=== PATIENT | male | born 1945 | race Caucasian/White ===

== ENCOUNTER 2022-10-26 18:36 | Inpatient (IN) | payer OTHER, MEDICARE ==
--- OUTSIDE RECORDS SUMMARY | 2022-10-26 18:39 | XMS REPORT | Clinical Summary ---
:1945 Author Organization [facility] MD [facility] Address [address] [place] [address] Care Team Providers Name Role Phone Jade Arias MD Unavailable [phone] Brianne Suarez MD Unavailable Melo Salguero MD Unavailable Gurpreet Aguilar MD Primary Care Provider Sameer Cardoso MD Unavailable Nasim Lubin MD Unavailable Mike Avitia MD Unavailable Migue Saavedra DDS Unavailable Allergies No known active allergies Medications Medication Sig Dispensed Refills Start Date End Date Status amLODIPine (NORVASC) Take 10 mg by 0 08/19/2015 Active 10 mg tablet mouth daily. baclofen (LIORESAL) 20 Take 1 tablet by 0 08/30/2015 Active mg tablet mouth twice daily. clopidogrel (PLAVIX) Take 1 tablet by 0 08/19/2015 Active 75 mg tablet mouth daily. carvedilol (COREG) Take 1 tablet by 0 08/20/2015 Active 6.25 mg tablet mouth twice daily. lisinopril-hydrochloro Take 1 tablet by 0 08/19/2015 Active thiazide mouth twice daily. (PRINZIDE,ZESTORETIC) 20-12.5 mg per tablet simvastatin (ZOCOR) 10 Take 1 tablet by 0 08/19/2015 Active mg tablet mouth at bedtime. citalopram (CeleXA) 10 Take 1 tablet by 0 05/31/2015 Active mg tablet mouth at bedtime. doxazosin (CARDURA) 4 Take 1 tablet by 0 08/19/2015 Active mg tablet mouth twice daily. magnesium 250 mg tab Take 1 tablet by 0 Active mouth daily. aspirin 81 mg EC Take 81 mg by 0 Active tablet mouth daily. docusate sodium Take 100 mg by 0 Active (COLACE) 100 mg mouth twice daily. capsule garlic 1,000 mg cap Take 1 tablet by 0 Active mouth daily. cholecalciferol, Take 5,000 mg by 0 Active vitamin D3, (VITAMIN mouth daily. D3) 5,000 units tab tablet cranberry 500 mg cap Take 2 tablets by 0 Active mouth daily. torsemide (DEMADEX) 20 Take 20 mg by 0 Active mg tablet mouth daily. potassium chloride Take 20 mEq by 0 Active (KLOR-CON) 20 mEq mouth every other packet day. Mix contents of 1 packet in 4 ounces (120 mL) of water or juice. Stir well and drink promptly. fish,bora,flax Take by mouth 0 A ctive oils-om3,6,9no1 (OMEGA daily. 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 Surgical History Surgery Date Site/Laterality Comments COLONOSCOPY 05/03/2004 - 05/02/2005 BRONCHOSCOPY 05/03/2005 - to insert Trach due to 05/02/2006 the stroke HIP SURGERY 05/03/2008 - Right pin placed 05/02/2009 APPENDECTOMY 05/03/1965 - 05/02/1966 GASTROSTOMY TUBE PLACEMENT 05/03/2005 - 05/02/2006 TRACHEOSTOMY TUBE 05/03/2005 - PLACEMENT 05/02/2006 AR EXC PRTD SHELBY/PRTD GLND 11/01/2015 Neck/Right Proced ure: COMPLETE TOT DSJ&PRSRV FACIAL NR EXCISION OF PAROTID GLAND WITH DISSECTION AND PRESERVATION OF FACIAL NERVE; Surgeon: Gurpreet Aguilar MD; Locatio n: MAIN OR; Service: [facility] - HEAD & NECK SURGERY AR CONSTJ INTERMARGIN 11/01/2015 Eyelid/Right Procedure: TARSORRHAPHY ADHES/TARSORRH/CANTHORRHAP TO EY E OF SURGICAL SIDE; Y Surgeon: Gurpreet Aguilar MD; Location: MAIN O R; Service: [facility] - HE AD & NECK SURGERY Medical History Medical History Date Comments Hyperlipidemia 2006 Controlled with medi cation Allergic rhinitis 2016 seasonal allergies. Flonase relieves it Swallowing problem 2006 due to stroke/ resol kanwal/ drink sparkling water but has resolved Pneumonia hospitalized in 2015 Urinary tract infection 9967-2078 wears external c ondoms at bedtime Osteoporosis 2015 Fracture 2009 fell and fx rt hip/ pin hip Jun. 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 pt has been on same BP meds since [facility] except for Coreg whi ch was added 3 yrs ago. pt's BP in AM and BP and have been 118/60s. s kylie dx, over the past 2 wks, his BP has tessa 140-150s/70-80s. Other specified cardiac dysrhythmias 2012? pts states no arythmias (has had Holter in the [facility]) have been dx'd but that she fe els his pulse feels slow. Bronchitis usually in the winte rs History of cerebrovascular accident 2006 pt r eportedly had headache followed by facial weakness a nd left side weakness and then wa s"locked in". pt sp stent in basilar artery (left) 2005 and had some re covery. pt has some residual weakne ss of the left side. Personal history of stroke 2006 post and has recovered well. Left side weakness Irregular heart beat 2016 controlled with med ication Unspecified lump in unspecified breast 2019 R ight side/thought it was due to URI/Pneumoni/Bronchi tis Inf Dependence on continuous positive 2000 airway pressure ventilation Polyp of colon 2004 History of recurrent urinary tract 2018 infection Family History Patient is adopted Medical History Relation Name Comments -Genitourinary (Bladder, Kidney, Brother Mohinder Fuentes Prostate/ we are adoted??? Prostate, Testicle) Hypertension Brother Mohinder Fuentes Controlled Relation Name Status Comments Brothalysa Fuentes Social History Tobacco Use Types Packs/Day Years Used Date Smoking Tobacco: Former Cigarettes 0.5 20 05/1965 - 05/03/1993 Smokeless Tobacco: Never Comments: have not smoked in since 1993 Alcohol Use Standard Drinks/Week Comments No 0 (1 standard drink = 0.6 oz pure alcoho l) Sex Assigned at Date Recorded Male 02/13/2019 12:48 PM CDT Obstetrics History Last Filed Vital Signs Not on file Plan of Treatment Health Maintenance Due Date Last Done Comments COVID-19 Vaccination (#1) 1945 Results Not on fileafter 10/26/2021 Insurance Payer Benefit Plan Subscriber ID Effective Phone Address Typ e / Group Dates MEDICARE MEDICARE PART [id number] 2009-Pres [phone] [place] Medicare A AND B ent [id number] [address] [facility] [place] [address] [place] [employer]-SE[employer] [id number] 2013-Pres [address] [employer] ONLY ent [id number] [place] [address] Advance Directives Code Status Date Activated Date Inactivated Comments Full Code 11/01/2015 2:15 PM 11/07/2015 1:39 PM Care Teams Firer Boiler Relationship Specialty Start Date End Date Hugo PCP - External Primary Internal Medicine 09/23/14 MD Jade Care Provider [address] [place] [address] [id number] Brianne Suarez PCP - External Otolaryngology 09/23/14 MD Dora Referring [address] [place] [address] Melo Salguero PCP - External Follow 09/23/14 MD Clyde Up A [address] [place] [address] Gurpreet Aguilar MD PCP - General Head and Neck Surgery 09/30/[address] [place] [id number] Sameer Cardoso PCP - External Follow Physical Medicine and [facility] [address] [facility] [address] [place] [address] Nasim Lubin MD Consulting Physician Head and Neck Medical 10/31/[address] [place] [address] [place] [address] Mike Avitia Consulting Physician Radiation Oncology 10/31/15 MD Jaycee [address] [place] [id number] Migue Saavedra DDS Consulting Physician Dental Oncology 10/04/[address] [place] [id number]
--- OUTSIDE RECORDS SUMMARY | 2022-10-26 19:02 | XMS REPORT | Continuity of Care Document ---
:1945 Author Organization [facility] t Address [address] [facility] [address] [place] [address] Care Team Providers Name Role Phone Hugo GUY, Nba Primary Care Physician [phone] Lavell Decker Attending Clinician RADIOLOGY Attending Clinician Unavailable Radiology Attending Clinician Unavailable Doctor Unassigned, [place] Attending Clinician Unavailable Margie Al NP Attending Clinician 2, [facility] Attending Clinician Unavailable Cait Bhat MD Attending Clinician [phone] MARGIE AL Attending Clinician Unavailable CAIT BHAT Attending Clinician Unavailable Nick Zepeda MD Attending Clinician NICK ZEPEDA Attending Clinician Unavailable Michael Valdez Attending Clinician Unavailable Sera Andrade Attending Clinician Jayy Santos MD Attending Clinician ANNETTE MELO PA Attending Clinician Unavailable Hugo GUY, Felipa Attending Clinician [phone] Pob, [facility] Main Attending Clinician Unavailable Natalia Farfan MD Attending Clinician Kandice White Attending Clinician [phone] Ashok Rincon Attending Clinician Alber Attending Clinician Unavailable Dolores Rolon Attending Clinician Jayy Calle Attending Clinician Physician, Non Associated Attending Clinician Unavailable FELIPA HANSEN Admitting Clinician Unavailable Felipa Hansen Admitting Clinician Unavailable Kandice White Admitting Clinician Ashok Rincon Admitting Clinician Alber Admitting Clinician Unavailable Dolores Rolon Admitting Clinician Jayy Calle Admitting Clinician Payers Payer Name Policy Type Policy Number Effective Date Expiration Date S ource MEDICARE PART A \\T\\ [id number] 2009 B 00:00:00 [facility] [id number] 2013 MEDICARE SUPPLEMENT 00:00:00 [place]ICARE [place]: [id number] 2009 [employer] 00:00:00 [facility] [id number] 2013 OPTION - PLAN F 00:00:00 (MEDICARE SUPPLEMENT) Problems Condition Condition Condition Status Onset Resolution Last Treating Co mments Source Name Details Category Date Date Treatment Clinician Date F/U LAST F/U LAST Diagnosis Active 2022-10-23 Memoria SEEN 2019 SEEN 08-13 13:45:00 l Active 00:00: Joe 08/13/2022 00 MH [facility] DELIVERY/F DELIVERY/ Diagnosis Active 2019-052020-03-18 Memoria ITTING FITTING 05-07 13:47:00 l Active 00:00: Joe 03/07/2020 00 [facility] EVAL EVAL Diagnosis Active 2020-01-12 Mem oria CLINIC CLINIC 12-12 12:35:00 l WITH MINDY WITH MINDY 00:00: Lissa guerra Active 00 12/13/2019 [facility] DISCHARGE Diagnosis Active 2020-01-16 Memoria FOLLOW UP DISCHARGE 06-05 10:18:00 l FOLLOW UP 00:00: Joe Active 00 06/05/2019 [facility] LLE LLE Diagnosis Active 2018-052019-04-20 Mem oria FRACTURE/L FRACTURE/L 05-21 22:10:00 l EFT EFT 00:00: Joe HEMIPARESI HEMIPARESI 00 S S Active 03/21/2019 [facility] FIB FX FIB FX Diagnosis Active 2018-052019-03-30 Me moria Active 05-21 21:40:00 l 03/21/2019 00:00: Jamar lousi [address] LEFT LEFT Diagnosis Active 2018-052019-03-22 Mem oria TIB/FIB FX TIB/FIB FX 05-21 01:03:00 l Active 00:00: Joe 03/21/2019 00 [facility] POLYTRAUMA POLYTRAUM Diagnosis Active 2018-052019-03-22 Memoria , A, 05-21 15:27:00 l DECREASED DECREASED 00:00: Lissa guerra FUNCTIONAL FUNCTIONAL 00 MOBILIT MOBILIT Active 03/21/2019 [facility] Mass of Mass of Disease Active Univers right right 7-31 ity of [place] 00 MD [facility] Elevated Elevated Disease Active Unive rs troponin troponin 7-04 ity of 00:00: [place] [address] Medical Branch Elevated Elevated Disease Active Unive rs troponin troponin 7-04 ity of 00:00: [place] [address] [facility] Branch Acute Acute Disease Active Univers cystitis cystitis 7-03 ity of 00:00: [place] [address] Medical Branch 6 WEEK F/U 6 WEEK Diagnosis Active 2017-02-03 Memoria F/U Active 11-27 14:17:00 l 11/27/2016 00:00: Jamar louis [facility] 00 F/U F/U Diagnosis Active 2016-10-07 Mem oria Active 09-18 14:26:00 l 09/18/2016 00:00: Jamar louis [facility] 00 DC F/U DC F/U Diagnosis Active 2015-052016-07-23 M emoria Active 14:31:00 l 02/26/2016 00:00: Jamar louis [facility] 00 CVA CVA Diagnosis Active 2015-12-06 Mem oria Active 10-31 23:29:00 l 11/01/2015 00:00: Jamar louis [facility] 00 BI BI Active Diagnosis Active 2015-11-06 Memoria 11/01/201510-31 15:51:00 l [facility] 00:00: Joe 00 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 00:00: [place] 00 MD [facility] 200 UNITS 200 UNITS Diagnosis Active 2014-052015-05-25 Memoria Active 05-18 16:30:00 l 03/18/2015 00:00: Jamar louis [facility] 00 Weakness Weakness Disease Active Unive rs generalize generalize 30 it y of d d 00:00: [place] 00 [facility] Branch EVAL EVAL Diagnosis Active 2014-08-02 Mem oria Active 07-06 14:07:00 l 07/06/2014 00:00: Jamar louis [facility] 00 POWER POWER Diagnosis Active 2014-08-15 Mem oria WHEELCHAIR WHEELCHAIR 05-03 12:47:00 l EVAL EVAL 00:00: Joe Active 05/03/2000 [facility] WHEELCHAIR WHEELCHAI Diagnosis Active 2014-09-21 Memoria FINAL R FINAL 05-03 12:42:00 l FITTING FITTING 00:00: [place] Active 00 05/03/2000 [facility] Unspecifie Unspecifi Problem 2019-04-15 Memoria d fracture ed 22:45:50 l of left fracture Joe lower leg, of left initial lower leg, encounter initial for closed encounter fracture for closed fracture 04/15/2019 [facility] Final: Final: Problem 2015-02-18 Roe ana Other Other 00:46:21 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, [facility], [place] Fracture Fracture Problem Resolve 2021-07-06 Memoria of of d 02:09:13 l proximal proximal Jamar n end of end of femur femur (disorder) (disorder) Resolved Problem 07/06/[address] [facility] Hypokalemi Hypokalem Problem Resolve 2021-07-06 Memoria a ia d 02:09:13 l (disorder) (disorder) He rmann Resolved Problem 07/06/[address] [facility], [facility], [place] Pneumonia Pneumonia Problem Resolve 2021-07-06 Memoria (disorder) (disorder) d 02:09:13 l Resolved Jeo Problem 07/06/[address] [facility], [facility], [place] Urinary Urinary Problem Resolve 2021-07-06 M emoria tract tract d 02:09:13 l infectious infectious He rmann disease disease (disorder) (disorder) Resolved Problem 07/06/[address] [facility], [facility], BLANCA [place] Altered Altered Problem Active 2022-10-05 Me moria mental mental 00:51:09 l status status [place] (finding) (finding) Active Problem 10/05/[address] 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, [facility], [facility] Dysphagia Dysphagia Problem Active 2022-10-05 Memoria (disorder) (disorder) 00:51:09 l Active Joe Problem 10/05/[address] [facility], [facility], [facility] Hemiparesi Hemipares Problem Active 2022-10-05 Memoria s is 00:51:09 l (disorder) (disorder) He rmann Active Problem 10/05/[address] [facility], [facility], [facility] Hyperchole Hyperchol Problem Active 2022-10-05 Memoria sterolemia esterolemi 00:51:09 l well a well [place] controlled controlled (finding) (finding) Active Problem 10/05/[address] [facility], [facility], [facility] Hypertensi Hypertens Problem Active 2022-10-05 Memoria ve george 00:51:09 l disorder, disorder, Herm mari systemic systemic arterial arterial (disorder) (disorder) Active Problem 10/05/[address] [facility], [facility] Obesity Obesity Problem Active 2022-10-05 M emoria (disorder) (disorder) 00:51:09 l Active Joe Problem 10/05/[address] [facility], [facility], [facility] Osteoporos Problem Active 2022-10-05 M emoria is Osteoporos 00:51:09 l (disorder) is Jamar n (disorder) Active Problem 10/05/[address] 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, [facility], [facility] PARAPLEGIA PARAPLEGI Diagnosis Active 2020-03-18 Memoria , A, 13:47:00 l UNSPECIFIE UNSPECIFIE He rmann D D Active [facility] INTCRAN INTCRAN [facility]J W/O INJ W/O 10:18:00 l LOSS OF LOSS OF Joe CONSCIOUSN CONSCIOUSN ESS, I ESS, I Active [facility] UNSP UNSP Diagnosis Active 2019-04-20 Mem oria FRACTURE FRACTURE 22:10:00 l OF LEFT OF LEFT Joe LOWER LEG, LOWER LEG, INIT FO INIT FO Active [facility] UNSP UNSP Diagnosis Active 2019-03-30 Mem oria FRACTURE FRACTURE 21:40:00 l OF SHAFT OF SHAFT Jamar n OF UNSP OF UNSP FIBULA, I FIBULA, I Active [facility] FOLLOW-UP FOLLOW-UP Diagnosis Active 2014-09-21 [facility] EXAM NOS EXAM NOS 12:42:00 l Active Jamar n [facility] SPASM OF SPASM OF Diagnosis Active 2014-12-27 [facility] MUSCLE MUSCLE 17:08:00 l Active Jamar n [facility] OTHER OTHER Diagnosis Active 2015-12-06 Mem oria 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 Active [facility] CYANOSIS CYANOSIS Diagnosis Active 2015-01-31 Memoria Active 13:04:00 l [facility] Joe ENCNTR FOR ENCNTR Diagnosis Active 2015-03-18 [facility] F/U EXAM FOR F/U 10:07:00 l AFT TRTMT EXAM AFT Magdalena nn FOR COND O TRTMT FOR COND O Active MH [facility] ANOXIC ANOXIC Diagnosis Active 2015-03-18 M emoria BRAIN BRAIN 10:07:00 l DAMAGE, DAMAGE, Joe NOT NOT ELSEWHERE ELSEWHERE CLASS CLASS Active MH [facility] OTHER OTHER Diagnosis Active 2022-10-23 Mem oria MUSCLE MUSCLE 13:45:00 l SPASM SPASM [place] Active MH [facility] No known No known Disease Metho di active active st problems problems Hospit a l Closed Closed Problem Active [facility] displaced displaced Phys ici fracture fracture ans of medial of medial malleolus malleolus with with malunion malunion Closed Closed Problem Active [facility] bicondylar bicondylar Ph ysici fracture fracture ans of left of left femur, femur, initial initial encounter encounter Closed Closed Problem Active [facility] displaced displaced Phys ici fracture fracture ans of medial of medial condyle of condyle of left femur left femur Closed Closed Problem Active [facility] displaced displaced Phys ici fracture fracture ans of medial of medial malleolus malleolus of left of left tibia with tibia with malunion, malunion, subsequent subsequent encounter encounter Allergies, Adverse Reactions, Alerts Allergy Allergy Status Severity Reaction(s) Onset Inactive Treating Comm ents Source Name Type Date Date Clinician No Known DA Active [facility] [place] [facility] No Known DA Active U 0 [facility]ie [facility]04 [place] [facility] 00:[facility]: d [facility] No Known No Known Active Memori a Medicati Medicati l on on [place] Allergie Allergie s s NO KNOWN Drug Active Univers ALLERGIE Class ity of S [facility] [place] [facility] Family History Family Member Diagnosis Comments Start Date Stop Date Source Natural brother -Genitourinary Unive rsity of (Bladder, Kidney, [facility] Prostate, Testicle) [facility] Hypertension [facility] MD [facility] Social History Social Habit Start Date Stop Date Quantity Comments Source Gender identity [facility] Sexual orientation [facility] History SDOH [facility] al History SDOH [facility] Exposure to 2022-04-05 2022-04-15 Not sure University [facility]-CoV-2 (event) 00:00:00 13:08:00 [facility] [place] [facility] Social History 2019-03-22 2019-03-22 Iliana brand 08:33:33 08:33:33 Alcohol intake 2019-02-16 2019-02-16 Current University of 00:00:00 00:00:00 non-drinker of [facility] (finding) History of Social 2018-12-18 2018-12-[address] function 00:00:00 00:00:00 Hospital History SDOH 2018-10-13 2018-10-13 1 [facility] Frequency 00:00:00 00:00:00 Hospita l Tobacco Comment 2015-10-03 2015-10-03 have not smoked Univ ersity of 00:00:00 00:00:00 in since 1993 [facility] Cigarettes smoked 2015-10-03 2015-10-03 Univers ity of current (pack per 00:00:00 00:00:00 [facility] ) - Reported Cancer Ce nter Cigarette 2015-10-03 2015-10-03 University of pack-years 00:00:00 00:00:00 Teresa [facility]cfadden [facility] Tobacco use and 2015-01-26 2015-01-26 Former smokeless Uni versity of exposure 00:00:00 00:00:00 tobacco user [facility] Branch History of tobacco 1965-05-03 1993-05-03 Cigarette Smoker University of use 00:00:00 00:00:00 Teresa mcfadden [facility] Sex Ass[birth year] [facility] 00:[facility] Smoking Status Start Date Stop Date Source Tobacco smoking status 2022-08-21 19:36:49 2022-08-21 19:36:49 M sukhdeep Diaz Never smoked tobacco [facility] Medications Ordered Filled Start Stop Current Ordering Indication Dosage Frequency Signature Comments Components Source Medication Medication Date Date Medication? Clinician (SIG) Name Name baclofen Yes = 1 tab, Me moria mg oral 4-04 PO, BID, # l tablet 17:32: 180 tab, 1 Magdalena nn 00 Refill(s), Pharmacy: [facility] #[id number] baclofen Yes = 1 tab, Me moria mg oral 4-04 PO, BID, # l tablet 17:32: 180 tab, 1 Magdalena nn 00 Refill(s), Pharmacy: [facility] #[id number] baclofen 20 2022-0 Yes = 1 tab, Me moria mg oral 4-04 PO, BID, # l tablet 17:32: 180 tab, 1 Magdalena nn 00 Refill(s), Pharmacy: [facility] #[id number] TAKE ONE 2021-0 No (1) 9-30 TABLET(S) 00:00: BY MOUTH 00 TWICE A DAY. TAKE ONE 2021-0 No 20 (1) 8-25 TABLET(S) 00:00: BY MOUTH 00 TWICE A DAY. TAKE 1 2021-0 No 10 TABLET BY 7-28 MOUTH EVERY 00:00: NIGHT 00 Dose 2021-0 No Unknown 11-27 00:00: 00 nystatin 2021-0 No 1unit/g 100,000 7- josi unit/gram 00:00: topical 00 powder carvedilol 2021-0 No 1mg 3.125 mg 7-13 tablet 00:00: 00 &lt 2021-0 No 70 7- 00:00: 00 Dose 2-0 No Unknown 7 00:00: 00 Dose 2021-0 No 10 Unknown 711 00:00: 00 TAKE 1 2021-0 No 20 TABLET BY 7-11 MOUTH EVERY 00:00: DAY 00 NEEDED Dose 2021-0 No Unknown 7 00:00: 00 TAKE 1 2021-0 No 10 TABLET BY 7-05 MOUTH EVERY 00:00: NIGHT 00 TAKE 1 2021-0 No 10 TABLET BY 7-05 MOUTH ONCE 00:00: DAILY 00 Dose 2-0 No Unknown 7-05 00:00: 00 TAKE 1 2021-0 No 10 TABLET BY 7-05 MOUTH EVERY 00:00: NIGHT 00 TAKE 1 2021-0 No 10 TABLET BY 7-05 MOUTH ONCE 00:00: DAILY 00 Dose 2-0 No Unknown 7-05 00:00: 00 &lt 2022-0 No 6-30 00:00: 00 &lt 2022-0 No 6-30 00:00: 00 TAKE 1 2-0 No TABLET BY 6-30 MOUTH EVERY 00:00: DAY 00 NEEDED TAKE 1 2-0 No TABLET BY 6-30 MOUTH ONCE 00:00: DAILY 00 TAKE 1 2-0 No TABLET BY 6-30 MOUTH EVERY 00:00: DAY AT 00 BEDTIME &lt 2022-0 No 6-30 00:00: 00 Dose 2022-0 No Unknown 6-30 00:00: 00 &lt 2022-0 No 6-30 00:00: 00 carvedilol 2022-0 No 1mg 3.125 mg 6-30 tablet 00:00: 00 torsemide 2022-0 No 1mg 20 mg 6-30 tablet 00:00: 00 potassium 2022-0 No 1mEq chloride ER 6-30 20 mEq 00:00: tablet,exte 00 nded release(par t/cryst) &lt 2022-0 No 6-30 00:00: 00 &lt 2022-0 No 6-30 00:00: 00 &lt 2022-0 No 6-30 00:00: 00 &lt 2022-0 No 6-30 00:00: 00 TAKE 1 2-0 No TABLET BY 6-30 MOUTH EVERY 00:00: DAY 00 NEEDED TAKE 1 2-0 No TABLET BY 6-30 MOUTH ONCE 00:00: DAILY 00 TAKE 1 2-0 No TABLET BY 6-30 MOUTH EVERY 00:00: DAY AT 00 BEDTIME &lt 2022-0 No 6-30 00:00: 00 Dose 2022-0 No Unknown 630 00:00: 00 &lt 2022-0 No 6-30 00:00: 00 carvedilol 2022-0 No 1mg 3.125 mg 6-30 tablet 00:00: 00 torsemide 2022-0 No 1mg 20 mg 6-30 tablet 00:00: 00 potassium 2-0 No 1mEq chloride ER 6-30 20 mEq 00:00: tablet,exte 00 nded release(par t/cryst) &lt 2-0 No 6-30 00:00: 00 &lt 2022-0 No 6-30 00:00: 00 baclofen 20 2-0 No 1mg mg tablet 624 00:00: 00 TAKE ONE 2-0 No (1) 6-24 TABLET(S) 00:00: BY MOUTH 00 TWICE A DAY. TAKE ONE 2-0 No (1) 6-24 TABLET(S) 00:00: BY MOUTH 00 TWICE A DAY. TAKE 1 2-0 No TABLET BY 6-24 MOUTH EVERY 00:00: NIGHT 00 TAKE 1 2-0 No TABLET BY 6-24 MOUTH EVERY 00:00: NIGHT 00 baclofen 20 2-0 No 1mg mg tablet 10-24 00:00: 00 TAKE ONE 2-0 No (1) 6-24 TABLET(S) 00:00: BY MOUTH 00 TWICE A DAY. TAKE ONE 2-0 No (1) 6-24 TABLET(S) 00:00: BY MOUTH 00 TWICE A DAY. TAKE 1 2-0 No TABLET BY 6-24 MOUTH EVERY 00:00: NIGHT 00 TAKE 1 2-0 No TABLET BY 6-24 MOUTH EVERY 00:00: NIGHT 00 citalopram 2022-0 No 1mg 10 mg 5-25 tablet 00:00: 00 citalopram 2022-0 No 1mg 10 mg 5-25 tablet 00:00: 00 Bactrim DS 2022-0 No 1mg 800 mg-160 4-21 mg tablet 00:00: 00 Bactrim DS 2022-0 No 1mg 800 mg-160 4-21 mg tablet 00:00: 00 ciprofloxac 2022-0 No 1mg in 500 mg 4-01 tablet 00:00: 00 ciprofloxac 2022-0 No 1mg in 500 mg 4-01 tablet 00:00: 00 ciprofloxac 2022-0 No 1mg in 500 mg 4-01 tablet 00:00: 00 ciprofloxac 2022-0 No 1mg in 500 mg 4-01 tablet 00:00: 00 Dose 2022-0 No Unknown 3-31 00:00: 00 Dose 2022-0 No Unknown 3-31 00:00: 00 Dose 2022-0 No Unknown 3-31 00:00: 00 Dose 2022-0 No Unknown 3-31 00:00: 00 Dose 2022-0 No Unknown 3-31 00:00: 00 Dose 2022-0 No Unknown 3-31 00:00: 00 carvedilol 2022-0 No 1mg 6.25 mg 3-30 tablet 00:00: 00 Dose 2022-0 No Unknown 3-30 00:00: 00 Macrobid 2022-0 No 1mg 100 mg 3-30 capsule 00:00: 00 carvedilol 2022-0 No 1mg 6.25 mg 3-30 tablet 00:00: 00 Cardura 4 2-0 No 1mg mg tablet 3-30 00:00: 00 Macrobid 2022-0 No 1mg 100 mg 3-30 capsule 00:00: 00 simvastatin 2022-0 No 1mg 10 mg 3-29 tablet 00:00: 00 Plavix 75 2-0 No 1mg mg tablet 3-29 00:00: 00 lisinopril 2022-0 No 1mg 20 3-29 mg-hydrochl 00:00: orothiazide 00 12.5 mg tablet Dose 2-0 No Unknown 3-29 00:00: 00 citalopram 2022-0 No 1mg 10 mg 3-29 tablet 00:00: 00 nitrofurant 2-0 No 1mg oin 3-29 macrocrysta 00:00: l 100 mg 00 capsule Dose 2-0 No Unknown 3-29 00:00: 00 simvastatin 2022-0 No 1mg 10 mg 3-29 tablet 00:00: 00 Plavix 75 2-0 No 1mg mg tablet 3-29 00:00: 00 lisinopril 2022-0 No 1mg 20 3-29 mg-hydrochl 00:00: orothiazide 00 12.5 mg tablet Dose 2-0 No Unknown 3-29 00:00: 00 citalopram 2022-0 No 1mg 10 mg 3-29 tablet 00:00: 00 nitrofurant 2-0 No 1mg oin 3-29 macrocrysta 00:00: l 100 mg 00 capsule Dose 2-0 No Unknown 3-29 00:00: 00 Dose 2022-0 No Unknown 3-15 00:00: 00 Dose 2022-0 No Unknown 3-15 00:00: 00 Dose 2022-0 No Unknown 3-15 00:00: 00 Dose 2022-0 No Unknown 3-15 00:00: 00 baclofen 20 2021-0 Yes 20 mg = 1 M emoria mg oral 3-08 tab, PO, l tablet 22:47: BID, # 180 Magdalena nn 00 tab, 2 Refill(s), Pharmacy: [facility], 182.88, cm, 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, 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, 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, kg, 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, 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 baclofen 20 2021-0 Yes 20 mg = 1 M emoria mg oral 3-08 tab, PO, l tablet 22:47: BID, # 180 Magdalena nn 00 tab, 2 Refill(s), Pharmacy: [facility] [place], 182.88, cm, 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, 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, 127.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, kg, 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, 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 baclofen 20 2021-0 Yes 20 mg = 1 M emoria mg oral 3-08 tab, PO, l tablet 22:47: BID, # 180 Magdalena nn 00 tab, 2 Refill(s), Pharmacy: [facility] [place], 182.88, cm, 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, 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, 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.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, kg, 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, 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 baclofen 20 2021-0 Yes 20 mg = 1 M emoria mg oral 3-03 tab, PO, l tablet 19:48: BID, # 180 Magdalena nn 00 tab, 2 Refill(s), Pharmacy: [facility][id number], 182.88, cm, 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, 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, 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.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, kg, 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, 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 baclofen 20 2021-0 Yes 20 mg = 1 M emoria mg oral 3-03 tab, PO, l tablet 19:48: BID, # 180 Magdalena nn 00 tab, 2 Refill(s), [id number], 182.88, cm, 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 [address] clopidogrel Yes 75mg Take 75 mg Univers (PLAVIX) 75 2-07 by mouth ity of mg tablet 11:57: daily. [address] baclofen Yes 20mg Take 20 mg Uni vers (LIORESAL) 2-07 by mouth 2 ity of 20 mg 11:57: (two) [place] tablet 11 times Medical daily. Branch simvastatin Yes 10mg Take 10 mg Univers (ZOCOR) 10 2-07 by mouth ity o f mg tablet 11:57: at [place] [address] bedtime. Medical Branch citalopram Yes 10mg Take 10 mg U nivers (CELEXA) 10 2-07 by mouth ity of mg tablet 11:57: at [place] [address] bedtime. Medical Branch aspirin 81 Yes 81mg Take 81 mg U nivers mg chewable 2-07 by mouth ity of tablet 11:57: daily. [address] Cranberry Yes 2{capsu Take 2 Uni vers 500 mg Cap 2-07 le} capsules ity o f 11:57: by mouth. [address] doxazosin 4 Yes doxazosin U nivers mg tablet 2-07 4 mg ity of 11:57: tablet [address] torsemide Yes 20mg Take 20 mg Un beto 20 mg 2-07 by mouth. ity of tablet 11:57: [address] lisinopriL- Yes lisinopril Univers hydrochloro 2-07 20 ity of thiazide 11:57: mg-hydroch [place] as 20-12.5 mg 11 lorothiazi Med ical per tablet de 12.5 mg Bra nch tablet Magnesium Yes 1{tbl} Take 1 Univ ers 250 mg Tab 2-07 tablet by ity of 11:57: mouth. [address] potassium Yes 20meq Take 20 Univ ers chloride 20 2-07 mEq by ity of mEq packet 11:57: mouth. [place] [address] Medical Branch Cholecalcif Yes 1{each} Take 1 U nivers jono, 2-07 Each by ity of Vitamin D3, 11:57: mouth [place] (VITAMIN 11 daily. Medical D3) 125 mcg Branch (5,000 unit) tablet baclofen 20 Yes baclofen Un beto mg tablet 2-07 20 mg ity of 11:57: tablet [place] [address] Medical Branch docusate Yes 250mg Take 250 Univ ers sodium 2-07 mg by ity of (STOOL 11:57: mouth [place] SOFTENER) 11 daily. Medical 250 mg Branch capsule cran[facility] fruit [facility]-07 mouth. ity of extract 11:57: [place] (CRANBERRY Medical CONCENTRATE Branch ORAL) fish,bora,f Yes Take by Uni vers lax 2-07 mouth. ity of oils-om3,6, 11:57: [place] 9no1 (OMEGA 11 Medical 3-6-9) Branch 1,200 mg Cap Zinc 50 mg Yes Take by Univ ers Tab 2-07 mouth. ity of 11:57: [place] [address] Medical Branch vitamin C Yes 100mg Take 100 Uni vers (VITAMIN C) 2-07 mg by ity of 100 mg 11:57: mouth [place] tablet 11 daily. Medical Branch amLODIPine Yes 10mg Take 10 mg U nivers (NORVASC) 2-07 by mouth ity of 10 mg 11:57: daily. [place] [address] Medical Branch clopidogrel Yes 75mg Take 75 mg Univers (PLAVIX) 75 2-07 by mouth ity of mg tablet 11:57: daily. [place] [address] Medical Branch baclofen Yes 20mg Take 20 mg Uni vers (LIORESAL) 2-07 by mouth 2 ity of 20 mg 11:57: (two) [place] tablet 11 times Medical daily. Branch simvastatin Yes 10mg Take 10 mg Univers (ZOCOR) 10 2-07 by mouth ity o f mg tablet 11:57: at [place] [address] bedtime. Medical Branch citalopram Yes 10mg Take 10 mg U nivers (CELEXA) 10 2-07 by mouth ity of mg tablet 11:57: at [place] [address] bedtime. Medical Branch aspirin 81 Yes 81mg Take 81 mg U nivers mg chewable 2-07 by mouth ity of tablet 11:57: daily. [address] Cranberry Yes 2{capsu Take 2 Uni vers 500 mg Cap 2-07 le} capsules ity o f 11:57: by mouth. [address] doxazosin 4 Yes doxazosin U nivers mg tablet 2-07 4 mg ity of 11:57: tablet [address] torsemide Yes 20mg Take 20 mg Un beto 20 mg 2-07 by mouth. ity of tablet 11:57: [address] lisinopriL- Yes lisinopril Univers hydrochloro 2-07 20 ity of thiazide 11:57: mg-hydroch Wade as 20-12.5 mg 11 lorothiazi Med ical per tablet de 12.5 mg Bra nch tablet Magnesium Yes 1{tbl} Take 1 Univ ers 250 mg Tab 2-07 tablet by ity of 11:57: mouth. [address] potassium Yes 20meq Take 20 Univ ers chloride 20 2-07 mEq by ity of mEq packet 11:57: mouth. [address] Cholecalcif Yes 1{each} Take 1 U nivers jono, 2-07 Each by ity of Vitamin D3, 11:57: mouth [place] (VITAMIN 11 daily. Medical D3) 125 mcg Branch (5,000 unit) tablet baclofen 20 Yes baclofen Un beto mg tablet 2-07 20 mg ity of 11:57: tablet [address] docusate Yes 250mg Take 250 Univ ers sodium 2-07 mg by ity of (STOOL 11:57: mouth [place] SOFTENER) 11 daily. Medical 250 mg Branch capsule cranberry Yes Take by Unive rs fruit 2-07 mouth. ity of extract 11:57: [place] (CRANBERRY Medical CONCENTRATE Branch ORAL) fish,bora,f Yes Take by Uni vers lax 2-07 mouth. ity of oils-om3,6, 11:57: [place] 9no1 (OMEGA 11 Medical 3-6-9) Branch 1,200 mg Cap Zinc 50 mg Yes Take by Univ ers Tab 2-07 mouth. ity of 11:57: [address] vitamin C Yes 100mg Take 100 Uni vers (VITAMIN C) 2-07 mg by ity of 100 mg 11:57: mouth [place] tablet 11 daily. Medical Branch amLODIPine Yes 10mg Take 10 mg U nivers (NORVASC) 2-07 by mouth ity of 10 mg 11:57: daily. [place] [address] Medical Branch clopidogrel Yes 75mg Take 75 mg Univers (PLAVIX) 75 2-07 by mouth ity of mg tablet 11:57: daily. [address] baclofen Yes 20mg Take 20 mg Uni vers (LIORESAL) 2-07 by mouth 2 ity of 20 mg 11:57: (two) [place] tablet 11 times Medical daily. Branch simvastatin Yes 10mg Take 10 mg Univers (ZOCOR) 10 2-07 by mouth ity o f mg tablet 11:57: at [place] [address] bedtime. Medical Branch citalopram Yes 10mg Take 10 mg U nivers (CELEXA) 10 2-07 by mouth ity of mg tablet 11:57: at [place] [address] bedtime. Medical Branch aspirin 81 Yes 81mg Take 81 mg U nivers mg chewable 2-07 by mouth ity of tablet 11:57: daily. [address] Cranberry Yes 2{capsu Take 2 Uni vers 500 mg Cap 2-07 le} capsules ity o f 11:57: by mouth. [address] doxazosin 4 Yes doxazosin U nivers mg tablet 2-07 4 mg ity of 11:57: tablet [address] torsemide Yes 20mg Take 20 mg Un beto 20 mg 2-07 by mouth. ity of tablet 11:57: [address] lisinopriL- Yes lisinopril Univers hydrochloro 2-07 20 ity of thiazide 11:57: mg-hydroch [place] as 20-12.5 mg 11 lorothiazi Med ical per tablet de 12.5 mg Bra nch tablet Magnesium Yes 1{tbl} Take 1 Univ ers 250 mg Tab 2-07 tablet by ity of 11:57: mouth. [place] [address] Medical Branch potassium Yes 20meq Take 20 Univ ers chloride 20 2-07 mEq by ity of mEq packet 11:57: mouth. [place] [address] Medical Branch Cholecalcif Yes 1{each} Take 1 U nivers jono, 2-07 Each by ity of Vitamin D3, 11:57: mouth [place] (VITAMIN 11 daily. Medical D3) 125 mcg Branch (5,000 unit) tablet baclofen 20 Yes baclofen Un beto mg tablet 2-07 20 mg ity of 11:57: tablet [place] [address] Medical Branch docusate Yes 250mg Take 250 Univ ers sodium 2-07 mg by ity of (STOOL 11:57: mouth [place] SOFTENER) 11 daily. Medical 250 mg Branch capsule cranberry Yes Take by [facility] rs fruit 2-07 mouth. ity of extract 11:57: [place] (CRANBERRY Medical CONCENTRATE Branch ORAL) fish,bora,f Yes Take by Uni vers lax 2-07 mouth. ity of oils-om3,6, 11:57: [place] 9no1 (OMEGA 11 Medical 3-6-9) Branch 1,200 mg Cap Zinc 50 mg Yes Take by [facility] ers Tab 2-07 mouth. ity of 11:57: [address] Branch vitamin C Yes 100mg Take 100 Uni vers (VITAMIN C) 2-07 mg by ity of 100 mg 11:57: mouth [place] tablet 11 daily. Medical Branch amLODIPine Yes 10mg Take 10 mg U nivers (NORVASC) 2-07 by mouth ity of 10 mg 11:57: daily. [place] [address] Medical Branch clopidogrel Yes 75mg Take 75 mg Univers (PLAVIX) 75 2-07 by mouth ity of mg tablet 11:57: daily. [place] [address] Medical Branch baclofen Yes 20mg Take 20 mg Uni vers (LIORESAL) 2-07 by mouth 2 ity of 20 mg 11:57: (two) [place] tablet 11 times Medical daily. Branch simvastatin Yes 10mg Take 10 mg Univers (ZOCOR) 10 2-07 by mouth ity o f mg tablet 11:57: at [place] 11 bedtime. [facility] Branch citalopram Yes 10mg Take 10 mg U nivers (CELEXA) 10 2-07 by mouth ity of mg tablet 11:57: at [place] [address] bedtime. [facility] Branch aspirin 81 Yes 81mg Take 81 mg U nivers mg chewable 2-07 by mouth ity of tablet 11:57: daily. [address] Cranberry Yes 2{capsu Take 2 Uni vers 500 mg Cap 2-07 le} capsules ity o f 11:57: by mouth. [address] doxazosin 4 Yes doxazosin U nivers mg tablet 2-07 4 mg ity of 11:57: tablet [address] torsemide Yes 20mg Take 20 mg Un beto 20 mg 2-07 by mouth. ity of tablet 11:57: [address] lisinopriL- Yes lisinopril Univers hydrochloro 2-07 20 ity of thiazide 11:57: mg-hydroch [place] as 20-12.5 mg 11 lorothiazi Med ical per tablet de 12.5 mg Bra nch tablet Magnesium Yes 1{tbl} Take 1 Univ ers 250 mg Tab 2-07 tablet by ity of 11:57: mouth. [address] potassium Yes 20meq Take 20 Univ ers chloride 20 2-07 mEq by ity of mEq packet 11:57: mouth. [address] Cholecalcif Yes 1{each} Take 1 U nivers jono, 2-07 Each by ity of Vitamin D3, 11:57: mouth [place] (VITAMIN 11 daily. Medical D3) 125 mcg Branch (5,000 unit) tablet baclofen 20 Yes baclofen Un beto mg tablet 2-07 20 mg ity of 11:57: tablet [address] docusate Yes 250mg Take 250 Univ ers sodium 2-07 mg by ity of (STOOL 11:57: mouth [place] SOFTENER) 11 daily. Medical 250 mg Branch capsule cranberry Yes Take by Unive rs fruit 2-07 mouth. ity of extract 11:57: [place] (CRAN[place] [address] [place] [address] CONCENTRATE Branch ORAL) fish,bora,f Yes Take by Uni vers lax 2-07 mouth. ity of oils-om3,6, 11:57: [place] 9no1 (OMEGA 11 Medical 3-6-9) Branch 1,200 mg Cap Zinc 50 mg Yes Take by Univ ers Tab 2-07 mouth. ity of 11:57: [address] Branch vitamin C Yes 100mg Take 100 Uni vers (VITAMIN C) 2-07 mg by ity of 100 mg 11:57: mouth [place] tablet 11 daily. Medical Branch amLODIPine Yes 10mg Take 10 mg U nivers (NORVASC) 2-07 by mouth ity of 10 mg 11:57: daily. [place] [address] Medical Branch clopidogrel Yes 75mg Take 75 mg Univers (PLAVIX) 75 2-07 by mouth ity of mg tablet 11:57: daily. [address] Branch baclofen Yes 20mg Take 20 mg Uni vers (LIORESAL) 2-07 by mouth 2 ity of 20 mg 11:57: (two) [place] tablet 11 times Medical daily. Branch simvastatin Yes 10mg Take 10 mg Univers (ZOCOR) 10 2-07 by mouth ity o f mg tablet 11:57: at [place] [address] bedtime. Medical Branch citalopram Yes 10mg Take 10 mg U nivers (CELEXA) 10 2-07 by mouth ity of mg tablet 11:57: at [place] [address] bedtime. Medical Branch aspirin 81 Yes 81mg Take 81 mg U nivers mg chewable 2-07 by mouth ity of tablet 11:57: daily. [address] Branch Cranberry Yes 2{capsu Take 2 Uni vers 500 mg Cap 2-07 le} capsules ity o f 11:57: by mouth. [address] Branch doxazosin 4 Yes doxazosin U nivers mg tablet 2-07 4 mg ity of 11:57: tablet [address] torsemide Yes 20mg Take 20 mg Un beto 20 mg 2-07 by mouth. ity of tablet 11:57: [address] lisinopriL- Yes lisinopril Univers hydrochloro 2-07 20 ity of thiazide 11:57: mg-hydroch [place] as 20-12.5 mg 11 lorothiazi Med ical per tablet de 12.5 mg Bra nch tablet Magnesium Yes 1{tbl} Take 1 Univ ers 250 mg Tab 2-07 tablet by ity of 11:57: mouth. [place] [address] Medical Branch potassium Yes 20meq Take 20 Univ ers chloride 20 2-07 mEq by ity of mEq packet 11:57: mouth. [place] [address] Medical Branch Cholecalcif Yes 1{each} Take 1 U nivers jono, 2-07 Each by ity of Vitamin D3, 11:57: mouth [place] (VITAMIN 11 daily. Medical D3) 125 mcg Branch (5,000 unit) tablet baclofen 20 Yes baclofen Un beto mg tablet 2-07 20 mg ity of 11:57: tablet [place] [address] Medical Branch docusate Yes 250mg Take 250 Univ ers sodium 2-07 mg by ity of (STOOL 11:57: mouth [place] SOFTENER) 11 daily. Medical 250 mg Branch capsule cranberry Yes Take by Unive rs fruit 2-07 mouth. ity of extract 11:57: [place] (CRANBERRY Medical CONCENTRATE Branch ORAL) fish,bora,f Yes Take by Uni vers lax 2-07 mouth. ity of oils-om3,6, 11:57: [place] 9no1 (OMEGA 11 Medical 3-6-9) Branch 1,200 mg Cap Zinc 50 mg Yes Take by Univ ers Tab 2-07 mouth. ity of 11:57: [address] Branch vitamin C Yes 100mg Take 100 Uni vers (VITAMIN C) 2-07 mg by ity of 100 mg 11:57: mouth [place] tablet 11 daily. Medical Branch Diflucan 2021-0 No 1mg 150 mg 2-01 tablet 00:00: 00 Diflucan 2021-0 No 1mg 150 mg 2-01 tablet 00:00: 00 nystatin 2021-0 No 1unit/g 100,000 1-26 josi unit/gram 00:00: topical 00 powder nystatin 2021-0 No 1unit/g 100,000 1-26 josi unit/gram 00:00: topical 00 powder Diflucan 2021-0 No 1mg 150 mg 1-25 tablet 00:00: 00 Diflucan 2021-0 No 1mg 150 mg 1-25 tablet 00:00: 00 Dose 2021-0 No Unknown 1-20 00:00: 00 Dose 2021-0 No Unknown 1-20 00:00: 00 baclofen 20 2020-1 No 1mg mg tablet 2-30 00:00: 00 baclofen 20 1 No 1mg mg tablet 2-30 00:00: 00 carvediloL 2020-05 Yes 6.25mg Take 6.25 Univers 6.25 mg 1-28 mg by ity of tablet 00:00: mouth 2 [place] (two) Medical times Branch daily. carvediloL 2020-05 Yes 6.25mg Take 6.25 Univers 6.25 mg 1-28 mg by ity of tablet 00:00: mouth 2 [place] (two) Medical times Branch daily. carvediloL 2020-05 Yes 6.25mg Take 6.25 Univers 6.25 mg 1-28 mg by ity of tablet 00:00: mouth 2 [place] (two) Medical times Branch daily. carvediloL 2020-05 Yes 6.25mg Take 6.25 Univers 6.25 mg 1-28 mg by ity of tablet 00:00: mouth 2 [place] (two) Medical times Branch daily. carvediloL 2020-05 Yes 6.25mg Take 6.25 Univers 6.25 mg 1-28 mg by ity of tablet 00:00: mouth 2 [place] (two) Medical times Branch daily. Dose 2020-05 No Unknown 0-27 00:00: 00 Dose 2020-1 No Unknown 0-27 00:00: 00 baclofen 20 2020-1 No 1mg mg tablet 0-11 00:00: 00 baclofen 20 2020-1 No 1mg mg tablet 0-11 00:00: 00 Dose 2020-0 No Unknown 9- 00:00: 00 citalopram 2020-0 No 1mg 10 mg 9-27 tablet 00:00: 00 Dose 2020-0 No Unknown 9 00:00: 00 citalopram 2020-0 No 1mg 10 mg 9-27 tablet 00:00: 00 Dose 2020-0 No Unknown 01-23 00:00: 00 Dose 2021-0 No Unknown 9- 00:00: 00 amoxicillin 2021-0 No 1mg 500 mg 9-13 capsule 00:00: 00 amoxicillin 2021-0 No 1mg 500 mg 9-13 capsule 00:00: 00 amoxicillin 2021-0 No 1mg 500 mg 9-06 capsule 00:00: 00 amoxicillin 2021-0 No 1mg 500 mg 9-06 capsule 00:00: 00 amoxicillin 2021-0 No 1mg 500 mg 9-06 capsule 00:00: 00 amoxicillin 2021-0 No 1mg 500 mg 9-06 capsule 00:00: 00 alendronate 2021-0 No 1mg 70 mg 8-09 tablet 00:00: 00 alendronate 2021-0 No 1mg 70 mg 8-09 tablet 00:00: 00 alendronate 2021-0 No 1mg 70 mg 8-06 tablet 00:00: 00 alendronate 2021-0 No 1mg 70 mg 8-06 tablet 00:00: 00 Cardura 4 1-0 No 1mg mg tablet 7 00:00: 00 Cardura 4 1-0 No 1mg mg tablet 11-22 00:00: 00 Dose 2021-0 No Unknown 7 00:00: 00 Dose 2021-0 No Unknown 7 00:00: 00 Dose 2021-0 No Unknown 6 00:00: 00 Dose 2021-0 No Unknown 6 00:00: 00 simvastatin 2021-0 No 1mg 10 mg 6-22 tablet 00:00: 00 Plavix 75 1-0 No 1mg mg tablet 10-22 00:00: 00 amlodipine 1-0 No 1mg 5 mg tablet 10-22 00:00: 00 Norvasc 5 1-0 No 1mg mg tablet 10-22 00:00: 00 carvedilol 2021-0 No 1mg 6.25 mg 6-22 tablet 00:00: 00 baclofen 20 1-0 No 1mg mg tablet 10-22 00:00: 00 Dose 2021-0 No Unknown 6 00:00: 00 Cardura 4 1-0 No 1mg mg tablet 10-22 00:00: 00 alendronate 2021-0 No 1mg 70 mg 6-22 tablet 00:00: 00 citalopram 2021-0 No 1mg 10 mg 6-22 tablet 00:00: 00 torsemide 1-0 No 1mg 20 mg 6-22 tablet 00:00: 00 simvastatin 2021-0 No 1mg 10 mg 6-22 tablet 00:00: 00 Plavix 75 1-0 No 1mg mg tablet 10-22 00:00: 00 amlodipine 1-0 No 1mg 5 mg tablet 10-22 00:00: 00 Norvasc 5 2020-0 No 1mg mg tablet 10-22 00:00: 00 carvedilol 1-0 No 1mg 6.25 mg 6-22 tablet 00:00: 00 baclofen 20 1-0 No 1mg mg tablet 10-22 00:00: 00 Dose 1-0 No Unknown 10-22 00:00: 00 Cardura 4 2020-0 No 1mg mg tablet 10-22 00:00: 00 alendronate 1-0 No 1mg 70 mg 6-22 tablet 00:00: 00 citalopram 2021-0 No 1mg 10 mg 6-22 tablet 00:00: 00 torsemide 1-0 No 1mg 20 mg 6-22 tablet 00:00: 00 alendronate 2021-0 No 1mg 70 mg 6-02 tablet 00:00: 00 alendronate 2021-0 No 1mg 70 mg 6-02 tablet 00:00: 00 citalopram 2021-0 No 1mg 10 mg 4-12 tablet 00:00: 00 citalopram 2021-0 No 1mg 10 mg 4-12 tablet 00:00: 00 hydrALAZINE 1-0 Yes 50mg Take 50 mg Univers 50 mg 2-10 by mouth 3 ity of tablet 00:00: (three) [place] 00 times Medical daily. Branch hydrALAZINE 2020-0 Yes 50mg Take 50 mg Univers 50 mg 2-10 by mouth 3 ity of tablet 00:00: (three) [place] 00 times Medical daily. Branch hydrALAZINE 1-0 Yes 50mg Take 50 mg Univers 50 mg 2-10 by mouth 3 ity of tablet 00:00: (three) [place] 00 times Medical daily. Branch hydrALAZINE 1-0 Yes 50mg Take 50 mg Univers 50 mg 2-10 by mouth 3 ity of tablet 00:00: (three) [place] 00 times Medical daily. Branch hydrALAZINE 2020-0 Yes 50mg Take 50 mg Univers 50 mg 2-10 by mouth 3 ity of tablet 00:00: (three) [address] Medical daily. Branch Alendronic 2020-0 Yes 70 mg = 1 Me moria acid 70 MG 1-28 tab, PO, l Oral Tablet 21:45: Q7D, # 12 H ermann 00 tab, 0 Refill(s) alendronate 2020-0 Yes 70 mg = 1 M emoria 70 mg oral 1-28 tab, PO, l tablet 21:45: Q7D, # 12 Jamar n 00 tab, 0 Refill(s) Alendronic 2020-0 Yes 70 mg = 1 Me moria acid 70 MG 1-28 tab, PO, l Oral Tablet 21:45: Q7D, # 12 H ermann 00 tab, 0 Refill(s) alendronate 2020-0 Yes 70 mg = 1 M emoria 70 mg oral 1-28 tab, PO, l tablet 21:45: Q7D, # 12 Jamar n 00 tab, 0 Refill(s) Alendronic 2020-0 Yes 70 mg = 1 Me moria acid 70 MG 1-28 tab, PO, l Oral Tablet 21:45: Q7D, # 12 H ermann 00 tab, 0 Refill(s) alendronate 2020-0 Yes 70 mg = 1 M emoria 70 mg oral 1-28 tab, PO, l tablet 21:45: Q7D, # 12 Jamar n 00 tab, 0 Refill(s) alendronate 2020-0 No 1mg 70 mg 1-15 tablet 00:00: 00 alendronate 2021-0 No 1mg 70 mg 1-15 tablet 00:00: 00 alendronate 1-0 Yes 70mg Take 70 mg Univers 70 mg 1-15 by mouth ity of tablet 00:00: weekly. [address] alendronate 1-0 Yes 70mg Take 70 mg Univers 70 mg 1-15 by mouth ity of tablet 00:00: weekly. [address] alendronate 1-0 Yes 70mg Take 70 mg Univers 70 mg 1-15 by mouth ity of tablet 00:00: weekly. [address] alendronate 1-0 Yes 70mg Take 70 mg Univers 70 mg 1-15 by mouth ity of tablet 00:00: weekly. [address] alendronate 2020-0 Yes 70mg Take 70 mg Univers 70 mg 1-15 by mouth ity of tablet 00:00: weekly. [address] baclofen 20 2019-05 Yes 20 mg = 1 M emoria mg oral 2-22 tab, PO, l tablet 18:26: BID, # 180 [place] nn 00 tab, 2 Refill(s), Pharmacy: [facility], 182.88, cm, 01/16/20 15:59:00 CDT, Height, 131.818, kg, 01/16/20 15:59:00 CDT, Weight baclofen 2019-05 Yes 20 mg = 1 M emoria mg oral 2-22 tab, PO, l tablet 18:26: BID, # 180 [place] nn 00 tab, 2 Refill(s), [facility]: [facility], 182.88, cm, 01/16/20 15:59:00 CDT, Height, 131.818, kg, 01/16/20 15:59:00 CDT, Weight baclofen 2019-05 Yes 20 mg = 1 M emoria mg oral 2-22 tab, PO, l tablet 18:26: BID, # 180 [place] nn 00 tab, 2 Refill(s), [facility], 182.88, cm, 01/16/20 15:59:00 CDT, Height, 131.818, kg, 01/16/20 15:59:00 CDT, Weight amlodipine 2019-0 No 1mg 5 mg tablet 01-28 00:00: 00 amlodipine 2020-0 No 1mg 5 mg tablet 01-28 00:00: 00 citalopram 2020-0 No 1mg 10 mg 9- tablet 00:00: 00 citalopram 2020-0 No 1mg 10 mg - tablet 00:00: 00 Baclofen 2020-0 Yes 20 mg, PO, Mem oria 8-05 BID, 0 l 19:42: Refill(s) [place] Baclofen 2020-0 Yes 20 mg, PO, Mem oria 8-05 BID, 0 l 19:42: Refill(s) Baclofen 2020-0 Yes 20 mg, PO, Mem oria 8-05 BID, 0 l 19:42: Refill(s) Amlodipine 2020-0 Yes 10 mg = 1 Me moria 10 MG Oral 8-05 tab, PO, l Tablet 18:43: Daily, # [place] [Norvasc] 00 90 tab, 1 Refill(s) Hydrochloro 2020-0 Yes 1 tab, PO, Memoria thiazide 8-05 BID, # 90 l 12.5 MG / 18:43: tab, 0 Jamar louis Lisinopril 00 Refill(s) 20 MG Oral Tablet carvedilol 2020-0 Yes 6.125 mg, Me moria 8-05 PO, BID, 0 l 18:43: Refill(s) Aspirin 2020-0 Yes 81 mg, PO, Roe ana 8-05 Daily, 0 l 18:43: Refill(s) Norvasc 10 2020-0 Yes 10 mg = 1 Me moria mg oral 8-05 tab, PO, l tablet 18:43: Daily, # Joe 00 90 tab, 1 Refill(s) Amlodipine 2020-0 Yes 10 mg = 1 Me moria 10 MG Oral 8-05 tab, PO, l Tablet 18:43: Daily, # [place] [Rosvasc] 00 90 tab, 1 Refill(s) Hydrochloro 2020-0 Yes 1 tab, PO, Memoria thiazide 8-05 BID, # 90 l 12.5 MG / 18:43: tab, 0 Jamar [place] Lisinopril 00 Refill(s) 20 MG Oral Tablet carvedilol 2020-0 Yes 6.125 mg, Me moria 8-05 PO, BID, 0 l 18:43: Refill(s) Aspirin 2020-0 Yes 81 mg, PO, Roe ana 8-05 Daily, 0 l 18:43: Refill(s) hydrochloro 2020-0 Yes 1 tab, PO, Memoria thiazide-li 8-05 BID, # 90 l sinopril 18:43: tab, 0 Joe 12.5 mg-20 00 Refill(s) mg oral tablet Norvasc 10 2020-0 Yes 10 mg = 1 Me moria mg oral 8-05 tab, PO, l tablet 18:43: Daily, # [place] 00 90 tab, 1 Refill(s) hydrochloro 2020-0 Yes 1 tab, PO, Memoria thiazide-li 8-05 BID, # 90 l sinopril 18:43: tab, 0 [place] 12.5 mg-20 00 Refill(s) mg oral tablet carvedilol 2020-0 Yes 6.125 mg, Me moria 8-05 PO, BID, 0 l 18:43: Refill(s) [place] 00 aspirin 2020-0 Yes 81 mg, PO, Roe ana 8-05 Daily, 0 l 18:43: Refill(s) [place] 00 torsemide 2020-0 Yes 20 mg = 1 Mem oria 20 mg oral 8-05 tab, PO, l tablet 18:43: Daily, # [place] 00 30 tab, 1 Refill(s) [place] 2020-0 Yes [place], Daily, Memori a Glycerin 8-05 0 l Suppositori 18:43: Refill(s) H ermann es Adult 00 magnesium 2020-0 Yes 250 mg = 1 Me moria oxide 250 8-05 tab, PO, l mg oral 18:43: BID, # 28 Magdalena nn tablet 00 tab, 0 Refill(s) [place]-3 2020-0 Yes 1,200 mg Memori a oral 8-05 =, PO, l capsule 18:43: Daily, 0 Jamar n 00 Refill(s) Vitamin D3 2020-0 Yes 5,000 Memori a 5000 intl 8-05 IntlUnit = l units oral 18:43: 1 cap, PO, H ermann capsule 00 Daily, # 30 cap, 1 Refill(s) carvedilol 2020-0 Yes 6.125 mg, Me moria 8-05 PO, BID, 0 l 18:43: Refill(s) [place] 00 aspirin 2020-0 Yes 81 mg, PO, Roe ana 8-05 Daily, 0 l 18:43: Refill(s) [place] 00 torsemide 2020-0 Yes 20 mg = 1 Mem oria 20 mg oral 8-05 tab, PO, l tablet 18:43: Daily, # [place] 00 30 tab, 1 Refill(s) [place] 2020-0 Yes [place], Daily, Memori a Glycerin 8-05 0 l Suppositori 18:43: Refill(s) H ermann es Adult 00 magnesium 2020-0 Yes 250 mg = 1 Me moria oxide 250 8-05 tab, PO, l mg oral 18:43: BID, # 28 Magdalena nn tablet 00 tab, 0 Refill(s) [place]-3 2020-0 Yes 1,200 mg Memori a oral 8-05 =, PO, l capsule 18:43: Daily, 0 Jamar n 00 Refill(s) Vitamin D3 2020-0 Yes 5,000 Memori a 5000 intl 8-05 IntlUnit = l units oral 18:43: 1 cap, PO, H ermann capsule 00 Daily, # 30 cap, 1 Refill(s) Amlodipine 2020-0 Yes 10 mg = 1 Me moria 10 MG Oral 8-05 tab, PO, l Tablet 18:43: Daily, # [place] [Norvasc] 00 90 tab, 1 Refill(s) Hydrochloro 2020-0 Yes 1 tab, PO, Memoria thiazide 8-05 BID, # 90 l 12.5 MG / 18:43: tab, 0 Jamar n Lisinopril 00 Refill(s) 20 MG Oral Tablet carvedilol 2020-0 Yes 6.125 mg, Me moria 8-05 PO, BID, 0 l 18:43: Refill(s) [place] 00 Aspirin 2020-0 Yes 81 mg, PO, Roe ana 8-05 Daily, 0 l 18:43: Refill(s) [place] 00 Norvasc 10 2020-0 Yes 10 mg = 1 Me moria mg oral 8-05 tab, PO, l tablet 18:43: Daily, # [place] 00 90 tab, 1 Refill(s) hydrochloro 2020-0 Yes 1 tab, PO, Memoria thiazide-li 8-05 BID, # 90 l sinopril 18:43: tab, 0 Joe 12.5 mg-20 00 Refill(s) mg oral tablet carvedilol 2020-0 Yes 6.125 mg, Me moria 8-05 PO, BID, 0 l 18:43: Refill(s) [place] 00 aspirin 2020-0 Yes 81 mg, PO, Roe ana 8-05 Daily, 0 l 18:43: Refill(s) [place] 00 torsemide 2020-0 Yes 20 mg = 1 Mem oria 20 mg oral 8-05 tab, PO, l tablet 18:43: Daily, # [place] 00 30 tab, 1 Refill(s) [place] 2020-0 Yes [place], Daily, Memori a Glycerin 8-05 0 l Suppositori 18:43: Refill(s) H ermann es Adult 00 magnesium 2020-0 Yes 250 mg = 1 Me moria oxide 250 8-05 tab, PO, l mg oral 18:43: BID, # 28 Magdalena nn tablet 00 tab, 0 Refill(s) [place]-3 2020-0 Yes 1,200 mg Memori a oral 8-05 =, PO, l capsule 18:43: Daily, 0 Jamar n 00 Refill(s) Vitamin D3 2020-0 Yes 5,000 Memori a 5000 intl 8-05 IntlUnit = l units oral 18:43: 1 cap, PO, H ermann capsule 00 Daily, # 30 cap, 1 Refill(s) carvedilol 2020-0 No 1mg 6.25 mg 6-29 tablet 00:00: 00 Norvasc 5 2020-0 No 1mg mg tablet 10-29 00:00: 00 alendronate 2020-0 No 1mg 70 mg 6-29 tablet 00:00: 00 carvedilol 2020-0 No 1mg 6.25 mg 6-29 tablet 00:00: 00 Norvasc 5 2020-0 No 1mg mg tablet 10-29 00:00: 00 alendronate 2020-0 No 1mg 70 mg 6-29 tablet 00:00: 00 amlodipine 2020-0 No 1mg 5 mg tablet 10-26 00:00: 00 amlodipine 2020-0 No 1mg 5 mg tablet 10-26 00:00: 00 Cardura 4 2020-0 No 1mg mg tablet 10-02 00:00: 00 Fosamax 70 2020-0 No 1mg mg tablet 10-02 00:00: 00 citalopram 2020-0 No 1mg 10 mg - tablet 00:00: 00 Cardura 4 2020-0 No 1mg mg tablet 10-02 00:00: 00 Fosamax 70 2020-0 No 1mg mg tablet 10-02 00:00: 00 citalopram 2020-0 No 1mg 10 mg - tablet 00:00: 00 Fosamax 70 2020-0 No 1mg mg tablet 10-01 00:00: 00 Fosamax 70 2020-0 No 1mg mg tablet 6 00:00: 00 Fosamax 70 2020-0 No 1mg mg tablet 3- 00:00: 00 Flomax 0.4 2020-0 No 1mg mg capsule 3- 00:00: 00 Fosamax 70 2020-0 No 1mg mg tablet 3- 00:00: 00 Flomax 0.4 2020-0 No 1mg mg capsule 3 00:00: 00 baclofen 10 2020-0 Yes 10 mg = 1 M emoria mg oral 3-11 tab, PO, l tablet 21:22: BID, # 180 Mag[place] nn 00 tab, 2 Refill(s), Pharmacy: [facility] baclofen 10 2020-0 Yes 10 mg = 1 M emoria mg oral 3-11 tab, PO, l tablet 21:22: BID, # 180 [place] nn 00 tab, 2 Refill(s), Pharmacy: [facility] baclofen 10 2020-0 Yes 10 mg = 1 M emoria mg oral 3-11 tab, PO, l tablet 21:22: BID, # 180 Magdalena nn 00 tab, 2 Refill(s), Pharmacy: [facility] simvastatin 2020-0 No 1mg 10 mg 1-29 tablet 00:00: 00 Plavix 75 2020-0 No 1mg mg tablet 05-31 00:00: 00 citalopram 2020-0 No 1mg 10 mg 1-29 tablet 00:00: 00 citalopram 2020-0 No 1mg 10 mg 1-29 tablet 00:00: 00 citalopram 2020-0 No 1mg 10 mg 1-29 tablet 00:00: 00 lisinopril 2020-0 No 1mg 20 1-29 mg-hydrochl 00:00: orothiazide 00 12.5 mg tablet Cardura 4 2020-0 No 1mg mg tablet 05-31 00:00: 00 carvedilol 2020-0 No 1mg 3.125 mg 1-29 tablet 00:00: 00 simvastatin 2020-0 No 1mg 10 mg 1-29 tablet 00:00: 00 Plavix 75 2020-0 No 1mg mg tablet 29 00:00: 00 citalopram 2020-0 No 1mg 10 mg 1-29 tablet 00:00: 00 citalopram 2020-0 No 1mg 10 mg 1-29 tablet 00:00: 00 citalopram 2020-0 No 1mg 10 mg -29 tablet 00:00: 00 lisinopril 2020-0 No 1mg 20 1-29 mg-hydrochl 00:00: orothiazide 00 12.5 mg tablet amlodipine 2020-0 No 1mg 5 mg tablet 05-31 00:00: 00 Cardura 4 2020-0 No 1mg mg tablet 05-31 00:00: 00 carvedilol 2020-0 No 1mg 3.125 mg 1-29 tablet 00:00: 00 amlodipine 2020-0 No 1mg 5 mg tablet 05-31 00:00: 00 baclofen 20 2020-0 No 1mg mg tablet 05-31 00:00: 00 baclofen 20 2020-0 No 1mg mg tablet 05-31 00:00: 00 torsemide 2020-0 No 1mg 20 mg -29 tablet 00:00: 00 baclofen 20 2020-0 No 1mg mg tablet 05-31 00:00: 00 baclofen 20 2020-0 No 1mg mg tablet 05-31 00:00: 00 torsemide 2020-0 No 1mg 20 mg -29 tablet 00:00: 00 lisinopril 2020-0 No 1mg 20 1-15 mg-hydrochl 00:00: orothiazide 00 12.5 mg tablet baclofen 20 2020-0 No 1mg mg tablet 05-17 00:00: 00 torsemide 2020-0 No 1mg 20 mg 1-15 tablet 00:00: 00 potassium 2020-0 No 1mEq chloride ER 1-15 20 mEq 00:00: tablet,exte 00 nded release(par t/cryst) citalopram 2020-0 No 1mg 10 mg 1-15 tablet 00:00: 00 Plavix 75 2020-0 No 1mg mg tablet 15 00:00: 00 simvastatin 2020-0 No 1mg 10 mg 1-15 tablet 00:00: 00 amlodipine 2020-0 No 1mg 5 mg tablet 15 00:00: 00 Cardura 4 2020-0 No 1mg mg tablet 15 00:00: 00 carvedilol 2020-0 No 1mg 3.125 mg 1-15 tablet 00:00: 00 lisinopril 2020-0 No 1mg 20 1-15 mg-hydrochl 00:00: orothiazide 00 12.5 mg tablet lisinopril 2020-0 No 1mg 20 1-15 mg-hydrochl 00:00: orothiazide 00 12.5 mg tablet baclofen 20 2020-0 No 1mg mg tablet 1-15 00:00: 00 torsemide 2020-0 No 1mg 20 mg 1-15 tablet 00:00: 00 potassium 2020-0 No 1mEq chloride ER 1-15 20 mEq 00:00: tablet,exte 00 nded release(par t/cryst) citalopram 2020-0 No 1mg 10 mg 1-15 tablet 00:00: 00 Plavix 75 2019-0 No 1mg mg tablet 15 00:00: 00 simvastatin 2020-0 No 1mg 10 mg 1-15 tablet 00:00: 00 amlodipine 2019-0 No 1mg 5 mg tablet 15 00:00: 00 Cardura 4 2019-0 No 1mg mg tablet 15 00:00: 00 carvedilol 2020-0 No 1mg 3.125 mg 1-15 tablet 00:00: 00 lisinopril 2020-0 No 1mg 20 1-15 mg-hydrochl 00:00: orothiazide 00 12.5 mg tablet Docusate 2018-05 Yes IN, Memoria Sodium 56.6 2-12 Bedtime, l MG/ML Enema 17:30: PRN Jamar louis [Enemeez] 00 Constipati on, 0 Refill(s) Docusate 2018-05 Yes IN, Memoria Sodium 56.6 2-12 Bedtime, l MG/ML Enema 17:30: PRN Jamar louis [Enemeez] 00 Constipati on, 0 Refill(s) Docusate 2018-05 Yes IN, Memoria Sodium 56.6 2-12 Bedtime, l MG/ML Enema 17:30: PRN Jamar louis [Enemeez] 00 Constipati on, 0 Refill(s) citalopram 2018-05 Yes 10 mg = 1 Me moria 10 mg oral 2-11 tab, PO, l tablet 17:50: Daily, # [place] 00 90 tab, 0 Refill(s) citalopram 2018-05 Yes 10 mg = 1 Me moria 10 mg oral 2-11 tab, PO, l tablet 17:50: Daily, # [place] 00 90 tab, 0 Refill(s) citalopram 2018-05 Yes 10 mg = 1 Me moria 10 mg oral 2-11 tab, PO, l tablet 17:50: Daily, # [place] 00 90 tab, 0 Refill(s) Aspirin 81 2018-05 Yes 81 mg = 1 Me moria MG Enteric 2-11 tab, PO, l Coated 17:40: Daily, # Joe Tablet 00 30 tab, 0 Refill(s) baclofen 10 2018-05 Yes 10 mg = 1 M emoria mg oral 2-11 tab, PO, l tablet 17:40: Daily, # [place] 00 90 tab, 0 Refill(s) baclofen 20 2018-05 Yes 20 mg = 1 M emoria mg oral 2-11 tab, PO, l tablet 17:40: Bedtime, # [place]dal[place] nn 00 90 tab, 0 Refill(s) carvedilol 2018-05 Yes 3.125 mg = M emoria 3.125 mg 2-11 1 tab, PO, l oral tablet 17:40: BID, # 180 [place] 00 tab, 0 Refill(s) citalopram 2018-05 No 10 mg = Roe ana 20 mg oral 2-11 0.5 tab, l tablet 17:40: PO, Joe 00 Bedtime, # 90 tab, 0 Refill(s) Docusate 2018-05 Yes 100 mg = 1 Mem oria Sodium 100 2-11 cap, PO, l MG Oral 17:40: BID, # 180 Herm mari Capsule 00 cap, 0 [Colace] Refill(s) lisinopril 2018-05 Yes 20 mg = 1 Me moria 20 mg oral 2-11 tab, PO, l tablet 17:40: BID, # 180 [place] nn 00 tab, 0 Refill(s) NIFEdipine 2018-05 Yes 60 mg = 1 Me moria 60 mg oral 2-11 tab, PO, l tablet, 17:40: BID, # 180 Herm mari extended 00 tab, 0 release Refill(s) torsemide 2018-05 Yes 20 mg = 1 Mem oria 20 mg oral 2-11 tab, PO, l tablet 17:40: Q48H, # 45 [place] nn 00 tab, 0 Refill(s) Cholecalcif 2018-05 Yes 2,000 Memor ia jono 2000 06-13 IntlUnit = l UNT Oral 17:40: 1 tab, PO, Her wiggins Tablet 00 Daily, # 90 tab, 0 Refill(s) Hydralazine 2018-05 Yes 50 mg = 1 M emoria Hydrochlori 2-11 tab, PO, l de 50 MG 17:40: TID, # 270 Her wiggins Oral Tablet 00 tab, 0 Refill(s) Hydrochloro 2018-05 Yes 25 mg = 1 M emoria thiazide 25 2-11 tab, PO, l MG Oral 17:40: Daily, # Jamar n Tablet 00 90 tab, 0 Refill(s) clopidogrel 2018-05 Yes 75 mg = 1 M emoria 75 mg oral 2-11 tab, PO, l tablet 17:40: Daily, # Joe 00 90 tab, 0 Refill(s) Colace 100 2018-05 Yes 100 mg = 1 M emoria mg oral 2-11 cap, PO, l capsule 17:40: BID, # 180 Herm mari 00 cap, 0 Refill(s) simvastatin 2018-05 Yes 10 mg = 1 M emoria 10 mg oral 2-11 tab, PO, l tablet 17:40: Bedtime, # [place] nn 00 90 tab, 0 Refill(s) cranberry 2018-05 Yes See Memoria oral 2-11 Instructio l capsule 17:40: ns, PO [place] 00 Daily, # 1 box, 0 Refill(s) potassium 2018-05 Yes 20 mEq = 1 Me moria chloride 20 2-11 tab, PO, l mEq oral 17:40: Daily, # [place] nn tablet, 00 90 tab, 0 extended Refill(s) release (KCL) doxazosin 4 2018-05 Yes 4 mg = 1 Me moria mg oral 2-11 tab, PO, l tablet 17:40: BID, # 180 [place] nn 00 tab, 0 Refill(s) Aspirin 81 2018-05 Yes 81 mg = 1 Me moria MG Enteric 2-11 tab, PO, l Coated 17:40: Daily, # [place] Tablet 00 30 tab, 0 Refill(s) baclofen 10 2018-05 Yes 10 mg = 1 M emoria mg oral 2-11 tab, PO, l tablet 17:40: Daily, # [place] 00 90 tab, 0 Refill(s) baclofen 20 2018-05 Yes 20 mg = 1 M emoria mg oral 2-11 tab, PO, l tablet 17:40: Bedtime, # [place] nn 00 90 tab, 0 Refill(s) carvedilol 2018-05 Yes 3.125 mg = M emoria 3.125 mg 2-11 1 tab, PO, l oral tablet 17:40: BID, # 180 [place] 00 tab, 0 Refill(s) citalopram 2018-05 No 10 mg = Roe ana 20 mg oral 2-11 0.5 tab, l tablet 17:40: PO, Joe 00 Bedtime, # 90 tab, 0 Refill(s) Docusate 2018-05 Yes 100 mg = 1 Mem oria Sodium 100 2-11 cap, PO, l MG Oral 17:40: BID, # 180 Herm mari Capsule 00 cap, 0 [Colace] Refill(s) lisinopril 2018-05 Yes 20 mg = 1 Me moria 20 mg oral 2-11 tab, PO, l tablet 17:40: BID, # 180 [place] nn 00 tab, 0 Refill(s) NIFEdipine 2018-05 Yes 60 mg = 1 Me moria 60 mg oral 2-11 tab, PO, l tablet, 17:40: BID, # 180 Herm mari extended 00 tab, 0 release Refill(s) torsemide 2018-05 Yes 20 mg = 1 Mem oria 20 mg oral 2-11 tab, PO, l tablet 17:40: Q48H, # 45 [place] nn 00 tab, 0 Refill(s) Cholecalcif 2018-05 Yes 2,000 Memor ia jono 2000 11 IntlUnit = l UNT Oral 17:40: 1 tab, PO, Her wiggins Tablet 00 Daily, # 90 tab, 0 Refill(s) Hydralazine 2018-05 Yes 50 mg = 1 M emoria Hydrochlori 2-11 tab, PO, l de 50 MG 17:40: TID, # 270 Her wiggins Oral Tablet 00 tab, 0 Refill(s) Hydrochloro 2018-05 Yes 25 mg = 1 M emoria thiazide 25 2-11 tab, PO, l MG Oral 17:40: Daily, # Jamar n Tablet 00 90 tab, 0 Refill(s) clopidogrel 2018-05 Yes 75 mg = 1 M emoria 75 mg oral 2-11 tab, PO, l tablet 17:40: Daily, # [place] 00 90 tab, 0 Refill(s) Colace 100 2018-05 Yes 100 mg = 1 M emoria mg oral 2-11 cap, PO, l capsule 17:40: BID, # 180 Herm mari 00 cap, 0 Refill(s) simvastatin 2018-05 Yes 10 mg = 1 M emoria 10 mg oral 2-11 tab, PO, l tablet 17:40: Bedtime, # [place] nn 00 90 tab, 0 Refill(s) cranberry 2018-05 Yes See Memoria oral 2-11 Instructio l capsule 17:40: ns, PO [place] 00 Daily, # 1 box, 0 Refill(s) potassium 2018-05 Yes 20 mEq = 1 Me moria chloride 20 2-11 tab, PO, l mEq oral 17:40: Daily, # [place] nn tablet, 00 90 tab, 0 extended Refill(s) release (KCL) doxazosin 4 2018-05 Yes 4 mg = 1 Me moria mg oral 2-11 tab, PO, l tablet 17:40: BID, # 180 [place] nn 00 tab, 0 Refill(s) Aspirin 81 2018-05 Yes 81 mg = 1 Me moria MG Enteric 2-11 tab, PO, l Coated 17:40: Daily, # [place] Tablet 00 30 tab, 0 Refill(s) baclofen 10 2018-05 Yes 10 mg = 1 M emoria mg oral 2-11 tab, PO, l tablet 17:40: Daily, # [place] 00 90 tab, 0 Refill(s) baclofen 20 2018-05 Yes 20 mg = 1 M emoria mg oral 2-11 tab, PO, l tablet 17:40: Bedtime, # [place] nn 00 90 tab, 0 Refill(s) carvedilol 2018-05 Yes 3.125 mg = M emoria 3.125 mg 2-11 1 tab, PO, l oral tablet 17:40: BID, # 180 [place] 00 tab, 0 Refill(s) citalopram 2018-05 No 10 mg = Roe ana 20 mg oral 2-11 0.5 tab, l tablet 17:40: PO, Joe 00 Bedtime, # 90 tab, 0 Refill(s) Docusate 2018-05 Yes 100 mg = 1 Mem oria Sodium 100 2-11 cap, PO, l MG Oral 17:40: BID, # 180 Herm mari Capsule 00 cap, 0 [Colace] Refill(s) lisinopril 2018-05 Yes 20 mg = 1 Me moria 20 mg oral 2-11 tab, PO, l tablet 17:40: BID, # 180 [place] nn 00 tab, 0 Refill(s) NIFEdipine 2018-05 Yes 60 mg = 1 Me moria 60 mg oral 2-11 tab, PO, l tablet, 17:40: BID, # 180 Herm mari extended 00 tab, 0 release Refill(s) torsemide 2018-05 Yes 20 mg = 1 Mem oria 20 mg oral 2-11 tab, PO, l tablet 17:40: Q48H, # 45 [place] nn 00 tab, 0 Refill(s) Cholecalcif 2018-05 Yes 2,000 Memor ia jono 2000 2-11 IntlUnit = l UNT Oral 17:40: 1 tab, PO, Her wiggins Tablet 00 Daily, # 90 tab, 0 Refill(s) Hydralazine 2018-05 Yes 50 mg = 1 M emoria Hydrochlori 2-11 tab, PO, l de 50 MG 17:40: TID, # 270 Her wiggins Oral Tablet 00 tab, 0 Refill(s) Hydrochloro 2018-05 Yes 25 mg = 1 M emoria thiazide 25 2-11 tab, PO, l MG Oral 17:40: Daily, # Jamar n Tablet 00 90 tab, 0 Refill(s) clopidogrel 2018-05 Yes 75 mg = 1 M emoria 75 mg oral 2-11 tab, PO, l tablet 17:40: Daily, # Joe 00 90 tab, 0 Refill(s) Colace 100 2018-05 Yes 100 mg = 1 M emoria mg oral 2-11 cap, PO, l capsule 17:40: BID, # 180 Herm mari 00 cap, 0 Refill(s) simvastatin 2018-05 Yes 10 mg = 1 M emoria 10 mg oral 2-11 tab, PO, l tablet 17:40: Bedtime, # [place] nn 00 90 tab, 0 Refill(s) cranberry 2018-05 Yes See [facility]oria oral 2-11 Instructio l capsule 17:40: ns, PO Joe 00 Daily, # 1 box, 0 Refill(s) potassium 2018-05 Yes 20 mEq = 1 Me moria chloride 20 2-11 tab, PO, l mEq oral 17:40: Daily, # [place] nn tablet, 00 90 tab, 0 extended Refill(s) release (KCL) doxazosin 4 2018-05 Yes 4 mg = 1 Me moria mg oral 2-11 tab, PO, l tablet 17:40: BID, # 180 [place] nn 00 tab, 0 Refill(s) potassium 2018-05 No Notes: Memori a chloride 20 2-11 (Same as: l mEq oral 14:30: K-Dur 20) Herm mari tablet, 00 "Do Not extended Crush" release Give with (KCL) food and full glass of water For patients unable to swallow tablet, dissolve in one half glass of water. Allow about 2 minutes for the tablets to disintegra te. Stir before giving to prepare slurry and administer . Please exclude Patient s with feeding tube less than 14 [place] (Dobhoff, J-tube etc) and pediatric and patients. potassium 2018-05 No Notes: Memori a chloride 20 2-11 (Same as: l mEq oral 14:30: K-Dur 20) Herm mari tablet, 00 "Do Not extended Crush" release Give with (KCL) food and full glass of water For patients unable to swallow tablet, dissolve in one half glass of water. Allow about 2 minutes for the tablets to disintegra te. Stir before giving to prepare slurry and administer . Please exclude Patient s with feeding tube less than 14 [place] (Dobhoff, J-tube etc) and pediatric and patients. potassium 2018-05 No Notes: Memori a chloride 20 2-11 (Same as: l mEq oral 14:30: K-Dur 20) Herm mari tablet, 00 "Do Not extended Crush" release Give with (KCL) food and full glass of water For patients unable to swallow tablet, dissolve in one half glass of water. Allow about 2 minutes for the tablets to disintegra te. Stir before giving to prepare slurry and administer . Please exclude Patient s with feeding tube less than 14 [place] (Dobhoff, J-tube etc) and pediatric and patients. Hydralazine 2018-05 No Notes: Roe ana 2-08 (Same as: l 14:30: Apresoline Joe 00 ) May interfere w/enteral feedings Take With Food. Hydralazine 2018-05 No Notes: Roe ana 2-08 (Same as: l 14:30: Apresoline [place] 00 ) May interfere w/enteral feedings Take With Food. Hydralazine 2018-05 No Notes: Roe ana 2-08 (Same as: l 14:30: Apresoline [place] 00 ) May interfere w/enteral feedings Take With Food. Hydralazine 2018-05 No Notes: Roe ana 2-06 (Same as: l 22:00: Apresoline [place] 00 ) May interfere w/enteral feedings Take With Food. Hydralazine 2018-05 No Notes: Roe ana 2-06 (Same as: l 22:00: Apresoline [place] 00 ) May interfere w/enteral feedings Take With Food. Hydralazine 2018-05 No Notes: Roe ana 2-06 (Same as: l 22:00: Apresoline [place] 00 ) May interfere w/enteral feedings Take With Food. potassium 2018-05 No Notes: Memori a chloride 20 2-06 (Same as: l mEq oral 14:00: K-Dur 20) Herm mari tablet, 00 "Do Not extended Crush" release Give with (KCL) food and full glass of water For patients unable to swallow tablet, dissolve in one half glass of water. Allow about 2 minutes for the tablets to disintegra te. Stir before giving to prepare slurry and administer . Please exclude Patient s with feeding tube less than 14 [place] (Dobhoff, J-tube etc) and pediatric and patients. potassium 2018-05 No Notes: Memori a chloride 20 2-06 (Same as: l mEq oral 14:00: K-Dur 20) Herm mari tablet, 00 "Do Not extended Crush" release Give with (KCL) food and full glass of water For patients unable to swallow tablet, dissolve in one half glass of water. Allow about 2 minutes for the tablets to disintegra te. Stir before giving to prepare slurry and administer . Please exclude Patient s with feeding tube less than 14 [place] (Dobhoff, J-tube etc) and pediatric and patients. potassium 2018-05 No Notes: Memori a chloride 20 2-06 (Same as: l mEq oral 14:00: K-Dur 20) Herm mair tablet, 00 "Do Not extended Crush" release Give with (KCL) food and full glass of water For patients unable to swallow tablet, dissolve in one half glass of water. Allow about 2 minutes for the tablets to disintegra te. Stir before giving to prepare slurry and administer . Please exclude Patient s with feeding tube less than 14 [place] (Dobhoff, J-tube etc) and pediatric and patients. hydrochloro 2018-05 No Notes: Roe ana thiazide 25 2-04 (Same as: l mg oral 14:30: Hydrodiuri Herm mari tablet 00 l) With food. hydrochloro 2018-05 No Notes: Roe ana thiazide 25 2-04 (Same as: l mg oral 14:30: Hydrodiuri Herm mari tablet 00 l) With food. hydrochloro 2018-05 No Notes: Roe ana thiazide 25 2-04 (Same as: l mg oral 14:30: Hydrodiuri Herm mari tablet 00 l) With food. Potassium 2018-05 No Notes: Memori a Chloride 2-03 (Same as: l 03:00: K-Dur 20) [place] 00 "Do Not Crush" Give with food and full glass of water For patients unable to swallow tablet, dissolve in one half glass of water. Allow about 2 minutes for the tablets to disintegra te. Stir before giving to prepare slurry and administer . Please exclude Patient s with feeding tube less than 14 [place] (Dobhoff, J-tube etc) and pediatric and patients. Potassium 2018-05 No Notes: Memori a Chloride 2-03 (Same as: l 03:00: K-Dur 20) [place] 00 "Do Not Crush" Give with food and full glass of water For patients unable to swallow tablet, dissolve in one half glass of water. Allow about 2 minutes for the tablets to disintegra te. Stir before giving to prepare slurry and administer . Please exclude Patient s with feeding tube less than 14 [place] (Dobhoff, J-tube etc) and pediatric and patients. Potassium 2018-05 No Notes: Memori a Chloride 2-03 (Same as: l 03:00: K-Dur 20) Joe 00 "Do Not Crush" Give with food and full glass of water For patients unable to swallow tablet, dissolve in one half glass of water. Allow about 2 minutes for the tablets to disintegra te. Stir before giving to prepare slurry and administer . Please exclude Patient s with feeding tube less than 14 [place] (Dobhoff, J-tube etc) and pediatric and patients. Baclofen 2018-05 No Notes: Memoria - (Same As: l 14:30: Lioresal) Baclofen 2018-05 No Notes: Memoria 05-31 (Same As: l 14:30: Lioresal) Baclofen 2018-05 No Notes: Memoria 05-31 (Same As: l 14:30: Lioresal) NIFEdipine 2018-05 No Notes: Memor ia 60 mg oral 05-31 (Same as: l tablet, 03:00: Adalat CC, Herm mari extended 00 Procardia release XL) Give on empty stomach. Take 1 hour before or 2 hours after meal; "Avoid grapefruit and grapefruit juice". Do not crush Baclofen 2018-05 No Notes: Memoria 05-31 (Same As: l 03:00: Lioresal) NIFEdipine 2018-05 No Notes: Memor ia 60 mg oral 05-31 (Same as: l tablet, 03:00: Adalat CC, Herm mari extended 00 Procardia release XL) Give on empty stomach. Take 1 hour before or 2 hours after meal; "Avoid grapefruit and grapefruit juice". Do not crush Baclofen 2018-05 No Notes: Memoria 05-31 (Same As: l 03:00: Lioresal) NIFEdipine 2018-05 No Notes: Memor ia 60 mg oral 05-31 (Same as: l tablet, 03:00: Adalat CC, Herm mari extended 00 Procardia release XL) Give on empty stomach. Take 1 hour before or 2 hours after meal; "Avoid grapefruit and grapefruit juice". Do not crush Baclofen 2018-05 No Notes: Memoria - (Same As: l 03:00: Lioresal) Baclofen 2018-05 No Notes: Memoria - (Same As: l 14:30: Lioresal) Baclofen 2018-05 No Notes: Memoria 1- (Same As: l 14:30: Lioresal) Baclofen 2018-05 No Notes: Memoria 1- (Same As: l 14:30: Lioresal) Cholecalcif 2018-05 No Notes: Roe ana jono 1- Same as : l 14:30: Vitamin D3 Joe 00 Cholecalcif 2018-05 No Notes: Roe ana jono 05-29 Same as : l 14:30: Vitamin D3 [place] 00 Cholecalcif 2018-05 No Notes: Roe ana jono 05-29 Same as : l 14:30: Vitamin D3 Potassium 2018-05 No Notes: Memori a Chloride 1- (Same as: l 03:00: K-Dur 20) Joe 00 "Do Not Crush" Give with food and full glass of water For patients unable to swallow tablet, dissolve in one half glass of water. Allow about 2 minutes for the tablets to disintegra te. Stir before giving to prepare slurry and administer . Please exclude Patient s with feeding tube less than 14 [place] (Dobhoff, J-tube etc) and pediatric and patients. Potassium 2018-05 No Notes: Memori a Chloride - (Same as: l 03:00: K-Dur 20) Joe "Do Not Crush" Give with food and full glass of water For patients unable to swallow tablet, dissolve in one half glass of water. Allow about 2 minutes for the tablets to disintegra te. Stir before giving to prepare slurry and administer . Please exclude Patient s with feeding tube less than 14 [place] (Dobhoff, J-tube etc) and pediatric and patients. Potassium 2018-05 No Notes: Memori a Chloride - (Same as: l 03:00: K-Dur 20) [place] 00 "Do Not Crush" Give with food and full glass of water For patients unable to swallow tablet, dissolve in one half glass of water. Allow about 2 minutes for the tablets to disintegra te. Stir before giving to prepare slurry and administer . Please exclude Patient s with feeding tube less than 14 [place] (Dobhoff, J-tube etc) and pediatric and patients. sennosides, 2018-05 No Notes: Roe ana ALF 1-26 (Same as: l 19:07: Senokot) Joe 00 sennosides, 2018-05 No Notes: Roe ana ALF 1-26 (Same as: l 19:07: Senokot) [place] 00 sennosides, 2018-05 No Notes: Roe ana ALF 1-26 (Same as: l 19:07: Senokot) [place] 00 potassium 2018-05 No Notes: Memori a chloride 20 1-25 (Same as: l mEq oral 19:32: K-Dur 20) Herm mari tablet, 00 "Do Not extended Crush" release Give with (KCL) food and full glass of water For patients unable to swallow tablet, dissolve in one half glass of water. Allow about 2 minutes for the tablets to disintegra te. Stir before giving to prepare slurry and administer . Please exclude Patient s with feeding tube less than 14 [place] (Dobhoff, J-tube etc) and pediatric and patients. potassium 2018-05 No Notes: Memori a chloride 20 1-25 (Same as: l mEq oral 19:32: K-Dur 20) Herm mari tablet, 00 "Do Not extended Crush" release Give with (KCL) food and full glass of water For patients unable to swallow tablet, dissolve in one half glass of water. Allow about 2 minutes for the tablets to disintegra te. Stir before giving to prepare slurry and administer . Please exclude Patient s with feeding tube less than 14 [place] (Dobhoff, J-tube etc) and pediatric and patients. potassium 2018-05 No Notes: Memori a chloride 20 1-25 (Same as: l mEq oral 19:32: K-Dur 20) Herm mari tablet, 00 "Do Not extended Crush" release Give with (KCL) food and full glass of water For patients unable to swallow tablet, dissolve in one half glass of water. Allow about 2 minutes for the tablets to disintegra te. Stir before giving to prepare slurry and administer . Please exclude Patient s with feeding tube less than 14 [place] (Dobhoff, J-tube etc) and pediatric and patients. NIFEdipine 2018-05 No Notes: Memor ia 30 mg oral 1-24 (Same as: l tablet, 03:00: Adalat CC, Herm mari extended 00 Procardia release XL) Give on empty stomach. Take 1 hour before or 2 hours after meal; "Avoid grapefruit and grapefruit juice". Do not crush NIFEdipine 2018-05 No Notes: Memor ia 30 mg oral 1-24 (Same as: l tablet, 03:00: Adalat CC, Herm mari extended 00 Procardia release XL) Give on empty stomach. Take 1 hour before or 2 hours after meal; "Avoid grapefruit and grapefruit juice". Do not crush NIFEdipine 2018-05 No Notes: Memor ia 30 mg oral -24 (Same as: l tablet, 03:00: Adalat CC, Herm mari extended Procardia release XL) Give on empty stomach. Take 1 hour before or 2 hours after meal; "Avoid grapefruit and grapefruit juice". Do not crush Cranberry 2018-05 No Notes: Non Me moria 23 Formulary l 16:31: Joe Cranberry 2018-05 No Notes: Non Me moria 23 Formulary l 16:31: [place] Cranberry 2018-05 No Notes: Non Me moria 23 Formulary l 16:31: [place] 00 Docusate 2018-05 No Notes: Memoria Sodium 56.6 1-23 Same as l MG/ML Enema 03:56: Enemeez Her wiggins [Enemeez] 00 Docusate 2018-05 No Notes: Memoria Sodium 56.6 1-23 Same as l MG/ML Enema 03:56: Enemeez Her wiggins [Enemeez] 00 Docusate 2018-05 No Notes: Memoria Sodium 56.6 1-23 Same as l MG/ML Enema 03:56: Enemeez Her wiggins [Enemeez] 00 Tylenol 2018-05 No Notes: Do Memor ia -23 not exceed l 00:23: 4 gm/day. (Same as: Tylenol) Tylenol 2018-05 No Notes: Do Memor ia -23 not exceed l 00:23: 4 gm/day. (Same as: Tylenol) Tylenol 2018-05 No Notes: Do Memor ia -23 not exceed l 00:23: 4 gm/day. (Same as: Tylenol) Enemeez 2018-05 No Notes: Memoria Plus 1-22 Same as: l 22:20: (Enemeez [place] 00 Plus) benzocaine -docusate 20 mg-283 mg tube Non Formulary Enemeez 2018-05 No Notes: Memoria Plus 1-22 Same as: l 22:20: (Enemeez Joe 00 Plus) benzocaine -docusate 20 mg-283 mg tube Non Formulary Enemeez 2018-05 No Notes: Memoria Plus 1-22 Same as: l 22:20: (Enemeez Joe 00 Plus) benzocaine -docusate 20 mg-283 mg tube Non Formulary Lovenox 2018-05 No Notes: Memoria 1-22 (Same as: l 21:00: Lovenox) Joe 00 Lovenox 2018-05 No Notes: Memoria -22 (Same as: l 21:00: Lovenox) [place] 00 Lovenox 2018-05 No Notes: Memoria 1-22 (Same as: l 21:00: Lovenox) [place] 00 Vitamin D3 2018-05 No Notes: Memor ia 5000 intl 05-24 Same as: l units oral 14:30: Vitamin D3 H ermann capsule 00 Vitamin D3 2018-05 No Notes: Memor ia 5000 intl 05-24 Same as: l units oral 14:30: Vitamin D3 H ermann capsule 00 Vitamin D3 2018-05 No Notes: Memor ia 5000 intl 05-24 Same as: l units oral 14:30: Vitamin D3 H ermann capsule 00 Baclofen 2018-05 No Notes: Memoria 1-22 (Same As: l 03:00: Lioresal) Baclofen 2018-05 No Notes: Memoria - (Same As: l 03:00: Lioresal) Baclofen 2018-05 No Notes: Memoria - (Same As: l 03:00: Lioresal) sennosides, 2018-05 No Notes: Roe ana ALF 1-21 (Same as: l 18:00: Senokot) sennosides, 2018-05 No Notes: Roe ana ALF 1-21 (Same as: l 18:00: Senokot) sennosides, 2018-05 No Notes: Roe ana ALF 1-21 (Same as: l 18:00: Senokot) Amlodipine 2018-05 No Notes: Memor ia -21 (Same as: l 14:30: Norvasc) Aspirin 81 2018-05 No Notes: Do Me moria MG Enteric 05-23 not crush l Coated 14:30: or chew. [place] Tablet (Same As: Ecotrin) Celexa 2018-05 No 10 mg, Memoria 05-23 Route: PO, l 14:30: Drug form: Joe 00 TAB, Daily, Dosing Weight 125.909, kg, Start date: 03/23/19 8:30:00 [employer] RESEARCHER, Duration: 30 day, Stop date: 04/21/19 8:30:00 [employer] RESEARCHER Plavix 2018-05 No Notes: Memoria 1-21 (Same As: l 14:30: Plavix) [place] 00 Lisinopril 2018-05 No Notes: Memor ia -21 (Same as: l 14:30: Prinivil, [place] 00 Zestril) Aspirin 81 2018-05 No 81 mg, Memor ia MG Chewable 05-23 Route: PO, l Tablet 14:30: Drug form: Magdalena nn 00 CHEWTAB, Daily, Dosing Weight 122.5, kg, Start date: 03/23/19 8:30:00 [employer] PH[employer]ICS RESEARCHER, Duration: 30 day, Stop date: 04/21/19 8:30:00 MEDICAL PHYSICS RESEARCHER Citalopram 2018-05 No Notes: Memor ia - (Same As: l 14:30: CeleXA) Joe Amlodipine 2018-05 No Notes: Memor ia - (Same as: l 14:30: Norvasc) [place] Aspirin 81 2018-05 No Notes: Do Me moria MG Enteric 05-23 not crush l Coated 14:30: or chew. 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 PHYSICS RESEARCHER, Duration: 30 day, Stop date: 04/21/19 8:30:00 MEDICAL PHYSICS RESEARCHER Plavix 2018-05 No Notes: Memoria 1-21 (Same As: l 14:30: Plavix) Joe 00 Lisinopril 2018-05 No Notes: Memor ia 1-21 (Same as: l 14:30: Prinivil, Joe 00 Zestril) Aspirin 81 2018-05 No 81 mg, Memor ia MG Chewable 05-23 Route: PO, l Tablet 14:30: Drug form: Magdalena nn 00 CHEWTAB, Daily, Dosing Weight 122.5, kg, Start date: 03/23/19 8:30:00 MEDICAL PHYSICS RESEARCHER, Duration: 30 day, Stop date: 04/21/19 8:30:00 MEDICAL PHYSICS RESEARCHER Citalopram 2018-05 No Notes: Memor ia 1-21 (Same As: l 14:30: CeleXA) Amlodipine 2018-05 No Notes: Memor ia 1-21 (Same as: l 14:30: Norvasc) Aspirin 81 2018-05 No Notes: Do Me moria MG Enteric 05-23 not crush l Coated 14:30: or chew. [place] Tablet 00 (Same As: Ecotrin) Celexa 2018-05 No 10 mg, Memoria 05-23 Route: PO, l 14:30: Drug form: [place] 00 TAB, Daily, Dosing Weight 125.909, kg, Start date: 03/23/19 8:30:00 MEDICAL PHYSICS RESEARCHER, Duration: 30 day, Stop date: 04/21/19 8:30:00 MEDICAL PHYSICS RESEARCHER Plavix 2018-05 No Notes: Memoria 1-21 (Same As: l 14:30: Plavix) Lisinopril 2018-05 No Notes: Memor ia -21 (Same as: l 14:30: Prinivil, Zestril) Aspirin 81 2018-05 No 81 mg, Memor ia MG Chewable 05-23 Route: PO, l Tablet 14:30: Drug form: Magdalena nn 00 CHE[place]AB, Daily, Dosing Weight 122.5, kg, Start date: 03/23/19 8:30:00 MEDICAL PHYSICS RESEARCHER, Duration: 30 day, Stop date: 04/21/19 8:30:00 MEDICAL PHYSICS RESEARCHER Citalopram 2018-05 No Notes: Memor ia 1-21 (Same As: l 14:30: CeleXA) influenza 2018-05 No Notes: Memori a virus 1-21 (Same as: l vaccine, 08:07: Fluzone Jamar n inactivated 30 High-Dose) high-dose For 65 preservativ years of e-free age of intramuscul older (0.5 ar ml IM) suspension Shake well before use influenza 2018-05 No Notes: Memori a virus 1-21 (Same as: l vaccine, 08:07: Fluzone Jamar n inactivated 30 High-Dose) high-dose For 65 preservativ years of e-free age of intramuscul older (0.5 ar ml IM) suspension Shake well before use influenza 2018-05 No Notes: Memori a virus -21 (Same as: l vaccine, 08:07: Fluzone Jamar n inactivated 30 High-Dose) high-dose For 65 preservativ years of e-free age of intramuscul older (0.5 ar ml IM) suspension Shake well before use Tylenol 2018-05 No Notes: Do Memor ia 1-21 not exceed l 06:00: 4 gm/day. (Same as: Tylenol) Tylenol 2018-05 No Notes: Do Memor ia 1-21 not exceed l 06:00: 4 gm/day. (Same as: Tylenol) Tylenol 2018-05 No Notes: Do Memor ia 1-21 not exceed l 06:00: 4 gm/day. (Same as: Tylenol) Enoxaparin 2018-05 No Notes: Memor ia 1-21 (Same as: l 04:00: Lovenox) Enoxaparin 2018-05 No Notes: Memor ia 1-21 (Same as: l 04:00: Lovenox) Enoxaparin 2018-05 No Notes: Memor ia 1-21 (Same as: l 04:00: Lovenox) lisinopril 2018-05 No Notes: Memor ia 1-21 (Same as: l 03:30: Prinivil, [place] 00 Zestril) lisinopril 2018-05 No Notes: Memor ia 1-21 (Same as: l 03:30: Prinivil, Joe 00 Zestril) lisinopril 2018-05 No Notes: Memor ia 1-21 (Same as: l 03:30: Prinivil, Joe 00 Zestril) Baclofen 2018-05 No Notes: Memoria 1-21 (Same As: l 03:00: Lioresal) Coreg 2018-05 No Notes: Memoria 1-21 Give with l 03:00: food. (Same As: Coreg) Docusate 2018-05 No Notes: Memoria Sodium 100 -21 (Same as: l MG Oral 03:00: Colace) [place] Capsule 00 (Do Not [Colace] Crush) Simvastatin 2018-05 No Notes: Roe ana 1-21 (Same as: l 03:00: Zocor) Joe Amlodipine 2018-05 No Notes: Memor ia -21 (Same as: l 03:00: Norvasc) [place] Doxazosin 2018-05 No Notes: Memori a 1-21 (Same as: l 03:00: Cardura) Joe Hydrochloro 2018-05 No 1 tab, Roe ana thiazide -21 Route: PO, l 12.5 MG / 03:00: Drug Form: Eric grubbs Lisinopril 00 TAB, 20 MG Oral Dosing Tablet Weight 122.5, kg, BID, Start date: 03/22/19 21:00:00 MEDICAL PHYSICS RESEARCHER, Duration: 30 day, Stop date: 04/21/19 8:30:00 MEDICAL PHYSICS RESEARCHER torsemide 2018-05 No Notes: Memori a -21 (Same As: l 03:00: Demadex) Joe Potassium 2018-05 No Notes: Memori a Chloride -21 (Same as: l 03:00: K-Dur 20) [place] "Do Not Crush" Give with food and full glass of water For patients unable to swallow tablet, dissolve in one half glass of water. Allow about 2 minutes for the tablets to disintegra te. Stir before giving to prepare slurry and administer . Please exclude Patient s with feeding tube less than 14 [place] (Dobhoff, J-tube etc) and pediatric and patients. hydrochloro 2018-05 No Notes: Roe ana thiazide 25 1-21 (Same as: l mg oral 03:00: Hydrodiuri Herm mari tablet 00 l) With food. Baclofen 2018-05 No Notes: Memoria 1-21 (Same As: l 03:00: Lioresal) [place] 00 Coreg 2018-05 No Notes: Memoria 1-21 Give with l 03:00: food. [place] 00 (Same As: Coreg) Docusate 2018-05 No Notes: Memoria Sodium 100 1-21 (Same as: l MG Oral 03:00: Colace) Joe Capsule 00 (Do Not [Colace] Crush) Simvastatin 2018-05 No Notes: Roe ana 1-21 (Same as: l 03:00: Zocor) [place] Amlodipine 2018-05 No Notes: Memor ia 1-21 (Same as: l 03:00: Norvasc) [place] 00 Doxazosin 2018-05 No Notes: Memori a 1-21 (Same as: l 03:00: Cardura) Joe 00 Hydrochloro 2018-05 No 1 tab, Roe ana thiazide 1-21 Route: PO, l 12.5 MG / 03:00: Drug Form: Eric grubbs Lisinopril 00 TAB, 20 MG Oral Dosing Tablet Weight 122.5, kg, BID, Start date: 03/22/19 21:00:00 MEDICAL PHYSICS RESEARCHER, Duration: 30 day, Stop date: 04/21/19 8:30:00 MEDICAL PHYSICS RESEARCHER torsemide 2018-05 No Notes: Memori a 1-21 (Same As: l 03:00: Demadex) [place] Potassium 2018-05 No Notes: Memori a Chloride 1-21 (Same as: l 03:00: K-Dur 20) [place] "Do Not Crush" Give with food and full glass of water For patients unable to swallow tablet, dissolve in one half glass of water. Allow about 2 minutes for the tablets to disintegra te. Stir before giving to prepare slurry and administer . Please exclude Patient s with feeding tube less than 14 [place] (Dobhoff, J-tube etc) and pediatric and patients. hydrochloro 2018-05 No Notes: Roe ana thiazide 25 1-21 (Same as: l mg oral 03:00: Hydrodiuri Herm mari tablet 00 l) With food. Baclofen 2018-05 No Notes: Memoria 1-21 (Same As: l 03:00: Lioresal) [place] Coreg 2018-05 No Notes: Memoria 1-21 Give with l 03:00: food. [place] 00 (Same As: Coreg) Docusate 2018-05 No Notes: Memoria Sodium 100 1-21 (Same as: l MG Oral 03:00: Colace) Joe Capsule 00 (Do Not [Colace] Crush) Simvastatin 2018-05 No Notes: Roe ana 1-21 (Same as: l 03:00: Zocor) [place] 00 Amlodipine 2018-05 No Notes: Memor ia 1-21 (Same as: l 03:00: Norvasc) Doxazosin 2018-05 No Notes: Memori a 1-21 (Same as: l 03:00: Cardura) Hydrochloro 2018-05 No 1 tab, Roe ana thiazide 1-21 Route: PO, l 12.5 MG / 03:00: Drug Form: Eric grubbs Lisinopril 00 TAB, 20 MG Oral Dosing Tablet Weight 122.5, kg, BID, Start date: 03/22/19 21:00:00 MEDICAL PHYSICS RESEARCHER, Duration: 30 day, Stop date: 04/21/19 8:30:00 MEDICAL PHYSICS RESEARCHER torsemide 2018-05 No Notes: Memori a 1-21 (Same As: l 03:00: Demadex) Potassium 2018-05 No Notes: Memori a Chloride 1-21 (Same as: l 03:00: K-Dur 20) "Do Not Crush" Give with food and full glass of water For patients unable to swallow tablet, dissolve in one half glass of water. Allow about 2 minutes for the tablets to disintegra te. Stir before giving to prepare slurry and administer . Please exclude Patient s with feeding tube less than 14 [place] (Dobhoff, J-tube etc) and pediatric and patients. hydrochloro 2018-05 No Notes: Roe ana thiazide 25 1-21 (Same as: l mg oral 03:00: Hydrodiuri Herm mari tablet 00 l) With food. Fleet 2018-05 No 1 supp, Memoria Glycerin 1-21 Route: IN, l Suppositori 02:58: Drug Form: Joe es Adult 00 SUPP, Dosing Weight 122.5, kg, Daily, PRN as needed for constipati on, Start date: 03/22/19 20:58:00 MEDICAL PHYSICS RESEARCHER, Duration: 38 day, Stop date: 05/21/19 8:39:00 MEDICAL PHYSICS RESEARCHER, 0 Fleet 2018-05 No 1 supp, Memoria Glycerin 1-21 Route: IN, l Suppositori 02:58: Drug Form: Joe es Adult 00 SUPP, Dosing Weight 122.5, kg, Daily, PRN as needed for constipati on, Start date: 03/22/19 20:58:00 MEDICAL PHYSICS RESEARCHER, Duration: 38 day, Stop date: 05/21/19 8:39:00 MEDICAL PHYSICS RESEARCHER, 0 Fleet 2019-1 No 1 supp, Memoria Glycerin 05-23 Route: IN, l Suppositori 02:58: Drug Form: [place] es Adult 00 SUPP, Dosing Weight 122.5, kg, Daily, PRN as needed for constipati on, Start date: 03/22/19 20:58:00 MEDICAL PHYSICS RESEARCHER, Duration: 38 day, Stop date: 05/21/19 8:39:00 MEDICAL PHYSICS RESEARCHER, 0 Enoxaparin 2018-05 No Notes: Memor ia - (Same as: l 01:14: Lovenox) [place] 00 Enoxaparin 2018-05 No Notes: Memor ia - (Same as: l 01:14: Lovenox) Joe 00 Enoxaparin 2018-05 No Notes: Memor ia 05-23 (Same as: l 01:14: Lovenox) Joe 00 Bisacodyl 2018-05 No Notes: Memori a 05-23 (Same As: l 01:12: Dulcolax, [place] 00 Bisco-Lax) Saline 2018-05 No Notes: Memoria Flush 0.9% - (Same as: l 01:12: BD Joe 00 Posiflush) Midazolam 2018-05 No Notes: Memori a - (Same l 01:12: as:Versed) Joe 00 Levetiracet 2018-05 No Notes: Roe ana am 05-23 Same as l 01:12: Keppra Mix [place] 00 with 100 mL NS, LR or D5W MEDICATION WASTE Product Size: 500 mg Product Wasted: ___ mg Bisacodyl 2018-05 No Notes: Memori a - (Same As: l 01:12: Dulcolax, [place] 00 Bisco-Lax) Saline 2018-05 No Notes: Memoria Flush 0.9% -21 (Same as: l 01:12: BD Joe 00 Posiflush) Midazolam 2018-05 No Notes: Memori a - (Same l 01:12: as:Versed) Joe Levetiracet 2018-05 No Notes: Roe ana am 05-23 Same as l 01:12: Keppra Mix Joe with 100 mL NS, LR or D5W MEDICATION WASTE Product Size: 500 mg Product Wasted: ___ mg Bisacodyl 2018-05 No Notes: Memori a 05-23 (Same As: l 01:12: Dulcolax, Bisco-Lax) Saline 2018-05 No Notes: Memoria Flush 0.9% 05-23 (Same as: l 01:12: BD Posiflush) Midazolam 2018-05 No Notes: Memori a 05-23 (Same l 01:12: as:Versed) Levetiracet 2018-05 No Notes: Roe ana am 05-23 Same as l 01:12: Keppra Mix with 100 mL NS, LR or D5W MEDICATION WASTE Product Size: 500 mg Product Wasted: ___ mg Enoxaparin 2018-05 Yes 30 mg = Roe ana 1-20 0.3 mL, l 21:35: SUB-Q, [place] 00 [id number], 0 Refill(s) tramadol 2018-05 Yes 50 mg = 1 Roe ana hydrochlori 1-20 tab, PO, l de 50 MG 21:35: Q6H, PRN Magdalena nn Oral Tablet 00 Pain Score 7-10, 0 Refill(s) Enoxaparin 2018-05 Yes 30 mg = Roe ana 1-20 0.3 mL, l 21:35: SUB-Q, [place] 00 [id number], 0 Refill(s) tramadol 2018-05 Yes 50 mg = 1 Roe ana hydrochlori 1-20 tab, PO, l de 50 MG 21:35: Q6H, PRN Magdalena nn Oral Tablet 00 Pain Score 7-10, 0 Refill(s) Enoxaparin 2018-05 Yes 30 mg = Roe ana 1-20 0.3 mL, l 21:35: SUB-Q, [place] 00 [id number], 0 Refill(s) tramadol 2018-05 Yes 50 mg = 1 Roe ana hydrochlori 1-20 tab, PO, l de 50 MG 21:35: Q6H, PRN Magdalena nn Oral Tablet 00 Pain Score 7-10, 0 Refill(s) Amlodipine 2018-05 No Notes: Memor ia 20 (Same as: l 15:00: Norvasc) Aspirin 81 2018-05 No Notes: Do Me moria MG Enteric 1-20 not crush l Coated 15:00: or chew. Joe Tablet 00 (Same As: Ecotrin) Baclofen 2018-05 No Notes: Memoria 1-20 (Same As: l 15:00: Lioresal) [place] 00 carvedilol 2018-05 No Notes: Memor ia 1-20 Give with l 15:00: food. Joe (Same As: Coreg) Celexa 2018-05 No 10 mg, 1 Memoria 1-20 tab, l 15:00: Route: PO, Joe 00 Drug form: TAB, Daily, Dosing Weight 125.909, kg, Start date: 03/22/19 9:00:00 MEDICAL PHYSICS RESEARCHER, Duration: 30 day, Stop date: 04/20/19 9:00:00 MEDICAL PHYSICS RESEARCHER, 0 clopidogrel 2018-05 No Notes: Roe ana 1-20 (Same As: l 15:00: Plavix) [place] 00 Docusate 2018-05 No Notes: Memoria Sodium 100 1-20 (Same as: l MG Oral 15:00: Colace) [place] Capsule (Do Not [Colace] Crush) Lisinopril 2018-05 No Notes: Memor ia 1-20 (Same as: l 15:00: Prinivil, [place] Zestril) torsemide 2018-05 No Route: PO, Me moria 1-20 Every l 15:00: Other Day, Dosing Weight 125.909, kg, Start date: 03/22/19 9:00:00 MEDICAL PHYSICS RESEARCHER, Duration: 30 day, Stop date: 04/19/19 9:00:00 MEDICAL PHYSICS RESEARCHER potassium 2018-05 No Notes: Memori a chloride 20 1-20 (Same as: l mEq oral 15:00: K-Dur 20) Herm mari tablet, 00 "Do Not extended Crush" release Give with (KCL) food and full glass of water For patients unable to swallow tablet, dissolve in one half glass of water. Allow about 2 minutes for the tablets to disintegra te. Stir before giving to prepare slurry and administer . Please exclude Patient s with feeding tube less than 14 [place] (Dobhoff, J-tube etc) and pediatric and patients. Amlodipine 2018-05 No Notes: Memor ia 1-20 (Same as: l 15:00: Norvasc) Joe 00 Aspirin 81 2018-05 No Notes: Do Me moria MG Enteric 1-20 not crush l Coated 15:00: or chew. [place] Tablet 00 (Same As: Ecotrin) Baclofen 2018-05 No Notes: Memoria 1-20 (Same As: l 15:00: Lioresal) [place] 00 carvedilol 2018-05 No Notes: Memor ia 1-20 Give with l 15:00: food. [place] (Same As: Coreg) Celexa 2018-05 No 10 mg, 1 Memoria 1-20 tab, l 15:00: Route: PO, Drug form: TAB, Daily, Dosing Weight 125.909, kg, Start date: 03/22/19 9:00:00 MEDICAL PHYSICS RESEARCHER, Duration: 30 day, Stop date: 04/20/19 9:00:00 MEDICAL PHYSICS RESEARCHER, 0 clopidogrel 2018-05 No Notes: Roe ana 1-20 (Same As: l 15:00: Plavix) Docusate 2018-05 No Notes: Memoria Sodium 100 1-20 (Same as: l MG Oral 15:00: Colace) [place] Capsule (Do Not [Colace] Crush) Lisinopril 2018-05 No Notes: Memor ia 1-20 (Same as: l 15:00: Prinivil, [place] 00 Zestril) torsemide 2018-05 No Route: PO, Me moria 1-20 Every l 15:00: Other Day, Dosing Weight 125.909, kg, Start date: 03/22/19 9:00:00 MEDICAL PHYSICS RESEARCHER, Duration: 30 day, Stop date: 04/19/19 9:00:00 MEDICAL PHYSICS RESEARCHER potassium 2018-05 No Notes: Memori a chloride 20 1-20 (Same as: l mEq oral 15:00: K-Dur 20) Herm mari tablet, 00 "Do Not extended Crush" release Give with (KCL) food and full glass of water For patients unable to swallow tablet, dissolve in one half glass of water. Allow about 2 minutes for the tablets to disintegra te. Stir before giving to prepare slurry and administer . Please exclude Patient s with feeding tube less than 14 [place] (Dobhoff, J-tube etc) and pediatric and patients. Amlodipine 2018-05 No Notes: Memor ia 1-20 (Same as: l 15:00: Norvasc) Joe 00 Aspirin 81 2018-05 No Notes: Do Me moria MG Enteric 1-20 not crush l Coated 15:00: or chew. Joe Tablet 00 (Same As: Ecotrin) Baclofen 2018-05 No Notes: Memoria 1-20 (Same As: l 15:00: Lioresal) [place] 00 carvedilol 2018-05 No Notes: Memor ia 1-20 Give with l 15:00: food. [place] 00 (Same As: Coreg) Celexa 2018-05 No 10 mg, 1 Memoria 1-20 tab, l 15:00: Route: PO, Joe Drug form: TAB, Daily, Dosing Weight 125.909, kg, Start date: 03/22/19 9:00:00 MEDICAL PHYSICS RESEARCHER, Duration: 30 day, Stop date: 04/20/19 9:00:00 MEDICAL PHYSICS RESEARCHER, 0 clopidogrel 2018-05 No Notes: Roe ana 1-20 (Same As: l 15:00: Plavix) [place] 00 Docusate 2018-05 No Notes: Memoria Sodium 100 1-20 (Same as: l MG Oral 15:00: Colace) [place] Capsule (Do Not [Colace] Crush) Lisinopril 2018-05 No Notes: Memor ia 1-20 (Same as: l 15:00: Prinivil, Joe Zestril) torsemide 2018-05 No Route: PO, Me moria 1-20 Every l 15:00: Other Day, Dosing Weight 125.909, kg, Start date: 03/22/19 9:00:00 MEDICAL PHYSICS RESEARCHER, Duration: 30 day, Stop date: 04/19/19 9:00:00 MEDICAL PHYSICS RESEARCHER potassium 2018-05 No Notes: Memori a chloride 20 1-20 (Same as: l mEq oral 15:00: K-Dur 20) Herm mari tablet, 00 "Do Not extended Crush" release Give with (KCL) food and full glass of water For patients unable to swallow tablet, dissolve in one half glass of water. Allow about 2 minutes for the tablets to disintegra te. Stir before giving to prepare slurry and administer . Please exclude Patient s with feeding tube less than 14 [place] (Dobhoff, J-tube etc) and pediatric and patients. carvedilol 2018-05 Yes 3.125 mg = M emoria 3.13 MG 1-20 1 tab, PO, l Oral Tablet 14:46: BID, 0 Herm mari [Coreg] 00 Refill(s) carvedilol 2018-05 Yes 3.125 mg = M emoria 3.13 MG 1-20 1 tab, PO, l Oral Tablet 14:46: BID, 0 Herm mari [Coreg] 00 Refill(s) carvedilol 2018-05 Yes 3.125 mg = M emoria 3.13 MG 1-20 1 tab, PO, l Oral Tablet 14:46: BID, 0 Herm mari [Coreg] 00 Refill(s) doxazosin 4 2018-05 Yes 4 mg = 1 Me moria mg oral 1-20 tab, PO, l tablet 14:27: BID, 0 [place] 00 Refill(s) doxazosin 4 2018-05 Yes 4 mg = 1 Me moria mg oral 1-20 tab, PO, l tablet 14:27: BID, 0 [place] 00 Refill(s) doxazosin 4 2018-05 Yes 4 mg = 1 Me moria mg oral 1-20 tab, PO, l tablet 14:27: BID, 0 Joe 00 Refill(s) Hydrochloro 2018-05 Yes 1 tab, PO, Memoria thiazide 1-20 BID, 0 l 12.5 MG / 14:16: Refill(s) Her wiggins Lisinopril 00 20 MG Oral Tablet simvastatin 2018-05 Yes 10 mg = 1 M emoria 10 mg oral 1-20 tab, PO, l tablet 14:16: Bedtime, 0 Magdalena nn 00 Refill(s) clopidogrel 2018-05 Yes 75 mg = 1 M emoria 75 MG Oral 1-20 tab, PO, l Tablet 14:16: Daily, 0 Joe [Plavix] 00 Refill(s) Citalopram 2018-05 No 10 mg = 1 Me moria 10 MG Oral 1-20 tab, PO, l Tablet 14:16: Daily, 0 [place] [Celexa] 00 Refill(s) amLODIPine 2018-05 Yes 7.5 mg = Mem oria 5 mg oral 1-20 1.5 tab, l tablet 14:16: PO, Daily, Magdalena nn 00 # 30 tab, 0 Refill(s) Hydrochloro 2018-05 Yes 1 tab, PO, Memoria thiazide 1-20 BID, 0 l 12.5 MG / 14:16: Refill(s) Her feliciano Lisinopril 00 20 MG Oral Tablet simvastatin 2018-05 Yes 10 mg = 1 M emoria 10 mg oral 1-20 tab, PO, l tablet 14:16: Bedtime, 0 Magdalena nn 00 Refill(s) clopidogrel 2018-05 Yes 75 mg = 1 M emoria 75 MG Oral 1-20 tab, PO, l Tablet 14:16: Daily, 0 Joe [Plavix] 00 Refill(s) Citalopram 2018-05 No 10 mg = 1 Me moria 10 MG Oral 1-20 tab, PO, l Tablet 14:16: Daily, 0 Joe [Celexa] 00 Refill(s) amLODIPine 2018-05 Yes 7.5 mg = Mem oria 5 mg oral 1-20 1.5 tab, l tablet 14:16: PO, Daily, Magdalena nn 00 # 30 tab, 0 Refill(s) Hydrochloro 2018-05 Yes 1 tab, PO, Memoria thiazide 1-20 BID, 0 l 12.5 MG / 14:16: Refill(s) Her feliciano Lisinopril 00 20 MG Oral Tablet simvastatin 2018-05 Yes 10 mg = 1 M emoria 10 mg oral 1-20 tab, PO, l tablet 14:16: Bedtime, 0 Magdalena nn 00 Refill(s) clopidogrel 2018-05 Yes 75 mg = 1 M emoria 75 MG Oral 1-20 tab, PO, l Tablet 14:16: Daily, 0 [place] [Plavix] 00 Refill(s) Citalopram 2018-05 No 10 mg = 1 Me moria 10 MG Oral 1-20 tab, PO, l Tablet 14:16: Daily, 0 Joe [Celexa] 00 Refill(s) amLODIPine 2018-05 Yes 7.5 mg = Mem oria 5 mg oral 1-20 1.5 tab, l tablet 14:16: PO, Daily, Magdalena nn 00 # 30 tab, 0 Refill(s) potassium 2018-05 No Notes: Memori a chloride 20 1-20 (Same as: l mEq oral 12:56: K-Dur 20) Herm mari tablet, 00 "Do Not extended Crush" release Give with (KCL) food and full glass of water For patients unable to swallow tablet, dissolve in one half glass of water. Allow about 2 minutes for the tablets to disintegra te. Stir before giving to prepare slurry and administer . Please exclude Patient s with feeding tube less than 14 [place] (Dobhoff, J-tube etc) and pediatric and patients. potassium 2018-05 No Notes: Memori a chloride 20 1-20 (Same as: l mEq oral 12:56: K-Dur 20) Herm mari tablet, 00 "Do Not extended Crush" release Give with (KCL) food and full glass of water For patients unable to swallow tablet, dissolve in one half glass of water. Allow about 2 minutes for the tablets to disintegra te. Stir before giving to prepare slurry and administer . Please exclude Patient s with feeding tube less than 14 [place] (Dobhoff, J-tube etc) and pediatric and patients. potassium 2018-05 No Notes: Memori a chloride 20 1-20 (Same as: l mEq oral 12:56: K-Dur 20) Herm mari tablet, 00 "Do Not extended Crush" release Give with (KCL) food and full glass of water For patients unable to swallow tablet, dissolve in one half glass of water. Allow about 2 minutes for the tablets to disintegra te. Stir before giving to prepare slurry and administer . Please exclude Patient s with feeding tube less than 14 [place] (Dobhoff, J-tube etc) and pediatric and patients. Acetaminoph 2018-05 No Notes: Max Memoria en 1-20 acetaminop l 10:00: hen 4000 [place] 00 mg/day (4 gm/day). (Same as: Tylenol Extra Strength) celecoxib 2018-05 No Notes: Memori a 1-20 NSAID. l 10:00: Please Joe 00 check indication . Not for seizure. (Same As: CeleBREX) Acetaminoph 2018-05 No Notes: Max Memoria en 1-20 acetaminop l 10:00: hen 4000 Joe 00 mg/day (4 gm/day). (Same as: Tylenol Extra Strength) celecoxib 2018-05 No Notes: Memori a 1-20 NSAID. l 10:00: Please Joe 00 check indication . Not for seizure. (Same As: CeleBREX) Acetaminoph 2018-05 No Notes: Max Memoria en 1-20 acetaminop l 10:00: hen 4000 Joe 00 mg/day (4 gm/day). (Same as: Tylenol Extra Strength) celecoxib 2018-05 No Notes: Memori a 1-20 NSAID. l 10:00: Please [place] 00 check indication . Not for seizure. (Same As: CeleBREX) Enoxaparin 2018-05 No Notes: Memor ia 1-20 (Same as: l 08:00: Lovenox) Enoxaparin 2018-05 No Notes: Memor ia 1-20 (Same as: l 08:00: Lovenox) Enoxaparin 2018-05 No Notes: Memor ia 1-20 (Same as: l 08:00: Lovenox) [place] 00 Dextrose 2018-05 No 12.5 gm, Memor ia 50% Syringe 1-20 25 mL, l (D50W) 07:29: Route: [place] 00 IVP, Drug Form: INJ, Dosing Weight 125.909, kg, PRN, PRN Blood Glucose Results, Start date: 03/22/19 1:29:00 MEDICAL PHYSICS RESEARCHER, Duration: 30 day, Stop date: 04/21/19 1:28:00 MEDICAL PHYSICS RESEARCHER, 0 Glucagon 2018-05 No 1 mg, Memoria -20 Route: IM, l 07:29: Drug form: Joe 00 PDR/INJ, PRN, Dosing Weight 125.909, kg, PRN Blood Glucose Results, Start date: 03/22/19 1:29:00 MEDICAL PHYSICS RESEARCHER, Duration: 30 day, Stop date: 04/21/19 1:28:00 MEDICAL PHYSICS RESEARCHER, 0 Dextrose 2018-05 No 12.5 gm, Memor ia 50% Syringe 1-20 25 mL, l (D50W) 07:29: Route: [place] 00 IVP, Drug Form: INJ, Dosing Weight 125.909, kg, PRN, PRN Blood Glucose Results, Start date: 03/22/19 1:29:00 MEDICAL PHYSICS RESEARCHER, Duration: 30 day, Stop date: 04/21/19 1:28:00 MEDICAL PHYSICS RESEARCHER, 0 Glucagon 2018-05 No 1 mg, Memoria 1-20 Route: IM, l 07:29: Drug form: [place] 00 PDR/INJ, PRN, Dosing Weight 125.909, kg, PRN Blood Glucose Results, Start date: 03/22/19 1:29:00 MEDICAL PHYSICS RESEARCHER, Duration: 30 day, Stop date: 04/21/19 1:28:00 MEDICAL PHYSICS RESEARCHER, 0 Dextrose 2018-05 No 12.5 gm, Memor ia 50% Syringe 1-20 25 mL, l (D50W) 07:29: Route: Joe 00 IVP, Drug Form: INJ, Dosing Weight 125.909, kg, PRN, PRN Blood Glucose Results, Start date: 03/22/19 1:29:00 MEDICAL PHYSICS RESEARCHER, Duration: 30 day, Stop date: 04/21/19 1:28:00 MEDICAL PHYSICS RESEARCHER, 0 Glucagon 2018-05 No 1 mg, Memoria 1-20 Route: IM, l 07:29: Drug form: Joe 00 PDR/INJ, PRN, Dosing Weight 125.909, kg, PRN Blood Glucose Results, Start date: 03/22/19 1:29:00 MEDICAL PHYSICS RESEARCHER, Duration: 30 day, Stop date: 04/21/19 1:28:00 MEDICAL PHYSICS RESEARCHER, 0 Saline 2018-05 No Notes: Memoria Flush 0.9% 1-20 Same as: l 01:06: BD Posiflush Sterile Saline 2018-05 No Notes: Memoria Flush 0.9% 1-20 Same as: l 01:06: BD Posiflush Sterile Saline 2018-05 No Notes: Memoria Flush 0.9% 1-20 Same as: l 01:06: BD Posiflush Sterile fish,bora,f 2018-05 Yes Take by Uni vers lax 0-17 mouth ity of oils-om3,6, 12:53: daily. Nafisa bello 9no1 (OMEGA 39 3-6-9) Anderso 1,200 mg n [facility] magnesium 2018-05 Yes 1{tbl} Take 1 Univ ers 250 mg tab 0-17 tablet by ity of 12:53: mouth Teresa 39 daily. MD Isaiah louis [facility] aspirin 81 2018-05 Yes 81mg Take 81 mg U nivers mg EC 0-17 by mouth ity of tablet 12:53: daily. Teresa 39 MD Isaiah louis [facility] docusate 2018-05 Yes 100mg Take 100 Univ ers sodium 0-17 mg by ity of (COLACE) 12:53: mouth [place] 100 mg 39 twice MD capsule [facility]. [facility] garlic 2018-05 Yes 1{tbl} Take 1 [facility] 1,000 mg 0-17 tablet by ity of cap 12:53: mouth [place] 39 daily. MD Isaiah louis [facility] cholecalcif 2018-05 Yes 5000mg Take 5,000 Univers jono, 0-17 mg by ity of vitamin D3, 12:53: mouth [place] (VITAMIN 39 daily. D3) 5,000 Anderso units tab n tablet [facility] [place] cranberry 2018-05 Yes 2{tbl} Take 2 Univ ers 500 mg cap 0-17 tablets by ity of 12:53: mouth [place] 39 daily. MD Isaiah louis [facility] torsemide 2018-05 Yes 20mg Take 20 mg Un beto (DEMADEX) 0-17 by mouth ity of 20 mg 12:53: daily. [place] tablet 39 MD Isaiah louis [facility] potassium 2018-05 Yes 20meq Take 20 Univ ers chloride 0-17 mEq by ity of (KLOR-CON) 12:53: mouth [place] 20 mEq 39 every MD packet other day. Isaiah Antunez n contents [facility] packet in 4 ounces (120 mL) of water or juice. Stir well and drink promptly. fish,bora,f 2018-05 Yes Take by Uni vers lax 0-17 mouth ity of oils-om3,6, 12:53[place] 9[place]1 (OME[place] 39 3-6-9) Anderso 1,200 mg n cap [facility] magnesium 2018-05 Yes 1{tbl} Take 1 Univ ers 250 mg tab 0-17 tablet by ity of 12:53: mouth [place] 39 daily. MD Isaiah louis [facility] aspirin 81 2018-05 Yes 81mg Take 81 mg U nivers mg EC 0-17 by mouth ity of tablet 12:53: daily. [place] 39 MD Isaiah louis [facility] docusate 2018-05 Yes 100mg Take 100 Univ ers sodium 0-17 mg by ity of (COLACE) 12:53: mouth [place] 100 mg 39 twice MD capsule daily. Isaiah louis [facility] garlic 2018-05 Yes 1{tbl} Take 1 Univers 1,000 mg 0-17 tablet by ity of cap 12:53: mouth [place] 39 daily. MD Isaiah louis [facility] cholecalcif 2018-05 Yes 5000mg Take 5,000 Univers jono, 0-17 mg by ity of vitamin D3, 12:53: mouth [place] (VITAMIN 39 daily. D3) 5,000 Anderso units tab n tablet [facility] [place] cranberry 2018-05 Yes 2{tbl} Take 2 Univ ers 500 mg cap 0-17 tablets by ity of 12:53: mouth [place] 39 daily. MD Isaiah louis [facility] torsemide 2018-05 Yes 20mg Take 20 mg Un beto (DEMADEX) 0-17 by mouth ity of 20 mg 12:53: daily. [place] tablet 39 MD Isaiah louis [facility] potassium 2018-05 Yes 20meq Take 20 Univ ers chloride 0-17 mEq by ity of (KLOR-CON) 12:53: mouth [place] 20 mEq 39 every MD packet other day. Andevelina Mix n contents [facility] of 1 [place] packet in 4 ounces (120 mL) of water or juice. Stir well and drink promptly. fish,bora,f 2018-05 Yes Take by Uni vers lax 0-17 mouth ity of oils-om3,6, 12:53: [place] 9[place]1 (OMEGA 39 3-6-9) Anderso 1,200 mg n [facility] magnesium 2018-05 Yes 1{tbl} Take 1 Univ ers 250 mg tab 0-17 tablet by ity of 12:53: mouth [place] 39 daily. MD Isaiah louis [facility] aspirin 81 2018-05 Yes 81mg Take 81 mg U nivers mg EC 0-17 by mouth ity of tablet 12:53: daily. [place] 39 MD Isaiah louis [facility] docusate 2018-05 Yes 100mg Take 100 Univ ers sodium 0-17 mg by ity of (COLACE) 12:53: mouth [place] 100 mg 39 twice MD capsule daily. Gui heriberto [facility] garlic 2018-05 Yes 1{tbl} Take 1 Univers 1,000 mg 0-17 tablet by ity of cap 12:53: mouth [place] 39 daily. MD Isaiah louis [facility] cholecalcif 2018-05 Yes 5000mg Take 5,000 Univers jono, 0-17 mg by ity of vitamin D3, 12:53: mouth [place] (VITAMIN 39 daily. D3) 5,000 Anderso units tab n tablet [facility] [place] cranberry 2018-05 Yes 2{tbl} Take 2 Univ ers 500 mg cap 0-17 tablets by ity of 12:53: mouth [place] 39 daily. MD Isaiah louis [facility] torsemide 2018-05 Yes 20mg Take 20 mg Un beto (DEMADEX) 0-17 by mouth ity of 20 mg 12:53: daily. [place] tablet 39 MD Isaiah louis [facility] potassium 2018-05 Yes 20meq Take 20 Univ ers chloride 0-17 mEq by ity of (KLOR-CON) 12:53: mouth [place] 20 mEq 39 every MD packet other day. Anderso Mix n contents [facility] of 1 [place] packet in 4 ounces (120 mL) of water or juice. Stir well and drink promptly. fish,bora,f 2018-05 Yes Take by Uni vers lax 0-17 mouth ity of oils-om3,6, 12:53: [place]. [place] 9[place]1 (OMEGA 39 3-6-9) Anderso 1,200 mg n cap [facility] magnesium 2018-05 Yes 1{tbl} Take 1 Univ ers 250 mg tab 0-17 tablet by ity of 12:53: mouth [place] 39 daily. MD Isaiah louis [facility] aspirin 81 2018-05 Yes 81mg Take 81 mg U nivers mg EC 0-17 by mouth ity of tablet 12:53: daily. [place] 39 MD Isaiah louis [facility] docusate 2018-05 Yes 100mg Take 100 Univ ers sodium 0-17 mg by ity of (COLACE) 12:53: mouth [place] 100 mg 39 twice MD capsule daily. Isaiah louis [facility] garlic 2018-05 Yes 1{tbl} Take 1 Univers 1,000 mg 0-17 tablet by ity of cap 12:53: mouth [place] 39 daily. MD Isaiah louis [facility] cholecalcif 2018-05 Yes 5000mg Take 5,000 Univers jono, 0-17 mg by ity of vitamin D3, 12:53: mouth [place] (VITAMIN 39 daily. D3) 5,000 Anderso units tab n tablet [facility] [place] cranberry 2018-05 Yes 2{tbl} Take 2 Univ ers 500 mg cap 0-17 tablets by ity of 12:53: mouth [place] 39 daily. MD Isaiah louis [facility] torsemide 2018-05 Yes 20mg Take 20 mg Un beto (DEMADEX) 0-17 by mouth ity of 20 mg 12:53: daily. [place] tablet 39 MD Isaiah louis [facility] potassium 2018-05 Yes 20meq Take 20 Univ ers chloride 0-17 mEq by ity of (KLOR-CON) 12:53: mouth [place] 20 mEq 39 every MD packet other day. Anderso Mix n contents [facility] packet in 4 ounces (120 mL) of water or juice. Stir well and drink promptly. fish,bora,f 2018-05 Yes Take by Uni vers lax 0-17 mouth ity of oils-om3,6, 12:53: [place]. [place] 9[place]1 (OMEGA 39 3-6-9) Anderso 1,200 mg n cap [facility] magnesium 2018-05 Yes 1{tbl} Take 1 Univ ers 250 mg tab 0-17 tablet by ity of 12:53: mouth [place] 39 daily. MD Isaiah louis [facility] aspirin 81 2018-05 Yes 81mg Take 81 mg U nivers mg EC 0-17 by mouth ity of tablet 12:53: daily. [place] 39 MD Isaiah louis [facility] docusate 2018-05 Yes 100mg Take 100 Univ ers sodium 0-17 mg by ity of (COLACE) 12:53: mouth [place] 100 mg 39 twice MD capsule daily. Gui heriberto [facility] garlic 2018-05 Yes 1{tbl} Take 1 Univers 1,000 mg 0-17 tablet by ity of cap 12:53: mouth [place] 39 daily. MD Isaiah louis [facility] cholecalcif 2018-05 Yes 5000mg Take 5,000 Univers jono, 0-17 mg by ity of vitamin D3, 12:53: mouth [place] (VITAMIN 39 daily. D3) 5,000 Anderso units tab n tablet [facility] cranberry 2018-05 Yes 2{tbl} Take 2 Univ ers 500 mg cap 0-17 tablets by ity of 12:53: mouth [place] 39 daily. MD Isaiah louis [facility] torsemide 2018-05 Yes 20mg Take 20 mg Un beto (DEMADEX) 0-17 by mouth ity of 20 mg 12:53: daily. [place] tablet 39 MD Isaiah louis [facility] potassium 2018-05 Yes 20meq Take 20 Univ ers chloride 0-17 mEq by ity of (KLOR-CON) 12:53: mouth [place] 20 mEq 39 every MD packet other day. Isaiah Mix n contents [facility] packet in 4 ounces (120 mL) of water or juice. Stir well and drink promptly. fish,bora,f 2018-05 Yes Take by Uni vers lax 0-17 mouth ity of oils-om3,6, 12:53: [place]. [place] 9[place]1 (OMEGA 39 3-6-9) Anderso 1,200 mg n cap [facility] magnesium 2018-05 Yes 1{tbl} Take 1 Univ ers 250 mg tab 0-17 tablet by ity of 12:53: mouth [place] 39 daily. MD Isaiah louis [facility] aspirin 81 2018-05 Yes 81mg Take 81 mg U nivers mg EC 0-17 by mouth ity of tablet 12:53: daily. [place] 39 MD Isaiah louis [facility] docusate 2018-05 Yes 100mg Take 100 Univ ers sodium 0-17 mg by ity of (COLACE) 12:53: mouth [place] 100 mg 39 twice MD capsule daily. Gui heriberto [facility] garlic 2018-05 Yes 1{tbl} Take 1 Univers 1,000 mg 0-17 tablet by ity of cap 12:53: mouth [place] 39 daily. MD Isaiah louis [facility] cholecalcif 2018-05 Yes 5000mg Take 5,000 Univers jono, 0-17 mg by ity of vitamin D3, 12:53: mouth [place] (VITAMIN 39 daily. D3) 5,000 Anderso units tab n tablet [facility] cranberry 2018-05 Yes 2{tbl} Take 2 Univ ers 500 mg cap 0-17 tablets by ity of 12:53: mouth [place] 39 daily. MD Isaiah louis [facility] torsemide 2018-05 Yes 20mg Take 20 mg Un beto (DEMADEX) 0-17 by mouth ity of 20 mg 12:53: daily. [place] tablet 39 MD Isaiah louis [facility] potassium 2018-05 Yes 20meq Take 20 Univ ers chloride 0-17 mEq by ity of (KLOR-CON) 12:53: mouth [place] 20 mEq 39 every MD packet other day. Isaiah louis contents [facility] packet in 4 ounces (120 mL) of water or juice. Stir well and drink promptly. marcus aguirre,darby 2018-05 Yes Take by Uni vers lax 0-17 mouth ity of oils-om3,6, 12:53: daily. [place] 9no1 (OMEGA 39 3-6-9) Anderso 1,200 mg n cap [facility] [place] magnesium 2018-05 Yes 1{tbl} Take 1 Univ ers 250 mg tab 0-17 tablet by ity of 12:53: mouth [place] 39 daily. MD Isaiah louis [facility] aspirin 81 2018-05 Yes 81mg Take 81 mg U nivers mg EC 0-17 by mouth ity of tablet 12:53: daily. [place] 39 MD Isaiah louis [facility] docusate 2018-05 Yes 100mg Take 100 Univ ers sodium 0-17 mg by ity of (COLACE) 12:53: mouth [place] 100 mg 39 twice MD capsule daily. Isaiah louis [facility] garlic 2018-05 Yes 1{tbl} Take 1 Univers 1,000 mg 0-17 tablet by ity of cap 12:53: mouth [place] 39 daily. MD Isaiah louis [facility] cholecalcif 2018-05 Yes 5000mg Take 5,000 Univers jono, 0-17 mg by ity of vitamin D3, 12:53: mouth [place] (VITAMIN 39 daily. D3) 5,000 Anderso units tab n tablet [facility] [place] cranberry 2018-05 Yes 2{tbl} Take 2 Univ ers 500 mg cap 0-17 tablets by ity of 12:53: mouth [place] 39 daily. MD Isaiah louis [facility] torsemide 2018-05 Yes 20mg Take 20 mg Un beto (DEMADEX) 0-17 by mouth ity of 20 mg 12:53: daily. [place] tablet [facility] 2018-05 Yes 20meq Take 20 Univ ers chloride 0-17 mEq by ity of (KLOR-CON) 12:53: mouth [place] 20 mEq 39 every MD packet other day. Isaiah louis contents [facility] packet in 4 ounces (120 mL) of water or juice. Stir well and drink promptly. marcus aguirre,darby 2018-05 Yes Take by Uni vers lax 0-17 mouth ity of oils-om3,6, 12:53: daily. [place] 9no1 (OMEGA 39 3-6-9) Anderso 1,200 mg n cap [facility] magnesium 2018-05 Yes 1{tbl} Take 1 Univ ers 250 mg tab 0-17 tablet by ity of 12:53: mouth [place] 39 daily. MD Isaiah louis [facility] aspirin 81 2018-05 Yes 81mg Take 81 mg U nivers mg EC 0-17 by mouth ity of tablet 12:53: daily. [place] 39 MD Isaiah louis [facility] docusate 2018-05 Yes 100mg Take 100 Univ ers sodium 0-17 mg by ity of (COLACE) 12:53: mouth [place] 100 mg 39 twice MD capsule daily. [facility] garlic 2018-05 Yes 1{tbl} Take 1 Univers 1,000 mg 0-17 tablet by ity of cap 12:53: mouth [place] 39 daily. MD Isaiah louis [facility] cholecalcif 2018-05 Yes 5000mg Take 5,000 Univers jono, 0-17 mg by ity of vitamin D3, 12:53: mouth [place] (VITAMIN 39 daily. D3) 5,000 Anderso units tab n tablet [facility] cranberry 2018-05 Yes 2{tbl} Take 2 Univ ers 500 mg cap 0-17 tablets by ity of 12:53: mouth [place] 39 daily. MD Isaiah oluis [facility] magnesium 2018-05 Yes 1{tbl} Take 1 Univ ers 250 mg tab 0-17 tablet by ity of 12:53: mouth [place] 39 daily. MD Isaiah louis [facility] aspirin 81 2018-05 Yes 81mg Take 81 mg U nivers mg EC 0-17 by mouth ity of tablet 12:53: daily. [place] 39 MD Isaiah louis [facility] docusate 2018-05 Yes 100mg Take 100 Univ ers sodium 0-17 mg by ity of (COLACE) 12:53: mouth [place] 100 mg 39 twice MD capsule daily. [facility] garlic 2018-05 Yes 1{tbl} Take 1 Univers 1,000 mg 0-17 tablet by ity of cap 12:53: mouth [place] 39 daily. MD Isaiah louis [facility] cholecalcif 2018-05 Yes 5000mg Take 5,000 Univers jono, 0-17 mg by ity of vitamin D3, 12:53: mouth [place] (VITAMIN 39 daily. D3) 5,000 Anderso units tab n tablet [facility] cran[facility] 2018-05 Yes 2{tbl} Take 2 Univ ers 500 mg cap 0-17 tablets by ity of 12:53: mouth [place] 39 daily. MD Isaiah louis [facility] torsemide 2018-05 Yes 20mg Take 20 mg Un beto (DEMADEX) 0-17 by mouth ity of 20 mg 12:53: daily. [place] tablet 39 MD Isaiah louis [facility] potassium 2018-05 Yes 20meq Take 20 Univ ers chloride 0-17 mEq by ity of (KLOR-CON) 12:53: mouth [place] 20 mEq 39 every MD packet other day. Anderso Mix n contents [facility] packet in 4 ounces (120 mL) of water or juice. Stir well and drink promptly. marcus aguirre,f 2018-05 Yes Take by Uni vers lax 0-17 mouth ity of oils-om3,6, 12:53: daily. [place] 9no1 (OMEGA 39 3-6-9) Anderso 1,200 mg n cap [facility] [place] torsemide 2018-05 Yes 20mg Take 20 mg Un beto (DEMADEX) 0-17 by mouth ity of 20 mg 12:53: daily. [place] tablet 39 MD Isaiah louis [facility] potassium 2018-05 Yes 20meq Take 20 Univ ers chloride 0-17 mEq by ity of (KLOR-CON) 12:53: mouth [place] 20 mEq 39 every MD packet other day. Anderso Mix n contents [facility] packet in 4 ounces (120 mL) of water or juice. Stir well and drink promptly. potassium Yes See Memoria chloride 20 9-05 Instructio l mEq oral 21:16: ns, 1 tab Herm mari tablet, 00 PO QOD, 0 extended Refill(s) release potassium Yes See Memoria chloride 20 9-05 Instructio l mEq oral 21:16: ns, 1 tab Herm mari tablet, 00 PO QOD, 0 extended Refill(s) release potassium Yes See Memoria chloride 20 9-05 Instructio l mEq oral 21:16: ns, 1 tab Herm mari tablet, 00 PO QOD, 0 extended Refill(s) release No known No No known Metho di medications 6-[address] 15:39: [facility] baclofen 20 Yes 20 mg = 1 M emoria mg oral 6-06 tab, PO, l tablet 21:15: TID, # 270 [place] nn 08 tab, 3 Refill(s), Pharmacy: [facility] baclofen Yes 20 mg = 1 M emoria mg oral 6-06 tab, PO, l tablet 21:15: TID, # 270 [place] nn 08 tab, 3 Refill(s), Pharmacy: [facility] baclofen Yes 20 mg = 1 M emoria mg oral 6-06 tab, PO, l tablet 21:15: TID, # 270 [place] nn 08 tab, 3 Refill(s), Pharmacy: [facility] baclofen 2016-05 Yes 20 mg = 1 M emoria mg oral 0-04 tab, PO, l tablet 19:38: BID, PRN [place] 00 Spasms, # 60 tab, 0 Refill(s) baclofen 2016-05 Yes 20 mg = 1 M emoria mg oral 0-04 tab, PO, l tablet 19:38: BID, PRN [place] 00 Spasms, # 60 tab, 0 Refill(s) baclofen 2016-05 Yes 20 mg = 1 M emoria mg oral 0-04 tab, PO, l tablet 19:38: BID, PRN [place] 00 Spasms, # 60 tab, 0 Refill(s) baclofen Yes 20 mg = 1 M emoria mg oral 6-07 tab, PO, l tablet 20:00: TID, # 270 [place] nn 00 tab, 1 Refill(s) baclofen Yes 20 mg = 1 M emoria mg oral 6-07 tab, PO, l tablet 20:00: TID, # 270 [place] nn 00 tab, 1 Refill(s) baclofen Yes 20 mg = 1 M emoria mg oral 6-07 tab, PO, l tablet 20:00: TID, # 270 [place] nn 00 tab, 1 Refill(s) Citalopram 2015-05 Yes 10 mg = 1 Me moria 10 MG Oral 1-09 tab, PO, l Tablet 19:22: Daily, Joe [Celexa] 00 every other night, # 30 tab, 0 Refill(s) Vitamin D3 2015-05 Yes 50,000 Memor ia 50,000 intl 05-11 IntlUnit = l units oral 19:22: 1 cap, PO, H ermann capsule 00 qWeek, # 12 cap, 0 Refill(s) Citalopram 2015-05 Yes 10 mg = 1 Me moria 10 MG Oral 05-11 tab, PO, l Tablet 19:22: Daily, Joe [Celexa] 00 every other night, # 30 tab, 0 Refill(s) Vitamin D3 2015-05 Yes 50,000 Memor ia 50,000 intl 05-11 IntlUnit = l units oral 19:22: 1 cap, PO, H ermann capsule 00 qWeek, # 12 cap, 0 Refill(s) Citalopram 2015-05 Yes 10 mg = 1 Me moria 10 MG Oral 05-11 tab, PO, l Tablet 19:22: Daily, [place] [Celexa] 00 every other night, # 30 tab, 0 Refill(s) Vitamin D3 2015-05 Yes 50,000 Memor ia 50,000 intl 05-11 IntlUnit = l units oral 19:22: 1 cap, PO, H ermann capsule 00 qWeek, # 12 cap, 0 Refill(s) amoxicillin Yes 500 mg = 1 Memoria 500 mg oral 7-26 cap, PO, l capsule 18:19: TID, X 6 Jamar n 00 day, # 18 cap, 0 Refill(s), Pharmacy: [facility] Ciprofloxac Yes 500 mg = 1 Memoria in 500 MG 7-26 tab, PO, l Oral Tablet 18:19: Q12H, X 6 H ermann [Cipro] 00 day, # 12 tab, 0 Refill(s), Pharmacy: [facility] amoxicillin Yes 500 mg = 1 Memoria 500 mg oral 7-26 cap, PO, l capsule 18:19: TID, X 6 Jamar n 00 day, # 18 cap, 0 Refill(s), Pharmacy: [facility] Ciprofloxac Yes 500 mg = 1 Memoria in 500 MG 7-26 tab, PO, l Oral Tablet 18:19: Q12H, X 6 H ermann [Cipro] 00 day, # 12 tab, 0 Refill(s), Pharmacy: [facility] amoxicillin Yes 500 mg = 1 Memoria 500 mg oral 7-26 cap, PO, l capsule 18:19: TID, X 6 Jamar n 00 day, # 18 cap, 0 Refill(s), Pharmacy: [facility] Ciprofloxac Yes 500 mg = 1 Memoria in 500 MG 7-26 tab, PO, l Oral Tablet 18:19: Q12H, X 6 H ermann [Cipro] 00 day, # 12 tab, 0 Refill(s), Pharmacy: [facility] amLODIPine Yes 10 mg = 1 Me moria 10 mg oral 7-26 tab, PO, l tablet 15:48: Daily, 0 [place] 00 Refill(s) simvastatin Yes 10 mg = 1 M emoria 10 mg oral 7-26 tab, PO, l tablet 15:48: Bedtime, 0 [place] nn 00 Refill(s) lisinopril Yes 20 mg = 1 Me moria 20 mg oral 7-26 tab, PO, l tablet 15:48: BID, 0 [place] 00 Refill(s) doxazosin 2 Yes 4 mg = 2 Me moria mg oral 7-26 tab, PO, l tablet 15:48: BID, 0 [place] 00 Refill(s) Hydrochloro Yes 12.5 mg = M emoria thiazide 25 7-26 0.5 tab, l MG Oral 15:48: PO, BID, 0 Herm mari Tablet 00 Refill(s) Docusate Yes 100 mg = 1 Mem oria Sodium 100 7-26 cap, PO, l MG Oral 15:48: BID, 0 [place] Capsule 00 Refill(s) [Colace] carvedilol Yes 6.25 mg = Me moria 6.25 mg 7-26 1 tab, PO, l oral tablet 15:48: Bedtime, 0 [place] 00 Refill(s) Calcium Yes 1 tab, PO, Roe ana Carbonate 7-26 BID, 0 l 1500 MG / 15:48: Refill(s) [facility] Cholecalcif 00 jono 400 UNT Oral Tablet baclofen 20 Yes 20 mg = 1 M emoria mg oral 7-26 tab, PO, l tablet 15:48: BID, 0 [place] 00 Refill(s) Aspirin 81 Yes 81 mg = 1 Me moria MG Enteric 7-26 tab, PO, l Coated 15:48: Daily, 0 [place] Tablet 00 Refill(s) ciprofloxac No 500 mg = 1 Memoria in 500 mg 7-26 tab, PO, l oral tablet 15:48: [id number], X [place] 00 2 day, # 4 tab, 0 Refill(s), Pharmacy: [facility] amoxicillin No 500 mg = 1 Memoria 500 mg oral 7-26 cap, PO, l capsule 15:48: Q8H, X 2 Jamar n 00 day, # 6 cap, 0 Refill(s), Pharmacy: [facility] amLODIPine Yes 10 mg = 1 Me moria 10 mg oral 7-26 tab, PO, l tablet 15:48: Daily, 0 [place] 00 Refill(s) simvastatin Yes 10 mg = 1 M emoria 10 mg oral 7-26 tab, PO, l tablet 15:48: Bedtime, 0 [place] nn 00 Refill(s) lisinopril Yes 20 mg = 1 Me moria 20 mg oral 7-26 tab, PO, l tablet 15:48: BID, 0 [place] 00 Refill(s) doxazosin 2 Yes 4 mg = 2 Me moria mg oral 7-26 tab, PO, l tablet 15:48: BID, 0 [place] 00 Refill(s) Hydrochloro Yes 12.5 mg = M emoria thiazide 25 7-26 0.5 tab, l MG Oral 15:48: PO, BID, 0 Herm mari Tablet 00 Refill(s) Docusate Yes 100 mg = 1 Mem oria Sodium 100 7-26 cap, PO, l MG Oral 15:48: BID, 0 [place] Capsule 00 Refill(s) [Colace] carvedilol Yes 6.25 mg = Me moria 6.25 mg 7-26 1 tab, PO, l oral tablet 15:48: Bedtime, 0 [place] 00 Refill(s) Calcium Yes 1 tab, PO, Roe ana Carbonate 7-26 BID, 0 l 1500 MG / 15:48: Refill(s) [facility] Cholecalcif 00 jono 400 UNT Oral Tablet baclofen 20 Yes 20 mg = 1 M emoria mg oral 7-26 tab, PO, l tablet 15:48: BID, 0 [place] 00 Refill(s) Aspirin 81 Yes 81 mg = 1 Me moria MG Enteric 7-26 tab, PO, l Coated 15:48: Daily, 0 [place] Tablet 00 Refill(s) ciprofloxac No 500 mg = 1 Memoria in 500 mg 7-26 tab, PO, l oral tablet 15:48: [id number], X [place] 00 2 day, # 4 tab, 0 Refill(s), Pharmacy: [facility] amoxicillin No 500 mg = 1 Memoria 500 mg oral 7-26 cap, PO, l capsule 15:48: Q8H, X 2 Jamar n 00 day, # 6 cap, 0 Refill(s), Pharmacy: [facility] amLODIPine Yes 10 mg = 1 Me moria 10 mg oral 7-26 tab, PO, l tablet 15:48: Daily, 0 [place] 00 Refill(s) simvastatin Yes 10 mg = 1 M emoria 10 mg oral 7-26 tab, PO, l tablet 15:48: Bedtime, 0 [place] nn 00 Refill(s) lisinopril Yes 20 mg = 1 Me moria 20 mg oral 7-26 tab, PO, l tablet 15:48: BID, 0 [place] 00 Refill(s) doxazosin 2 Yes 4 mg = 2 Me moria mg oral 7-26 tab, PO, l tablet 15:48: BID, 0 [place] 00 Refill(s) Hydrochloro Yes 12.5 mg = M emoria thiazide 25 7-26 0.5 tab, l MG Oral 15:48: PO, BID, 0 Herm mari Tablet 00 Refill(s) Docusate Yes 100 mg = 1 Mem oria Sodium 100 7-26 cap, PO, l MG Oral 15:48: BID, 0 [place] Capsule 00 Refill(s) [Colace] carvedilol Yes 6.25 mg = Me moria 6.25 mg 7-26 1 tab, PO, l oral tablet 15:48: Bedtime, 0 Joe 00 Refill(s) Calcium Yes 1 tab, PO, Roe ana Carbonate 7-26 BID, 0 l 1500 MG / 15:48: Refill(s) Her wiggins Cholecalcif 00 jono 400 UNT Oral Tablet baclofen 20 Yes 20 mg = 1 M emoria mg oral 7-26 tab, PO, l tablet 15:48: BID, 0 [place] 00 Refill(s) Aspirin 81 Yes 81 mg = 1 Me moria MG Enteric 7-26 tab, PO, l Coated 15:48: Daily, 0 [place] Tablet 00 Refill(s) ciprofloxac No 500 mg = 1 Memoria in 500 mg 7-26 tab, PO, l oral tablet 15:48: [id number], X [place] 00 2 day, # 4 tab, 0 Refill(s), Pharmacy: [facility] amoxicillin No 500 mg = 1 Memoria 500 mg oral 7-26 cap, PO, l capsule 15:48: Q8H, X 2 Jamar n 00 day, # 6 cap, 0 Refill(s), Pharmacy: [facility] Lasix No Notes: Memoria 7-26 (Same as: l 13:30: Lasix) August cause GI upset. Give with food or milk. Lasix No Notes: Memoria 7-26 (Same as: l 13:30: Lasix) August cause GI upset. Give with food or milk. Lasix No Notes: Memoria 7-26 (Same as: l 13:30: Lasix) Augustann cause GI upset. Give with food or milk. Amoxicillin No Notes: Roe ana 7-25 (Same as: l 19:00: Amoxil) Joe Amoxicillin No Notes: Roe ana 7-25 (Same as: l 19:00: Amoxil) [place] Amoxicillin No Notes: Roe ana 7-25 (Same as: l 19:00: Amoxil) Joe 00 Lasix No Notes: Memoria 7-25 (Same as: l 15:15: Lasix) May [place] 00 cause GI upset. Give with food or milk. Lasix No Notes: Memoria 7-25 (Same as: l 15:15: Lasix) May [place] 00 cause GI upset. Give with food or milk. Lasix No Notes: Memoria 7-25 (Same as: l 15:15: Lasix) May [place] 00 cause GI upset. Give with food or milk. potassium No Notes: Memori a chloride 7-25 (Same as: l 02:00: K-Dur 20) [place] 00 "Do Not Crush" With food and full glass of water potassium No Notes: Memori a chloride 7-25 (Same as: l 02:00: K-Dur 20) [place] 00 "Do Not Crush" With food and full glass of water potassium No Notes: Memori a chloride 7-25 (Same as: l 02:00: K-Dur 20) Joe 00 "Do Not Crush" With food and full glass of water Lasix No Notes: Memoria 7-24 (Same as: l 17:57: Lasix) May Joe cause GI upset. Give with food or milk. Lasix No Notes: Memoria 7-24 (Same as: l 17:57: Lasix) May [place] 00 cause GI upset. Give with food or milk. Lasix No Notes: Memoria 7-24 (Same as: l 17:57: Lasix) May [place] 00 cause GI upset. Give with food or milk. potassium No Notes: Memori a chloride 7-24 (Same as: l 02:00: K-Dur 20) [place] 00 "Do Not Crush" With food and full glass of water potassium 0 No Notes: Memori a chloride 7-24 (Same as: l 02:00: K-Dur 20) [place] 00 "Do Not Crush" With food and full glass of water potassium 0 No Notes: Memori a chloride 7-24 (Same as: l 02:00: K-Dur 20) [place] 00 "Do Not Crush" With food and full glass of water Lasix No Notes: Memoria 7-23 (Same as: l 17:58: Lasix) May [place] cause GI upset. Give with food or milk. Lasix No Notes: Memoria 7-23 (Same as: l 17:58: Lasix) May [place] cause GI upset. Give with food or milk. Lasix No Notes: Memoria 7-23 (Same as: l 17:58: Lasix) May [place] cause GI upset. Give with food or milk. Amoxicillin No Notes: Roe ana 875 MG / 7-23 With food. l Clavulanate 02:00: (Same as: H ermann 125 MG Oral 00 Augmentin Tablet 875) [Augmentin 875-mg] Amoxicillin No Notes: Roe ana 875 MG / 7-23 With food. l Clavulanate 02:00: (Same as: H ermann 125 MG Oral 00 Augmentin Tablet 875) [Augmentin 875-mg] Amoxicillin No Notes: Roe ana 875 MG / 7-23 With food. l Clavulanate 02:00: (Same as: H ermann 125 MG Oral 00 Augmentin Tablet 875) [Augmentin 875-mg] Amoxicillin No Notes: Roe ana 7-22 (Same as: l 21:00: Amoxil) Amoxicillin No Notes: Roe ana 7-22 (Same as: l 21:00: Amoxil) Joe Amoxicillin No Notes: Roe ana 7-22 (Same as: l 21:00: Amoxil) [place] Cipro No Notes: May Memori a 7-22 interfere l 15:00: w/enteral [place] 00 feedings - Take 1 hr before or 2 hrs after antacids, dairy pdt & minerals. On empty stomach. Cipro No Notes: May Memori a 7-22 interfere l 15:00: w/enteral [place] 00 feedings - Take 1 hr before or 2 hrs after antacids, dairy pdt & minerals. On empty stomach. Cipro No Notes: May Memori a 7-22 interfere l 15:00: w/enteral [place] 00 feedings - Take 1 hr before or 2 hrs after antacids, dairy pdt & minerals. On empty stomach. Potassium 0 No Notes: Memori a Chloride 20 7-20 (Same as: l MEQ 13:30: K-Dur 20) [place] Extended 00 "Do Not Release Crush" Tablet With food and full glass of water Potassium No Notes: Memori a Chloride 20 7-20 (Same as: l MEQ 13:30: K-Dur 20) [place] Extended 00 "Do Not Release Crush" Tablet With food and full glass of water Potassium No Notes: Memori a Chloride 20 7-20 (Same as: l MEQ 13:30: K-Dur 20) [place] Extended 00 "Do Not Release Crush" Tablet With food and full glass of water Vancomycin No 2000 mg: Me moria 7-20 infuse l 02:00: over 2.5 Joe 00 hours MEDICATION WASTE Product Size: 1000 mg Product Wasted: ___ mg Zosyn No Notes: Memoria 7-20 (Same as: l 02:00: Zosyn) [place] 00 Dosing based on Piperacill in component MEDICATION WASTE Product Size: 3375 mg Product Wasted: ___ mg Vancomycin 2015- No 2001 mg: Me moria 7-20 infuse l 02:00: over 2.5 Joe 00 hours MEDICATION WASTE Product Size: 1000 mg Product Wasted: ___ mg Zosyn 2015- No Notes: Memoria 7-20 (Same as: l 02:00: Zosyn) [place] 00 Dosing based on Piperacill in component MEDICATION WASTE Product Size: 3375 mg Product Wasted: ___ mg Vancomycin 2015-0 No 2001 mg: Me moria 7-20 infuse l 02:00: over 2.5 Joe 00 hours MEDICATION WASTE Product Size: 1000 mg Product Wasted: ___ mg Zosyn 2015-0 No Notes: Memoria 7-20 (Same as: l 02:00: Zosyn) [place] 00 Dosing based on Piperacill in component MEDICATION WASTE Product Size: 3375 mg Product Wasted: ___ mg Tylenol No Notes: Do Memor ia 7-19 not exceed l 23:05: 4 gm/day. [place] 00 (Same as: Tylenol) Tylenol No Notes: Do Memor ia 7-19 not exceed l 23:05: 4 gm/day. [place] 00 (Same as: Tylenol) Tylenol 0 No Notes: Do Memor ia 7-19 not exceed l 23:05: 4 gm/day. [place] 00 (Same as: Tylenol) Ceftriaxone No Notes: Roe ana 7-19 (Same As: l 21:00: Rocephin). [place] 00 Use with 100 mL NS and infuse over 30 min MEDICATION WASTE Product Size: 1000 mg Product Wasted: ___ mg Ceftriaxone No Notes: Roe ana 7-19 (Same As: l 21:00: Rocephin). Use with 100 mL NS and infuse over 30 min MEDICATION WASTE Product Size: 1000 mg Product Wasted: ___ mg Ceftriaxone No Notes: Roe ana 7-19 (Same As: l 21:00: Rocephin). Use with 100 mL NS and infuse over 30 min MEDICATION WASTE Product Size: 1000 mg Product Wasted: ___ mg Ceftriaxone 2015-0 No 1 gm, Memor ia 7-19 Route: l 19:00: IVPB, Drug form: PDR/INJ, [id number], Dosing Weight 125.625, kg, Start date: 11/19/15 14:00:00 CDT, Stop date: 12/03/15 14:00:00 CDT Ceftriaxone 2015-0 No 1 gm, Memor ia 7-19 Route: l 19:00: IVPB, Drug form: PDR/INJ, [id number], Dosing Weight 125.625, kg, Start date: 11/19/15 14:00:00 CDT, Stop date: 12/03/15 14:00:00 CDT Ceftriaxone 2016-0 No 1 gm, Memor ia 7-19 Route: l 19:00: IVPB, Drug form: PDR/INJ, [id number], Dosing Weight 125.625, kg, Start date: 11/19/15 14:00:00 CDT, Stop date: 12/03/15 14:00:00 CDT potassium No Notes: Memori a chloride 7-18 (Same as: l 19:06: K-Dur 20) [place] 00 "Do Not Crush" With food and full glass of water potassium No Notes: Memori a chloride 7-18 (Same as: l 19:06: K-Dur 20) [place] 00 "Do Not Crush" With food and full glass of water potassium No Notes: Memori a chloride 7-18 (Same as: l 19:06: K-Dur 20) [place] 00 "Do Not Crush" With food and full glass of water Coreg No Notes: Memoria 7-12 Give with l 13:30: food. [place] 00 (Same As: Coreg) Coreg No Notes: Memoria 7-12 Give with l 13:30: food. [place] (Same As: Coreg) Coreg No Notes: Memoria 7-12 Give with l 13:30: food. [place] (Same As: Coreg) Coreg No Notes: Memoria 7-12 Give with l 02:00: food. [place] (Same As: Coreg) Coreg No Notes: Memoria 7-12 Give with l 02:00: food. [place] (Same As: Coreg) Coreg No Notes: Memoria 7-12 Give with l 02:00: food. [place] (Same As: Coreg) Lovenox No Notes: Memoria 7-09 (Same as: l 13:00: Lovenox) [place] Lovenox No Notes: Memoria 7-09 (Same as: l 13:00: Lovenox) [place] Lovenox No Notes: Memoria 7-09 (Same as: l 13:00: Lovenox) [place] Lovenox No Notes: Memoria 7-08 (Same as: l 17:20: Lovenox) [place] Lovenox No Notes: Memoria 7-08 (Same as: l 17:20: Lovenox) [place] 00 Lovenox No Notes: Memoria 7-08 (Same as: l 17:20: Lovenox) [place] No Route: PO, Me moria preparation 11-07 Drug Form: l 13:30: CAP, [place] 00 Dosing Weight 125.625, kg, Daily, Start date: 11/08/15 8:30:00 CDT, Duration: 30 day, Stop date: 12/07/15 8:30:00 CDT [place] No Route: PO, Me moria preparation 11-07 Drug Form: l 13:30: CAP, [place] 00 Dosing Weight 125.625, kg, Daily, Start date: 11/08/15 8:30:00 CDT, Duration: 30 day, Stop date: 12/07/15 8:30:00 CDT [place] No Route: PO, Me moria preparation 11-07 Drug Form: l 13:30: CAP, Joe 00 Dosing Weight 125.625, kg, Daily, Start date: 11/08/15 8:30:00 CDT, Duration: 30 day, Stop date: 12/07/15 8:30:00 CDT Aspirin 81 No Notes: Do Me moria MG Enteric 7-08 not crush l Coated 13:00: or chew. [place] Tablet 00 (Same As: Ecotrin) Amlodipine No Notes: Memor ia 7-08 (Same as: l 13:00: Norvasc) [place] Plavix No Notes: Memoria 7-08 (Same As: l 13:00: Plavix) [place] Aspirin 81 No Notes: Do Me moria MG Enteric 7-08 not crush l Coated 13:00: or chew. [place] Tablet 00 (Same As: Ecotrin) Amlodipine No Notes: Memor ia 7-08 (Same as: l 13:00: Norvasc) [place] 00 Plavix No Notes: Memoria 7-08 (Same As: l 13:00: Plavix) [place] Aspirin 81 No Notes: Do Me moria MG Enteric 7-08 not crush l Coated 13:00: or chew. [place] Tablet 00 (Same As: Ecotrin) Amlodipine No Notes: Memor ia 7-08 (Same as: l 13:00: Norvasc) [place] Plavix No Notes: Memoria 7-08 (Same As: l 13:00: Plavix) [place] Baclofen No Notes: Memoria 7-08 (Same As: l 02:00: Lioresal) [place] 00 Prinivil No Notes: Memoria 7-08 (Same as: l 02:00: Prinivil, [place] 00 Zestril) hydrochloro No Notes: Roe ana thiazide 25 7-08 (Same as: l mg oral 02:00: Hydrodiuri Herm mari tablet 00 l) With food. Hydrochloro No 1 tab, Roe ana thiazide 7-08 Route: PO, l 12.5 MG / 02:00: Drug Form: He rmann Lisinopril 00 TAB, 20 MG Oral Dosing Tablet Weight [Zestoretic 125.625, 20/12.5] kg, BID, Start date: 11/07/15 21:00:00 CDT, Duration: 30 day, Stop date: 12/07/15 8:30:00 CDT Doxazosin No Notes: Memori a 7-08 (Same as: l 02:00: Cardura) [place] 00 Baclofen No Notes: Memoria 7-08 (Same As: l 02:00: Lioresal) [place] 00 Prinivil No Notes: Memoria 7-08 (Same as: l 02:00: Prinivil, [place] 00 Zestril) hydrochloro No Notes: Roe ana thiazide 25 7-08 (Same as: l mg oral 02:00: Hydrodiuri Herm mari tablet 00 l) With food. Hydrochloro No 1 tab, Roe ana thiazide 7-08 Route: PO, l 12.5 MG / 02:00: Drug Form: He rmann Lisinopril 00 TAB, 20 MG Oral Dosing Tablet Weight [Zestoretic 125.625, 20/12.5] kg, BID, Start date: 11/07/15 21:00:00 CDT, Duration: 30 day, Stop date: 12/07/15 8:30:00 CDT Doxazosin No Notes: Memori a 7-08 (Same as: l 02:00: Cardura) Baclofen No Notes: Memoria 7-08 (Same As: l 02:00: Lioresal) Prinivil No Notes: Memoria 7-08 (Same as: l 02:00: Prinivil, [place] 00 Zestril) hydrochloro No Notes: Roe ana thiazide 25 7-08 (Same as: l mg oral 02:00: Hydrodiuri Herm mari tablet 00 l) With food. Hydrochloro No 1 tab, Roe ana thiazide 11-07 Route: PO, l 12.5 MG / 02:00: Drug Form: Eric grubbs Lisinopril 00 TAB, 20 MG Oral Dosing Tablet Weight [Zestoretic 125.625, 20/12.5] kg, BID, Start date: 11/07/15 21:00:00 CDT, Duration: 30 day, Stop date: 12/07/15 8:30:00 CDT Doxazosin No Notes: Memori a 7-08 (Same as: l 02:00: Cardura) Coreg No Notes: Memoria 7-08 Give with l 01:00: food. [place] 00 (Same As: Coreg) Docusate No Notes: Memoria Sodium 100 -08 (Same as: l MG Oral 01:00: Colace) Capsule (Do Not [Colace] Crush) Simvastatin No Notes: Roe ana 7-08 (Same as: l 01:00: Zocor) Celexa No Notes: Memoria 7-08 (Same As: l 01:00: CeleXA) Calcium No Notes: Memoria Carbonate 7-08 (calcium l 1500 MG / 01:00: carbonate- Eric grubbs Cholecalcif 00 vit D jono 400 500mg-400u UNT Oral nit chew Tablet TAB) Same as: Oscal 500+D Coreg No Notes: Memoria 7-08 Give with l 01:00: food. [place] (Same As: Coreg) Docusate No Notes: Memoria Sodium 100 7-08 (Same as: l MG Oral 01:00: Colace) [place] Capsule 00 (Do Not [Colace] Crush) Simvastatin No Notes: Roe ana 7-08 (Same as: l 01:00: Zocor) [place] 00 Celexa No Notes: Memoria 7-08 (Same As: l 01:00: CeleXA) Calcium No Notes: Memoria Carbonate 7-08 (calcium l 1500 MG / 01:00: carbonate- He rmann Cholecalcif 00 vit D jono 400 500mg-400u UNT Oral nit chew Tablet TAB) Same as: Oscal 500+D Coreg No Notes: Memoria 7-08 Give with l 01:00: food. [place] (Same As: Coreg) Docusate No Notes: Memoria Sodium 100 7-08 (Same as: l MG Oral 01:00: Colace) [place] Capsule 00 (Do Not [Colace] Crush) Simvastatin No Notes: Roe ana 7-08 (Same as: l 01:00: Zocor) Celexa No Notes: Memoria 7-08 (Same As: l 01:00: CeleXA) Calcium No Notes: Memoria Carbonate 7-08 (calcium l 1500 MG / 01:00: carbonate- [place] Cholecalcif 00 vit D jono 400 500mg-400u UNT Oral nit chew Tablet TAB) Same as: Oscal 500+D Enoxaparin No Notes: Memor ia 7- (Same as: l 18:00: Lovenox) Enoxaparin No Notes: Memor ia 7-07 (Same as: l 18:00: Lovenox) Enoxaparin No Notes: Memor ia 7-07 (Same as: l 18:00: Lovenox) Levetiracet No Notes: Roe ana am 7- Same as l 17:57: Keppra Mix with 100 mL NS, LR or D5W MEDICATION WASTE Product Size: 500 mg Product Wasted: ___ mg Lorazepam No Notes: Memori a 7-07 (Same as: l 17:57: Ativan) [place] Saline No Notes: Memoria Flush 0.9% 11-06 (Same as: l 17:57: BD [place] Posiflush) Levetiracet No Notes: Roe ana am 11-06 Same as l 17:57: Keppra Mix with 100 mL NS, LR or D5W MEDICATION WASTE Product Size: 500 mg Product Wasted: ___ mg Lorazepam No Notes: Memori a 7- (Same as: l 17:57: Ativan) [place] Saline No Notes: Memoria Flush 0.9% 11-06 (Same as: l 17:57: BD [place] 00 Posiflush) Levetiracet No Notes: Roe ana am 11-06 Same as l 17:57: Keppra Mix with 100 mL NS, LR or D5W MEDICATION WASTE Product Size: 500 mg Product Wasted: ___ mg Lorazepam No Notes: Memori a - (Same as: l 17:57: Ativan) [place] Saline No Notes: Memoria Flush 0.9% 11-06 (Same as: l 17:57: BD [place] 00 Posiflush) Docusate No Notes: Memoria Sodium 56.6 7-07 Same as l MG/ML Enema 17:52: Enemeez Her wiggins [Enemeez] 00 Non formulary item Docusate No Notes: Memoria Sodium 56.6 7-07 Same as l MG/ML Enema 17:52: Enemeez Her wiggins [Enemeez] 00 Non formulary item Docusate No Notes: Memoria Sodium 56.6 7-07 Same as l MG/ML Enema 17:52: Enemeez Her wiggins [Enemeez] 00 Non formulary item Citalopram No 10 mg = 1 Me moria 10 MG Oral 11-05 tab, PO, l Tablet 21:09: Bedtime, 0 Magdalena nn [Celexa] 00 Refill(s) Amlodipine No 1 tab, PO, M emoria 10 MG / 11-05 Daily, 0 l atorvastati 21:09: Refill(s) H ermann n 10 MG 00 Oral Tablet Vitamin D3 No 5,000 Memori a 5000 intl 11-05 IntlUnit = l units oral 21:09: 1 tab, PO, H ermann tablet 00 Daily, 0 Refill(s) Docusate No 100 mg = 1 Mem oria Sodium 100 11-05 cap, PO, l MG Oral 21:09: BID, 0 [place] Capsule 00 Refill(s) [Colace] Hydrochloro No 1 tab, PO, Memoria thiazide 11-05 Daily, # l 12.5 MG / 21:09: 30 tab, 0 Her wiggins Lisinopril 00 Refill(s) 20 MG Oral Tablet [Zestoretic 20/12.5] [place] No 2 tablets, Me moria oral 11-05 PO, Daily, l capsule 21:09: 0 [place] 00 Refill(s) Calcium 600 No 1 tab, PO, Memoria +D oral 11-05 BID, 0 l tablet 21:09: Refill(s) Jamar n 00 clopidogrel No 75 mg = 1 M emoria 75 MG Oral 11-05 tab, PO, l Tablet 21:09: Daily, # [place] [Plavix] 00 30 tab, 0 Refill(s) Doxazosin 4 No 4 mg = 1 Me moria MG Oral 11-05 tab, PO, l Tablet 21:09: Daily, 0 [place] [Cardura] 00 Refill(s) baclofen 20 No 20 mg = 1 M emoria mg oral 11-05 tab, PO, l tablet 21:09: Daily, 0 [place] 00 Refill(s) garlic oral No 0 Memori a tablet 11-05 Refill(s) l 21:09: [place] 00 Aspirin 81 No 81 mg = 1 Me moria MG Enteric 11-05 tab, PO, l Coated 21:09: Daily, # [place] Tablet 00 90 tab, 3 Refill(s) Simvastatin No 10 mg = 1 M emoria 10 MG Oral 11-05 tab, PO, l Tablet 21:09: Bedtime, # Magdalena nn [Zocor] 00 30 tab, 0 Refill(s) Citalopram No 10 mg = 1 Me moria 10 MG Oral 11-05 tab, PO, l Tablet 21:09: Bedtime, 0 [place]dal[place] nn [Celexa] 00 Refill(s) Amlodipine No 1 tab, PO, M emoria 10 MG / 11-05 Daily, 0 l atorvastati 21:09: Refill(s) H ermann n 10 MG 00 Oral Tablet Vitamin D3 No 5,000 Memori a 5000 intl 11-05 IntlUnit = l units oral 21:09: 1 tab, PO, H ermann tablet 00 Daily, 0 Refill(s) Docusate No 100 mg = 1 Mem oria Sodium 100 11-05 cap, PO, l MG Oral 21:09: BID, 0 [place] Capsule 00 Refill(s) [Colace] Hydrochloro No 1 tab, PO, Memoria thiazide 11-05 Daily, # l 12.5 MG / 21:09: 30 tab, 0 Her wiggins Lisinopril 00 Refill(s) 20 MG Oral Tablet [Zestoretic 20/12.5] [place]berry No 2 tablets, Me moria oral 11-05 PO, Daily, l capsule 21:09: 0 [place] 00 Refill(s) Calcium 600 No 1 tab, PO, Memoria +D oral 11-05 BID, 0 l tablet 21:09: Refill(s) Jamar n 00 clopidogrel No 75 mg = 1 M emoria 75 MG Oral 11-05 tab, PO, l Tablet 21:09: Daily, # [place] [Plavix] 00 30 tab, 0 Refill(s) Doxazosin 4 No 4 mg = 1 Me moria MG Oral 11-05 tab, PO, l Tablet 21:09: Daily, 0 [place] [Cardura] 00 Refill(s) baclofen 20 No 20 mg = 1 M emoria mg oral 11-05 tab, PO, l tablet 21:09: Daily, 0 [place] 00 Refill(s) garlic oral No 0 Memori a tablet 11-05 Refill(s) l 21:09: [place] 00 Aspirin 81 No 81 mg = 1 Me moria MG Enteric 11-05 tab, PO, l Coated 21:09: Daily, # [place] Tablet 00 90 tab, 3 Refill(s) Simvastatin No 10 mg = 1 M emoria 10 MG Oral 11-05 tab, PO, l Tablet 21:09: Bedtime, # Magdalena nn [Zocor] 00 30 tab, 0 Refill(s) Citalopram No 10 mg = 1 Me moria 10 MG Oral 11-05 tab, PO, l Tablet 21:09: Bedtime, 0 [place]dal[place] nn [Celexa] 00 Refill(s) Amlodipine No 1 tab, PO, M emoria 10 MG / 11-05 Daily, 0 l atorvastati 21:09: Refill(s) H ermann n 10 MG 00 Oral Tablet Vitamin D3 No 5,000 Memori a 5000 intl 11-05 IntlUnit = l units oral 21:09: 1 tab, PO, H ermann tablet 00 Daily, 0 Refill(s) Docusate No 100 mg = 1 Mem oria Sodium 100 11-05 cap, PO, l MG Oral 21:09: BID, 0 [place] Capsule 00 Refill(s) [Colace] Hydrochloro No 1 tab, PO, Memoria thiazide 11-05 Daily, # l 12.5 MG / 21:09: 30 tab, 0 Her wiggins Lisinopril 00 Refill(s) 20 MG Oral Tablet [Zestoretic 20/12.5] [place] No 2 tablets, Me moria oral 11-05 PO, Daily, l capsule 21:09: 0 [place] 00 Refill(s) Calcium 600 No 1 tab, PO, Memoria +D oral 11-05 BID, 0 l tablet 21:09: Refill(s) Jamar n 00 clopidogrel No 75 mg = 1 M emoria 75 MG Oral 11-05 tab, PO, l Tablet 21:09: Daily, # [place] [Plavix] 00 30 tab, 0 Refill(s) Doxazosin 4 No 4 mg = 1 Me moria MG Oral 7-06 tab, PO, l Tablet 21:09: Daily, 0 [place] [Cardura] 00 Refill(s) baclofen 20 No 20 mg = 1 M emoria mg oral 7-06 tab, PO, l tablet 21:09: Daily, 0 [place] 00 Refill(s) garlic oral No 0 Memori a tablet 06 Refill(s) l 21:09: [place] 00 Aspirin 81 No 81 mg = 1 Me moria MG Enteric 7-06 tab, PO, l Coated 21:09: Daily, # [place] Tablet 00 90 tab, 3 Refill(s) Simvastatin No 10 mg = 1 M emoria 10 MG Oral 7-06 tab, PO, l Tablet 21:09: Bedtime, # Magdalena nn [Zocor] 00 30 tab, 0 Refill(s) baclofen Yes 1{tbl} Take 1 Unive rs (LIORESAL) 4-29 tablet by ity of 20 mg 00:00: mouth [place] tablet 00 twice MD daily. [facility] baclofen Yes 1{tbl} Take 1 Unive rs (LIORESAL) 4-29 tablet by ity of 20 mg 00:00: mouth [place] tablet 00 twice MD daily. [facility] baclofen Yes 1{tbl} Take 1 Unive rs (LIORESAL) 4-29 tablet by ity of 20 mg 00:00: mouth [place] tablet 00 twice MD daily. [facility] baclofen Yes 1{tbl} Take 1 Unive rs (LIORESAL) 4-29 tablet by ity of 20 mg 00:00: mouth [place] tablet 00 twice MD daily. [facility] baclofen Yes 1{tbl} Take 1 Unive rs (LIORESAL) 4-29 tablet by ity of 20 mg 00:00: mouth [place] tablet 00 twice MD daily. [facility] baclofen Yes 1{tbl} Take 1 Unive rs (LIORESAL) 4-29 tablet by ity of 20 mg 00:00: mouth [place] tablet 00 twice MD daily. [facility] baclofen Yes 1{tbl} Take 1 Unive rs (LIORESAL) 4-29 tablet by ity of 20 mg 00:00: mouth [place] tablet 00 twice MD daily. [facility] baclofen Yes 1{tbl} Take 1 Unive rs (LIORESAL) 4-29 tablet by ity of 20 mg 00:00: mouth [place] tablet 00 twice MD daily. [facility] baclofen Yes 1{tbl} Take 1 Unive rs (LIORESAL) 4-29 tablet by ity of 20 mg 00:00: mouth [place] tablet 00 twice MD daily. [facility] carvedilol Yes 1{tbl} Take 1 Uni vers (COREG) 4-19 tablet by ity of 6.25 mg 00:00: mouth [place] tablet 00 twice MD daily. [facility] carvedilol Yes 1{tbl} Take 1 Uni vers (COREG) 4-19 tablet by ity of 6.25 mg 00:00: mouth [place] tablet 00 twice MD daily. [facility] carvedilol Yes 1{tbl} Take 1 Uni vers (COREG) 4-19 tablet by ity of 6.25 mg 00:00: mouth [place] tablet 00 twice MD daily. [facility] carvedilol Yes 1{tbl} Take 1 Uni vers (COREG) 4-19 tablet by ity of 6.25 mg 00:00: mouth [place] tablet 00 twice MD daily. [facility] carvedilol Yes 1{tbl} Take 1 Uni vers (COREG) 4-19 tablet by ity of 6.25 mg 00:00: mouth [place] tablet 00 twice MD daily. [facility] carvedilol Yes 1{tbl} Take 1 Uni vers (COREG) 4-19 tablet by ity of 6.25 mg 00:00: mouth [place] tablet 00 twice MD daily. [facility] carvedilol Yes 1{tbl} Take 1 Uni vers (COREG) 4-19 tablet by ity of 6.25 mg 00:00: mouth [place] tablet 00 twice MD daily. [facility] carvedilol Yes 1{tbl} Take 1 Uni vers (COREG) 4-19 tablet by ity of 6.25 mg 00:00: mouth [place] tablet 00 twice MD daily. [facility] carvedilol Yes 1{tbl} Take 1 Uni vers (COREG) 4-19 tablet by ity of 6.25 mg 00:00: mouth [place] tablet 00 twice MD daily. [facility] amLODIPine Yes 10mg Take 10 mg U nivers (NORVASC) 4-18 by mouth ity of 10 mg 00:00: daily. [place] tablet 00 [facility] clopidogrel Yes 1{tbl} Take 1 Un beto (PLAVIX) 75 4-18 tablet by ity of mg tablet 00:00: mouth [place] 00 daily. [facility] lisinopril- Yes 1{tbl} Take 1 Un beto hydrochloro 4-18 tablet by ity of thiazide 00:00: mouth [place] (PRINZIDE,Z 00 twice MD ESTORETIC) daily. Anderso 20-12.5 mg n per tablet [facility] simvastatin Yes 1{tbl} Take 1 Un beto (ZOCOR) 10 4-18 tablet by [place] of mg tablet [place] bed[place] [facility] doxazosin Yes 1{tbl} Take 1 Univ ers (CARDURA) 4 4-18 tablet by ity of mg tablet 00:00: mouth [place] 00 twice MD daily. [facility] amLODIPine Yes 10mg Take 10 mg U nivers (NORVASC) 4-18 by mouth ity of 10 mg 00:00: daily. [place] tablet 00 [facility] clopidogrel Yes 1{tbl} Take 1 Un beto (PLAVIX) 75 4-18 tablet by ity of mg tablet 00:00: mouth [place] 00 daily. [facility] lisinopril- Yes 1{tbl} Take 1 Un beto hydrochloro 4-18 tablet by ity of thiazide 00:00: mouth [place] (PRINZIDE,Z 00 twice ESTORETIC) daily. Anderso 20-12.5 mg n per tablet [facility] [place] simvastatin Yes 1{tbl} Take 1 Un beto (ZOCOR) 10 4-18 tablet by [place]y of mg tablet 00:[place] [facility]{tbl} Take 1 Univ ers (CARDURA) 4 4-18 tablet by ity of mg tablet 00:00: mouth [place] 00 twice MD daily. [facility] amLODIPine Yes 10mg Take 10 mg U nivers (NORVASC) 4-18 by mouth ity of 10 mg 00:00: daily. [place] tablet 00 [facility] amLODIPine Yes 10mg Take 10 mg U nivers (NORVASC) 4-18 by mouth ity of 10 mg 00:00: daily. [place] tablet 00 [facility] clopidogrel Yes 1{tbl} Take 1 Un beto (PLAVIX) 75 4-18 tablet by ity of mg tablet 00:00: mouth [place] 00 daily. [facility] lisinopril- Yes 1{tbl} Take 1 Un beto hydrochloro 4-18 tablet by ity of thiazide 00:00: mouth [place] (PRINZIDE,Z 00 twice ESTABE) daily. Anderso 20-12.5 mg n per tablet [facility] [place] simvastatin Yes 1{tbl} Take 1 Un beto (ZOCOR) 10 4-18 tablet by ity of mg tablet 00:[place]: [place] [facility] dox[facility] Yes 1{tbl} Take 1 Univ ers (CARDURA) 4 4-18 tablet by ity of mg tablet 00:00: mouth [place] 00 twice MD daily. [facility] clopidogrel Yes 1{tbl} Take 1 Un beto (PLAVIX) 75 4-18 tablet by ity of mg tablet 00:00: mouth [place] 00 daily. [facility] lisinopril- Yes 1{tbl} Take 1 Un beto hydrochloro 4-18 tablet by ity of thiazide 00:00: mouth [place] (PRINZIDE,Z 00 twice MD WOOD) daily. Anderso 20-12.5 mg n per tablet [facility] simvastatin Yes 1{tbl} Take 1 Un beto (ZOCOR) 10 4-18 tablet by [place] of mg tablet 00:[place] bed[place]. MD Isaiah louis [facility] doxazosin Yes 1{tbl} Take 1 Univ ers (CARDURA) 4 4-18 tablet by ity of mg tablet 00:00: mouth [place] 00 twice daily. [facility] amLODIPine Yes 10mg Take 10 mg U nivers (NORVASC) 4-18 by mouth ity of 10 mg 00:00: daily. [place] tablet 00 MD Isaiah louis [facility] clopidogrel Yes 1{tbl} Take 1 Un beto (PLAVIX) 75 4-18 tablet by ity of mg tablet 00:00: mouth [place] 00 daily. MD Isaiah louis [facility] lisinopril- Yes 1{tbl} Take 1 Un beto hydrochloro 4-18 tablet by ity of thiazide 00:00: mouth [place] (PRINZIDE,Z 00 twice MD WOOD) daily. Anderso 20-12.5 mg n per tablet [facility] simvastatin Yes 1{tbl} Take 1 Un beto (ZOCOR) 10 4-18 tablet by [place]y of mg tablet 00:[place] bed[place]. MD Isaiah louis [facility] doxazosin Yes 1{tbl} Take 1 Univ ers (CARDURA) 4 4-18 tablet by ity of mg tablet 00:00: mouth [place] 00 [facility]. [facility] amLODIPine Yes 10mg Take 10 mg U nivers (NORVASC) 4-18 by mouth ity of 10 mg 00:00: daily. [place] tablet 00 MD Colon [facility] clopidogrel Yes 1{tbl} Take 1 Un beto (PLAVIX) 75 4-18 tablet by ity of mg tablet 00:00: mouth [place] 00 daily. MD Isaiah louis [facility] lisinopril- Yes 1{tbl} Take 1 Un beto hydrochloro 4-18 tablet by ity of thiazide 00:00: mouth [place] (PRINZIDE,Z 00 twice MD WOOD) daily. Anderso 20-12.5 mg n per tablet [facility] simvastatin Yes 1{tbl} Take 1 Un beto (ZOCOR) 10 4-18 tablet by ity of mg tablet 00:[place] bed[place]. MD Colon [facility] doxazosin Yes 1{tbl} Take 1 Univ ers (CARDURA) 4 4-18 tablet by ity of mg tablet 00:00: mouth [place] 00 twice daily. [facility] amLODIPine Yes 10mg Take 10 mg U nivers (NORVASC) 4-18 by mouth ity of 10 mg 00:00: daily. [place] tablet 00 [facility] clopidogrel Yes 1{tbl} Take 1 Un beto (PLAVIX) 75 4-18 tablet by ity of mg tablet 00:00: mouth [place] 00 daily. MD Colon [facility] lisinopril- Yes 1{tbl} Take 1 Un beto hydrochloro 4-18 tablet by ity of thiazide 00:00: mouth [place] (PRINZIDE,Z 00 twice MD WOOD) daily. Anderso 20-12.5 mg n per tablet [facility] simvastatin Yes 1{tbl} Take 1 Un beto (ZOCOR) 10 4-18 tablet by ity of mg tablet 00:[place]: [place] [facility]. [facility] dox[facility] Yes 1{tbl} Take 1 Univ ers (CARDURA) 4 4-18 tablet by ity of mg tablet 00:00: mouth [place] 00 twice daily. [facility] amLODIPine Yes 10mg Take 10 mg U nivers (NORVASC) 4-18 by mouth ity of 10 mg 00:00: daily. [place] tablet 00 [facility] clopidogrel Yes 1{tbl} Take 1 Un beto (PLAVIX) 75 4-18 tablet by ity of mg tablet 00:00: mouth [place] 00 daily. MD Isaiah louis [facility] lisinopril- Yes 1{tbl} Take 1 Un beto hydrochloro 4-18 tablet by ity of thiazide 00:00: mouth [place] (PRINZIDE,Z 00 twice MD WOOD) daily. Anders[facility] 20-12.5 mg n per [facility] simvastatin Yes 1{tbl} Take 1 Un beto (ZOCOR) 10 4-18 tablet by [place] [facility] [facility] doxazosin Yes 1{tbl} Take 1 Univ ers (CARDURA) 4 4-18 tablet by ity of mg tablet 00:00: mouth [place] 00 twice daily. [facility] amLODIPine Yes 10mg Take 10 mg U nivers (NORVASC) 4-18 by mouth ity of 10 mg 00:00: daily. [place] tablet 00 [facility] clopidogrel Yes 1{tbl} Take 1 Un beto (PLAVIX) 75 4-18 tablet by ity of mg tablet 00:00: mouth [place] 00 daily. MD Isaiah louis [facility] lisinopril- Yes 1{tbl} Take 1 Un beto hydrochloro 4-18 tablet by ity of thiazide 00:00: mouth [place] (PRINZIDE,Z 00 twice MD WOOD) daily. Anderso 20-12.5 mg n per tablet [facility] [place] simvastatin Yes 1{tbl} Take 1 Un beto (ZOCOR) 10 4-18 tablet [place] Isaiah louis [facility] doxazosin Yes 1{tbl} Take 1 Univ ers (CARDURA) 4 4-18 tablet by ity of mg tablet 00:00: mouth [place] 00 twice daily. [facility] citalopram Yes 1{tbl} Take 1 Uni vers (CeleXA) 10 1-29 tablet [place] bed[place]. MD [facility] citalopram Yes 1{tbl} Take 1 Uni vers (CeleXA) 10 1-29 tablet [place] mg [place] bed[place] MD Anderso n [facility] Yes 1{tbl} Take 1 Uni vers (CeleXA) 10 1-29 tablet [place] MD Isaiah louis [facility] Yes 1{tbl} Take 1 Uni vers (CeleXA) 10 1-29 tablet [place] bed[place] MD Isaiah louis [facility] Yes 1{tbl} Take 1 Uni vers (CeleXA) 10 1-29 tablet [place] MD Isaiah louis [facility] Yes 1{tbl} Take 1 Uni vers (CeleXA) 10 1-29 tablet [place] MD Isaiah louis [facility] Yes 1{tbl} Take 1 Uni vers (CeleXA) 10 1-29 tablet [place] MD Isaiah louis [facility] Yes 1{tbl} Take 1 Uni vers (CeleXA) 10 1-29 tablet [place] mg [place] MD Isaiah louis [facility] Yes 1{tbl} Take 1 Uni vers (CeleXA) 10 1-29 tablet [place] MD Isaiah louis [facility] carvedilol 2014-05 Yes 12.5 mg = Me moria 12.5 MG -16 1 tab, PO, l Oral Tablet 17:05: Daily, IN [place] [Coreg] 00 A.M, 0 Refill(s) baclofen 20 2014-05 Yes 20 mg = 1 M emoria mg oral -16 tab, PO, l tablet 17:05: BID, 0 Joe 00 Refill(s) carvedilol 2014-05 Yes 6.25 mg = Me moria 6.25 MG 1-16 1 tab, PO, l Oral Tablet 17:05: Daily, IN [place] [Coreg] 00 PM, 0 Refill(s) carvedilol 2014-05 Yes 12.5 mg = Me moria 12.5 MG 1-16 1 tab, PO, l Oral Tablet 17:05: Daily, IN [place] [Coreg] 00 A.M, 0 Refill(s) baclofen 20 2014-05 Yes 20 mg = 1 M emoria mg oral 1-16 tab, PO, l tablet 17:05: BID, 0 [place] 00 Refill(s) carvedilol 2014-05 Yes 6.25 mg = Me moria 6.25 MG 1-16 1 tab, PO, l Oral Tablet 17:05: Daily, IN H [place] [Coreg] 00 PM, 0 Refill(s) carvedilol 2014-05 Yes 12.5 mg = Me moria 12.5 MG 1-16 1 tab, PO, l Oral Tablet 17:05: Daily, IN [place] [Coreg] 00 A.M, 0 Refill(s) baclofen 20 2014-05 Yes 20 mg = 1 M emoria mg oral 1-16 tab, PO, l tablet 17:05: BID, 0 [place] 00 Refill(s) carvedilol 2014-05 Yes 6.25 mg = Me moria 6.25 MG 1-16 1 tab, PO, l Oral Tablet 17:05: Daily, IN H ermann [Coreg] 00 PM, 0 Refill(s) Calcium 2014-05 Yes 500 mg = 1 Roe ana Carbonate 0-15 tab, PO, l 1250 MG / 22:43: BID, # 60 Her wiggins Cholecalcif 00 tab, 1 jono 400 Refill(s) UNT Chewable Tablet Calcium 2014-05 Yes 500 mg = 1 Roe ana Carbonate 0-15 tab, PO, l 1250 MG / 22:43: BID, # 60 Her wiggins Cholecalcif 00 tab, 1 jono 400 Refill(s) UNT Chewable Tablet Calcium 2014-05 Yes 500 mg = 1 [place] ana Carbonate 0-15 tab, PO, l 1250 MG / 22:43: BID, # 60 Her wiggins Cholecalcif 00 tab, 1 jono 400 Refill(s) UNT Chewable Tablet simvastatin 2014-05 Yes 10 mg = 1 M emoria 10 mg oral 0-15 tab, PO, l tablet 22:37: Bedtime, # Magdalena nn 00 30 tab, 1 Refill(s) amLODIPine 2014-05 Yes 10 mg = 1 Me moria 10 mg oral 0-15 tab, PO, l tablet 22:37: QPM, # 30 Jamar n 00 tab, 1 Refill(s) clopidogrel 2014-05 Yes 75 mg = 1 M emoria 75 mg oral 0-15 tab, PO, l tablet 22:37: Daily, # Joe 00 30 tab, 1 Refill(s) citalopram 2014-05 Yes 10 mg = 1 Me moria 10 mg oral 0-15 tab, PO, l tablet 22:37: Bedtime, # [place]dal[place] nn 00 30 tab, 1 Refill(s) lisinopril 2014-05 Yes 20 mg = 1 Me moria 20 mg oral 0-15 tab, PO, l tablet 22:37: BID, # 60 Jamar n 00 tab, 1 Refill(s) Famotidine 2014-05 Yes 40 mg = 2 Me moria 20 MG Oral 0-15 tab, PO, l Tablet 22:37: Daily, # [place] 00 60 tab, 1 Refill(s) carvedilol 2014-05 Yes 6.25 mg = Me moria 6.25 mg 0-15 1 tab, PO, l oral tablet 22:37: Q12H, # 60 [place] 00 tab, 1 Refill(s) doxazosin 4 2014-05 Yes 4 mg = 1 Me moria mg oral 0-15 tab, PO, l tablet 22:37: BID, # 60 Jamar n 00 tab, 1 Refill(s) baclofen 20 2014-05 Yes 20 mg = 1 M emoria mg oral 0-15 tab, PO, l tablet 22:37: TID, # 90 Jamar n 00 tab, 1 Refill(s) Aspirin 81 2014-05 Yes 81 mg = 1 Me moria MG Enteric 0-15 tab, PO, l Coated 22:37: Daily, # [place] Tablet 00 30 tab, 1 Refill(s) Docusate 2014-05 Yes 283 mg = 1 Mem oria Sodium 56.6 0-15 ea, IN, l MG/ML Enema 22:37: Bedtime, He humera [Enemeez] 00 PRN Constipati on, # 14 unit, 1 Refill(s) Docusate 2014-05 Yes 100 mg = 1 Mem oria Sodium 100 0-15 cap, PO, l MG Oral 22:37: BID, # 60 Mag[place] nn Capsule 00 cap, 1 [Colace] Refill(s) Calcium 2014-05 No 500 mg = 1 Roe ana Carbonate 0-15 tab, PO, l 1250 MG / 22:37: BID, 0 Jamar n Cholecalcif 00 Refill(s) jono 400 UNT Chewable Tablet simvastatin 2014-05 Yes 10 mg = 1 M emoria 10 mg oral 0-15 tab, PO, l tablet 22:37: Bedtime, # [place]dal[place] nn 00 30 tab, 1 Refill(s) amLODIPine 2014-05 Yes 10 mg = 1 Me moria 10 mg oral 0-15 tab, PO, l tablet 22:37: QPM, # 30 Jamar n 00 tab, 1 Refill(s) clopidogrel 2014-05 Yes 75 mg = 1 M emoria 75 mg oral 0-15 tab, PO, l tablet 22:37: Daily, # Joe 00 30 tab, 1 Refill(s) citalopram 2014-05 Yes 10 mg = 1 Me moria 10 mg oral 0-15 tab, PO, l tablet 22:37: Bedtime, # [place]dal[place] nn 00 30 tab, 1 Refill(s) lisinopril 2014-05 Yes 20 mg = 1 Me moria 20 mg oral 0-15 tab, PO, l tablet 22:37: BID, # 60 Jamar n 00 tab, 1 Refill(s) Famotidine 2014-05 Yes 40 mg = 2 Me moria 20 MG Oral 0-15 tab, PO, l Tablet 22:37: Daily, # [place] 00 60 tab, 1 Refill(s) carvedilol 2014-05 Yes 6.25 mg = Me moria 6.25 mg 0-15 1 tab, PO, l oral tablet 22:37: Q12H, # 60 [place] 00 tab, 1 Refill(s) doxazosin 4 2014-05 Yes 4 mg = 1 Me moria mg oral 0-15 tab, PO, l tablet 22:37: BID, # 60 Jamar n 00 tab, 1 Refill(s) baclofen 20 2014-05 Yes 20 mg = 1 M emoria mg oral 0-15 tab, PO, l tablet 22:37: TID, # 90 Jamar n 00 tab, 1 Refill(s) Aspirin 81 2014-05 Yes 81 mg = 1 Me moria MG Enteric 0-15 tab, PO, l Coated 22:37: Daily, # [place] Tablet 00 30 tab, 1 Refill(s) Docusate 2014-05 Yes 283 mg = 1 Mem oria Sodium 56.6 0-15 ea, IN, l MG/ML Enema 22:37: Bedtime, He rmann [Enemeez] 00 PRN Constipati on, # 14 unit, 1 Refill(s) Docusate 2014-05 Yes 100 mg = 1 Mem oria Sodium 100 0-15 cap, PO, l MG Oral 22:37: BID, # 60 Magdalena nn Capsule 00 cap, 1 [Colace] Refill(s) Calcium 2014-05 No 500 mg = 1 Roe ana Carbonate 0-15 tab, PO, l 1250 MG / 22:37: BID, 0 Jamar n Cholecalcif 00 Refill(s) jono 400 UNT Chewable Tablet simvastatin 2014-05 Yes 10 mg = 1 M emoria 10 mg oral 0-15 tab, PO, l tablet 22:37: Bedtime, # [place]dal[place] nn 00 30 tab, 1 Refill(s) amLODIPine 2014-05 Yes 10 mg = 1 Me moria 10 mg oral 0-15 tab, PO, l tablet 22:37: QPM, # 30 Jmaar n 00 tab, 1 Refill(s) clopidogrel 2014-05 Yes 75 mg = 1 M emoria 75 mg oral 0-15 tab, PO, l tablet 22:37: Daily, # Joe 00 30 tab, 1 Refill(s) citalopram 2014-05 Yes 10 mg = 1 Me moria 10 mg oral 0-15 tab, PO, l tablet 22:37: Bedtime, # [place] nn 00 30 tab, 1 Refill(s) lisinopril 2014-05 Yes 20 mg = 1 Me moria 20 mg oral 0-15 tab, PO, l tablet 22:37: BID, # 60 Jamar n 00 tab, 1 Refill(s) Famotidine 2014-05 Yes 40 mg = 2 Me moria 20 MG Oral 0-15 tab, PO, l Tablet 22:37: Daily, # [place] 00 60 tab, 1 Refill(s) carvedilol 2014-05 Yes 6.25 mg = Me moria 6.25 mg 0-15 1 tab, PO, l oral tablet 22:37: Q12H, # 60 Joe 00 tab, 1 Refill(s) doxazosin 4 2014-05 Yes 4 mg = 1 Me moria mg oral 0-15 tab, PO, l tablet 22:37: BID, # 60 Jamar n 00 tab, 1 Refill(s) baclofen 20 2014-05 Yes 20 mg = 1 M emoria mg oral 0-15 tab, PO, l tablet 22:37: TID, # 90 Jamar n 00 tab, 1 Refill(s) Aspirin 81 2014-05 Yes 81 mg = 1 Me moria MG Enteric 0-15 tab, PO, l Coated 22:37: Daily, # Joe Tablet 00 30 tab, 1 Refill(s) Docusate 2014-05 Yes 283 mg = 1 Mem oria Sodium 56.6 0-15 ea, IN, l MG/ML Enema 22:37: Bedtime, He rmann [Enemeez] 00 PRN Constipati on, # 14 unit, 1 Refill(s) Docusate 2014-05 Yes 100 mg = 1 Mem oria Sodium 100 0-15 cap, PO, l MG Oral 22:37: BID, # 60 Magdalena nn Capsule 00 cap, 1 [Colace] Refill(s) Calcium 2014-05 No 500 mg = 1 Roe ana Carbonate 0-15 tab, PO, l 1250 MG / 22:37: BID, 0 Jamar n Cholecalcif 00 Refill(s) jono 400 UNT Chewable Tablet Docusate 2014-05 No Notes: Memoria Sodium 56.6 0-13 Same as l MG/ML Enema 17:13: Enemeez Her wiggins [Enemeez] 00 Non formulary item Docusate 2014-05 No Notes: Memoria Sodium 56.6 0-13 Same as l MG/ML Enema 17:13: Enemeez Her wiggins [Enemeez] 00 Non formulary item Docusate 2014-05 No Notes: Memoria Sodium 56.6 0-13 Same as l MG/ML Enema 17:13: Enemeez Her wiggins [Enemeez] 00 Non formulary item Cardura 2014-05 No Notes: Memoria 0-08 (Same as: l 02:00: Cardura) Joe Cardura 2014-05 No Notes: Memoria 0-08 (Same as: l 02:00: Cardura) [place] Cardura 2014-05 No Notes: Memoria 0-08 (Same as: l 02:00: Cardura) Joe 00 Chlorthalid 2014-05 No Notes: Roe ana one 25 MG 0-06 Non-Formul l Oral Tablet 21:00: ava Drug He r[place] 00 (Same As: [place]) Chlorthalid 2014-05 No Notes: Roe ana one 25 MG 0-06 Non-Formul l Oral Tablet 21:00: ava Drug [place] r[place] 00 (Same As: [place]) Chlorthalid 2014-05 No Notes: Roe ana one 25 MG 0-06 Non-Formul l Oral Tablet 21:00: ava Drug [place] r[place] 00 (Same As: [place]) Hydralazine 2014-05 No Notes: Roe ana 0-05 (Same as: l 20:58: Apresoline [place] 00 ) May interfere w/enteral feedings. Take With Food Hydralazine 2014-05 No Notes: Roe ana 0-05 (Same as: l 20:58: Apresoline [place] 00 ) May interfere w/enteral feedings. Take With Food Hydralazine 2014-05 No Notes: Roe ana 0-05 (Same as: l 20:58: Apresoline [place] 00 ) May interfere w/enteral feedings. Take With Food carvedilol 2014-05 No Notes: Memor ia 0-03 Give with l 02:00: food. Joe (Same As: Coreg) Celexa 2014-05 No Notes: Memoria 0-03 (Same As: l 02:00: CeleXA) Joe 00 carvedilol 2014-05 No Notes: Memor ia 0-03 Give with l 02:00: food. [place] 00 (Same As: Coreg) Celexa 2014-05 No Notes: Memoria 0-03 (Same As: l 02:00: CeleXA) carvedilol 2014-05 No Notes: Memor ia 0-03 Give with l 02:00: food. Joe 00 (Same As: Coreg) Celexa 2014-05 No Notes: Memoria 0-03 (Same As: l 02:00: CeleXA) [place] 00 Albuterol 2014-05 No Notes: Memori a 0.833 MG/ML 0-02 (Same as: l / 18:30: Duoneb) [place] Ipratropium 00 [place] 0.167 MG/ML Inhalant Solution Albuterol 2014-05 No Notes: Memori a 0.833 MG/ML 0-02 (Same as: l / 18:30: Duoneb) [place] Ipratropium 00 [place] 0.167 MG/ML Inhalant Solution Albuterol 2014-05 No Notes: Memori a 0.833 MG/ML 0-02 (Same as: l / 18:30: Duoneb) Joe Ipratropium 00 [place] 0.167 MG/ML Inhalant Solution Albuterol 2014-05 No Notes: Memori a 0.833 MG/ML 0-02 (Same as: l / 17:42: Duoneb) [place] Ipratropium 00 [place] 0.167 MG/ML Inhalant Solution Albuterol 2014-05 No Notes: Memori a 0.833 MG/ML 0-02 (Same as: l / 17:42: Duoneb) [place] Ipratropium 00 [place] 0.167 MG/ML Inhalant Solution Albuterol 2014-05 No Notes: Memori a 0.833 MG/ML 0-02 (Same as: l / 17:42: Duoneb) [place] Ipratropium 00 [place] 0.167 MG/ML Inhalant Solution Cardura 2014-05 No Notes: Memoria 0-02 (Same as: l 13:30: Cardura) Joe 00 Plavix 2014-05 No Notes: Memoria 0-02 (Same As: l 13:30: Plavix) [place] 00 Celexa 2014-05 No Notes: Memoria 0-02 (Same As: l 13:30: CeleXA) Joe 00 Aspirin 81 2014-05 No 81 mg, 1 Mem oria MG Chewable 0-02 tab, l Tablet 13:30: Route: PO, Magdalena nn Drug form: CHEWTAB, Daily, Dosing Weight 118.182, kg, Start date: 02/01/15 8:30:00, Duration: 30 day, Stop date: 03/02/15 8:30:00 Aspirin 81 2014-05 No Notes: Do Me moria MG Enteric 0-02 not crush l Coated 13:30: or chew. [place] Tablet 00 (Same As: Ecotrin) Norvasc 2014-05 No Notes: Memoria 0-02 (Same as: l 13:30: Norvasc) Levaquin 2014-05 No 500 mg, 1 Roe ana 0-02 tab, l 13:30: Route: PO, [place] 00 Drug form: TAB, Daily, Dosing Weight 118.182, kg, Start date: 02/01/15 8:30:00, Duration: 7 day, Stop date: 02/07/15 8:30:00 Magnesium 2014-05 No 250 mg, Memor ia Oxide 0-02 Route: PO, l 13:30: Drug form: Joe 00 TAB, Daily, Dosing Weight 118.182, kg, Start date: 02/01/15 8:30:00, Duration: 30 day, Stop date: 03/02/15 8:30:00 Famotidine 2014-05 No Notes: Memor ia 20 MG Oral 0-02 (Same as: l Tablet 13:30: Pepcid) Vitamin D2 2014-05 No 5,000 mg, Me moria 0-02 Route: PO, l 13:30: Daily, Dosing Weight 118.182, kg, Start date: 02/01/15 8:30:00, Duration: 30 day, Stop date: 03/02/15 8:30:00 Cardura 2014-05 No Notes: Memoria 0-02 (Same as: l 13:30: Cardura) Plavix 2014-05 No Notes: Memoria 0-02 (Same As: l 13:30: Plavix) Celexa 2014-05 No Notes: Memoria 0-02 (Same As: l 13:30: CeleXA) Aspirin 81 2014-05 No 81 mg, 1 Mem oria MG Chewable 0-02 tab, l Tablet 13:30: Route: PO, Magdalena nn Drug form: CHEWTAB, Daily, Dosing Weight 118.182, kg, Start date: 02/01/15 8:30:00, Duration: 30 day, Stop date: 03/02/15 8:30:00 Aspirin 81 2014-05 No Notes: Do Me moria MG Enteric 0-02 not crush l Coated 13:30: or chew. Joe Tablet 00 (Same As: Ecotrin) Norvasc 2014-05 No Notes: Memoria 0-02 (Same as: l 13:30: Norvasc) Levaquin 2014-05 No 500 mg, 1 Roe ana 0-02 tab, l 13:30: Route: PO, [place] 00 Drug form: TAB, Daily, Dosing Weight 118.182, kg, Start date: 02/01/15 8:30:00, Duration: 7 day, Stop date: 02/07/15 8:30:00 Magnesium 2014-05 No 250 mg, Memor ia Oxide 0-02 Route: PO, l 13:30: Drug form: Joe TAB, Daily, Dosing Weight 118.182, kg, Start date: 02/01/15 8:30:00, Duration: 30 day, Stop date: 03/02/15 8:30:00 Famotidine 2014-05 No Notes: Memor ia 20 MG Oral 0-02 (Same as: l Tablet 13:30: Pepcid) Vitamin D2 2014-05 No 5,000 mg, Me moria 0-02 Route: PO, l 13:30: Daily, Joe 00 Dosing Weight 118.182, kg, Start date: 02/01/15 8:30:00, Duration: 30 day, Stop date: 03/02/15 8:30:00 Cardura 2014-05 No Notes: Memoria 0-02 (Same as: l 13:30: Cardura) Plavix 2014-05 No Notes: Memoria 0-02 (Same As: l 13:30: Plavix) Celexa 2014-05 No Notes: Memoria 0-02 (Same As: l 13:30: CeleXA) Aspirin 81 2014-05 No 81 mg, 1 Mem oria MG Chewable 0-02 tab, l Tablet 13:30: Route: PO, Magdalena Drug form: CHEWTAB, Daily, Dosing Weight 118.182, kg, Start date: 02/01/15 8:30:00, Duration: 30 day, Stop date: 03/02/15 8:30:00 Aspirin 81 2014-05 No Notes: Do Me moria MG Enteric 0-02 not crush l Coated 13:30: or chew. Tablet 00 (Same As: Ecotrin) Norvasc 2014-05 No Notes: Memoria 0-02 (Same as: l 13:30: Norvasc) Levaquin 2014-05 No 500 mg, 1 Roe ana 0-02 tab, l 13:30: Route: PO, Drug form: TAB, Daily, Dosing Weight 118.182, kg, Start date: 02/01/15 8:30:00, Duration: 7 day, Stop date: 02/07/15 8:30:00 Magnesium 2014-05 No 250 mg, Memor ia Oxide 0-02 Route: PO, l 13:30: Drug form: TAB, Daily, Dosing Weight 118.182, kg, Start date: 02/01/15 8:30:00, Duration: 30 day, Stop date: 03/02/15 8:30:00 Famotidine 2014-05 No Notes: Memor ia 20 MG Oral 0-02 (Same as: l Tablet 13:30: Pepcid) Vitamin D2 2014-05 No 5,000 mg, Me moria 0-02 Route: PO, l 13:30: Daily, Dosing Weight 118.182, kg, Start date: 02/01/15 8:30:00, Duration: 30 day, Stop date: 03/02/15 8:30:00 Celexa 2014-05 No Notes: Memoria 0-02 (Same As: l 03:12: CeleXA) Celexa 2014-05 No Notes: Memoria 0-02 (Same As: l 03:12: CeleXA) Celexa 2014-05 No Notes: Memoria 0-02 (Same As: l 03:12: CeleXA) Zocor 2014-05 No Notes: Memoria 0-02 (Same as: l 02:00: Zocor) carvedilol 2014-05 No Notes: Memor ia 0-02 Give with l 02:00: food. Joe 00 (Same As: Coreg) Lisinopril 2014-05 No Notes: Memor ia 0-02 (Same as: l 02:00: Prinivil, Joe 00 Zestril) Famotidine 2014-05 No 20 mg, 1 Mem oria 20 MG Oral 0-02 tab, l Tablet 02:00: Route: PO, Magdalena nn [Pepcid] 00 Drug form: TAB, BID, Dosing Weight 118.182, kg, Start date: 01/31/15 21:00:00, Duration: 30 day, Stop date: 03/02/15 8:30:00 Baclofen 2014-05 No Notes: Memoria 0-02 (Same As: l 02:00: Lioresal) [place] Os-Familia 500 2014-05 No Notes: Memor ia + D 0-02 (calcium l 02:00: carbonate- [place] 00 vit D 500mg-400u nit chew TAB) Same as: Oscal 500+D Cardura 2014-05 No 4 mg, Memoria 0-02 Route: PO, l 02:00: Drug form: [place] 00 TAB, BID, Dosing Weight 118.182, kg, Start date: 01/31/15 21:00:00, Duration: 30 day, Stop date: 03/02/15 8:30:00 Albuterol 2014-05 No Notes: Memori a 0.833 MG/ML 0-02 (Same as: l / 02:00: Duoneb) Joe Ipratropium 00 [place] 0.167 MG/ML Inhalant Solution Hydrochloro 2014-05 No 1 tab, Roe ana thiazide 0-02 Route: PO, l 12.5 MG / 02:00: Drug Form: Erci almazanann Lisinopril 00 TAB, 20 MG Oral Dosing Tablet Weight 118.182, kg, BID, Start date: 01/31/15 21:00:00, Duration: 30 day, Stop date: 03/02/15 8:30:00 Docusate 2014-05 No Notes: Memoria Sodium 100 0-02 (Same as: l MG Oral 02:00: Colace) [place] Capsule 00 (Do Not [Colace] Crush) Zocor 2014-05 No Notes: Memoria 0-02 (Same as: l 02:00: Zocor) Joe 00 carvedilol 2014-05 No Notes: Memor ia 0-02 Give with l 02:00: food. [place] 00 (Same As: Coreg) Lisinopril 2014-05 No Notes: Memor ia 0-02 (Same as: l 02:00: Prinivil, [place] 00 Zestril) Famotidine 2014-05 No 20 mg, 1 Mem oria 20 MG Oral 0-02 tab, l Tablet 02:00: Route: PO, Magdalena nn [Pepcid] 00 Drug form: TAB, BID, Dosing Weight 118.182, kg, Start date: 01/31/15 21:00:00, Duration: 30 day, Stop date: 03/02/15 8:30:00 Baclofen 2014-05 No Notes: Memoria 0-02 (Same As: l 02:00: Lioresal) Joe 00 Os-Familia 500 2014-05 No Notes: Memor ia + D 0-02 (calcium l 02:00: carbonate- [place] 00 vit D 500mg-400u nit chew TAB) Same as: Oscal 500+D Cardura 2014-05 No 4 mg, Memoria 0-02 Route: PO, l 02:00: Drug form: Joe 00 TAB, BID, Dosing Weight 118.182, kg, Start date: 01/31/15 21:00:00, Duration: 30 day, Stop date: 03/02/15 8:30:00 Albuterol 2014-05 No Notes: Memori a 0.833 MG/ML 0-02 (Same as: l / 02:00: Duoneb) Joe Ipratropium 00 [place] 0.167 MG/ML Inhalant Solution Hydrochloro 2014-05 No 1 tab, Roe ana thiazide 0-02 Route: PO, l 12.5 MG / 02:00: Drug Form: Eric almazanann Lisinopril 00 TAB, 20 MG Oral Dosing Tablet Weight 118.182, kg, BID, Start date: 01/31/15 21:00:00, Duration: 30 day, Stop date: 03/02/15 8:30:00 Docusate 2014-05 No Notes: Memoria Sodium 100 0-02 (Same as: l MG Oral 02:00: Colace) [place] Capsule 00 (Do Not [Colace] Crush) Zocor 2014-05 No Notes: Memoria 0-02 (Same as: l 02:00: Zocor) Joe 00 carvedilol 2014-05 No Notes: Memor ia 0-02 Give with l 02:00: food. Joe 00 (Same As: Coreg) Lisinopril 2014-05 No Notes: Memor ia 0-02 (Same as: l 02:00: Prinivil, Joe 00 Zestril) Famotidine 2014-05 No 20 mg, 1 Mem oria 20 MG Oral 0-02 tab, l Tablet 02:00: Route: PO, Magdalena nn [Pepcid] 00 Drug form: TAB, BID, Dosing Weight 118.182, kg, Start date: 01/31/15 21:00:00, Duration: 30 day, Stop date: 03/02/15 8:30:00 Baclofen 2014-05 No Notes: Memoria 0-02 (Same As: l 02:00: Lioresal) Os-Familia 500 2014-05 No Notes: Memor ia + D 0-02 (calcium l 02:00: carbonate- Joe 00 vit D 500mg-400u nit chew TAB) Same as: Oscal 500+D Cardura 2014-05 No 4 mg, Memoria 0-02 Route: PO, l 02:00: Drug form: [place] 00 TAB, BID, Dosing Weight 118.182, kg, Start date: 01/31/15 21:00:00, Duration: 30 day, Stop date: 03/02/15 8:30:00 Albuterol 2014-05 No Notes: Memori a 0.833 MG/ML 0-02 (Same as: l / 02:00: Duoneb) [place] Ipratropium 00 [place] 0.167 MG/ML Inhalant Solution Hydrochloro 2014-05 No 1 tab, Roe ana thiazide 0-02 Route: PO, l 12.5 MG / 02:00: Drug Form: Eric almazanann Lisinopril 00 TAB, 20 MG Oral Dosing Tablet Weight 118.182, kg, BID, Start date: 01/31/15 21:00:00, Duration: 30 day, Stop date: 03/02/15 8:30:00 Docusate 2014-05 No Notes: Memoria Sodium 100 0-02 (Same as: l MG Oral 02:00: Colace) Joe Capsule 00 (Do Not [Colace] Crush) [place] Enema 2014-05 No 12 years, Memoria 0-02 Pediatric l 01:16: Dosing Joe 00 [place] Enema 2014-05 No 12 years, Memoria 0-02 Pediatric l 01:16: Dosing Joe 00 [place] Enema 2014-05 No 12 years, Memoria 0-02 Pediatric l 01:16: Dosing [place] 00 guaiFENesin 2014-05 No Notes: Roe ana 100 mg/5 mL 0-02 (Same as: l oral liquid 00:56: Robitussin [place] 00 ) guaiFENesin 2014-05 No Notes: Roe ana 100 mg/5 mL 0-02 (Same as: l oral liquid 00:56: Robitussin [place] 00 ) guaiFENesin 2014-05 No Notes: Roe ana 100 mg/5 mL 0-02 (Same as: l oral liquid 00:56: Robitussin Joe 00 ) Lovenox 2014-05 No 30 mg, Memoria 0-02 Route: l 00:00: SUB-Q, [place] 00 Drug form: INJ, [id number], Dosing Weight 118.182, kg, For CrCl <30mL/min, Start date: 01/31/15 19:00:00, Duration: 30 day, Stop date: 03/01/15 19:00:00 Lovenox 2014-05 No 30 mg, Memoria 0-02 Route: l 00:00: SUB-Q, Joe 00 Drug form: INJ, [id number], Dosing Weight 118.182, kg, For CrCl <30mL/min, Start date: 01/31/15 19:00:00, Duration: 30 day, Stop date: 03/01/15 19:00:00 Lovenox 2014-05 No 30 mg, Memoria 0-02 Route: l 00:00: SUB-Q, [place] 00 Drug form: INJ, [id number], Dosing Weight 118.182, kg, For CrCl <30mL/min, Start date: 01/31/15 19:00:00, Duration: 30 day, Stop date: 03/01/15 19:00:00 Phenobarbit 2014-05 No Notes: Roe ana al 0-01 (Same as: l 23:56: Barbita) Joe Lorazepam 2014-05 No Notes: Memori a 0-01 (Same as: l 23:56: Ativan) [place] Phenytoin 2014-05 No Notes: Memori a 0-01 (Same as: l 23:56: Dilantin) Joe 00 Concentrat ion = 50mg/ml Do NOT infuse faster than 50 mg/min MEDICATION WASTE Product Size: 250 mg Product Wasted: ___ mg Saline 2014-05 No Notes: Memoria Flush 0.9% 0-01 (Same as: l 23:56: BD [place] 00 Posiflush) Phenobarbit 2014-05 No Notes: Roe ana al 0-01 (Same as: l 23:56: Barbita) Joe Lorazepam 2014-05 No Notes: Memori a 0-01 (Same as: l 23:56: Ativan) Joe Phenytoin 2014-05 No Notes: Memori a 0-01 (Same as: l 23:56: Dilantin) Joe 00 Concentrat ion = 50mg/ml Do NOT infuse faster than 50 mg/min MEDICATION WASTE Product Size: 250 mg Product Wasted: ___ mg Saline 2014-05 No Notes: Memoria Flush 0.9% 0-01 (Same as: l 23:56: BD Joe 00 Posiflush) Phenobarbit 2014-05 No Notes: Roe ana al 0-01 (Same as: l 23:56: Barbita) Joe Lorazepam 2014-05 No Notes: Memori a 0-01 (Same as: l 23:56: Ativan) [place] 00 Phenytoin 2014-05 No Notes: Memori a 0-01 (Same as: l 23:56: Dilantin) [place] 00 Concentrat ion = 50mg/ml Do NOT infuse faster than 50 mg/min MEDICATION WASTE Product Size: 250 mg Product Wasted: ___ mg Saline 2014-05 No Notes: Memoria Flush 0.9% 0-01 (Same as: l 23:56: BD [place] 00 Posiflush) Docusate 2014-05 No Notes: Memoria Sodium 100 0-01 (Same as: l MG Oral 23:43: Colace) Joe Capsule 00 (Do Not [Colace] Crush) Docusate 2014-05 No Notes: Memoria Sodium 100 0-01 (Same as: l MG Oral 23:43: Colace) [place] Capsule 00 (Do Not [Colace] Crush) Docusate 2014-05 No Notes: Memoria Sodium 100 0-01 (Same as: l MG Oral 23:43: Colace) [place] Capsule 00 (Do Not [Colace] Crush) lisinopril No 20 mg = 1 Me moria 20 mg oral 01-29 tab, PO, l tablet 19:28: BID, # 90 Jamar n 00 tab, 0 Refill(s) Simvastatin No 10 mg = 1 M emoria 10 MG Oral 01-29 tab, PO, l Tablet 19:28: Bedtime, # Magdalena nn [Zocor] 00 90 tab, 1 Refill(s) Piperacilli No 3.375 gm, M emoria n 200 MG/ML 01-29 IV, Q6H, # l / 19:28: 40 doses Joe tazobactam 00 or times, 25 MG/ML 0 Injectable Refill(s) Solution [Zosyn 200/25] carvedilol No 6.25 mg = Me moria 6.25 MG 01-29 1 tab, PO, l Oral Tablet 19:28: Bedtime, # Joe [Coreg] 00 180 tab, 0 Refill(s) Aspirin 81 No 81 mg = 1 Me moria MG Chewable 01-29 tab, PO, l Tablet 19:28: Daily, [place] 00 tab, 0 Refill(s) Levofloxaci No 500 mg, Mem oria n 5 MG/ML 01-29 IV, Q24H, l Injectable 19:28: # 100 ml, He rmann Solution 00 0 [Levaquin] Refill(s) carvedilol No 12.5 mg = Me moria 12.5 MG 01-29 1 tab, PO, l Oral Tablet 19:28: Daily, # He rmann [Coreg] 00 180 tab, 0 Refill(s) Amlodipine No 10 mg = 1 Me moria 10 MG Oral 9-29 tab, PO, l Tablet 19:28: Daily, # Joe [Norvasc] 00 30 tab, 1 Refill(s) Famotidine No 20 mg = 1 Me moria 20 MG Oral 01-29 tab, PO, l Tablet 19:28: BID, # 60 Jamar n [Pepcid] 00 tab, 0 Refill(s) Furosemide No 20 mg, PO, M emoria 20 MG Oral 01-29 Daily, # l Tablet 19:28: 30 tab, 0 Jamar n [Lasix] 00 Refill(s) Doxazosin 4 No 4 mg = 1 Me moria MG Oral 01-29 tab, PO, l Tablet 19:28: Daily, Sonya Diaz [Cardura] 00 90 tab, 0 Refill(s) clopidogrel No 75 mg = 1 M emoria 75 MG Oral 01-29 tab, PO, l Tablet 19:28: Daily, Sonya Diaz [Plavix] 00 30 tab, 0 Refill(s) Albuterol No 3 ml, Memoria 0.833 MG/ML 01-29 INHALATION l / 19:28: , Q4H, Sonya Diaz Ipratropium 00 360 ea, 0 [place] Refill(s) 0.167 MG/ML Inhalant Solution Citalopram No 10 mg = 1 Me moria 10 MG Oral 01-29 tab, PO, l Tablet 19:28: Daily, Sonya Diaz [Celexa] 00 30 tab, 0 Refill(s) baclofen 20 No 20 mg = 1 M emoria mg oral 01-29 tab, PO, l tablet 19:28: TID, # 90 Jamar n 00 tab, 0 Refill(s) heparin No 5,000 unit Roe ana sodium, 01-29 can, l porcine 19:28: SUB-Q, Joe 2500 UNT/ML 00 Q12H, # 10 Injectable vial, 0 Solution Refill(s) lisinopril No 20 mg = 1 Me moria 20 mg oral 01-29 tab, PO, l tablet 19:28: BID, # 90 Jamar n 00 tab, 0 Refill(s) Simvastatin No 10 mg = 1 M emoria 10 MG Oral 01-29 tab, PO, l Tablet 19:28: Bedtime, # Magdalena nn [Zocor] 00 90 tab, 1 Refill(s) Piperacilli No 3.375 gm, M emoria n 200 MG/ML 01-29 IV, Q6H, # l / 19:28: 40 doses Joe tazobactam 00 or times, 25 MG/ML 0 Injectable Refill(s) Solution [Zosyn 200/25] carvedilol No 6.25 mg = Me moria 6.25 MG 01-29 1 tab, PO, l Oral Tablet 19:28: Bedtime, # Joe [Coreg] 00 180 tab, 0 Refill(s) Aspirin 81 No 81 mg = 1 Me moria MG Chewable 01-29 tab, PO, l Tablet 19:28: Daily, [place] 00 tab, 0 Refill(s) Levofloxaci No 500 mg, Mem oria n 5 MG/ML 01-29 IV, Q24H, l Injectable 19:28: # 100 ml, He rmann Solution 00 0 [Levaquin] Refill(s) carvedilol No 12.5 mg = Me moria 12.5 MG 01-29 1 tab, PO, l Oral Tablet 19:28: Daily, # He rmmari [Coreg] 00 180 tab, 0 Refill(s) Amlodipine No 10 mg = 1 Me moria 10 MG Oral 01-29 tab, PO, l Tablet 19:28: Daily, # Joe [Norvasc] 00 30 tab, 1 Refill(s) Famotidine No 20 mg = 1 Me moria 20 MG Oral 01-29 tab, PO, l Tablet 19:28: BID, # 60 Jamar n [Pepcid] 00 tab, 0 Refill(s) Furosemide No 20 mg, PO, M emoria 20 MG Oral 01-29 Daily, # l Tablet 19:28: 30 tab, 0 Jamar n [Lasix] 00 Refill(s) Doxazosin 4 No 4 mg = 1 Me moria MG Oral 01-29 tab, PO, l Tablet 19:28: Daily, # Joe [Cardura] 00 90 tab, 0 Refill(s) clopidogrel No 75 mg = 1 M emoria 75 MG Oral 01-29 tab, PO, l Tablet 19:28: Daily, Sonya Diaz [Plavix] 00 30 tab, 0 Refill(s) Albuterol No 3 ml, Memoria 0.833 MG/ML 01-29 INHALATION l / 19:28: , Q4H, Sonya Diaz Ipratropium 00 360 ea, 0 [place] Refill(s) 0.167 MG/ML Inhalant Solution Citalopram No 10 mg = 1 Me moria 10 MG Oral 01-29 tab, PO, l Tablet 19:28: Daily, # Joe [Celexa] 00 30 tab, 0 Refill(s) baclofen 20 No 20 mg = 1 M emoria mg oral 01-29 tab, PO, l tablet 19:28: TID, # 90 Jamar n 00 tab, 0 Refill(s) heparin No 5,000 unit Roe ana sodium, 01-29 can, l porcine 19:28: SUB-Q, Joe 2500 UNT/ML 00 Q12H, # 10 Injectable vial, 0 Solution Refill(s) lisinopril No 20 mg = 1 Me moria 20 mg oral 01-29 tab, PO, l tablet 19:28: BID, # 90 Jamar n 00 tab, 0 Refill(s) Simvastatin No 10 mg = 1 M emoria 10 MG Oral 01-29 tab, PO, l Tablet 19:28: Bedtime, Sonya Nichols nn [Zocor] 00 90 tab, 1 Refill(s) Piperacilli No 3.375 gm, M emoria n 200 MG/ML 01-29 IV, Q6H, # l / 19:28: 40 doses Joe tazobactam 00 or times, 25 MG/ML 0 Injectable Refill(s) Solution [Zosyn 200/25] carvedilol No 6.25 mg = Me moria 6.25 MG 01-29 1 tab, PO, l Oral Tablet 19:28: Bedtime, Sonya Diaz [Coreg] 00 180 tab, 0 Refill(s) Aspirin 81 No 81 mg = 1 Me moria MG Chewable 01-29 tab, PO, l Tablet 19:28: Daily, Joe 00 tab, 0 Refill(s) Levofloxaci No 500 mg, Mem oria n 5 MG/ML 01-29 IV, Q24H, l Injectable 19:28: # 100 ml, He rmmari Solution 00 0 [Levaquin] Refill(s) carvedilol No 12.5 mg = Me moria 12.5 MG 01-29 1 tab, PO, l Oral Tablet 19:28: Daily, # Eric grubbs [Coreg] 00 180 tab, 0 Refill(s) Amlodipine No 10 mg = 1 Me moria 10 MG Oral 01-29 tab, PO, l Tablet 19:28: Daily, # Joe [Norvasc] 00 30 tab, 1 Refill(s) Famotidine No 20 mg = 1 Me moria 20 MG Oral 01-29 tab, PO, l Tablet 19:28: BID, # 60 Jamar louis [Pepcid] 00 tab, 0 Refill(s) Furosemide No 20 mg, PO, M emoria 20 MG Oral 01-29 Daily, # l Tablet 19:28: 30 tab, 0 Jamar louis [Lasix] 00 Refill(s) Doxazosin 4 No 4 mg = 1 Me moria MG Oral 01-29 tab, PO, l Tablet 19:28: Daily, # Joe [Cardura] 00 90 tab, 0 Refill(s) clopidogrel No 75 mg = 1 M emoria 75 MG Oral 01-29 tab, PO, l Tablet 19:28: Daily, Sonya Diaz [Plavix] 00 30 tab, 0 Refill(s) Albuterol No 3 ml, Memoria 0.833 MG/ML 01-29 INHALATION l / 19:28: , Q4H, # Joe Ipratropium 00 360 ea, 0 [place] Refill(s) 0.167 MG/ML Inhalant Solution Citalopram No 10 mg = 1 Me moria 10 MG Oral 01-29 tab, PO, l Tablet 19:28: Daily, Sonya Diaz [Celexa] 00 30 tab, 0 Refill(s) baclofen 20 No 20 mg = 1 M emoria mg oral 01-29 tab, PO, l tablet 19:28: TID, # 90 Jamar n 00 tab, 0 Refill(s) heparin No 5,000 unit Roe ana sodium, 01-29 can, l porcine 19:28: SUB-Q, [place] 2500 UNT/ML 00 Q12H, # 10 Injectable vial, 0 Solution Refill(s) Docusate Yes 200 mg = 2 Mem oria Sodium 100 - cap, PO, l MG Oral 19:35: Bedtime, Jamar n Capsule 00 PRN [Colace] Constipati on, # 20 cap, 0 Refill(s) Aspirin 81 Yes 81 mg = 1 Me moria MG Enteric - tab, PO, l Coated 19:35: Daily, # 0 Magdalena nn Tablet 00 tab, 0 Refill(s) Hydrochloro Yes 1 tab, PO, Memoria thiazide 02 BID, # 30 l 12.5 MG / 19:35: tab, 0 Jamar n Lisinopril 00 Refill(s) 20 MG Oral Tablet citalopram Yes 10 mg = 1 Me moria 10 mg oral -02 tab, PO, l tablet 19:35: Daily, # Joe 00 30 tab, 0 Refill(s) simvastatin Yes 10 mg = 1 M emoria 10 mg oral -02 tab, PO, l tablet 19:35: Bedtime, # Magdalena nn 00 30 tab, 0 Refill(s) baclofen 20 Yes 20 mg = 1 M emoria mg oral -02 tab, PO, l tablet 19:35: BID, # 90 Jamar n 00 tab, 0 Refill(s) carvedilol Yes 12.5 mg = Me moria 12.5 mg -02 1 tab, PO, l oral tablet 19:35: Q12H, # 60 Joe 00 tab, 0 Refill(s) Fleet Yes 1 supp, Memoria Glycerin 02 IN, PRN, 0 l Suppositori 19:35: Refill(s) H ermann es Adult 00 Doxazosin 4 Yes 4 mg = 1 Me moria MG Oral 4-02 tab, PO, l Tablet 19:35: BID, # 30 Jamar n [Cardura] 00 tab, 0 Refill(s) Vitamin D Yes 5,000 mg, Mem oria 4-02 PO, Daily, l 19:35: 0 [place] 00 Refill(s) niacin 500 Yes 500 mg = 1 M emoria mg oral -02 cap, PO, l capsule 19:35: Daily, 0 Jamar n 00 Refill(s) clopidogrel Yes 75 mg = 1 M emoria 75 MG Oral 4-02 tab, PO, l Tablet 19:35: Daily, # Joe [Plavix] 00 30 tab, 0 Refill(s) Garlic oral Yes 1,000 mg Me moria capsule 02 =, PO, l 19:35: Daily, 0 Joe 00 Refill(s) Amlodipine Yes 10 mg = 1 Me moria 10 MG Oral -02 tab, PO, l Tablet 19:35: Daily, # Joe [Norvasc] 00 30 tab, 0 Refill(s) magnesium Yes 250 mg = 1 Me moria oxide 250 - tab, PO, l mg oral 19:35: Daily, # Jamar n tablet 00 20 tab, 0 Refill(s) Docusate Yes 200 mg = 2 Mem oria Sodium 100 - cap, PO, l MG Oral 19:35: Bedtime, Jamar n Capsule 00 PRN [Colace] Constipati on, # 20 cap, 0 Refill(s) Aspirin 81 Yes 81 mg = 1 Me moria MG Enteric -02 tab, PO, l Coated 19:35: Daily, # 0 Magdalena nn Tablet 00 tab, 0 Refill(s) Hydrochloro Yes 1 tab, PO, Memoria thiazide 08-02 BID, # 30 l 12.5 MG / 19:35: tab, 0 Jamar n Lisinopril 00 Refill(s) 20 MG Oral Tablet citalopram Yes 10 mg = 1 Me moria 10 mg oral 4-02 tab, PO, l tablet 19:35: Daily, # Joe 00 30 tab, 0 Refill(s) simvastatin Yes 10 mg = 1 M emoria 10 mg oral 4-02 tab, PO, l tablet 19:35: Bedtime, # Magdalena nn 00 30 tab, 0 Refill(s) baclofen 20 Yes 20 mg = 1 M emoria mg oral 4-02 tab, PO, l tablet 19:35: BID, # 90 Jamar n 00 tab, 0 Refill(s) carvedilol Yes 12.5 mg = Me moria 12.5 mg 08-02 1 tab, PO, l oral tablet 19:35: Q12H, # 60 [place] 00 tab, 0 Refill(s) Fleet Yes 1 supp, Memoria Glycerin 08-02 IN, PRN, 0 l Suppositori 19:35: Refill(s) H ermann es Adult 00 Doxazosin 4 Yes 4 mg = 1 Me moria MG Oral -02 tab, PO, l Tablet 19:35: BID, # 30 Jamar n [Cardura] 00 tab, 0 Refill(s) Vitamin D Yes 5,000 mg, Mem oria 08-02 PO, Daily, l 19:35: 0 Joe 00 Refill(s) niacin 500 Yes 500 mg = 1 M emoria mg oral 08-02 cap, PO, l capsule 19:35: Daily, 0 Jamar n 00 Refill(s) clopidogrel Yes 75 mg = 1 M emoria 75 MG Oral -02 tab, PO, l Tablet 19:35: Daily, # Joe [Plavix] 00 30 tab, 0 Refill(s) Garlic oral Yes 1,000 mg Me moria capsule 08-02 =, PO, l 19:35: Daily, 0 Joe 00 Refill(s) Amlodipine Yes 10 mg = 1 Me moria 10 MG Oral -02 tab, PO, l Tablet 19:35: Daily, # Joe [Norvasc] 00 30 tab, 0 Refill(s) magnesium Yes 250 mg = 1 Me moria oxide 250 -02 tab, PO, l mg oral 19:35: Daily, # Jamar n tablet 00 20 tab, 0 Refill(s) Docusate Yes 200 mg = 2 Mem oria Sodium 100 -02 cap, PO, l MG Oral 19:35: Bedtime, Jamar n Capsule 00 PRN [Colace] Constipati on, # 20 cap, 0 Refill(s) Aspirin 81 Yes 81 mg = 1 Me moria MG Enteric 4-02 tab, PO, l Coated 19:35: Daily, # 0 Magdalena nn Tablet 00 tab, 0 Refill(s) Hydrochloro Yes 1 tab, PO, Memoria thiazide 4-02 BID, # 30 l 12.5 MG / 19:35: tab, 0 Jamar n Lisinopril 00 Refill(s) 20 MG Oral Tablet citalopram Yes 10 mg = 1 Me moria 10 mg oral -02 tab, PO, l tablet 19:35: Daily, # Joe 00 30 tab, 0 Refill(s) simvastatin Yes 10 mg = 1 M emoria 10 mg oral 02 tab, PO, l tablet 19:35: Bedtime, # Magdalena nn 00 30 tab, 0 Refill(s) baclofen 20 Yes 20 mg = 1 M emoria mg oral 08-02 tab, PO, l tablet 19:35: BID, # 90 Jamar n 00 tab, 0 Refill(s) carvedilol Yes 12.5 mg = Me moria 12.5 mg 08-02 1 tab, PO, l oral tablet 19:35: Q12H, # 60 [place] 00 tab, 0 Refill(s) Fleet Yes 1 supp, Memoria Glycerin 08-02 IN, PRN, 0 l Suppositori 19:35: Refill(s) H ermann es Adult 00 Doxazosin 4 Yes 4 mg = 1 Me moria MG Oral 02 tab, PO, l Tablet 19:35: BID, # 30 Jamar n [Cardura] 00 tab, 0 Refill(s) Vitamin D Yes 5,000 mg, Mem oria 4-02 PO, Daily, l 19:35: 0 [place] 00 Refill(s) niacin 500 Yes 500 mg = 1 M emoria mg oral 08-02 cap, PO, l capsule 19:35: Daily, 0 Jamar n 00 Refill(s) clopidogrel Yes 75 mg = 1 M emoria 75 MG Oral 4-02 tab, PO, l Tablet 19:35: Daily, # Joe [Plavix] 00 30 tab, 0 Refill(s) Garlic oral 2014- Yes 1,000 mg Me moria capsule 4-02 =, PO, l 19:35: Daily, 0 Joe 00 Refill(s) Amlodipine Yes 10 mg = 1 Me moria 10 MG Oral 4-02 tab, PO, l Tablet 19:35: Daily, # Joe [Norvasc] 00 30 tab, 0 Refill(s) magnesium Yes 250 mg = 1 Me moria oxide 250 4-02 tab, PO, l mg oral 19:35: Daily, # Jamar n tablet 00 20 tab, 0 Refill(s) No known No Method[facility] medications [facility] Immunizations Ordered Filled Date Status Comments Source Immunization Name Immunization Name influenza, seasonal 2022-04-01 Completed vaccine, 00:00:00 quadrivalent, adjuvanted, .5mL dose, preservative-free Moderna COVID-19 2021-03-24 Completed Vaccine 00:00:00 Moderna COVID-19 2021-03-24 Completed Vaccine 00:00:00 SARS-COV-2 COVID-19 2021-03-23 Completed Unive rsity of MODERNA 12+ YRS 00:00:00 [facility] VACCINE Branch SARS-COV-2 COVID-19 2021-03-23 Completed Unive rsity of MODERNA 12+ YRS 00:00:00 [facility] VACCINE Branch SARS-COV-2 COVID-19 2021-03-23 Completed Unive rsity of MODERNA VACCINE 00:00:00 [facility] SARS-COV-2 COVID-19 2021-03-23 Completed Unive rsity of MODERNA VACCINE 00:00:00 [facility] SARS-COV-2 COVID-19 2021-03-23 Completed Unive rsity of MODERNA VACCINE 00:00:00 [facility] Moderna COVID-19 2020-06-29 Completed Vaccine 00:00:00 Moderna COVID-19 2020-06-29 Completed Vaccine 00:00:00 Moderna COVID-19 2020-06-01 Completed Vaccine 00:00:00 Moderna COVID-19 2020-06-01 Completed Vaccine 00:00:00 SARS-COV-2 COVID-19 2020-05-08 Completed Unive rsity of MODERNA 12+ YRS 00:00:00 [facility] ical VACCINE Branch SARS-COV-2 COVID-19 2020-05-08 Completed Unive rsity of MODERNA 12+ YRS 00:00:00 [facility] ical VACCINE Branch SARS-COV-2 COVID-19 2020-05-08 Completed Unive rsity of MODERNA VACCINE 00:00:00 [facility] ical Branch SARS-COV-2 COVID-19 2020-05-08 Completed Unive rsity of MODERNA VACCINE 00:00:00 [facility] ical Branch SARS-COV-2 COVID-19 2020-05-08 Completed Unive rsity of MODERNA VACCINE 00:00:00 [facility] ical Branch SARS-COV-2 COVID-19 2020-03-24 Completed Unive rsity of MODERNA 12+ YRS 00:00:00 [facility] ical VACCINE Branch SARS-COV-2 COVID-19 2020-03-24 Completed Unive rsity of MODERNA 12+ YRS 00:00:00 [facility] ical VACCINE Branch SARS-COV-2 COVID-19 2020-03-24 Completed Unive rsity of MODERNA VACCINE 00:00:00 [facility] ical Branch SARS-COV-2 COVID-19 2020-03-24 Completed Unive rsity of MODERNA VACCINE 00:00:00 [facility] ical Branch SARS-COV-2 COVID-19 2020-03-24 Completed Unive rsity of MODERNA VACCINE 00:00:00 [facility] Branch Pneumococcal Unknown Completed conjugate P Pneumococcal Unknown Completed conjugate P Tdap Unknown Completed Influenza, Unknown Completed seasonal, inj Pneumococcal Unknown Completed conjugate P Pneumococcal Unknown Completed conjugate P Tdap Unknown Completed Influenza, Unknown Completed seasonal, inj Vital Signs Vital Name Observation Time Observation Value Comments Source Systolic blood 2021-06-03 21:01:00 155 mm[Hg] Univer sity of pressure [facility] Diastolic blood 2021-06-03 21:01:00 64 mm[Hg] Unive rsity of pressure [facility] Heart rate 2021-06-03 21:01:00 53 /min [facility] of [facility] Respiratory rate 2021-06-03 21:01:00 18 /min [facility] Body height 2021-06-03 21:01:00 182.9 cm [facility] Body weight 2021-06-03 21:01:00 130.182 kg [facility] BMI 2021-06-03 21:01:00 38.92 kg/m2 [facility] Oxygen saturation in 2021-06-03 21:01:00 97 /min [facility] blood by [facility] Pulse oximetry Branch Systolic blood 2021-06-03 21:01:00 155 mm[Hg] Univer sity of pressure [facility] Diastolic blood 2021-06-03 21:01:00 64 mm[Hg] Unive rsity of pressure [facility] Branch Heart rate 2021-06-03 21:01:00 53 /min [facility] Respiratory rate 2021-06-03 21:01:00 18 /min [facility] Body height 2021-06-03 21:01:00 182.9 cm [facility] Body weight 2021-06-03 21:01:00 130.182 kg Universi ty [facility] BMI 2021-06-03 21:01:00 38.92 kg/m2 Universi ty [facility] Oxygen saturation in 2021-06-03 21:01:00 97 /min [facility] blood by [facility] Pulse oximetry Branch Systolic (mm Hg) 2022-08-21 19:36:00 Roe Diaz Diastolic (mm Hg) 2022-08-21 19:36:00 [facility] eric Diaz Heart Rate 2022-08-21 [facility]:36[facility] 2022-04-01 17:18:00 161 mm[Hg] BP Diastolic 2022-04-01 17:18:00 67 mm[Hg] Weight Measured 2022-04-01 17:18:00 Height Measured 2022-04-01 17:18:00 Body Temperature 2022-04-01 17:18:00 97.80 degrees Heart Rate 2022-04-01 17:18:00 56.00 /min Respiratory Rate 2022-04-01 17:18:00 Systolic (mm Hg) 2022-02-20 19:29:00 Roe rial Joe Diastolic (mm Hg) 2022-02-20 19:29:00 Mem orial Joe Heart Rate 2022-02-20 19:29:00 [facility] [place] BP Systolic 2021-10-30 13:10:00 126 mm[Hg] BP Diastolic 2021-10-30 13:10:00 65 mm[Hg] Weight Measured 2021-10-30 13:10:00 Height Measured 2021-10-30 13:10:00 Body Temperature 2021-10-30 13:10:00 Heart Rate 2021-10-30 13:10:00 58.00 /min Respiratory Rate 2021-10-30 13:10:00 BP Systolic 2021-07-28 17:12:00 151 mm[Hg] BP Diastolic 2021-07-28 17:12:00 70 mm[Hg] Weight Measured 2021-07-28 17:12:00 296.00 pounds Height Measured 2021-07-28 17:12:00 72.11 inches Body Temperature 2021-07-28 17:12:00 98.00 degrees Heart Rate 2021-07-28 17:12:00 60.00 /min Respiratory Rate 2021-07-28 17:12:00 Systolic (mm Hg) 2021-07-03 19:12:00 Roe rial [place] Diastolic (mm Hg) 2021-07-03 19:12:00 Mem orial [place] Heart Rate 2021-07-03 19:12:00 [facility] Respitory Rate 2021-07-03 19:12:00 Memori al Joe BP Systolic 2021-05-27 16:03:00 156 mm[Hg] BP Diastolic 2021-05-27 16:03:00 75 mm[Hg] Weight Measured 2021-05-27 16:03:00 Height Measured 2021-05-27 16:03:00 72.00 inches Body Temperature 2021-05-27 16:03:00 97.50 degrees Heart Rate 2021-05-27 16:03:00 65.00 /min Respiratory Rate 2021-05-27 16:03:00 BP Systolic 2021-04-01 17:32:00 160 mm[Hg] BP Diastolic 2021-04-01 17:32:00 65 mm[Hg] Weight Measured 2021-04-01 17:32:00 Height Measured 2021-04-01 17:32:00 Body Temperature 2021-04-01 17:32:00 Heart Rate 2021-04-01 17:32:00 68.00 /min Respiratory Rate 2021-04-01 17:32:00 BP Systolic 2021-01-27 12:27:00 141 mm[Hg] BP Diastolic 2021-01-27 12:27:00 67 mm[Hg] Weight Measured 2021-01-27 12:27:00 Height Measured 2021-01-27 12:27:00 Body Temperature 2021-01-27 12:27:00 Heart Rate 2021-01-27 12:27:00 61.00 /min Respiratory Rate 2021-01-27 12:27:00 BP Systolic 2020-10-21 17:13:00 144 mm[Hg] BP Diastolic 2020-10-21 17:13:00 62 mm[Hg] Weight Measured 2020-10-21 17:13:00 Height Measured 2020-10-21 17:13:00 72.00 inches Body Temperature 2020-10-21 17:13:00 98.10 degrees Heart Rate 2020-10-21 17:13:00 60.00 /min Respiratory Rate 2020-10-21 17:13:00 Systolic (mm Hg) 2020-05-30 21:29:00 Roe Alcarazann Diastolic (mm Hg) 2020-05-30 21:29:00 Osbaldo Diaz Heart Rate 2020-05-30 21:29:00 [facility] Respitory Rate 2020-05-30 21:29:00 Twan Vaughan Height 2020-05-30 21:29:00 182.88 cm [facility] Joe Weight 2020-05-30 21:29:00 [facility] Joe BMI Calculated 2020-05-30 21:29:00 Twan Vaughan BP Systolic 2020-01-22 16:07:00 150 mm[Hg] BP Diastolic 2020-01-22 16:07:00 67 mm[Hg] Weight Measured 2020-01-22 16:07:00 295.00 pounds Height Measured 2020-01-22 16:07:00 72.00 inches Body Temperature 2020-01-22 16:07:00 98.40 degrees Heart Rate 2020-01-22 16:07:00 Respiratory Rate 2020-01-22 16:07:00 54.00 /min Systolic (mm Hg) 2020-01-16 20:47:00 Roe rial [place] Diastolic (mm Hg) 2020-01-16 20:47:00 Mem orial [place] Heart Rate 2020-01-16 20:47:00 [facility] Respitory Rate 2020-01-16 20:47:00 Memori al Joe Temperature Oral (F) 2020-01-16 20:47:00 98.6 F [facility] Height 2020-01-16 20:47:00 182.88 cm [facility] [place] Weight 2020-01-16 20:47:00 [facility] BMI Calculated 2020-01-16 20:47:00 Memori al [place] Height 2020-01-12 18:05:00 182.88 cm [facility] Weight 2020-01-12 18:05:00 [facility] BMI Calculated 2020-01-12 18:05:00 Memori al Joe Systolic (mm Hg) 2019-12-06 18:41:00 Roe rial [place] Diastolic (mm Hg) 2019-12-06 18:41:00 Mem orial Joe Heart Rate 2019-12-06 18:41:00 [facility] [place] Respitory Rate 2019-12-06 18:41:00 Memori al [place] Height 2019-12-06 18:41:00 182.88 cm [facility] [place] BMI Calculated 2019-12-06 18:41:00 Memori al Joe Weight 2019-12-06 18:41:00 [facility] [place] BP Systolic 2019-10-30 15:37:00 130 mm[Hg] BP Diastolic 2019-10-30 15:37:00 66 mm[Hg] Weight Measured 2019-10-30 15:37:00 284.00 pounds Height Measured 2019-10-30 15:37:00 72.00 inches Body Temperature 2019-10-30 15:37:00 Heart Rate 2019-10-30 15:37:00 65.00 /min Respiratory Rate 2019-10-30 15:37:00 Systolic (mm Hg) 2019-07-12 21:01:00 Roe rial Joe Diastolic (mm Hg) 2019-07-12 21:01:00 Mem orial [place] Heart Rate 2019-07-12 21:01:00 [facility] [place] Respitory Rate 2019-07-12 21:01:00 Memori al Joe Height 2019-07-12 21:01:00 182.88 cm [facility] Weight 2019-07-12 21:01:00 [facility] [place] BMI Calculated 2019-07-12 21:01:00 Memori [facility] Joe BP Systolic 2019-05-17 17:49:00 164 mm[Hg] BP Diastolic 2019-05-17 17:49:00 80 mm[Hg] Weight Measured 2019-05-17 17:49:00 284.00 pounds Height Measured 2019-05-17 17:49:00 72.00 inches Body Temperature 2019-05-17 17:49:00 97.90 degrees Heart Rate 2019-05-17 17:49:00 58.00 /min Respiratory Rate 2019-05-17 17:49:00 Temperature Oral (F) 2019-04-13 19:06:00 97.9 F [facility] Heart Rate 2019-04-13 19:06:00 [facility] Respitory Rate 2019-04-13 19:06:00 [facility] [place] Systolic (mm Hg) 2019-04-13 19:06:00 Roe rial [place] Diastolic (mm Hg) 2019-04-13 19:06:00 Mem orial [place] Temperature Oral (F) 2019-04-13 13:30:00 98.1 F [facility] Heart Rate 2019-04-13 13:30:00 [facility] [place] Respitory Rate 2019-04-13 13:30:00 Memori al Joe Systolic (mm Hg) 2019-04-13 13:30:00 Roe rial Joe Diastolic (mm Hg) 2019-04-13 13:30:00 Mem orial Joe Systolic (mm Hg) 2019-04-13 04:30:00 Roe rial [place] Diastolic (mm Hg) 2019-04-13 04:30:00 Mem orial [place] Heart Rate 2019-04-13 04:30:00 [facility] Temperature Oral (F) 2019-04-13 01:30:00 97.5 F [facility] Respitory Rate 2019-04-13 01:30:00 Memori al Joe Height 2019-04-07 20:00:00 182.88 cm [facility] [place] Height 2019-03-31 15:28:00 182.88 cm [facility] [place] Height 2019-03-24 17:14:00 182.88 cm [facility] Weight 2019-03-23 01:07:00 [facility] BMI Calculated 2019-03-23 01:07:00 Memori al [place] Temperature Oral (F) 2019-03-22 21:40:00 97.9 F [facility] Heart Rate 2019-03-22 21:40:00 [facility] Respitory Rate 2019-03-22 21:40:00 Memori al [place] Systolic (mm Hg) 2019-03-22 21:40:00 Roe rial Joe Diastolic (mm Hg) 2019-03-22 21:40:00 Mem orial Joe Temperature Oral (F) 2019-03-22 17:30:00 97.3 F [facility] Heart Rate 2019-03-22 17:30:00 [facility] [place] Respitory Rate 2019-03-22 17:30:00 Memori al Joe Systolic (mm Hg) 2019-03-22 17:30:00 Roe rial Joe Diastolic (mm Hg) 2019-03-22 17:30:00 Mem orial Joe Temperature Oral (F) 2019-03-22 13:54:00 98.1 F [facility] [place] Heart Rate 2019-03-22 13:54:00 [facility] Respitory Rate 2019-03-22 13:54:00 Memori al [place] Systolic (mm Hg) 2019-03-22 13:54:00 Roe rial [place] Diastolic (mm Hg) 2019-03-22 13:54:00 Mem orial [place] Height 2019-03-22 08:17:00 182.88 cm [facility] [place] Weight 2019-03-22 08:17:00 [facility] BMI Calculated 2019-03-22 08:17:00 [facility] Height 2019-03-22 00:40:00 182.88 cm [facility] BMI Calculated 2019-03-22 00:40:00 [facility] Weight 2019-03-22 00:40:00 [facility] Systolic (mm Hg) 2019-03-14 17:29:00 [facility] Diastolic (mm Hg) 2019-03-14 17:29:00 [facility] Heart Rate 2019-03-14 17:29:00 [facility] Respitory Rate 2019-03-14 17:29:00 [facility] Height 2019-03-14 17:29:00 185.42 cm [facility] Weight 2019-03-14 17:29:00 [facility] BMI Calculated 2019-03-14 17:29:00 [facility] Systolic (mm Hg) 2019-01-05 21:07:00 [facility] [place] Diastolic (mm Hg) 2019-01-05 21:07:00 [facility] Heart Rate 2019-01-05 21:07:00 [facility] Respitory Rate 2019-01-05 21:07:00 [facility] Height 2019-01-05 21:07:00 182.88 cm [facility] Weight 2018-10-06 20:37:00 [facility] BMI Calculated 2018-10-06 20:37:00 [facility] Height 2018-10-06 20:37:00 182.88 cm [facility] Respitory Rate 2018-10-06 20:37:00 [facility] [place] Heart Rate 2018-10-06 20:37:00 [facility] Systolic (mm Hg) 2018-10-06 20:37:00 [facility] [place] Diastolic (mm Hg) 2018-10-06 20:37:00 [facility] Respitory Rate 2017-02-03 19:44:00 [facility] [place] Heart Rate 2017-02-03 19:44:00 [facility] Weight 2017-02-03 19:44:00 [facility] Systolic (mm Hg) 2017-02-03 19:44:00 [facility] [place] Diastolic (mm Hg) 2017-02-03 19:44:00 [facility] Respitory Rate 2016-10-07 19:45:00 [facility] Rate 2016-10-07 19:45:00 [facility] BMI Calculated 2016-10-07 19:45:00 [facility] Weight 2016-10-07 19:45:00 [facility] Height 2016-10-07 19:45:00 182.88 cm [facility] [place] Systolic (mm Hg) 2016-10-07 19:45:00 Roe rial [place] Diastolic (mm Hg) 2016-10-07 19:45:00 Mem [facility] [place] Systolic (mm Hg) 2016-03-11 19:27:00 Roe rial [place] Diastolic (mm Hg) 2016-03-11 19:27:00 Mem [facility] Weight 2016-03-11 19:27:00 [facility] [place] Height 2016-03-11 19:27:00 182.88 cm [facility] [place] BMI Calculated 2016-03-11 19:27:00 Mem[facility] Heart Rate 2016-03-11 19:27:00 [facility] [place] Respitory Rate 2016-03-11 19:27:00 Memori al [place] Diastolic (mm Hg) 2015-11-27 12:37:00 Mem orial [place] Systolic (mm Hg) 2015-11-27 12:37:00 Roe rial [place] Heart Rate 2015-11-27 12:37:00 [facility] [place] Respitory Rate 2015-11-27 12:37:00 Memori al [facility] Respitory Rate 2015-11-27 12:20:00 [facility] [place] Systolic (mm Hg) 2015-11-27 05:00:00 Roe rial [facility] Heart Rate 2015-11-27 05:00:00 [facility] Respitory Rate 2015-11-27 05:00:00 [facility] [place] Diastolic (mm Hg) 2015-11-27 05:00:00 Mem [facility] Heart Rate 2015-11-27 01:13:00 [facility] [place] Systolic (mm Hg) 2015-11-27 01:13:00 Roe rial [place] Diastolic (mm Hg) 2015-11-27 01:13:00 Mem [facility] [place] Temperature Oral (F) 2015-11-22 12:29:00 96.1 F [facility] [place] Temperature Oral (F) 2015-11-21 01:18:00 99.9 F [facility] [place] Weight 2015-11-07 17:21:00 [facility] [place] BMI Calculated 2015-11-07 17:21:00 [facility] [place] Height 2015-11-07 17:21:00 182.88 cm [facility] [place] Weight 2015-03-18 16:47:00 [facility] Height 2015-03-18 16:47:00 182.88 cm [facility] [place] BMI Calculated 2015-03-18 16:47:00 [facility] [place] Systolic (mm Hg) 2015-03-18 16:47:00 Roe rial [place] Diastolic (mm Hg) 2015-03-18 16:47:00 Mem [facility] [place] Heart Rate 2015-03-18 16:47:00 [facility] Respitory Rate 2015-03-18 16:47:00 Memori al [place] Systolic (mm Hg) 2015-02-15 14:51:00 Roe [facility] Diastolic (mm Hg) 2015-02-15 14:51:00 [facility] Heart Rate 2015-02-15 14:51:00 [facility] [place] Diastolic (mm Hg) 2015-02-15 13:00:00 Mem orial [place] Systolic (mm Hg) 2015-02-15 13:00:00 Roe rial [place] Heart Rate 2015-02-15 13:00:00 [facility] Respitory Rate 2015-02-15 13:00:00 Memori al [place] Diastolic (mm Hg) 2015-02-15 05:00:00 Mem [facility] [place] Systolic (mm Hg) 2015-02-15 05:00:00 Roe rial [place] Respitory Rate 2015-02-15 05:00:00 [facility] [place] Heart Rate 2015-02-15 05:00:00 [facility] Respitory Rate 2015-02-15 01:03:00 Memori al [place] Weight 2015-01-31 22:53:00 [facility] BMI Calculated 2015-01-31 22:53:00 Memori al [place] Height 2015-01-31 22:53:00 182.88 cm [facility] [place] Height 2014-11-27 16:19:00 182.88 cm [facility] [place] Weight 2014-11-27 16:19:00 [facility] BMI Calculated 2014-11-27 16:19:00 Memori al [place] Systolic (mm Hg) 2014-11-27 16:19:00 Roe rial [place] Diastolic (mm Hg) 2014-11-27 16:19:00 Mem orial [place] Respitory Rate 2014-11-27 16:19:00 Memori al [facility] Heart Rate 2014-11-27 16:19:00 [facility] [place] Height 2014-08-02 19:12:00 182.88 cm [facility] [place] BMI Calculated 2014-08-02 19:12:00 Memori al [place] Weight 2014-08-02 19:12:00 [facility] [place] Heart Rate 2014-08-02 19:12:00 [facility] [place] Systolic (mm Hg) 2014-08-02 19:12:00 Roe rial [place] Diastolic (mm Hg) 2014-08-02 19:12:00 Mem orial [place] Respitory Rate 2014-08-02 19:12:00 Memori al [place] Diastolic (mm Hg) 2012-07-04 15:58:00 Mem [facility] [place] Systolic (mm Hg) 2012-07-04 15:58:00 Roe rial [facility] Procedures Procedure Date / Time Performing Clinician Source Performed DEXA AXIAL (HIP AND 2022-04-17 22:26:32 Requisition, Paper [facility] SPINE) Medical Branch CONSENT/REFUSAL FOR 2022-04-17 21:34:01 Doctor Unassigned, [facility] DIAGNOSIS AND TREATMENT [place] [facility] OP CORRESPONDENCE 2021-09-04 05:01:00 Doctor Unassigned, [facility] [place] [facility] [U] XRAY KNEE 1 OR 2 [facility] 2019-07-05 00:00:00 [facility] LEFT [id number] [U] XRAY ANKLE MIN 3 [facility] 2019-07-05 00:00:00 [facility] [id number] [U] XRAY KNEE 1 OR 2 [facility] 2019-05-04 00:00:00 [facility] LEFT [id number] [U] XRAY ANKLE MIN 3 [facility] 2019-05-04 00:00:00 [facility] LEFT [id number] PEG - Endoscopic removal Paul Diaz of percutaneous gastrostomy Removal of tracheostomy [facility] [place] tube<sup>2</sup> [facility]sup[facility]sup[facility] [place] [facility] of [facility] Planned Activity Planned Date Details Comments Source Future Scheduled 2022-10-22 65+ [facility]OCOCCAL [facility] Test 04:29:18 VACCINE (1 - PCV) [code = 65+ PNEUMOCOCCAL VACCINE (1 - PCV)] Future Scheduled 2022-10-22 INFLUENZA VACCINE Method is Hospital Test 04:29:18 [code = INFLUENZA VACCINE] Future Scheduled 2022-10-22 COVID-19 VACCINE (#1) [facility] Test 04:29:18 [code = COVID-19 VACCINE (#1)] Future Scheduled 2022-10-22 [facility] 04:29:18 of 2) [code = SHINGLES VACCINES (1 of 2)] Future Scheduled 2022-10-22 65+ [facility] Test 04:29:18 VACCINE (1 - PCV) [code = 65+ PNEUMOCOCCAL VACCINE (1 - PCV)] Future Scheduled 2022-10-22 INFLUENZA VACCINE Method ist Hospital Test 04:29:18 [code = INFLUENZA VACCINE] Future Scheduled 2022-10-22 COVID-19 VACCINE (#1) [facility] Test 04:29:18 [code = COVID-19 VACCINE (#1)] Future Scheduled 2022-10-22 SHINGLES VACCINES ([facility] 04:29:18 of 2) [code = SHINGLES VACCINES (1 of 2)] Future Scheduled 2022-10-22 65+ PNEUMOCOCCAL [facility] Test 04:29:18 VACCINE (1 - PCV) [code = 65+ PNEUMOCOCCAL VACCINE (1 - PCV)] Future Scheduled 2022-10-22 INFLUENZA VACCINE Method ist Hospital Test 04:29:18 [code = INFLUENZA VACCINE] Future Scheduled 2022-10-22 COVID[facility]19 [facility] 04:29:18 [code = COVID-19 VACCINE (#1)] Future Scheduled 2022-10-22 SHINGLES VACCINES ([facility] 04:29:18 of 2) [code = SHINGLES VACCINES (1 of 2)] Future Scheduled 2022-08-06 COVID-19 VACCINE (#1) [facility] Test 08:10:20 [code = COVID-19 VACCINE (#1)] Future Scheduled 2022-08-06 SHINGLES VACCINES ([facility] 08:10:20 of 2) [code = SHINGLES VACCINES (1 of 2)] Future Scheduled 2022-08-06 65+ PNEUMOCOCCAL [facility] Test 08:10:20 VACCINE (1 - PCV) [code = 65+ PNEUMOCOCCAL VACCINE (1 - PCV)] Future Scheduled 2022-08-06 INFLUENZA VACCINE Method ist Hospital Test 08:10:20 [code = INFLUENZA VACCINE] Future Scheduled 2022-08-06 COVID-19 VACCINE (#1) [facility] Test 08:10:20 [code = COVID-19 VACCINE (#1)] Future Scheduled 2022-08-06 SHINGLES VACCINES (1 Met [facility] Test 08:10:20 of 2) [code = SHINGLES VACCINES (1 of 2)] Future Scheduled 2022-08-06 65+ PNEUMOCOCCAL [facility] Test 08:10:20 VACCINE (1 - PCV) [code = 65+ PNEUMOCOCCAL VACCINE (1 - PCV)] Future Scheduled 2022-08-06 INFLUENZA VACCINE Method ist Hospital Test 08:10:20 [code = INFLUENZA VACCINE] Future Scheduled 2022-08-06 COVID-19 VACCINE (#1) [facility] Test 08:10:20 [code = COVID-19 VACCINE (#1)] Future Scheduled 2022-08-06 SHINGLES VACCINES (1 [facility] Test 08:10:20 of 2) [code = SHINGLES VACCINES (1 of 2)] Future Scheduled 2022-08-06 65+ PNEUMOCOCCAL [facility] Test 08:10:20 VACCINE (1 - PCV) [code = 65+ PNEUMOCOCCAL VACCINE (1 - PCV)] Future Scheduled 2022-08-06 INFLUENZA VACCINE Method ist Hospital Test 08:10:20 [code = INFLUENZA VACCINE] Future Scheduled 2021-12-31 HEPATITIS B VACCINES Met [facility] Test 02:17:58 (1 of 3 - 3-dose series) [code = HEPATITIS B VACCINES (1 of 3 - 3-dose series)] Future Scheduled 2021-12-31 COVID-19 VACCINE (#1) [facility] Test 02:17:58 [code = COVID-19 VACCINE (#1)] Future Scheduled 2021-12-31 SHINGLES VACCINES (1 [facility] Test 02:17:58 of 2) [code = SHINGLES VACCINES (1 of 2)] Future Scheduled 2021-12-31 65+ PNEUMOCOCCAL [facility] Test 02:17:58 VACCINE (1 - PCV) [code = 65+ PNEUMOCOCCAL VACCINE (1 - PCV)] Future Scheduled 2021-12-31 INFLUENZA VACCINE Method ist Hospital Test 02:17:58 [code = INFLUENZA VACCINE] Future Scheduled 2021-11-05 COVID-19 Vaccination [facility] Test 04:31:40 (#1) [code = COVID-19 [facility] (#1)] Center Future Scheduled 2021-11-05 COVID-19 Vaccination [facility] [place] Test 04:31:40 (#1) [code = COVID-19 [facility] Vaccination (#1)] Center Future Scheduled 2021-11-05 COVID-19 Vaccination [facility] [place] Test 04:31:40 (#1) [code = COVID-19 [facility] Vaccination (#1)] Center Future Scheduled 2021-11-05 COVID-19 Vaccination [facility] [place] Test 04:31:40 (#1) [code = COVID-19 [facility] Vaccination (#1)] Center Future Scheduled 2021-11-05 COVID-19 Vaccination [facility] [place] Test 04:31:40 (#1) [code = COVID-19 [facility] Vaccination (#1)] Center Future Scheduled 2021-11-05 COVID-19 Vaccination [facility] [place] Test 04:31:40 (#1) [code = COVID-19 [facility] Vaccination (#1)] Center Future Scheduled 2021-11-05 COVID-19 Vaccination [facility] [place] Test 04:31:40 (#1) [code = COVID-19 [facility] Vaccination (#1)] Center Future Scheduled 2021-11-05 COVID-19 Vaccination [facility] [place] Test 04:31:40 (#1) [code = COVID-19 [facility] Vaccination (#1)] Center Future Scheduled 2021-11-05 COVID-19 Vaccination [facility] [place] Test 04:31:40 (#1) [code = COVID-19 [facility] Vaccination (#1)] Center Future Scheduled COVID-19 VACCINE (1) [facility] Test [code = COVID-19 VACCINE (1)] Future Scheduled Hepatitis C screening [facility] Test (procedure) [code = 662961545] Future Scheduled SHINGLES VACCINES [facility] Test (#1) [code = SHINGLES VACCINES (#1)] Future Scheduled 65+ [facility] VACCINE (1 of 1 - PPSV23) [code = 65+ PNEUMOCOCCAL VACCINE (1 of 1 - PPSV23)] Future Scheduled INFLUENZA VACCINE Method [facility] Hospital Test [code = INFLUENZA VACCINE] Goal Plan of Care Note [code = 83664-1] Goal Plan of Care Note [code = 40177-9] Goal Plan of Care Note [code = 82213-9] Goal Plan of Care Note [code = 33833-6] Goal Plan of Care Note [code = 15831-2] Goal Plan of Care Note [code = 17617-6] Goal Plan of Care Note [code = 27459-3] Goal Plan of Care Note [code = 54243-8] Goal Plan of Care Note [code = 49873-8] Goal Plan of Care Note [code = 88958-2] Goal Plan of Care Note [code = 76984-3] Goal Plan of Care Note [code = 36757-3] Goal Plan of Care Note [code = 87730-2] Goal Plan of Care Note [code = 28325-3] Goal Plan of Care Note [code = 88994-8] Goal Plan of Care Note [code = 36904-3] Goal Plan of Care Note [code = 56526-6] Goal Plan of Care Note [code = 93783-4] Goal Plan of Care Note [code = 26842-8] Goal Plan of Care Note [code = 83560-5] Goal Plan of Care Note [code = 98880-2] Goal Plan of Care Note [code = 58546-9] Goal Plan of Care Note [code = 31814-9] Goal Plan of Care Note [code = 93342-3] Goal Plan of Care Note [code = 75676-2] Goal Plan of Care Note [code = 62198-8] Goal Plan of Care Note [code = 26611-8] Goal Plan of Care Note [code = 84947-5] Goal Plan of Care Note [code = 57017-4] Goal Plan of Care Note [code = 33702-6] Goal Plan of Care Note [code = 19793-5] Goal Plan of Care Note [code = 73387-7] Goal Plan of Care Note [code = 05640-0] Goal Plan of Care Note [code = 90101-4] Goal Plan of Care Note [code = 23269-1] Goal Plan of Care Note [code = 33444-4] Goal Plan of Care Note [code = 34885-5] Goal Plan of Care Note [code = 36865-6] Encounters Start End Encounter Admission Attending Care Care Encounter Source Date/Time Date/Time Type Type Clinicians Facility Department ID 2022-10-26 2022-10-26 Outpatient SHORTY ORO [id number] Gurpreet 16:55:07 16:55:07 0626 F Lance 2022-10-02 2022-10-02 Ambulatory MHIE MNA [id number] Memoria 19:00:00 19:00:00 Pre-Reg Neurology 21 l Brandee Diaz 2022-10-02 2022-10-02 Ambulatory MHIE MNA [id number] Memoria 19:00:00 19:00:00 Pre-Reg Neurology 21 l Brandee Alcarazann 2022-10-02 2022-10-02 Outpatient MHIE MHIE [id number] Memoria 14:00:00 14:00:00 21 jaskaran Diaz 2022-10-02 2022-10-02 Outpatient BIANCA Decker MISCHER [id number] 14:00:00 14:00:00 Lavell 21 Mike 2022-08-21 2022-08-22 Outpatient MHIE MNA [id number] Memoria 19:15:00 04:59:59 Neurology 20 l Brandee Alcarazann 2022-08-21 2022-08-22 Outpatient MHIE MNA [id number] Memoria 19:15:00 04:59:59 Neurology 20 l Brandee Alcarazann 2022-08-21 2022-08-21 [id number] 14:15:00 23:59:59 Lavell 20 Mike 2022-08-21 2022-08-21 Outpatient MHIE MHIE [id number] Memoria 14:15:00 14:15:00 20 jaskaran Diaz 2022-08-14 2022-08-14 Outpatient SHORTY ORO [id number] Gurpreet 13:05:38 13:05:38 0414 F Lance 2022-04-17 2022-04-17 Outpatient R RADIOLOGY [facility] [id number] Univers 15:34:30 23:59:00 ity of [facility] 2022-04-17 2022-04-17 Hospital Radiology [facility] 1.2.840.114 [id number] Univers 15:34:30 23:59:00 Encounter ANGLEKAJAL 350.1.13.10 ity [place] [id number] [facility] [address] 2022-04-17 2022-04-17 Orders Doctor MICHAEL 1.2.840.114 [id number] Univers 00:00:00 00:00:00 Only Unassigned, JAYDA 350.1.13.10 [facility] 4.2.7.2.686 [place] [phone] [facility] [address] 2022-04-01 2022-04-01 Outpatient SFA SFA [id number] Gurpreet 17:08:41 17:08:41 1130 F Lance 2022-04-01 2022-04-01 Outpatient [id number] [id number] 00:00:00 00:00:00 Visit [id number] 8487-10-21 2022-02-21 Outpatient nullFlavo MNA [id number] Memoria 19:30:00 04:59:59 r Neurology 19 l Brandee Diaz 2022-02-20 2022-02-21 Outpatient nullFlavo MNA [id number] Memoria 19:30:00 04:59:59 r Neurology 19 l Brandee Diaz 2022-02-20 2022-02-20 Outpatient MIRLANDE DeckerSCHISIS MISCHER [id number] 14:30:00 23:59:59 Lavell Michael Mike 2022-02-20 2022-02-20 Outpatient MHIE MHIE [id number] Memoria 14:30:00 14:30:00 19 l Joe 2021-10-30 2021-10-30 Outpatient [id number] 00:00:00 00:00:00 Visit [id number] -[id number] 2021-09-04 2021-09-04 Orders Doctor MICHAEL 1.2.840.114 [id number] Univers 00:00:00 00:00:00 Only Unassigned, JAYDA 350.1.13.10 [facility] 4.2.7.2.686 [place] [phone] [address] 2021-08-20 2021-08-20 Telephone Mikaela [facility] 1.2.840.114 [id number] [facility] 00:00:00 00:00:00 Margie VARGAS 350.1.13.10 it[place] [phone] [place] dical NAL 044 [facility] 2021-07-03 2021-07-04 Outpatient nullFlavo MNA [id number] Memoria 19:15:00 05:59:59 r Neurology 18 l Brandee Alcarazann 2021-07-03 2021-07-04 Outpatient nullFlavo MNA [id number] Memoria 19:15:00 05:59:59 r Neurology 18 l Brandee [place] 2021-07-03 2021-07-03 Outpatient MIRLANDE DeckerSCHER MHMISCHER [id number] 13:15:00 23:59:59 Lavell 18 Mike 2021-07-03 2021-07-03 Ambulatory nullFlavo MNA [id number] Memoria 21:15:00 21:15:00 Pre-Reg r Neurology 17 l [place] 2021-07-03 2021-07-03 Ambulatory nullFlavo MNA [id number] [facility] 21:15:00 21:15:00 Pre-Reg r Neurology 17 l Brandee [place] 2021-07-03 2021-07-03 Outpatient MIRLANDE DeckerSCHER MHMISCHER [id number] 15:15:00 15:15:00 Lavell 17 Mike 2021-07-03 2021-07-03 Outpatient MHIE MHIE [id number] Memoria 13:15:00 13:15:00 18 l [place] 2021-06-17 2021-06-17 Orders Doctor RODRIGUEZ 1.2.840.114 [id number] Univers 00:00:00 00:00:00 Only Unassigned, JAYDA 350.1.13.10 [facility] 4.2.7.2.686 [place] [id number] [address] 2021-06-09 2021-06-09 Telephone Mikaela [facility] 1.2.840.114 [id number] Univers 00:00:00 00:00:00 Margie VARGAS 350.1.13.10 [facility] [place] [phone] [place] dical NAL 231 [facility] 2021-06-03 2021-06-03 Ham Doctor 2, Adc Lab [facility] 1.2.840.114 [id number] Univers 15:00:00 15:00:08 Visit Cait Bhat 350.1. 13.10 it[place] [id number] Nc dicaly [facility] 353 [facility] 2021-06-03 2021-06-03 Outpatient R MARGIE AL [facility] [id number] Univers 14:30:00 14:56:30 MARGIE AL ity [facility] 2021-06-03 2021-06-03 Office Mikaela [facility] 1.2.840.114 [id number] Univers 14:30:00 14:56:30 Visit Margie VARGAS 350.1.13.10 it[facility] [place] [phone] Nc dical NAL 044 [facility] 2021-06-03 2021-06-03 Office Mikaela [facility] 1.2.840.114 [id number] Univers 14:30:00 14:56:30 Visit Margie VARGAS 350.1.13.10 it[facility] [place] [id number] Nc dical NAL 044 [facility] 2021-06-03 2021-06-03 Outpatient R MARGIE AL [facility] [id number] Univers 14:30:00 14:56:30 MARGIE AL itabdifatah [facility] 2021-06-03 2021-06-03 Office Mikaela [facility] 1.2.840.114 [id number] Univers 13:00:00 14:56:19 Visit Margie VARGAS 350.1.13.10 ity [place] [id number] [address] 2021-06-03 2021-06-03 Outpatient R KANDI ALMARYSOL [facility] [id number] Univers 13:00:00 14:56:19 MARGIE AL ity [facility] 2021-06-03 2021-06-03 Orders Doctor MICHAEL 1.2.840.114 [id number] Univers 00:00:00 00:00:00 Only Unassigned, JAYDA 350.1.13.10 ity of [facility] 4.2.7.2.686 [place] [id number] [address] 2021-06-03 2021-06-03 Telephone Mikaela [facility] 1.2.840.114 [id number] Univers 00:00:00 00:00:00 Margie VARGAS 350.1.13.10 [place] [id number] [address] 2021-05-30 2021-05-30 Outpatient MHIE JAMES [id number] [facility] 15:30:00 15:30:00 17 jaskaran Diaz 2021-05-26 2021-05-26 Outpatient R MIKAELA MARGIE [facility] [id number] Univers 13:00:00 13:00:00 MIKAELAEKTAGARRET ity [facility] 2021-05-23 2021-05-23 Outpatient R MARGIE AL [facility] [id number] Univers 14:30:00 14:30:00 MARGIE AL itabdifatah [facility] 2021-05-22 2021-05-22 [facility] [id number] Univers 10:00:00 10:00:00 CAIT bermudez [facility] 2021-04-14 2021-04-14 Orders Doctor MICHAEL 1.2.840.114 [id number] Univers 00:00:00 00:00:00 Only Unassigned, JAYDA 350.1.13.10 [place]y of [place] [facility] 4.2.7.2.686 [place] [id number] [address] 2021-04-01 2021-04-01 Office Duane [facility] 1.2.840.114 [id number] Univers 13:38:31 13:58:31 Visit [facility] 350.1.13.10 i ty of [facility] [place] [id number] [address] 2021-04-01 2021-04-01 [facility] [id number] Univers 13:40:00 13:40:00 NICK bermudez [facility] 2021-04-01 2021-04-01 [facility] [id number] Univers 13:40:00 13:40:00 NICK bermudez [facility] 2021-03-04 2021-03-04 Orders Doctor MICHAEL Bernard.2.840.114 [id number] Univers 00:00:00 00:00:00 Only Unassigned, JAYDA 350.1.13.10 ity of [place] [facility] 4.2.7.2.686 [place] [id number] [address] 2021-02-10 2021-02-10 Outpatient Michael Pino [facility] RADI [id number] [facility] 15:19:00 15:19:00 [id number] [facility] 2021-02-10 2021-02-10 Outpatient Michael Pino [facility] RADI [id number] [facility] 15:19:00 15:19:00 51 [facility] 2021-01-28 2021-01-28 Orders Doctor MICHAEL Bernard.2.840.114 [id number] Univers 00:00:00 00:00:00 Only Unassigned, JAYDA 350.1.13.10 ity of [place] [facility] 4.2.7.2.686 [place] [id number] [address] 2020-11-27 2020-11-28 Outpatient nullFlavo MNA [id number] Memoria 20:45:00 04:59:59 r Neurology 16 l Brandee Diaz 2020-11-27 2020-11-28 Outpatient nullFlavo MNA [id number] Mem[facility] 20:45:00 04:59:59 r Neurology 16 l Brandee Diaz 2020-11-27 2020-11-27 Outpatient Kreirma, MHMISCHER MHMISCHER [id number] 15:45:00 23:59:59 Lavell Mague Mckeon 2020-11-27 2020-11-27 Outpatient MHIE MHIE [id number] Memoria 15:45:00 15:45:00 16 jaskaran Diaz 2020-11-20 2020-11-20 Orders Doctor RODRIGUEZ 1.2.840.114 [id number] Univers 00:00:00 00:00:00 Only Unassigned, JAYDA 350.1.13.10 ity of [place] [facility] 4.2.7.2.686 [place] [id number] [address] 2020-09-25 2020-09-25 Office SEYMOUR Zepeda 1.2.840.114 [id number] Univers 14:55:38 15:37:19 Visit [facility] 350.1.13.10 i ty of [place] [id number] [address] [address] 2020-09-25 2020-09-25 Outpatient R DUANE, [facility] [id number] Univers 15:30:00 15:30:00 [facility] 2020-09-17 2020-09-17 Orders Doctor MICHAEL Suarez2.840.114 [id number] Univers 00:00:00 00:00:00 Only Unassigned, JAYDA 350.1.13.10 ity of [place] [facility] 4.2.7.2.686 [place] [id number] [address] 2020-09-03 2020-09-03 Orders Doctor MICHAEL Bernard.2.840.114 [id number] Univers 00:00:00 00:00:00 Only Unassigned, JAYDA 350.1.13.10 ity of [place] [facility] 4.2.7.2.686 [place] [id number] [address] 2020-08-09 2020-08-11 Outside nullFlavo [facility] [id number] Memoria 19:30:53 04:59:59 Medical r Neurology 07 l Records Brandee Alcarazann 2020-08-09 2020-08-11 Outside nullFlavo NDA [id number] Memoria 19:30:53 04:59:59 Medical r Neurology 07 l Records [facility] 2020-08-09 2020-08-10 [facility]patient [facility] [id number] 14:30:53 23:59:59 07 2020-08-05 2020-08-05 Orders Doctor MICHAEL 1.2.840.114 [id number] Univers 00:00:00 00:00:00 Only Unassigned, JAYDA 350.1.13.10 ity of [place] [facility] 4.2.7.2.686 [place] [id number] [address] 2020-07-26 2020-07-26 Telephone Zepeda, [facility] 1.2.840.114 [id number] Univers 00:00:00 00:00:00 Nick [facility] 350.1.13.10 i [id number] [address] 2020-07-25 2020-07-25 Telephone Zepeda, [facility] 1.2.840.114 [id number] Univers 00:00:00 00:00:00 Nick [facility] 350.1.13.10 [id number] [address] 2020-07-23 2020-07-23 Office Zepeda, [facility] 1.2.840.114 [id number] Univers 15:34:28 16:57:42 Visit Nick [facility] HE[facility] 350.1.13.10 i [id number] [address] 2020-07-23 2020-07-23 Outpatient R DUANE, [facility] [id number] Univers 16:00:00 16:00:00 NICK bermudez [facility] 2020-07-16 2020-07-16 Orders Doctor MICHAEL 1.2.840.114 [id number] Univers 00:00:00 00:00:00 Only Unassigned, JAYDA 350.1.13.10 ity of [place] [facility] 4.2.7.2.686 [place] as [phone] [address] 2020-07-02 2020-07-02 Outpatient [facility] [id number] Univers 00:00:00 00:00:00 aidan [facility] 2020-07-02 2020-07-02 Orders Doctor MICHAEL 1.2.840.114 [id number] Univers 00:00:00 00:00:00 Only Unassigned, JAYDA 350.1.13.10 ity [place] [facility] 4.2.7.2.686 [place] [phone] [address] 2020-05-30 2020-05-31 Outpatient nullFlavo MNA [id number] Memoria 20:45:00 05:59:59 r Neurology 15 l Brandee Joe 2020-05-30 2020-05-31 Outpatient nullFlavo MNA [id number] Memoria 20:45:00 05:59:59 r Neurology 15 l Brandee Diaz 2020-05-30 2020-05-30 Outpatient MIRLANDE DeckerSCHISIS TOBIASMISCHER [id number] 14:45:00 23:59:59 Lavell 15 Mike 2020-05-30 2020-05-30 Outpatient MHIE MHIE [id number] Memoria 14:45:00 14:45:00 15 l Joe 2020-05-22 2020-05-22 Travel 1.2.840.1 1.2.916.214 [id number] Methodi 00:00:00 00:00:[address] 3.430.2.7 0.2.7.3.698 Ho spita .3.758278 084.8 l .8 2020-05-09 2020-05-09 Ambulatory nullFlavo MNA [id number] Memoria 21:30:00 21:30:00 Pre-Reg r Neurology 14 l Brandee Diaz 2020-05-09 2020-05-09 Ambulatory nullFlavo MNA [id number] Memoria 21:30:00 21:30:00 Pre-Reg r Neurology 14 l Brnadee Alcarazann 2020-05-09 2020-05-09 Outpatient MHIE MHIE [id number] Memoria 15:30:00 15:30:00 14 jaskaran Diaz 2020-05-09 2020-05-09 Outpatient [facility] [id number] 15:30:00 15:30:00 Lavell Mckeon 2020-03-18 2020-04-17 Recurring nullFlavo TIRR [id number] Memoria 14:00:00 05:59:00 r [facility] 01 jaskaran Joe Diaz 2020-03-18 2020-04-17 Recurring nullFlavo TIRR [id number] Memoria 14:00:00 05:59:00 r [facility] 01 jaskaran Diaz [place] 2020-04-17 2020-04-17 Outpatient [facility] [id number] Univers 00:00:00 00:00:00 ity [facility] 2020-04-17 2020-04-17 Outpatient R [facility] [id number] Univers 00:00:00 00:00:00 ity [facility] 2020-04-17 2020-04-17 Orders Doctor RODRIGUEZ 1.2.840.114 [id number] Univers 00:00:00 00:00:00 Only Unassigned, JAYDA 350.1.13.10 ity 4.2.7.2.686 Wade as [phone] [address] 2020-03-18 2020-04-16 Outpatient Magat, MHTIRR MHTIRR [id number] 08:00:00 23:59:00 Sera 01 daraog 2020-01-12 2020-02-11 Recurring nullFlavo TIRR [id number] Memoria 17:00:00 04:59:00 r [facility] 00 jaskaran Diaz 2020-01-12 2020-02-11 Recurring nullFlavo TIRR [id number] Memoria 17:00:00 04:59:00 r [facility] 00 l Joe Diaz 2020-01-12 2020-02-10 Outpatient Magat, MHTIRR MHTIRR [id number] 12:00:00 23:59:00 Sera 00 Magdaraog 2020-01-16 2020-01-17 Outpatient nullFlavo MNA [id number] Memoria 20:30:00 04:59:59 r Neurology 13 l Brandee [place] 2020-01-16 2020-01-17 Outpatient nullFlavo MNA [id number] Memoria 20:30:00 04:59:59 r Neurology 13 l Brandee [place] 2020-01-16 2020-01-16 Outpatient MICHELINE DeckerNMSCHER MHMISCHER [id number] 15:30:00 23:59:59 Lavell 13 Mike 2020-01-16 2020-01-16 Outpatient MHIE MHIE [id number] Memoria 15:30:00 15:30:00 13 l Joe 2020-01-11 2020-01-11 Ambulatory nullFlavo MNA [id number] Memoria 19:30:00 19:30:00 Pre-Reg r Neurology 12 l Brandee [place] 2020-01-11 2020-01-11 Ambulatory nullFlavo MNA [id number] Memoria 19:30:00 19:30:00 Pre-Reg r Neurology 12 l Brandee Joe 2020-01-11 2020-01-11 Outpatient MHIE MHIE [id number] Memoria 14:30:00 14:30:00 12 jaskaran [place] 2020-01-11 2020-01-11 Outpatient MICHELINE [facility]CHISIS [facility] [id number] 14:30:00 14:30:00 Lavell 12 [facility] 2020-01-04 2020-01-04 Orders Doctor MICHAEL 1.2.840.114 [id number] Univers 00:00:00 00:00:00 Only Unassigned, JAYDA 350.1.13.10 ity of [place] [facility] 4.2.7.2.686 Wade as [phone] [address] 2019-12-20 2019-12-20 Telephone WILLIAM Santos 1.2.840.114 [id number] Univers 00:00:00 00:00:00 Jayy [facility] 350.1.13.10 it y of Surgical 4.2.7.2.686 Wade as Specialti [phone] Nc dical es 198 [facility] 2019-12-20 2019-12-20 Orders Doctor MICHAEL 1.2.840.114 [id number] Univers 00:00:00 00:00:00 Only Unassigned, JAYDA 350.1.13.10 ity of [place] [facility] 4.2.7.2.686 Wade as [phone] [facility] [address] [place] 2019-12-18 2019-12-19 Outpt Diag nullFlavo [facility] [id number] Memoria 21:18:00 04:59:00 Services r Outpatient 00 l Imaging [facility] 2019-12-18 2019-12-19 Outpt Diag nullFlavo [facility] [id number] Memoria 21:18:00 04:59:00 Services r Outpatient 00 l Imaging [facility] 2019-12-18 2019-12-18 Outpatient ADY Decker MHOIP [id number] 16:18:00 23:59:00 Lavell 00 Mike 2019-12-06 2019-12-07 Outpatient nullFlavo TR - [id number] Memoria 18:07:00 04:59:00 r Adult BI 23 l (ABIR) [place] 2019-12-06 2019-12-07 Outpatient nullFlavo TR BT- [id number] Memoria 18:07:00 04:59:00 r Adult BI 23 l (ABIR) [place] 2019-12-06 2019-12-06 Outpatient Magat, MHTIRR MHTIRR [id number] 13:07:00 23:59:00 Sera 23 [place] 2019-09-27 2019-09-29 Outside nullFlavo MNA [id number] Memoria 21:52:00 04:59:59 Medical r Neurology 06 l Records [place] 2019-09-27 2019-09-29 Outside nullFlavo MNA [id number] Memoria 21:52:00 04:59:59 Medical r Neurology 06 l Records [facility] 2019-09-27 2019-09-28 Outpatient MISCHER MISCHER [id number] 16:52:00 23:59:59 06 2019-09-12 2019-09-12 Ambulatory nullFlavo MNA [id number] Memoria 20:45:00 20:45:00 Pre-Reg r Neurology 11 l Brandee Diaz 2019-09-12 2019-09-12 Ambulatory nullFlavo MNA [id number] Memoria 20:45:00 20:45:00 Pre-Reg r Neurology 11 l Brandee Diaz 2019-09-12 2019-09-12 Outpatient MHIE MHIE [id number] Memoria 15:45:00 15:45:00 11 jaskaran Diaz 2019-09-12 2019-09-12 Outpatient Brianne, MISCHER MHMISCHER [id number] 15:45:00 15:45:00 Lavell 11 Mike 2019-07-12 2019-07-13 Outpatient nullFlavo MNA [id number] Memoria 20:15:00 04:59:59 r Neurology 10 l Brandee Diaz 2019-07-12 2019-07-13 Outpatient nullFlavo MNA [id number] Memoria 20:15:00 04:59:59 r Neurology 10 l Brandee [place] 2019-07-12 2019-07-12 Outpatient Brianne, [facility] [id number] 15:15:00 23:59:59 Lavell 10 Mike 2019-07-12 2019-07-12 Outpatient MHIE MHIE [id number] Memoria 15:15:00 15:15:00 10 jaskaran [place] 2019-07-10 2019-07-10 Appointmen ARACELI MELO [facility]oped[facility] [id number] [place] 13:00:00 13:00:00 t; ANNETTE MELO PA Trauma Physici [facility] 2019-05-30 2019-05-30 [facility] 1.2.840.114 [id number] Univers 10:38:00 23:59:00 Rhiannon Castillo 350.1.13.10 itJamila Bautista 4.2.7.2.686 [facility] [phone] Medi familia [address] 2019-05-30 2019-05-30 Ham Doctor Tunde, Jannette Lab Main [facility] 1.2.8 40.114 [id number] Univers 10:37:53 10:52:53 Visit Natalia Farfan 350.1.13 .10 [place] [phone] N[place] dical nal 353 [facility] 2019-05-29 2019-05-29 Orders Doctor MICHAEL 1.2.840.114 [id number] Univers 00:00:00 00:00:00 Only Unassigned, JAYDA 350.1.13.10 ity of [place] [facility] 4.2.7.2.686 Wade as [phone] [facility] [address] 2019-05-15 2019-05-15 Appointmen ARACELI MELO [facility]opedics [id number] [place] 13:00:00 13:00:00 t; ANNETTE MELO PA Trauma Physici [facility] 2019-04-27 2019-04-27 Ambulatory nullFlavo MNA [id number] Memoria 21:45:00 21:45:00 Pre-Reg r Neurology 09 jaskaran Brandee Diaz 2019-04-27 2019-04-27 Ambulatory nullFlavo MNA [id number] Memoria 21:45:00 21:45:00 Pre-Reg r Neurology 09 jaskaran Brandee Diaz 2019-04-27 2019-04-27 Outpatient MHIE MHIE [id number] Memoria 15:45:00 15:45:00 Anahi jessica [place] 2019-04-27 2019-04-27 Outpatient MICHELINE DeckerMISCHER MHMISCHER [id number] 15:45:00 15:45:00 Lavell Anahi Mckeon 2019-03-23 2019-04-13 Inpatient nullFlavo TIRR [id number] Memoria 00:51:00 19:40:00 Rehab r [facility] 21 jaskaran Joe Diaz 2019-03-23 2019-04-13 Inpatient nullFlavo TIRR [id number] Memoria 00:51:00 19:40:00 Rehab r [facility] 21 jaskaran Joe Diaz 2019-03-22 2019-04-13 Outpatient MICHELINE WhiteTIRSosa MHTIRR [id number] 18:51:00 13:40:00 Kandice Hoyos 2019-04-06 2019-04-06 Ambulatory nullFlavo MNA [id number] Memoria 21:00:00 21:00:00 Pre-Reg r Neurology 07 l Brandee [place] 2019-04-06 2019-04-06 Ambulatory nullFlavo MNA [id number] Memoria 21:00:00 21:00:00 Pre-Reg r Neurology 07 l Brandee [place] 2019-04-06 2019-04-06 Outpatient MHIE JAMES [id number] Memoria 15:00:00 15:00:00 07 jaskaran AlcarazJoe 2019-04-06 2019-04-06 Outpatient BIANCA Decker MISCHER [id number] 15:00:00 15:00:00 Lavell Isa Mckeon 2019-04-03 2019-04-03 [facility] ARACELI MELO Orthopedics [id number] [place] 12:15:00 12:15:00 t; ANNETTE MELO PA Trauma Physici [facility] 2019-03-22 2019-03-22 Observatio nullFlavo [facility] [id number] Memoria 00:40:00 23:40:00 n sosa [place] [address] [place] [address] 2019-03-22 2019-03-22 Observatio nullFlavo [facility] [id number] Memoria 00:40:00 23:40:00 [place] [address] [place] [address] 2019-03-21 2019-03-22 Outpatient Mckenzie [facility] [id number] 18:40:00 17:40:00 Ashok Segal 2019-03-21 2019-03-21 Outpatient E [facility] [id number] [facility] 23:48:00 23:48:00 2019-03-14 2019-03-15 Outpatient nullFlavo MNA [id number] Memoria 17:15:00 05:59:59 r Neurology 08 jaskaran Irvin [place] 2019-03-14 2019-03-15 Outpatient nullFlavo MNA [id number] Memoria 17:15:00 05:59:59 r Neurology 08 jaskaran Irvin [place] 2019-03-14 2019-03-14 Outpatient MIRLANDE DeckerSCHER MHALFREDOSCHER [id number] 11:15:00 23:59:59 Lavell Bg Mckeon 2019-03-14 2019-03-14 Outpatient MHIE MICHELINEIE [id number] Memoria 11:15:00 11:15:00 l [place] 2019-01-05 2019-01-06 Outpatient nullFlavo MNA [id number] Memoria 20:45:00 04:59:59 r Neurology 06 jaskaran Irvin [place] 2019-01-05 2019-01-06 Outpatient nullFlavo MNA [id number] Memoria 20:45:00 04:59:59 r Neurology 06 jaskaran Irvin [place] 2019-01-05 2019-01-05 [facility] Brian[facility] [id number] 15:45:00 23:59:59 Lavell Lesa Mike 2019-01-05 2019-01-05 Outpatient MHIE MHIE [id number] Memoria 15:45:00 15:45:00 06 jaskaran [place] 2018-10-06 2018-10-07 Outpatient nullFlavo MNA [id number] Memoria 20:45:00 04:59:59 r Neurology 05 jaskaran Irivn [place] 2018-10-06 2018-10-07 Outpatient nullFlavo MNA [id number] Memoria 20:45:00 04:59:59 r Neurology 05 jaskaran Irvin [place] 2018-10-06 2018-10-06 Outpatient Brianne, [facility] [id number] 15:45:00 23:59:59 Lavell Vin Mike 2018-10-06 2018-10-06 Outpatient MHIE MHIE [id number] Memoria 15:45:00 15:45:00 05 jaskaran [place] 2018-09-15 2018-09-15 Ambulatory nullFlavo MNA [id number] Memoria 18:15:00 18:15:00 Pre-Reg r Neurology 04 jaskaran Irvin [place] 2018-09-15 2018-09-15 Ambulatory nullFlavo MNA [id number] Memoria 18:15:00 18:15:00 Pre-Reg r Neurology 04 jaskaran Irvin [place] 2018-09-15 2018-09-15 Outpatient MHIE MHIE [id number] Memoria 13:15:00 13:15:00 Cheyanne jessica [place] 2018-09-15 2018-09-15 Outpatient [facility] [id number] 13:15:00 13:15:00 Lavell Cheyanne Mike 2018-07-14 2018-07-14 Outpatient MHIE MHIE [id number] Memoria 15:30:00 15:30:00 03 jaskaran Joe 2018-07-14 2018-07-14 Outpatient MHIE MHIE [id number] Memoria 15:30:00 15:30:00 03 jaskaran [place] 2018-03-03 2018-03-03 Ambulatory nullFlavo MNA [id number] Memoria 18:00:00 18:00:00 Pre-Reg r Neurology 02 l Brandee [place] 2018-03-03 2018-03-03 Ambulatory nullFlavo MNA [id number] Memoria 18:00:00 18:00:00 Pre-Reg r Neurology 02 l Brandee Joe 2018-03-03 2018-03-03 Outpatient MHIE MHIE [id number] Memoria 13:00:00 13:00:00 02 jaskaran [place] 2018-03-03 2018-03-03 Outpatient [facility] [id number] 13:00:00 13:00:00 Lavell Mckeon 2018-01-19 2018-01-19 Outpatient MHIE MHIE [id number] Memoria 14:30:00 14:30:00 01 jaskaran [place] 2018-01-19 2018-01-19 Outpatient MHIE MHIE [id number] Memoria 14:30:00 14:30:00 01 jaskaran [place] 2017-10-19 2017-10-19 Outpatient MHIE MHIE [id number] Memoria 14:00:00 14:00:00 00 jaskaran [place] 2017-10-19 2017-10-19 Outpatient MHIE MHIE [id number] Memoria 14:00:00 14:00:00 00 jaskaran [place] 2017-02-03 2017-02-04 Outpatient nullFlavo TIR[facility] [id number] Memoria 19:16:00 04:59:00 r [facility] 17 [facility] 2017-02-03 2017-02-04 Outpatient nullFlavo TIRR [id number] Memoria 19:16:00 04:59:00 r [facility] 17 [facility] 2017-02-03 2017-02-03 Outpatient Magat, MHTIRR MHTIRR [id number] 14:16:00 23:59:00 Sera Johnston 2016-10-07 2016-10-08 Outpatient nullFlavo TIRR [id number] Memoria 19:17:00 04:59:00 r [facility] 16 [facility] 2016-10-07 2016-10-08 Outpatient nullFlavo TIRR [id number] Memoria 19:17:00 04:59:00 r [facility] 16 [facility] 2016-10-07 2016-10-07 Outpatient Magat, MHTIRR MHTIRR [id number] 14:17:00 23:59:00 Sera 16 [facility] 2016-03-24 2016-03-24 Outpatient Raju_P MMG MMG [id number] [place] 03:16:00 03:16:00 [facility] 2016-03-11 2016-03-12 Outpatient nullFlavo TIRR [id number] Memoria 19:09:00 05:59:00 r [facility] 15 [facility] 2016-03-11 2016-03-12 Outpatient nullFlavo TIRR [id number] Memoria 19:09:00 05:59:00 r [facility] 15 [facility] 2016-03-11 2016-03-11 Outpatient Magat, MHTIRR MHTIRR [id number] 13:09:00 23:59:00 Sera 15 [place] 2015-11-07 2015-11-27 Inpatient nullFlavo TIRR [id number] Memoria 17:08:00 15:28:00 Rehab r [facility] 13 [facility] 2015-11-07 2015-11-27 Inpatient nullFlavo TIRR [id number] Memoria 17:08:00 15:28:00 Rehab r [facility] 13 [facility] 2015-11-07 2015-11-27 Outpatient Gonzales, MHTIRR MHTIRR [id number] 12:08:00 10:28:00 Fabiolla Dimitri Mattson 2015-03-18 2015-03-19 Outpatient nullFlavo TIR[facility] [id number] Memoria 15:50:00 05:59:00 r [facility] 11 [facility] 2015-03-18 2015-03-19 Outpatient nullFlavo TIRR [id number] Memoria 15:50:00 05:59:00 r [facility] 11 [facility] 2015-03-18 2015-03-18 Outpatient Magat, MHTIRR MHTIRR [id number] 09:50:00 23:59:00 Sera 11 [place] 2015-01-31 2015-02-15 Inpatient nullFlavo TIRR [id number] Memoria 22:33:00 17:11:00 Rehab r [facility] 10 jaskaran [facility] 2015-01-31 2015-02-15 Inpatient nullFlavo TIRR [id number] Memoria 22:33:00 17:11:00 Rehab r [facility] 10 [facility] 2015-01-31 2015-02-15 Outpatient DiTommaso, MHTIRR MHTIRR [id number] 17:33:00 12:11:00 Jayy Aceves 10 2014-11-27 2014-11-28 Outpatient nullFlavo T[facility] [id number] Memoria 15:50:00 04:59:[address] 2014-11-27 2014-11-28 Outpatient nullFlavo T[facility] [id number] Memoria 15:50:00 04:59:[address] 2014-11-27 2014-11-27 Outpatient Magat, MHTIRR MHTIRR [id number] 10:50:00 23:59:00 Sera 08 [place] 2014-09-21 2014-09-22 Outpatient nullFlavo [facility] [id number] Memoria 13:00:00 04:59:00 r Joe jessica CHRISTIANACARESosa [place] 2014-09-21 2014-09-22 Outpatient nullFlavo [facility] [id number] Memoria 13:00:00 04:59:00 r Joe jessica [facility] 2014-09-21 2014-09-21 Outpatient Magat, 2.16.840. 2.16.840.1. 4 [id number] 08:00:00 23:59:00 Sera 1.171253. 147051.3.61 07 [place] 3.615.0.1 5.0.385 63 9845-04-15 2014-08-16 Outpatient nullFlavo [facility] [id number] Memoria 13:00:00 04:59:00 r Joe 06 jaskaran [place]USH [place] 2014-08-15 2014-08-16 Outpatient nullFlavo [facility] [id number] Memoria 13:00:00 04:59:00 r Joe 06 jaskaran Diaz 2014-08-15 2014-08-15 Outpatient Physician, 2.16.840. 2.16.840.1 . [id number] 08:00:00 23:59:00 Non 1.343361. [id number] 06 Associated 3.615.0.1 5.0.018 70 6644-04-02 2014-08-03 Outpatient nullFlavo [place] [id number] Memoria 18:00:00 04:59:00 r Joe 05 jaskaran Diaz 2014-08-02 2014-08-03 Outpatient nullFlavo [place] [id number] Memoria 18:00:00 04:59:00 r Joe 05 jaskaran Diaz 2014-08-02 2014-08-02 Outpatient Magat, 2.16.840. 2.16.840.1. 4 [id number] 13:00:00 23:59:00 Sera 1.801846. 087905.3.61 05 [place] 3.615.0.1 5.0.866 00 1436-06-07 2012-10-07 TO MHIE MHIE [id number] Memoria 08:00:00 08:00:00 13 jaskaran Diaz 2012-10-07 2012-10-07 TO MHIE MHIE [id number] Memoria 08:00:00 08:00:00 13 jaskaran Diaz 2012-09-06 2012-09-06 TO MHIE MHIE [id number] Memoria 11:06:00 11:06:00 12 jaskaran Diaz 2012-09-06 2012-09-06 TO MHIE MHIE [id number] Memoria 11:06:00 11:06:00 12 jaskaran Diaz 2012-08-05 2012-08-05 TO MHIE MHIE [id number] Memoria 10:43:00 10:43:00 11 jaskaran Diaz 2012-08-05 2012-08-05 TO MHIE MHIE [id number] Memoria 10:43:00 10:43:00 11 jaskaran Diaz 2012-07-04 2012-07-04 TO MHIE MHIE [id number] Memoria 09:38:00 09:38:00 10 jaskaran Diaz 2012-07-04 2012-07-04 TO [facility] [id number] [facility] 09:38:00 09:38:00 10 jaskaran Diaz Results Test Description Test Time Test Comments Results Result Comments Source OCCULT BLD,FECAL,IMMUNOASSAY DIAG 2022-04-14 10:59:17 Test Item Value Reference Range Interpretation Comme nts OCCULT BLD, FECAL (test code NEGATIVE NEGATIVE UNLESS OTHERWISE INDICATED, ALL = 21225) TESTING PERFORM ED ATCLINICAL PATHOLOGY [employer], Stroz Friedberg. [address] [place] [address] DRAW OFF WORKER: KANCHAN TENORIO M.D. CLIA NUMBER [id number] CAP ACCREDITATION N O. [id number] CULTURE, URINE [ADDED]2022-04-04 00:00:00 Test Item Value Reference Range Interpretation Comments CULTURE, URINE (test SPECIMEN NUMBER: code = 62731) [id number] CULTURE, URINE [ADDED]2022-04-04 00:00:00 Test Item Value Reference Range Interpretation Comments CULTURE, URINE (test SPECIMEN NUMBER: code = 41912) [id number] CULTURE, [id number] 12:00:34SPECIMEN NUMBER: [id number] CULTURE, URINE SPECIMEN NUMBER: [id number] SPECIMEN COMMENT: URINE SOURCE:URINE REPORT STATUS: FINAL ISOLATE NUMBER 1: ORGANISM: 08/20/2021 >100,000 CFU/ML GRAM NEGATIVE BA CILLI IDENTIFICATION: 08/21/2021 ESCHERICHIA COLI CONFIRMED POSITIVE EXTENDED- SPECTRUM BETA-LACTAMASE (ESBL). THESE ORGANISMS ARE UNIFORMLY RESISTANT TO ALL PENICILLINS, CEPHALOSPORINS AND AZTREONAM. E. COLI ESBL AMOXICILLIN/CA SENSITIVE <=8/4AMPICILLIN RESISTANT >16CEFAZOLIN RESISTANT >16CEFTRIAXONE RESISTANT 32CIPROFLOXACIN RESISTANT >2ERTAPENEM SENSITIVE <=0.5LEVOFLOXACIN RESISTANT >4MEROPENEM SENSITIVE <=1NITROFURANTOIN SENSITIVE <=32PIP/TAZOBAC SENSITIVE <=16TETRACYCLINE SENSITIVE <=4TOBRAMYCIN SENSITIVE <=4TRIMETH/SULFA SENSITIVE <=2/38 NOTE: NUMBERS DISPLAYED REPRESENT MINIMUM INHIBITORY CONCENTRATION (FELICIA) WHICH IS EXPRESSED IN MCG/ML. UNLESS OTHERWISE INDICATED, ALL TESTING PERFORMED [facility] [address] [place] [address] DRAW OFF WORKER: KANCHAN TENORIO M.D. CLIA NUMBER [id number] [place]. [id number], [id number] 00:00:00 Test Item Value Reference Range Interpretation Comments CULTURE, URINE (test SPECIMEN NUMBER: code = 30311) [id number] CULTURE, [id number] 00:00:00 Test Item Value Reference Range Interpretation Comments CULTURE, URINE (test SPECIMEN NUMBER: code = 26230) [id number] CULTURE, [id number] 00:00:00 Test Item Value Reference Range Interpretation Comments CULTURE, URINE (test SPECIMEN NUMBER: code = 17449) [id number] CULTURE, [id number] 14:55:28SPECIMEN NUMBER: [id number] CULTURE, URINE SPECIMEN NUMBER: [id number] SPECIMEN COMMENT: URINE SOURCE:URINE REPORT STATUS: FINAL ISOLATE NUMBER 1: ORGANISM: 07/31/2021 50-100,000 CFU/ML GRAM NEGATIVE LAURA ILLI IDENTIFICATION: 08/01/2021 PROTEUS MIRABILIS P. MIRABILIS AMOXICILLIN/CA SENSITIVE <=8/4AMPICILLIN SENSITIVE <=8CEFAZOLIN SENSITIVE <=2CEFTRIAXONE SENSITIVE <=1CIPROFLOXACIN SENSITIVE <=1LEVOFLOXACIN SENSITIVE <=2NITROFURANTOIN RESISTANT >64PIP/TAZOBAC SENSITIVE <=16TETRACYCLINE RESISTANT >8TOBRAMYCIN SENSITIVE <=4TRIMETH/SULFA SENSITIVE <=2/38 NOTE: NUMBERS DISPLAYED REPRESENT MINIMUM INHIBITORY CONCENTRATION (FELICIA) WHICH IS EXPRESSED IN MCG/ML. UNLESS OTHERWISE INDICATED, ALL TESTING PERFORMED [employer] [address] [place] [address] DRAW OFF WORKER: KANCHAN TENORIO M.D. CLIA NUMBER [id number] [place]. [id number], [id number] 00:00:00 Test Item Value Reference Range Interpretation Comments CULTURE, URINE (test SPECIMEN NUMBER: code = 28316) [id number] CULTURE, [id number] 00:00:00 Test Item Value Reference Range Interpretation Comments CULTURE, URINE (test SPECIMEN NUMBER: code = 77913) [id number] CULTURE, [id number] 00:00:00 Test Item Value Reference Range Interpretation Comments CULTURE, URINE (test SPECIMEN NUMBER: code = 11878) [id number] - XR CHEST 2 [id number] 16:14:00 [facility] 1945 Sex: M Name: LIDIA GRAVES [facility] : 1945 Age/S: 76 / M [address] [address] [place] Unit #: [id number] Loc: [place] [address] Phys: Michael Valdez MD Acct: [id number] Dis Date: Status: REG CLI PHONE #: [phone] Exam Date: 02/10/2021 1545 FAX #: Reason: SHORTNESS OF BREATH EXAMS: CPT: [id number] CHEST 2 V 89650 Fluoro Time: DAP (Gy m2): Air Kerma (mGy): EXAMINATION: Frontal and lateral chest radiographs INDICATION: SHORTNESS OF BREATH COMPARISON: 10/04/2018 LOCATION: S17 FINDINGS: Clear lungs. No pleural effusion or pneumothorax. Cardiac silhouette is normal in size. IMPRESSION: No acute abnormality identified. at 1614 Reported and signed by: Randell Drew M.D. CC: Felipa Hansen MD; Michael Valdez MD PAGE 1 Signed Report Name: LIDIA GRAVES : 1945 Age/S: 76 / M [address] [address] [place] Unit #: [id number] Loc: [place] [address] Phys: Michael Valdez MD Acct: [id number] Dis Date: Status: REG CLI PHONE #: [phone] Exam Date: 02/10/2021 1545 FAX #: Reason: SHORTNESS OF BREATH EXAMS: CPT: [id number] XR CHEST 2 V 71728 Fluoro Time: DAP (Gy m2): Air Kerma (mGy): (Continued) Technologist: Kathy Ware RT(R)(CT) Trnscb Date/Time: 02/10/2021 (1613) [email or web address] Orig Print D/T: S: 02/10/2021 (2991) PAGE 2 Signed Report[U] XRAY ANKLE MIN 3 VWS LEFT [id number] 12:39:00Images acquired, not reported on this accession number.[facility][U] XRAY KNEE 1 OR 2 VWS LEFT [id number] 12:39:00Images acquired, not reported on this accession number.[facility] CHEM [id number] 10:53:00 Test Item Value Reference Range Interpretation Comments ALT (test code = ALT) 47 See_Comment [Auto mated message] The system which ge nerated this result transmit jose reference range : <=65. The reference range was not used to interpr et this result as [place] l/abnormal. [facility] [id number] 10:53:00 Test Item Value Reference Range Interpretation Comments Albumin Lvl (test code = Albumin Lvl) 3.4 3.5-5.0 [facility] [id number] 10:53:00 Test Item Value Reference Range Interpretation Comments Alk Phos (test code = Alk Phos) 85 39-136 [facility] [id number] 10:53:00 Test Item Value Reference Range Interpretation Comments Glucose Lvl (test code = Glucose Lvl) 111 70-99 [facility] [id number] 10:53:00 Test Item Value Reference Range Interpretation Comments BUN (test code = BUN) 15 7-22 [facility]2019-12-09 10:53:00 Test Item Value Reference Range Interpretation Comments Creatinine Lvl (test code = Creatinine 0.79 0.50-1.40 Lvl) [facility]2019-12-09 10:53:00 Test Item Value Reference Range Interpretation Comments Sodium Lvl (test code = Sodium Lvl) 142 135-145 [facility]2019-12-09 10:53:00 Test Item Value Reference Range Interpretation Comments Potassium Lvl (test code = Potassium 3.1 3.5-5.1 Lvl) [facility]2019-12-09 10:53:00 Test Item Value Reference Range Interpretation Comments Chloride Lvl (test code = Chloride Lvl) 104 95-109 [facility]2019-12-09 10:53:00 Test Item Value Reference Range Interpretation Comments CO2 (test code = CO2) 30 24-32 [facility]2019-12-09 10:53:00 Test Item Value Reference Range Interpretation Comments Calcium Lvl (test code = Calcium Lvl) 8.8 8.5-10.5 [facility]2019-12-09 10:53:00 Test Item Value Reference Range Interpretation Comments Bili Total (test code = Bili Total) 0.4 0.2-1.3 [facility]2019-12-09 10:53:00 Test Item Value Reference Range Interpretation Comments Total Protein (test code = Total 6.6 6.4-8.4 Protein) [facility]2019-12-09 10:53:00 Test Item Value Reference Range Interpretation Comments AST (test code = AST) 30 See_Comment [Auto mated message] The system which ge nerated this result transmit jose reference range : <=37. The reference range was not used to interpr et this result as carolina l/abnormal. [facility]2019-12-09 10:53:00 Test Item Value Reference Range Interpretation Comments eGFR (test code = eGFR) 88 [facility]2019-12-09 10:53:00 Test Item Value Reference Range Interpretation Comments AGAP (test code = AGAP) 11.1 10.0-20.0 [facility]2019-12-09 10:53:00 Test Item Value Reference Range Interpretation Comments B/C Ratio (test code = B/C Ratio) 19 1 6-25 [facility]2019-12-09 10:53:00 Test Item Value Reference Range Interpretation Comments Globulin (test code = Globulin) 3.2 2.7-4.2 [facility]2019-12-09 10:53:00 Test Item Value Reference Range Interpretation Comments A/G Ratio (test code = A/G Ratio) 1.1 1 0.7-1.6 [facility]PimjqtdFKMNNQBVXY0570-85-07 10:53:00 Test Item Value Reference Range Interpretation Comments WBC (test code = WBC) 5.8 3.7-10.4 [facility] SystemGobxmmyBOQBDIOLWB2559-83-71 10:53:00 Test Item Value Reference Range Interpretation Comments RBC (test code = RBC) 4.48 4.70-6.10 [facility] SystemBdczjwiNTYGOSLLBA3229-44-57 10:53:00 Test Item Value Reference Range Interpretation Comments Hgb (test code = Hgb) 13.8 14.0-18.0 [facility] SystemMdbnufjAEJBFPWRCC2453-70-76 10:53:00 Test Item Value Reference Range Interpretation Comments Hct (test code = Hct) 39.9 42.0-54.0 [facility] SystemTdxtnwyVJIPYXGJQL0439-67-88 10:53:00 Test Item Value Reference Range Interpretation Comments MCV (test code = MCV) 89.1 80.0-94.0 [facility] SystemVsnycsvDAGNGZPTOQ4018-92-10 10:53:00 Test Item Value Reference Range Interpretation Comments MCH (test code = MCH) 30.9 pg 27.0-31.0 [facility] SystemGyojgzsXYRAXLAVEI9619-59-44 10:53:00 Test Item Value Reference Range Interpretation Comments MCHC (test code = MCHC) 34.7 32.0-36.0 [facility] SystemJmglvegKQWIIIOBIX4111-38-60 10:53:00 Test Item Value Reference Range Interpretation Comments RDW (test code = RDW) 14.4 11.5-14.5 [facility] SystemXjcpnkpHLPNHNTKDD9855-53-15 10:53:00 Test Item Value Reference Range Interpretation Comments Platelet (test code = Platelet) 188 133-450 [facility] SystemOowzsirLTHBXXLAXJ3406-25-44 10:53:00 Test Item Value Reference Range Interpretation Comments MPV (test code = MPV) 8.2 7.4-10.4 [facility] SystemAtgexcjAPSOBSSZFR8356-56-74 10:53:00 Test Item Value Reference Range Interpretation Comments Segs (test code = Segs) 66.7 45.0-75.0 [facility] SystemVddhhzdTGMRLLNYKV6598-13-99 10:53:00 Test Item Value Reference Range Interpretation Comments Lymphocytes (test code = Lymphocytes) 24.6 20.0-40.0 [facility] SystemUtrnfptAINEAUAQDL1074-70-43 10:53:00 Test Item Value Reference Range Interpretation Comments Monocytes (test code = Monocytes) 6.7 2.0-12.0 [facility] SystemQdbppleECYBUAVZHW8722-54-29 10:53:00 Test Item Value Reference Range Interpretation Comments Eosinophils (test code = 1.6 See_Comment [A utomated message] The Eosinophils) system which ge nerated this result tra nsmitted reference range : <=4.0. The reference r christo was not used to int erpret this result as normal/abnormal . [facility] SystemHwifxawBKWQRPTQNV8628-43-86 10:53:00 Test Item Value Reference Range Interpretation Comments Basophils (test code = 0.4 See_Comment [Aut omated message] The Basophils) system which ge nerated this result tra nsmitted reference range : <=1.0. The reference r christo was not used to int erpret this result as normal/abnormal . [facility] SystemEwicvtaFFMQTTYZFD9178-77-35 10:53:00 Test Item Value Reference Range Interpretation Comments Neutrophils # (test code = Neutrophils 3.9 1.5-8.1 #) [facility] SystemPuvoefwESFTFADPIZ2098-47-94 10:53:00 Test Item Value Reference Range Interpretation Comments Lymphocytes # (test code = Lymphocytes 1.4 1.0-5.5 #) [facility] SystemIpgqckeCAAFRKYLHG9187-93-22 10:53:00 Test Item Value Reference Range Interpretation Comments Monocytes # (test code 0.4 See_Comment [Aut omated message] The = Monocytes #) system which generated this result tra nsmitted reference range : <=0.8. The reference r christo was not used to int erpret this result as normal/abnormal . [facility] SystemIlgpnkrDQCVHPGYRF2185-59-21 10:53:00 Test Item Value Reference Range Interpretation Comments Eosinophils # (test code 0.1 See_Comment [A utomated message] The = Eosinophils #) system whic h generated this result tra nsmitted reference range : <=0.5. The reference r christo was not used to int erpret this result as normal/abnormal . [facility]2019-12-09 10:53:00 Test Item Value Reference Range Interpretation Comments ALT (test code = ALT) 47 See_Comment [Auto mated message] The system which ge nerated this result transmit jose reference range : <=65. The reference range was not used to interpr et this result as carolina l/abnormal. [facility]2019-12-09 10:53:00 Test Item Value Reference Range Interpretation Comments Albumin Lvl (test code = Albumin Lvl) 3.4 3.5-5.0 [facility]2019-12-09 10:53:00 Test Item Value Reference Range Interpretation Comments Alk Phos (test code = Alk Phos) 85 39-136 [facility]2019-12-09 10:53:00 Test Item Value Reference Range Interpretation Comments Glucose Lvl (test code = Glucose Lvl) 111 70-99 [facility]2019-12-09 10:53:00 Test Item Value Reference Range Interpretation Comments BUN (test code = BUN) 15 7-22 [facility]2019-12-09 10:53:00 Test Item Value Reference Range Interpretation Comments Creatinine Lvl (test code = Creatinine 0.79 0.50-1.40 Lvl) [facility]2019-12-09 10:53:00 Test Item Value Reference Range Interpretation Comments Sodium Lvl (test code = Sodium Lvl) 142 135-145 [facility]2019-12-09 10:53:00 Test Item Value Reference Range Interpretation Comments Potassium Lvl (test code = Potassium 3.1 3.5-5.1 Lvl) [facility]2019-12-09 10:53:00 Test Item Value Reference Range Interpretation Comments Chloride Lvl (test code = Chloride Lvl) 104 95-109 [facility]2019-12-09 10:53:00 Test Item Value Reference Range Interpretation Comments CO2 (test code = CO2) 30 24-32 [facility]2019-12-09 10:53:00 Test Item Value Reference Range Interpretation Comments Calcium Lvl (test code = Calcium Lvl) 8.8 8.5-10.5 [facility]2019-12-09 10:53:00 Test Item Value Reference Range Interpretation Comments Bili Total (test code = Bili Total) 0.4 0.2-1.3 [facility]2019-12-09 10:53:00 Test Item Value Reference Range Interpretation Comments Total Protein (test code = Total 6.6 6.4-8.4 Protein) [facility]2019-12-09 10:53:00 Test Item Value Reference Range Interpretation Comments AST (test code = AST) 30 See_Comment [Auto mated message] The system which ge nerated this result transmit jose reference range : <=37. The reference range was not used to interpr et this result as carolina l/abnormal. [facility]2019-12-09 10:53:00 Test Item Value Reference Range Interpretation Comments eGFR (test code = eGFR) 88 [facility]2019-12-09 10:53:00 Test Item Value Reference Range Interpretation Comments AGAP (test code = AGAP) 11.1 10.0-20.0 [facility]2019-12-09 10:53:00 Test Item Value Reference Range Interpretation Comments B/C Ratio (test code = B/C Ratio) 19 1 6-25 [facility]2019-12-09 10:53:00 Test Item Value Reference Range Interpretation Comments Globulin (test code = Globulin) 3.2 2.7-4.2 [facility]2019-12-09 10:53:00 Test Item Value Reference Range Interpretation Comments A/G Ratio (test code = A/G Ratio) 1.1 1 0.7-1.6 [facility] SystemIidikpdEQAKNVRBPJ0812-48-67 10:53:00 Test Item Value Reference Range Interpretation Comments WBC (test code = WBC) 5.8 3.7-10.4 [facility] SystemAtnhpsaMUDXTRDSZB5434-86-17 10:53:00 Test Item Value Reference Range Interpretation Comments RBC (test code = RBC) 4.48 4.70-6.10 [facility] SystemWmtdlppYHMFEFPIOA3387-94-35 10:53:00 Test Item Value Reference Range Interpretation Comments Hgb (test code = Hgb) 13.8 14.0-18.0 [facility] SystemLhuemalRCPFWRIUAW0034-80-95 10:53:00 Test Item Value Reference Range Interpretation Comments Hct (test code = Hct) 39.9 42.0-54.0 [facility] SystemJsfkeqeUYUFUDAUKZ3954-81-82 10:53:00 Test Item Value Reference Range Interpretation Comments MCV (test code = MCV) 89.1 80.0-94.0 [facility] SystemTcpsicqHYDRTREHWB6063-41-44 10:53:00 Test Item Value Reference Range Interpretation Comments MCH (test code = MCH) 30.9 pg 27.0-31.0 [facility] SystemIjyqidfGOMUGWBZXE0461-69-40 10:53:00 Test Item Value Reference Range Interpretation Comments MCHC (test code = MCHC) 34.7 32.0-36.0 [facility] SystemNzuxawlZKKXQHKLIX2848-55-54 10:53:00 Test Item Value Reference Range Interpretation Comments RDW (test code = RDW) 14.4 11.5-14.5 [facility] SystemDgcwnyqMIDRYRNUHR5925-63-41 10:53:00 Test Item Value Reference Range Interpretation Comments Platelet (test code = Platelet) 188 133-450 [facility] SystemJtgeahkQMQXCWLTPZ7946-16-39 10:53:00 Test Item Value Reference Range Interpretation Comments MPV (test code = MPV) 8.2 7.4-10.4 [facility] SystemBdmotyuPLPOIFGPIL1799-79-18 10:53:00 Test Item Value Reference Range Interpretation Comments Segs (test code = Segs) 66.7 45.0-75.0 [facility] SystemKaqtngaTMHTKBXBVV2074-92-39 10:53:00 Test Item Value Reference Range Interpretation Comments Lymphocytes (test code = Lymphocytes) 24.6 20.0-40.0 [facility] SystemNcsjnfgFNHYQZDRNA0717-42-30 10:53:00 Test Item Value Reference Range Interpretation Comments Monocytes (test code = Monocytes) 6.7 2.0-12.0 [facility] SystemExzbkldAYJCHMDTHZ1620-93-86 10:53:00 Test Item Value Reference Range Interpretation Comments Eosinophils (test code = 1.6 See_Comment [A utomated message] The Eosinophils) system which ge nerated this result tra nsmitted reference range : <=4.0. The reference r christo was not used to int erpret this result as normal/abnormal . [facility] SystemTyfxdskYSDILRXULJ0165-39-11 10:53:00 Test Item Value Reference Range Interpretation Comments Basophils (test code = 0.4 See_Comment [Aut omated message] The Basophils) system which ge nerated this result tra nsmitted reference range : <=1.0. The reference r christo was not used to int erpret this result as normal/abnormal . [facility] SystemLicvcvrONTMQSHQGW7189-07-75 10:53:00 Test Item Value Reference Range Interpretation Comments Neutrophils # (test code = Neutrophils 3.9 1.5-8.1 #) [facility] SystemEvzsahmJFXFFTJYVQ5094-87-70 10:53:00 Test Item Value Reference Range Interpretation Comments Lymphocytes # (test code = Lymphocytes 1.4 1.0-5.5 #) [facility] SystemSwklcfhWBDSEKWYDB8057-54-01 10:53:00 Test Item Value Reference Range Interpretation Comments Monocytes # (test code 0.4 See_Comment [Aut omated message] The = Monocytes #) system which generated this result tra nsmitted reference range : <=0.8. The reference r christo was not used to int erpret this result as normal/abnormal . [facility] SystemAvcemlnKXFGGDOCHS6316-06-44 10:53:00 Test Item Value Reference Range Interpretation Comments Eosinophils # (test code 0.1 See_Comment [A utomated message] The = Eosinophils #) system whic h generated this result tra nsmitted reference range : <=0.5. The reference r christo was not used to int erpret this result as normal/abnormal . [facility]2019-12-09 10:53:00 Test Item Value Reference Range Interpretation Comments ALT (test code = ALT) 47 See_Comment [Auto mated message] The system which ge nerated this result transmit jose reference range : <=65. The reference range was not used to interpr et this result as carolina l/abnormal. [facility]2019-12-09 10:53:00 Test Item Value Reference Range Interpretation Comments Albumin Lvl (test code = Albumin Lvl) 3.4 3.5-5.0 [facility]2019-12-09 10:53:00 Test Item Value Reference Range Interpretation Comments Alk Phos (test code = Alk Phos) 85 39-136 [facility]2019-12-09 10:53:00 Test Item Value Reference Range Interpretation Comments Glucose Lvl (test code = Glucose Lvl) 111 70-99 [facility]2019-12-09 10:53:00 Test Item Value Reference Range Interpretation Comments BUN (test code = BUN) 15 7-22 [facility]2019-12-09 10:53:00 Test Item Value Reference Range Interpretation Comments Creatinine Lvl (test code = Creatinine 0.79 0.50-1.40 Lvl) [facility]2019-12-09 10:53:00 Test Item Value Reference Range Interpretation Comments Sodium Lvl (test code = Sodium Lvl) 142 135-145 [facility]2019-12-09 10:53:00 Test Item Value Reference Range Interpretation Comments Potassium Lvl (test code = Potassium 3.1 3.5-5.1 Lvl) [facility]2019-12-09 10:53:00 Test Item Value Reference Range Interpretation Comments Chloride Lvl (test code = Chloride Lvl) 104 95-109 [facility]2019-12-09 10:53:00 Test Item Value Reference Range Interpretation Comments CO2 (test code = CO2) 30 24-32 [facility]2019-12-09 10:53:00 Test Item Value Reference Range Interpretation Comments Calcium Lvl (test code = Calcium Lvl) 8.8 8.5-10.5 [facility]2019-12-09 10:53:00 Test Item Value Reference Range Interpretation Comments Bili Total (test code = Bili Total) 0.4 0.2-1.3 [facility]2019-12-09 10:53:00 Test Item Value Reference Range Interpretation Comments Total Protein (test code = Total 6.6 6.4-8.4 Protein) [facility]2019-12-09 10:53:00 Test Item Value Reference Range Interpretation Comments AST (test code = AST) 30 See_Comment [Auto mated message] The system which ge nerated this result transmit jose reference range : <=37. The reference range was not used to interpr et this result as carolina l/abnormal. [facility]2019-12-09 10:53:00 Test Item Value Reference Range Interpretation Comments eGFR (test code = eGFR) 88 [facility]2019-12-09 10:53:00 Test Item Value Reference Range Interpretation Comments AGAP (test code = AGAP) 11.1 10.0-20.0 [facility]2019-12-09 10:53:00 Test Item Value Reference Range Interpretation Comments B/C Ratio (test code = B/C Ratio) 19 1 6-25 [facility]2019-12-09 10:53:00 Test Item Value Reference Range Interpretation Comments Globulin (test code = Globulin) 3.2 2.7-4.2 [facility]2019-12-09 10:53:00 Test Item Value Reference Range Interpretation Comments A/G Ratio (test code = A/G Ratio) 1.1 1 0.7-1.6 [facility] SystemInamdivKIDKUQVLBE2171-87-21 10:53:00 Test Item Value Reference Range Interpretation Comments WBC (test code = WBC) 5.8 3.7-10.4 [facility] SystemKqovvfaTRKUTPWNGD4703-56-27 10:53:00 Test Item Value Reference Range Interpretation Comments RBC (test code = RBC) 4.48 4.70-6.10 [facility] SystemKktdmyoGFPXAMDDUK9419-87-15 10:53:00 Test Item Value Reference Range Interpretation Comments Hgb (test code = Hgb) 13.8 14.0-18.0 [facility] SystemKsqtbvtQRKKJCDBAN8821-91-58 10:53:00 Test Item Value Reference Range Interpretation Comments Hct (test code = Hct) 39.9 42.0-54.0 [facility] SystemQgkouyfSSCGDQMNYA3277-29-24 10:53:00 Test Item Value Reference Range Interpretation Comments MCV (test code = MCV) 89.1 80.0-94.0 [facility] SystemIqzielaZOJMDBORWR2232-28-53 10:53:00 Test Item Value Reference Range Interpretation Comments MCH (test code = MCH) 30.9 pg 27.0-31.0 [facility] SystemSvcptfvYVFSQWFDTF2750-42-17 10:53:00 Test Item Value Reference Range Interpretation Comments MCHC (test code = MCHC) 34.7 32.0-36.0 [facility] SystemMgcildpFMVMDCQNUD3217-74-29 10:53:00 Test Item Value Reference Range Interpretation Comments RDW (test code = RDW) 14.4 11.5-14.5 [facility] SystemKddmrfcGVSQTICPQI2359-20-06 10:53:00 Test Item Value Reference Range Interpretation Comments Platelet (test code = Platelet) 188 133-450 [facility] SystemWbrqxzfEXCQMHBRQA1210-95-68 10:53:00 Test Item Value Reference Range Interpretation Comments MPV (test code = MPV) 8.2 7.4-10.4 [facility] SystemNbpqjsmLGTZJIXRMU0981-02-15 10:53:00 Test Item Value Reference Range Interpretation Comments Segs (test code = Segs) 66.7 45.0-75.0 [facility] SystemZvgogpiRZYNIXXODN5795-67-50 10:53:00 Test Item Value Reference Range Interpretation Comments Lymphocytes (test code = Lymphocytes) 24.6 20.0-40.0 [facility] SystemRfwcwakAGUZHENVYK5895-88-07 10:53:00 Test Item Value Reference Range Interpretation Comments Monocytes (test code = Monocytes) 6.7 2.0-12.0 [facility] SystemUrsuxopOVEHIYLRVP5390-31-20 10:53:00 Test Item Value Reference Range Interpretation Comments Eosinophils (test code = 1.6 See_Comment [A utomated message] The Eosinophils) system which ge nerated this result tra nsmitted reference range : <=4.0. The reference r christo was not used to int erpret this result as normal/abnormal . [facility] SystemGwdqqrdZQVRUZFZOW9215-93-23 10:53:00 Test Item Value Reference Range Interpretation Comments Basophils (test code = 0.4 See_Comment [Aut omated message] The Basophils) system which ge nerated this result tra nsmitted reference range : <=1.0. The reference r christo was not used to int erpret this result as normal/abnormal . [facility] SystemLitlzjhMKPRQBYADP3529-05-74 10:53:00 Test Item Value Reference Range Interpretation Comments Neutrophils # (test code = Neutrophils 3.9 1.5-8.1 #) [facility] SystemJwzbgmbHSFCLOJMUW2703-03-27 10:53:00 Test Item Value Reference Range Interpretation Comments Lymphocytes # (test code = Lymphocytes 1.4 1.0-5.5 #) [facility] SystemZnhoruwQEJWBQEZAI9302-88-43 10:53:00 Test Item Value Reference Range Interpretation Comments Monocytes # (test code 0.4 See_Comment [Aut omated message] The = Monocytes #) system which generated this result tra nsmitted reference range : <=0.8. The reference r christo was not used to int erpret this result as normal/abnormal . [facility]rirefwFEGSAJRJLW2017-[facility] 10:53:00 Test Item Value Reference Range Interpretation Comments Eosinophils # (test code 0.1 See_Comment [A utomated message] The = Eosinophils #) system whic h generated this result tra nsmitted reference range : <=0.5. The reference r christo was not used to int erpret this result as normal/abnormal . [facility] AVKQG3380-32-07 10:05:00 Test Item Value Reference Range Interpretation Comments Magnesium Lvl (test code = Magnesium 2.1 1.8-2.4 Lvl) [facility] LQTKG0692-02-25 10:05:00 Test Item Value Reference Range Interpretation Comments Phosphorus (test code = Phosphorus) 3.5 2.5-4.5 [facility]GjrquawAVLQXCPMGWWM3747-19-91 10:05:00 Test Item Value Reference Range Interpretation Comments AGAP (test code = AGAP) 13.1 10.0-20.0 [facility] HospitalIkdxkazAJEIPTAHJBCU9405-19-58 10:05:00 Test Item Value Reference Range Interpretation Comments B/C Ratio (test code = B/C Ratio) 22 1 6-25 [facility] HospitalEjfyvcnGXYCDDABDXPB9300-87-16 10:05:00 Test Item Value Reference Range Interpretation Comments Globulin (test code = Globulin) 3.2 2.7-4.2 [facility] HospitalRsbuynyEFDZEDYTYYHE1461-65-58 10:05:00 Test Item Value Reference Range Interpretation Comments A/G Ratio (test code = A/G Ratio) 1.1 1 0.7-1.6 [facility] HospitalBoxbbdvMXRIWZFONJFT0449-93-33 10:05:00 Test Item Value Reference Range Interpretation Comments ALT (test code = ALT) 41 See_Comment [Auto mated message] The system which ge nerated this result transmit jose reference range : <=65. The reference range was not used to interpr et this result as carolina l/abnormal. [facility] HospitalDhknwwzMNVUORRZFWUY0159-05-78 10:05:00 Test Item Value Reference Range Interpretation Comments Albumin Lvl (test code = Albumin Lvl) 3.5 3.5-5.0 [facility] HospitalDirvidsLLEORBJAMRAJ9883-45-26 10:05:00 Test Item Value Reference Range Interpretation Comments Alk Phos (test code = Alk Phos) 83 39-136 [facility] HospitalCeeqwujMSWKMVCCKYGA6516-07-23 10:05:00 Test Item Value Reference Range Interpretation Comments Glucose Lvl (test code = Glucose Lvl) 111 70-99 [facility] HospitalXltindzSUHHYJNNZATN8218-36-41 10:05:00 Test Item Value Reference Range Interpretation Comments BUN (test code = BUN) 18 7-22 [facility] HospitalGvfqvzrSLCQTECHEARS8191-99-93 10:05:00 Test Item Value Reference Range Interpretation Comments Creatinine Lvl (test code = Creatinine 0.82 0.50-1.40 Lvl) [facility] HospitalOacczxtYPAPDWSYISJP4463-52-72 10:05:00 Test Item Value Reference Range Interpretation Comments Sodium Lvl (test code = Sodium Lvl) 141 135-145 [facility] HospitalNjktpneTVPHHKLFBEMA2536-48-62 10:05:00 Test Item Value Reference Range Interpretation Comments Potassium Lvl (test code = Potassium 3.1 3.5-5.1 Lvl) [facility] HospitalXwfnwecJHOLFQFEHXAP8890-81-81 10:05:00 Test Item Value Reference Range Interpretation Comments Chloride Lvl (test code = Chloride Lvl) 103 95-109 [facility] HospitalOtebxiwXJWLFFTPUOQL4649-35-92 10:05:00 Test Item Value Reference Range Interpretation Comments CO2 (test code = CO2) 28 24-32 [facility] HospitalMxjfyhpBZCLHHGEKYJT2093-08-27 10:05:00 Test Item Value Reference Range Interpretation Comments Calcium Lvl (test code = Calcium Lvl) 9.1 8.5-10.5 [facility] HospitalZpefpmsKBEILOPRZQGE2766-92-45 10:05:00 Test Item Value Reference Range Interpretation Comments Bili Total (test code = Bili Total) 0.4 0.2-1.3 [facility] HospitalMlgokgpACAKSQLXJZSA9891-06-46 10:05:00 Test Item Value Reference Range Interpretation Comments Total Protein (test code = Total 6.7 6.4-8.4 Protein) [facility] HospitalCyhajrvYDCLMMMKAJCM4033-92-65 10:05:00 Test Item Value Reference Range Interpretation Comments AST (test code = AST) 27 See_Comment [Auto mated message] The system which ge nerated this result transmit jose reference range : <=37. The reference range was not used to interpr et this result as carolina l/abnormal. [facility] HospitalAfgbewtFATUJNSYTOMN7948-41-30 10:05:00 Test Item Value Reference Range Interpretation Comments eGFR (test code = eGFR) 86 [facility] SystemZyiudfoACLPXIFTHK8755-70-33 10:05:00 Test Item Value Reference Range Interpretation Comments WBC (test code = WBC) 5.6 3.7-10.4 [facility]SgoupfmYOXPPQZOHP3064-11-67 10:05:00 Test Item Value Reference Range Interpretation Comments RBC (test code = RBC) 4.49 4.70-6.10 [facility] SystemCfpokucZWVQCXNPRE4441-89-69 10:05:00 Test Item Value Reference Range Interpretation Comments Hgb (test code = Hgb) 13.9 14.0-18.0 [facility] SystemEfjsbywCPDLUKLIDR5054-60-14 10:05:00 Test Item Value Reference Range Interpretation Comments Hct (test code = Hct) 39.7 42.0-54.0 [facility] SystemRbkxhisGLFVHOJSMV7420-38-49 10:05:00 Test Item Value Reference Range Interpretation Comments MCV (test code = MCV) 88.5 80.0-94.0 [facility] SystemIaialkjSBLGYGEUKM9808-13-67 10:05:00 Test Item Value Reference Range Interpretation Comments MCH (test code = MCH) 31.1 pg 27.0-31.0 [facility] SystemAvwygvrLIRFAFISKM2103-49-23 10:05:00 Test Item Value Reference Range Interpretation Comments MCHC (test code = MCHC) 35.1 32.0-36.0 [facility] SystemUduyjcvJAOMJDSWRG6020-45-99 10:05:00 Test Item Value Reference Range Interpretation Comments RDW (test code = RDW) 14.5 11.5-14.5 [facility] SystemFukpjwjLFVCXKMWLW9831-79-01 10:05:00 Test Item Value Reference Range Interpretation Comments Platelet (test code = Platelet) 201 133-450 [facility] SystemNywhzyrRNLJVSOMKY9830-76-15 10:05:00 Test Item Value Reference Range Interpretation Comments MPV (test code = MPV) 7.7 7.4-10.4 [facility] SystemOemlnetSGYNGNVQQZ7680-34-65 10:05:00 Test Item Value Reference Range Interpretation Comments Segs (test code = Segs) 61.7 45.0-75.0 [facility] SystemQtymeagSPTREMVOGA7865-38-68 10:05:00 Test Item Value Reference Range Interpretation Comments Lymphocytes (test code = Lymphocytes) 28.7 20.0-40.0 [facility] SystemZzttetqXSSZBTCCBX0252-35-86 10:05:00 Test Item Value Reference Range Interpretation Comments Monocytes (test code = Monocytes) 7.2 2.0-12.0 [facility] SystemUrvuqjvOKUBDBYHIK3073-01-92 10:05:00 Test Item Value Reference Range Interpretation Comments Eosinophils (test code = 1.8 See_Comment [A utomated message] The Eosinophils) system which ge nerated this result tra nsmitted reference range : <=4.0. The reference r christo was not used to int erpret this result as normal/abnormal . [facility] SystemXmvzyukOXILVSAGGZ7680-68-18 10:05:00 Test Item Value Reference Range Interpretation Comments Basophils (test code = 0.6 See_Comment [Aut omated message] The Basophils) system which ge nerated this result tra nsmitted reference range : <=1.0. The reference r christo was not used to int erpret this result as normal/abnormal . [facility] SystemOxvvbzzRQPXQDINQG4492-47-40 10:05:00 Test Item Value Reference Range Interpretation Comments Neutrophils # (test code = Neutrophils 3.4 1.5-8.1 #) [facility] SystemPzpcjjbYVLRRXRWZJ2433-73-06 10:05:00 Test Item Value Reference Range Interpretation Comments Lymphocytes # (test code = Lymphocytes 1.6 1.0-5.5 #) [facility] SystemDpbiizgVCQIRGZTUQ8670-03-29 10:05:00 Test Item Value Reference Range Interpretation Comments Monocytes # (test code 0.4 See_Comment [Aut omated message] The = Monocytes #) system which generated this result tra nsmitted reference range : <=0.8. The reference r christo was not used to int erpret this result as normal/abnormal . [facility] SystemWomwtjrACBKPPAPIO1419-03-31 10:05:00 Test Item Value Reference Range Interpretation Comments Eosinophils # (test code 0.1 See_Comment [A utomated message] The = Eosinophils #) system whic h generated this result tra nsmitted reference range : <=0.5. The reference r christo was not used to int erpret this result as normal/abnormal . [facility]2019-12-02 10:05:00 Test Item Value Reference Range Interpretation Comments Magnesium Lvl (test code = Magnesium 2.1 1.8-2.4 Lvl) [facility]2019-12-02 10:05:00 Test Item Value Reference Range Interpretation Comments Phosphorus (test code = Phosphorus) 3.5 2.5-4.5 [facility] HospitalAnxmjrxROXDJPOGMBBC1613-50-34 10:05:00 Test Item Value Reference Range Interpretation Comments AGAP (test code = AGAP) 13.1 10.0-20.0 [facility] HospitalOckzufcDWIFGCYFQCQZ1136-48-57 10:05:00 Test Item Value Reference Range Interpretation Comments B/C Ratio (test code = B/C Ratio) 22 1 6-25 [facility] HospitalEhizwfgXBXMRPSCKOGM0850-41-23 10:05:00 Test Item Value Reference Range Interpretation Comments Globulin (test code = Globulin) 3.2 2.7-4.2 [facility] HospitalQakclozBBDQJEWVUJED5052-66-31 10:05:00 Test Item Value Reference Range Interpretation Comments A/G Ratio (test code = A/G Ratio) 1.1 1 0.7-1.6 [facility] HospitalRxdxxbiFLKAJGNEFQYI9875-73-99 10:05:00 Test Item Value Reference Range Interpretation Comments ALT (test code = ALT) 41 See_Comment [Auto mated message] The system which ge nerated this result transmit jose reference range : <=65. The reference range was not used to interpr et this result as carolina l/abnormal. [facility] HospitalXferkumTKSKIHJVVRZO2850-24-19 10:05:00 Test Item Value Reference Range Interpretation Comments Albumin Lvl (test code = Albumin Lvl) 3.5 3.5-5.0 [facility] HospitalVzzzfzqUFBIBYNIMKSM0109-11-33 10:05:00 Test Item Value Reference Range Interpretation Comments Alk Phos (test code = Alk Phos) 83 39-136 [facility] HospitalDsahhzyONITSLHFNQJA7067-21-10 10:05:00 Test Item Value Reference Range Interpretation Comments Glucose Lvl (test code = Glucose Lvl) 111 70-99 [facility] HospitalLzjkxrcVYHHKEPRUOPP7989-68-65 10:05:00 Test Item Value Reference Range Interpretation Comments BUN (test code = BUN) 18 7-22 [facility] HospitalMyjiimzANOHMSETQHKE7611-85-62 10:05:00 Test Item Value Reference Range Interpretation Comments Creatinine Lvl (test code = Creatinine 0.82 0.50-1.40 Lvl) [facility] HospitalQdiutjwJKPTDLEDNKPI0879-19-64 10:05:00 Test Item Value Reference Range Interpretation Comments Sodium Lvl (test code = Sodium Lvl) 141 135-145 [facility] HospitalHmojammUKVOESHUXVTZ9230-09-31 10:05:00 Test Item Value Reference Range Interpretation Comments Potassium Lvl (test code = Potassium 3.1 3.5-5.1 Lvl) [facility] HospitalMfvtnbpGCGOWUPCHLTD7214-57-05 10:05:00 Test Item Value Reference Range Interpretation Comments Chloride Lvl (test code = Chloride Lvl) 103 95-109 [facility] HospitalFsjomqzJPRMDZZYUHYN6918-36-87 10:05:00 Test Item Value Reference Range Interpretation Comments CO2 (test code = CO2) 28 24-32 [facility] HospitalPvwdwwzWUSXHCKJQJWC4584-18-57 10:05:00 Test Item Value Reference Range Interpretation Comments Calcium Lvl (test code = Calcium Lvl) 9.1 8.5-10.5 [facility] HospitalQkubiixTSSVEKVUBWAE1625-62-51 10:05:00 Test Item Value Reference Range Interpretation Comments Bili Total (test code = Bili Total) 0.4 0.2-1.3 [facility] HospitalKhrggzsLWYYWFQNMKIV0903-55-22 10:05:00 Test Item Value Reference Range Interpretation Comments Total Protein (test code = Total 6.7 6.4-8.4 Protein) [facility] HospitalHjyktqfHRRPZEDNBTXI6959-39-19 10:05:00 Test Item Value Reference Range Interpretation Comments AST (test code = AST) 27 See_Comment [Auto mated message] The system which ge nerated this result transmit jose reference range : <=37. The reference range was not used to interpr et this result as carolina l/abnormal. [facility] HospitalSefbpxzYNJWLDGNCDUU6827-57-64 10:05:00 Test Item Value Reference Range Interpretation Comments eGFR (test code = eGFR) 86 [facility] SystemKugbakzPWYFHELRJN5485-78-17 10:05:00 Test Item Value Reference Range Interpretation Comments WBC (test code = WBC) 5.6 3.7-10.4 [facility] SystemTohwpvqVAXATOCXZE0718-13-67 10:05:00 Test Item Value Reference Range Interpretation Comments RBC (test code = RBC) 4.49 4.70-6.10 [facility] SystemFzpvkypTBDZYVNDIR5705-73-28 10:05:00 Test Item Value Reference Range Interpretation Comments Hgb (test code = Hgb) 13.9 14.0-18.0 [facility] SystemBxszxgkRTRBUDWUZN0330-89-06 10:05:00 Test Item Value Reference Range Interpretation Comments Hct (test code = Hct) 39.7 42.0-54.0 [facility] SystemEhivttzSBRAHVWIGG1921-16-04 10:05:00 Test Item Value Reference Range Interpretation Comments MCV (test code = MCV) 88.5 80.0-94.0 [facility] SystemXcywbskHQGQKUBCKU2100-06-99 10:05:00 Test Item Value Reference Range Interpretation Comments MCH (test code = MCH) 31.1 pg 27.0-31.0 [facility] SystemSmxftrfZLEMDGIGTQ1146-78-62 10:05:00 Test Item Value Reference Range Interpretation Comments MCHC (test code = MCHC) 35.1 32.0-36.0 [facility] SystemWelglzxVTSLBLKPGU3742-25-23 10:05:00 Test Item Value Reference Range Interpretation Comments RDW (test code = RDW) 14.5 11.5-14.5 [facility] SystemSaeleztLDAISXKPWZ0306-41-57 10:05:00 Test Item Value Reference Range Interpretation Comments Platelet (test code = Platelet) 201 133-450 [facility] SystemDvegghdXFXLSITCKW0819-71-57 10:05:00 Test Item Value Reference Range Interpretation Comments MPV (test code = MPV) 7.7 7.4-10.4 [facility] SystemTtgjoyhRSWOQFFJAN6473-70-16 10:05:00 Test Item Value Reference Range Interpretation Comments Segs (test code = Segs) 61.7 45.0-75.0 [facility] SystemRwkazltRBQHCWVCZT0208-37-58 10:05:00 Test Item Value Reference Range Interpretation Comments Lymphocytes (test code = Lymphocytes) 28.7 20.0-40.0 [facility] SystemTxictfgLZPZNKRDRJ9029-03-90 10:05:00 Test Item Value Reference Range Interpretation Comments Monocytes (test code = Monocytes) 7.2 2.0-12.0 [facility] SystemAowbfmeIRXMZTPHQR7788-81-65 10:05:00 Test Item Value Reference Range Interpretation Comments Eosinophils (test code = 1.8 See_Comment [A utomated message] The Eosinophils) system which ge nerated this result tra nsmitted reference range : <=4.0. The reference r christo was not used to int erpret this result as normal/abnormal . [facility] SystemFklqhbfICLRXJUDNY6700-08-34 10:05:00 Test Item Value Reference Range Interpretation Comments Basophils (test code = 0.6 See_Comment [Aut omated message] The Basophils) system which ge nerated this result tra nsmitted reference range : <=1.0. The reference r christo was not used to int erpret this result as normal/abnormal . [facility] SystemXofaxcqMBGWKUKUHN3216-22-53 10:05:00 Test Item Value Reference Range Interpretation Comments Neutrophils # (test code = Neutrophils 3.4 1.5-8.1 #) [facility] SystemUkhcdudTZNUCRLJCH7355-75-70 10:05:00 Test Item Value Reference Range Interpretation Comments Lymphocytes # (test code = Lymphocytes 1.6 1.0-5.5 #) [facility] SystemUzwbebbSODXVMUGGW8093-98-43 10:05:00 Test Item Value Reference Range Interpretation Comments Monocytes # (test code 0.4 See_Comment [Aut omated message] The = Monocytes #) system which generated this result tra nsmitted reference range : <=0.8. The reference r christo was not used to int erpret this result as normal/abnormal . [facility] SystemPupxtydCWJGOKGPJF2510-57-65 10:05:00 Test Item Value Reference Range Interpretation Comments Eosinophils # (test code 0.1 See_Comment [A utomated message] The = Eosinophils #) system whic h generated this result tra nsmitted reference range : <=0.5. The reference r christo was not used to int erpret this result as normal/abnormal . [facility] RRLNZ6629-62-11 10:05:00 Test Item Value Reference Range Interpretation Comments Magnesium Lvl (test code = Magnesium 2.1 1.8-2.4 Lvl) [facility] BXUIR9889-76-96 10:05:00 Test Item Value Reference Range Interpretation Comments Phosphorus (test code = Phosphorus) 3.5 2.5-4.5 [facility] HospitalSqcgsawPPYUSOZAHLPE5894-68-59 10:05:00 Test Item Value Reference Range Interpretation Comments AGAP (test code = AGAP) 13.1 10.0-20.0 [facility] HospitalQxmajkgALIAWJSTRQMV2265-16-96 10:05:00 Test Item Value Reference Range Interpretation Comments B/C Ratio (test code = B/C Ratio) 22 1 6-25 [facility] HospitalJlrdtheWEOAUXBTDUIM9744-50-43 10:05:00 Test Item Value Reference Range Interpretation Comments Globulin (test code = Globulin) 3.2 2.7-4.2 [facility] HospitalIjmyzvwGUENCSRWIMGB8064-21-12 10:05:00 Test Item Value Reference Range Interpretation Comments A/G Ratio (test code = A/G Ratio) 1.1 1 0.7-1.6 [facility] HospitalTvmvhcrJKLMUNBYVQHL6637-01-47 10:05:00 Test Item Value Reference Range Interpretation Comments ALT (test code = ALT) 41 See_Comment [Auto mated message] The system which ge nerated this result transmit jose reference range : <=65. The reference range was not used to interpr et this result as carolina l/abnormal. [facility] HospitalVqqzkepPULKSVYTLRTQ6595-85-86 10:05:00 Test Item Value Reference Range Interpretation Comments Albumin Lvl (test code = Albumin Lvl) 3.5 3.5-5.0 [facility] HospitalBlthdvzUBKPVTSPOXNE5027-00-85 10:05:00 Test Item Value Reference Range Interpretation Comments Alk Phos (test code = Alk Phos) 83 39-136 [facility] HospitalOytksmdPWZNLQTXGSAD4041-07-72 10:05:00 Test Item Value Reference Range Interpretation Comments Glucose Lvl (test code = Glucose Lvl) 111 70-99 [facility] HospitalYfjcfwsMCMTARFBYTKX6346-32-20 10:05:00 Test Item Value Reference Range Interpretation Comments BUN (test code = BUN) 18 7-22 [facility] HospitalBnhntmuHPSIJMSULZYA4566-32-09 10:05:00 Test Item Value Reference Range Interpretation Comments Creatinine Lvl (test code = Creatinine 0.82 0.50-1.40 Lvl) [facility] HospitalLohpqhyZDJQGOLSBTQT8229-98-01 10:05:00 Test Item Value Reference Range Interpretation Comments Sodium Lvl (test code = Sodium Lvl) 141 135-145 [facility] HospitalMshczeqHTDVZFIHTYGW8538-19-18 10:05:00 Test Item Value Reference Range Interpretation Comments Potassium Lvl (test code = Potassium 3.1 3.5-5.1 Lvl) [facility] HospitalImvocicNAIMNQDUMDLZ0516-01-25 10:05:00 Test Item Value Reference Range Interpretation Comments Chloride Lvl (test code = Chloride Lvl) 103 95-109 [facility] HospitalXuseoycKGKGTJFPUHBM6684-41-18 10:05:00 Test Item Value Reference Range Interpretation Comments CO2 (test code = CO2) 28 24-32 [facility] HospitalOzcpqunMFBPNBVLMRXR3808-62-28 10:05:00 Test Item Value Reference Range Interpretation Comments Calcium Lvl (test code = Calcium Lvl) 9.1 8.5-10.5 [facility] HospitalAeoqqlyVVCEMSJIZTEK6627-63-49 10:05:00 Test Item Value Reference Range Interpretation Comments Bili Total (test code = Bili Total) 0.4 0.2-1.3 [facility] HospitalGdtgllxQUZIMYWOXWGQ0344-30-16 10:05:00 Test Item Value Reference Range Interpretation Comments Total Protein (test code = Total 6.7 6.4-8.4 Protein) [facility] HospitalKjkkifmYTMDGYRDJAPG2640-08-71 10:05:00 Test Item Value Reference Range Interpretation Comments AST (test code = AST) 27 See_Comment [Auto mated message] The system which ge nerated this result transmit jose reference range : <=37. The reference range was not used to interpr et this result as carolina l/abnormal. [facility] HospitalTvyzvkrLTIOVYCTZZLZ7128-89-18 10:05:00 Test Item Value Reference Range Interpretation Comments eGFR (test code = eGFR) 86 [facility] SystemAtxoscwWKPBZUJGVN2628-73-61 10:05:00 Test Item Value Reference Range Interpretation Comments WBC (test code = WBC) 5.6 3.7-10.4 [facility] SystemMdbjrieHHMMEWMRTH6176-90-37 10:05:00 Test Item Value Reference Range Interpretation Comments RBC (test code = RBC) 4.49 4.70-6.10 [facility] SystemKklmbfzPVFJEWHJLY7805-92-70 10:05:00 Test Item Value Reference Range Interpretation Comments Hgb (test code = Hgb) 13.9 14.0-18.0 [facility] SystemEbgcjakRHJORWJHNZ3211-69-33 10:05:00 Test Item Value Reference Range Interpretation Comments Hct (test code = Hct) 39.7 42.0-54.0 [facility] SystemLosppfzGPHOJPPPCL7110-46-93 10:05:00 Test Item Value Reference Range Interpretation Comments MCV (test code = MCV) 88.5 80.0-94.0 [facility] SystemUcjiveuDYGFVNODCP7011-08-61 10:05:00 Test Item Value Reference Range Interpretation Comments MCH (test code = MCH) 31.1 pg 27.0-31.0 [facility] SystemHromefpUFQYZSHCMY6114-61-37 10:05:00 Test Item Value Reference Range Interpretation Comments MCHC (test code = MCHC) 35.1 32.0-36.0 [facility] SystemGsmhfhhYXKVMDJWTD1108-62-16 10:05:00 Test Item Value Reference Range Interpretation Comments RDW (test code = RDW) 14.5 11.5-14.5 [facility] SystemPaystfmLDEOEZEQMY4308-28-87 10:05:00 Test Item Value Reference Range Interpretation Comments Platelet (test code = Platelet) 201 133-450 [facility] SystemTtvdvnxMYAMJPLSEU3004-53-00 10:05:00 Test Item Value Reference Range Interpretation Comments MPV (test code = MPV) 7.7 7.4-10.4 [facility] SystemXilxrrmEHXOOLYJWC9118-19-63 10:05:00 Test Item Value Reference Range Interpretation Comments Segs (test code = Segs) 61.7 45.0-75.0 [facility] SystemUubvbdfFUKDSCFEOY0324-82-05 10:05:00 Test Item Value Reference Range Interpretation Comments Lymphocytes (test code = Lymphocytes) 28.7 20.0-40.0 [facility] SystemItfaagiGWPMVOAZVL5085-07-77 10:05:00 Test Item Value Reference Range Interpretation Comments Monocytes (test code = Monocytes) 7.2 2.0-12.0 [facility] SystemKctssceOMLQPZJBWA1700-97-65 10:05:00 Test Item Value Reference Range Interpretation Comments Eosinophils (test code = 1.8 See_Comment [A utomated message] The Eosinophils) system which ge nerated this result tra nsmitted reference range : <=4.0. The reference r christo was not used to int erpret this result as normal/abnormal . [facility] SystemXlkoengRMRIYPMPVF9944-85-28 10:05:00 Test Item Value Reference Range Interpretation Comments Basophils (test code = 0.6 See_Comment [Aut omated message] The Basophils) system which ge nerated this result tra nsmitted reference range : <=1.0. The reference r christo was not used to int erpret this result as normal/abnormal . [facility] SystemBajckmkJVHYDRWLIJ4143-18-24 10:05:00 Test Item Value Reference Range Interpretation Comments Neutrophils # (test code = Neutrophils 3.4 1.5-8.1 #) [facility] SystemFpxsbdoRSCAJVTLVR6914-45-09 10:05:00 Test Item Value Reference Range Interpretation Comments Lymphocytes # (test code = Lymphocytes 1.6 1.0-5.5 #) [facility] SystemXubevqcZSHGVITJDE4560-38-36 10:05:00 Test Item Value Reference Range Interpretation Comments Monocytes # (test code 0.4 See_Comment [Aut omated message] The = Monocytes #) system which generated this result tra nsmitted reference range : <=0.8. The reference r christo was not used to int erpret this result as normal/abnormal . [facility] SystemEophzvcCWTOCQVSXA2743-96-75 10:05:00 Test Item Value Reference Range Interpretation Comments Eosinophils # (test code 0.1 See_Comment [A utomated message] The = Eosinophils #) system whic h generated this result tra nsmitted reference range : <=0.5. The reference r christo was not used to int erpret this result as normal/abnormal . [facility]2019-11-27 12:15:00 Test Item Value Reference Range Interpretation Comments Glucose Lvl (test code = Glucose Lvl) 117 70-99 [facility]2019-11-27 12:15:00 Test Item Value Reference Range Interpretation Comments BUN (test code = BUN) 18 7-22 [facility]2019-11-27 12:15:00 Test Item Value Reference Range Interpretation Comments Creatinine Lvl (test code = Creatinine 0.90 0.50-1.40 Lvl) [facility]2019-11-27 12:15:00 Test Item Value Reference Range Interpretation Comments Sodium Lvl (test code = Sodium Lvl) 142 135-145 [facility]2019-11-27 12:15:00 Test Item Value Reference Range Interpretation Comments Potassium Lvl (test code = Potassium 3.5 3.5-5.1 Lvl) [facility]2019-11-27 12:15:00 Test Item Value Reference Range Interpretation Comments Chloride Lvl (test code = Chloride Lvl) 105 95-109 [place] 977109-11-27 12:15:00 Test Item Value Reference Range Interpretation Comments CO2 (test code = CO2) 29 24-32 [facility]2019-11-27 12:15:00 Test Item Value Reference Range Interpretation Comments Calcium Lvl (test code = Calcium Lvl) 9.1 8.5-10.5 [facility]2019-11-27 12:15:00 Test Item Value Reference Range Interpretation Comments AGAP (test code = AGAP) 11.5 10.0-20.0 [facility]2019-11-27 12:15:00 Test Item Value Reference Range Interpretation Comments eGFR (test code = eGFR) 83 [facility]2019-11-27 12:15:00 Test Item Value Reference Range Interpretation Comments Glucose Lvl (test code = Glucose Lvl) 117 70-99 [facility]2019-11-27 12:15:00 Test Item Value Reference Range Interpretation Comments BUN (test code = BUN) 18 7-22 [facility]2019-11-27 12:15:00 Test Item Value Reference Range Interpretation Comments Creatinine Lvl (test code = Creatinine 0.90 0.50-1.40 Lvl) [facility]2019-11-27 12:15:00 Test Item Value Reference Range Interpretation Comments Sodium Lvl (test code = Sodium Lvl) 142 135-145 [facility]2019-11-27 12:15:00 Test Item Value Reference Range Interpretation Comments Potassium Lvl (test code = Potassium 3.5 3.5-5.1 Lvl) [facility]2019-11-27 12:15:00 Test Item Value Reference Range Interpretation Comments Chloride Lvl (test code = Chloride Lvl) 105 95-109 [facility]2019-11-27 12:15:00 Test Item Value Reference Range Interpretation Comments CO2 (test code = CO2) 29 24-32 [facility]2019-11-27 12:15:00 Test Item Value Reference Range Interpretation Comments Calcium Lvl (test code = Calcium Lvl) 9.1 8.5-10.5 [facility]2019-11-27 12:15:00 Test Item Value Reference Range Interpretation Comments AGAP (test code = AGAP) 11.5 10.0-20.0 [facility]2019-11-27 12:15:00 Test Item Value Reference Range Interpretation Comments eGFR (test code = eGFR) 83 [facility]2019-11-27 12:15:00 Test Item Value Reference Range Interpretation Comments Glucose Lvl (test code = Glucose Lvl) 117 70-99 [facility]2019-11-27 12:15:00 Test Item Value Reference Range Interpretation Comments BUN (test code = BUN) 18 7-22 [facility]2019-11-27 12:15:00 Test Item Value Reference Range Interpretation Comments Creatinine Lvl (test code = Creatinine 0.90 0.50-1.40 Lvl) [facility]2019-11-27 12:15:00 Test Item Value Reference Range Interpretation Comments Sodium Lvl (test code = Sodium Lvl) 142 135-145 [facility]2019-11-27 12:15:00 Test Item Value Reference Range Interpretation Comments Potassium Lvl (test code = Potassium 3.5 3.5-5.1 Lvl) [facility]2019-11-27 12:15:00 Test Item Value Reference Range Interpretation Comments Chloride Lvl (test code = Chloride Lvl) 105 95-109 [facility]2019-11-27 12:15:00 Test Item Value Reference Range Interpretation Comments CO2 (test code = CO2) 29 24-32 [facility]2019-11-27 12:15:00 Test Item Value Reference Range Interpretation Comments Calcium Lvl (test code = Calcium Lvl) 9.1 8.5-10.5 [facility]2019-11-27 12:15:00 Test Item Value Reference Range Interpretation Comments AGAP (test code = AGAP) 11.5 10.0-20.0 [facility]2019-11-27 12:15:00 Test Item Value Reference Range Interpretation Comments eGFR (test code = eGFR) 83 [facility]2019-11-25 11:04:00 Test Item Value Reference Range Interpretation Comments Vitamin D, 25-OH, Total (test code = 56.5 30.0-100.0 Vitamin D, 25-OH, Total) [facility]2019-11-25 11:04:00 Test Item Value Reference Range Interpretation Comments ALT (test code = ALT) 39 See_Comment [Auto mated message] The system which ge nerated this result transmit jose reference range : <=65. The reference range was not used to interpr et this result as carolina l/abnormal. [place] 977109-11-25 11:04:00 Test Item Value Reference Range Interpretation Comments Albumin Lvl (test code = Albumin Lvl) 3.4 3.5-5.0 [facility]2019-11-25 11:04:00 Test Item Value Reference Range Interpretation Comments Alk Phos (test code = Alk Phos) 61 39-136 [facility]2019-11-25 11:04:00 Test Item Value Reference Range Interpretation Comments Bili Total (test code = Bili Total) 0.5 0.2-1.3 [facility]2019-11-25 11:04:00 Test Item Value Reference Range Interpretation Comments Total Protein (test code = Total 6.9 6.4-8.4 Protein) [facility]2019-11-25 11:04:00 Test Item Value Reference Range Interpretation Comments AST (test code = AST) 28 See_Comment [Auto mated message] The system which ge nerated this result transmit jose reference range : <=37. The reference range was not used to interpr et this result as carolina l/abnormal. [facility]2019-11-25 11:04:00 Test Item Value Reference Range Interpretation Comments B/C Ratio (test code = B/C Ratio) 21 1 6-25 [facility]2019-11-25 11:04:00 Test Item Value Reference Range Interpretation Comments Globulin (test code = Globulin) 3.5 2.7-4.2 [facility]2019-11-25 11:04:00 Test Item Value Reference Range Interpretation Comments A/G Ratio (test code = A/G Ratio) 1.0 1 0.7-1.6 [facility]kefoxpUZKTZGXWON8618-22-73 11:04:00 Test Item Value Reference Range Interpretation Comments Segs (test code = Segs) 67.1 45.0-75.0 [facility] SystemQauayplDTDDACVFBN2179-92-86 11:04:00 Test Item Value Reference Range Interpretation Comments Lymphocytes (test code = Lymphocytes) 22.9 20.0-40.0 [facility] SystemDbilflqDKKDKDBOTR0955-52-62 11:04:00 Test Item Value Reference Range Interpretation Comments Monocytes (test code = Monocytes) 7.1 2.0-12.0 [facility] SystemQvfqddnDGQWJHUUAI3206-61-15 11:04:00 Test Item Value Reference Range Interpretation Comments Eosinophils (test code = 1.9 See_Comment [A utomated message] The Eosinophils) system which ge nerated this result tra nsmitted reference range : <=4.0. The reference r christo was not used to int erpret this result as normal/abnormal . [facility] SystemHnrqevlGLQMIGKHHE6840-38-13 11:04:00 Test Item Value Reference Range Interpretation Comments Basophils (test code = 1.0 See_Comment [Aut omated message] The Basophils) system which ge nerated this result tra nsmitted reference range : <=1.0. The reference r christo was not used to int erpret this result as normal/abnormal . [facility] SystemSjgdcvkRCNVOSXULT4481-95-91 11:04:00 Test Item Value Reference Range Interpretation Comments Neutrophils # (test code = Neutrophils 4.1 1.5-8.1 #) [facility] SystemDrqiezfWNYLVHOAUF9293-49-48 11:04:00 Test Item Value Reference Range Interpretation Comments Lymphocytes # (test code = Lymphocytes 1.4 1.0-5.5 #) [facility] SystemQfxhwzeVNRBXLWOOD7241-02-66 11:04:00 Test Item Value Reference Range Interpretation Comments Monocytes # (test code 0.4 See_Comment [Aut omated message] The = Monocytes #) system which generated this result tra nsmitted reference range : <=0.8. The reference r christo was not used to int erpret this result as normal/abnormal . [facility] SystemMcldkdlSRMZVOWKPT5027-61-60 11:04:00 Test Item Value Reference Range Interpretation Comments Eosinophils # (test code 0.1 See_Comment [A utomated message] The = Eosinophils #) system whic h generated this result tra nsmitted reference range : <=0.5. The reference r christo was not used to int erpret this result as normal/abnormal . [facility] SystemAyqoafdWQESEZTGFH8618-29-08 11:04:00 Test Item Value Reference Range Interpretation Comments Basophils # (test code 0.1 See_Comment [Aut omated message] The = Basophils #) system which generated this result tra nsmitted reference range : <=0.2. The reference r christo was not used to int erpret this result as normal/abnormal . [facility] SystemLssvyetKUAUCQJHKE3103-30-07 11:04:00 Test Item Value Reference Range Interpretation Comments WBC (test code = WBC) 6.1 3.7-10.4 [facility] SystemLqlqljjNFNCDVAQCV6360-96-35 11:04:00 Test Item Value Reference Range Interpretation Comments RBC (test code = RBC) 4.51 4.70-6.10 [facility] SystemQmlcnjjAJHIUUDTXI0084-42-04 11:04:00 Test Item Value Reference Range Interpretation Comments Hgb (test code = Hgb) 13.9 14.0-18.0 [facility] SystemMyuyfapEYUFBLKHFB4250-96-17 11:04:00 Test Item Value Reference Range Interpretation Comments Hct (test code = Hct) 39.5 42.0-54.0 [facility] SystemPqkskdlXNHOOPVRVO5174-50-02 11:04:00 Test Item Value Reference Range Interpretation Comments MCV (test code = MCV) 87.7 80.0-94.0 [facility] SystemQcgwyjuNXIUACZXRI8093-51-95 11:04:00 Test Item Value Reference Range Interpretation Comments MCH (test code = MCH) 30.9 pg 27.0-31.0 [facility] SystemJlwhdkjNAROPWKSKT7954-21-62 11:04:00 Test Item Value Reference Range Interpretation Comments MCHC (test code = MCHC) 35.2 32.0-36.0 [facility] SystemTuawvdmADUOMDOMGI0591-51-34 11:04:00 Test Item Value Reference Range Interpretation Comments RDW (test code = RDW) 14.3 11.5-14.5 [facility] SystemCelmqsvXDZZIKQYSB1561-60-88 11:04:00 Test Item Value Reference Range Interpretation Comments Platelet (test code = Platelet) 207 133-450 [facility] SystemAaxnkfeOVNCAJNNUL3017-26-16 11:04:00 Test Item Value Reference Range Interpretation Comments MPV (test code = MPV) 7.1 7.4-10.4 [facility]2019-11-25 11:04:00 Test Item Value Reference Range Interpretation Comments Vitamin D, 25-OH, Total (test code = 56.5 30.0-100.0 Vitamin D, 25-OH, Total) [facility] [id number] 11:04:00 Test Item Value Reference Range Interpretation Comments ALT (test code = ALT) 39 See_Comment [Auto mated message] The system which ge nerated this result transmit jose reference range : <=65. The reference range was not used to interpr et this result as carolina l/abnormal. [facility]2019-11-25 11:04:00 Test Item Value Reference Range Interpretation Comments Albumin Lvl (test code = Albumin Lvl) 3.4 3.5-5.0 [facility]2019-11-25 11:04:00 Test Item Value Reference Range Interpretation Comments Alk Phos (test code = Alk Phos) 61 39-136 [facility]2019-11-25 11:04:00 Test Item Value Reference Range Interpretation Comments Bili Total (test code = Bili Total) 0.5 0.2-1.3 [facility]2019-11-25 11:04:00 Test Item Value Reference Range Interpretation Comments Total Protein (test code = Total 6.9 6.4-8.4 Protein) [facility]2019-11-25 11:04:00 Test Item Value Reference Range Interpretation Comments AST (test code = AST) 28 See_Comment [Auto mated message] The system which ge nerated this result transmit jose reference range : <=37. The reference range was not used to interpr et this result as carolina l/abnormal. [facility]2019-11-25 11:04:00 Test Item Value Reference Range Interpretation Comments B/C Ratio (test code = B/C Ratio) 21 1 6-25 [facility]2019-11-25 11:04:00 Test Item Value Reference Range Interpretation Comments Globulin (test code = Globulin) 3.5 2.7-4.2 [facility]2019-11-25 11:04:00 Test Item Value Reference Range Interpretation Comments A/G Ratio (test code = A/G Ratio) 1.0 1 0.7-1.6 [facility] SystemJssaiilZDJKSEZQED7912-62-67 11:04:00 Test Item Value Reference Range Interpretation Comments Segs (test code = Segs) 67.1 45.0-75.0 [facility] SystemOnfqmkbDVFWKWNEOL7449-12-75 11:04:00 Test Item Value Reference Range Interpretation Comments Lymphocytes (test code = Lymphocytes) 22.9 20.0-40.0 [facility] SystemZbtksmdUTXJQTZYEJ5473-65-18 11:04:00 Test Item Value Reference Range Interpretation Comments Monocytes (test code = Monocytes) 7.1 2.0-12.0 [facility] SystemJxhpzafDIDQMRSBGZ8990-00-13 11:04:00 Test Item Value Reference Range Interpretation Comments Eosinophils (test code = 1.9 See_Comment [A utomated message] The Eosinophils) system which ge nerated this result tra nsmitted reference range : <=4.0. The reference r christo was not used to int erpret this result as normal/abnormal . [facility] SystemZhpcwhvXXFUZXHSBM6038-38-43 11:04:00 Test Item Value Reference Range Interpretation Comments Basophils (test code = 1.0 See_Comment [Aut omated message] The Basophils) system which ge nerated this result tra nsmitted reference range : <=1.0. The reference r christo was not used to int erpret this result as normal/abnormal . [facility] SystemNuywirmEVUGUYMNIZ7120-07-55 11:04:00 Test Item Value Reference Range Interpretation Comments Neutrophils # (test code = Neutrophils 4.1 1.5-8.1 #) [facility] SystemWprdluuVLHWRHCXQT1613-15-06 11:04:00 Test Item Value Reference Range Interpretation Comments Lymphocytes # (test code = Lymphocytes 1.4 1.0-5.5 #) [facility] SystemXshtiguTLZOZNYNXW5544-45-42 11:04:00 Test Item Value Reference Range Interpretation Comments Monocytes # (test code 0.4 See_Comment [Aut omated message] The = Monocytes #) system which generated this result tra nsmitted reference range : <=0.8. The reference r christo was not used to int erpret this result as normal/abnormal . [facility] SystemTatiqplBNFOHNFWYU7975-84-24 11:04:00 Test Item Value Reference Range Interpretation Comments Eosinophils # (test code 0.1 See_Comment [A utomated message] The = Eosinophils #) system whic h generated this result tra nsmitted reference range : <=0.5. The reference r christo was not used to int erpret this result as normal/abnormal . [facility] SystemFjpipytXMOQHYMFYA9915-30-85 11:04:00 Test Item Value Reference Range Interpretation Comments Basophils # (test code 0.1 See_Comment [Aut omated message] The = Basophils #) system which generated this result tra nsmitted reference range : <=0.2. The reference r christo was not used to int erpret this result as normal/abnormal . [facility] SystemVpbzgnbLJTSSEQBVS9783-06-46 11:04:00 Test Item Value Reference Range Interpretation Comments WBC (test code = WBC) 6.1 3.7-10.4 [facility] SystemHhohhpjAFOMFEJLNI5494-63-61 11:04:00 Test Item Value Reference Range Interpretation Comments RBC (test code = RBC) 4.51 4.70-6.10 [facility] SystemEcxhagaEYPFYSJTTP3654-19-42 11:04:00 Test Item Value Reference Range Interpretation Comments Hgb (test code = Hgb) 13.9 14.0-18.0 [facility] SystemJtxwiuiHVMGOPVAMQ8619-45-39 11:04:00 Test Item Value Reference Range Interpretation Comments Hct (test code = Hct) 39.5 42.0-54.0 [facility] SystemGekwmliYDZLKPQNLW5317-60-94 11:04:00 Test Item Value Reference Range Interpretation Comments MCV (test code = MCV) 87.7 80.0-94.0 [facility] SystemXnmzuyhHQLFYTPIFQ4671-71-01 11:04:00 Test Item Value Reference Range Interpretation Comments MCH (test code = MCH) 30.9 pg 27.0-31.0 [facility] SystemBwkkawoHVZZSCEBWS4225-50-91 11:04:00 Test Item Value Reference Range Interpretation Comments MCHC (test code = MCHC) 35.2 32.0-36.0 [facility] SystemCdtlgjkRPWXQGQAEW6011-41-88 11:04:00 Test Item Value Reference Range Interpretation Comments RDW (test code = RDW) 14.3 11.5-14.5 [facility] SystemWqbjddjQHICLDKCZB7643-87-60 11:04:00 Test Item Value Reference Range Interpretation Comments Platelet (test code = Platelet) 207 133-450 [facility] SystemHegxeelRBSJQKZVPQ4296-51-67 11:04:00 Test Item Value Reference Range Interpretation Comments MPV (test code = MPV) 7.1 7.4-10.4 [facility]2019-11-25 11:04:00 Test Item Value Reference Range Interpretation Comments Vitamin D, 25-OH, Total (test code = 56.5 30.0-100.0 Vitamin D, 25-OH, Total) [facility] [id number] 11:04:00 Test Item Value Reference Range Interpretation Comments ALT (test code = ALT) 39 See_Comment [Auto mated message] The system which ge nerated this result transmit jose reference range : <=65. The reference range was not used to interpr et this result as carolina l/abnormal. [facility]2019-11-25 11:04:00 Test Item Value Reference Range Interpretation Comments Albumin Lvl (test code = Albumin Lvl) 3.4 3.5-5.0 [facility]2019-11-25 11:04:00 Test Item Value Reference Range Interpretation Comments Alk Phos (test code = Alk Phos) 61 39-136 [facility]2019-11-25 11:04:00 Test Item Value Reference Range Interpretation Comments Bili Total (test code = Bili Total) 0.5 0.2-1.3 [facility]2019-11-25 11:04:00 Test Item Value Reference Range Interpretation Comments Total Protein (test code = Total 6.9 6.4-8.4 Protein) [facility]2019-11-25 11:04:00 Test Item Value Reference Range Interpretation Comments AST (test code = AST) 28 See_Comment [Auto mated message] The system which ge nerated this result transmit jose reference range : <=37. The reference range was not used to interpr et this result as carolina l/abnormal. [facility]2019-11-25 11:04:00 Test Item Value Reference Range Interpretation Comments B/C Ratio (test code = B/C Ratio) 21 1 6-25 [facility]2019-11-25 11:04:00 Test Item Value Reference Range Interpretation Comments Globulin (test code = Globulin) 3.5 2.7-4.2 [facility]2019-11-25 11:04:00 Test Item Value Reference Range Interpretation Comments A/G Ratio (test code = A/G Ratio) 1.0 1 0.7-1.6 [facility] SystemEkresqkDCMQRJBMAJ1584-86-48 11:04:00 Test Item Value Reference Range Interpretation Comments Segs (test code = Segs) 67.1 45.0-75.0 [facility] SystemJnittjyFSAIFAHQPC8209-42-97 11:04:00 Test Item Value Reference Range Interpretation Comments Lymphocytes (test code = Lymphocytes) 22.9 20.0-40.0 [facility] SystemVeompoyRVFNRVKEOK0170-83-27 11:04:00 Test Item Value Reference Range Interpretation Comments Monocytes (test code = Monocytes) 7.1 2.0-12.0 [facility] SystemWihnnuvVMGZQZHODQ7045-67-14 11:04:00 Test Item Value Reference Range Interpretation Comments Eosinophils (test code = 1.9 See_Comment [A utomated message] The Eosinophils) system which ge nerated this result tra nsmitted reference range : <=4.0. The reference r christo was not used to int erpret this result as normal/abnormal . [facility] SystemQuylkhaQPGSKWNXKQ0787-17-73 11:04:00 Test Item Value Reference Range Interpretation Comments Basophils (test code = 1.0 See_Comment [Aut omated message] The Basophils) system which ge nerated this result tra nsmitted reference range : <=1.0. The reference r christo was not used to int erpret this result as normal/abnormal . [facility] SystemIiwrvziHBZUYFKUWV1611-93-91 11:04:00 Test Item Value Reference Range Interpretation Comments Neutrophils # (test code = Neutrophils 4.1 1.5-8.1 #) [facility] SystemFdlnlzrKUYOBEAFHR3594-37-77 11:04:00 Test Item Value Reference Range Interpretation Comments Lymphocytes # (test code = Lymphocytes 1.4 1.0-5.5 #) [facility] SystemIzrnvzdTPQPFHLHEQ5557-99-53 11:04:00 Test Item Value Reference Range Interpretation Comments Monocytes # (test code 0.4 See_Comment [Aut omated message] The = Monocytes #) system which generated this result tra nsmitted reference range : <=0.8. The reference r christo was not used to int erpret this result as normal/abnormal . [facility] SystemRafpyqcMANJRRQBWV5948-45-31 11:04:00 Test Item Value Reference Range Interpretation Comments Eosinophils # (test code 0.1 See_Comment [A utomated message] The = Eosinophils #) system whic h generated this result tra nsmitted reference range : <=0.5. The reference r christo was not used to int erpret this result as normal/abnormal . [facility] SystemOwsntvlSPYNFQDESB0486-43-18 11:04:00 Test Item Value Reference Range Interpretation Comments Basophils # (test code 0.1 See_Comment [Aut omated message] The = Basophils #) system which generated this result tra nsmitted reference range : <=0.2. The reference r christo was not used to int erpret this result as normal/abnormal . [facility] SystemBdcaffmCLMCTXREPO8172-22-28 11:04:00 Test Item Value Reference Range Interpretation Comments WBC (test code = WBC) 6.1 3.7-10.4 [facility] SystemFtxnesgXNJJLQUJVC6216-56-64 11:04:00 Test Item Value Reference Range Interpretation Comments RBC (test code = RBC) 4.51 4.70-6.10 [facility] SystemGcqclnkSHLDOXZHHC2257-16-71 11:04:00 Test Item Value Reference Range Interpretation Comments Hgb (test code = Hgb) 13.9 14.0-18.0 [facility] SystemZojbrhfSHPYVIXAED6173-16-30 11:04:00 Test Item Value Reference Range Interpretation Comments Hct (test code = Hct) 39.5 42.0-54.0 [facility] SystemVzocdqtMMXJUIIFSU6210-88-34 11:04:00 Test Item Value Reference Range Interpretation Comments MCV (test code = MCV) 87.7 80.0-94.0 [facility] SystemKmruffyXZREHFLYGO5288-32-92 11:04:00 Test Item Value Reference Range Interpretation Comments MCH (test code = MCH) 30.9 pg 27.0-31.0 [facility] SystemDacewygWQVKLDQEAC7158-19-63 11:04:00 Test Item Value Reference Range Interpretation Comments MCHC (test code = MCHC) 35.2 32.0-36.0 [facility] SystemQpvodsqLRORYQYYHO1672-82-00 11:04:00 Test Item Value Reference Range Interpretation Comments RDW (test code = RDW) 14.3 11.5-14.5 [facility] SystemNcnpyhiOSTUCUBPTT4638-95-64 11:04:00 Test Item Value Reference Range Interpretation Comments Platelet (test code = Platelet) 207 133-450 [facility] SystemLttvvyvNBOUZGOROZ1523-79-00 11:04:00 Test Item Value Reference Range Interpretation Comments MPV (test code = MPV) 7.1 7.4-10.4 [facility] [id number] 12:11:00 Test Item Value Reference Range Interpretation Comments Phosphorus (test code = Phosphorus) 3.6 2.5-4.5 [facility] [id number] 12:11:00 Test Item Value Reference Range Interpretation Comments Magnesium Lvl (test code = Magnesium 2.3 1.8-2.4 Lvl) [facility] AND [id number] 12:11:00 Test Item Value Reference Range Interpretation Comments UA Color (test code = Yellow *NA*(03/23/19 UA Color) 6:11 AM) [facility] AND [id number] 12:11:00 Test Item Value Reference Range Interpretation Comments UA Turbidity (test code = Clear (03/23/19 6:11 UA Turbidity) AM) [facility] AND [id number] 12:11:00 Test Item Value Reference Range Interpretation Comments UA Spec Grav (test code = UA Spec 1.010 1 Grav) [facility] AND [id number] 12:11:00 Test Item Value Reference Range Interpretation Comments UA pH (test code = UA pH) 6.5 1 5.0-8.0 [facility] AND [id number] 12:11:00 Test Item Value Reference Range Interpretation Comments UA Protein (test code = UA Negative mg/dL Protein) [facility] AND [id number] 12:11:00 Test Item Value Reference Range Interpretation Comments UA Glucose (test code = UA Negative mg/dL Glucose) [facility] AND [id number] 12:11:00 Test Item Value Reference Range Interpretation Comments UA Ketones (test code = UA Negative mg/dL Ketones) [facility] AND [id number] 12:11:00 Test Item Value Reference Range Interpretation Comments UA Bili (test code = Negative *NA*(03/23/19 UA Bili) 6:11 AM) [facility] AND [id number] 12:11:00 Test Item Value Reference Range Interpretation Comments UA Blood (test code = Negative (03/23/19 6:11 UA Blood) AM) [facility] AND [id number] 12:11:00 Test Item Value Reference Range Interpretation Comments UA Urobilinogen (test code = UA 0.2 0.1-1.0 Urobilinogen) [facility] AND [id number] 12:11:00 Test Item Value Reference Range Interpretation Comments UA Nitrite (test code Negative (03/23/19 6:11 = UA Nitrite) AM) [facility] AND [id number] 12:11:00 Test Item Value Reference Range Interpretation Comments UA Leuk Est (test Negative (03/23/19 6:11 code = UA Leuk Est) AM) [facility] AND [id number] 12:11:00 Test Item Value Reference Range Interpretation Comments UA Sq Epi (test code = None Seen (03/23/19 UA Sq Epi) 6:11 AM) [facility] [id number] 12:11:00 Test Item Value Reference Range Interpretation Comments Phosphorus (test code = Phosphorus) 3.6 2.5-4.5 [facility] [id number] 12:11:00 Test Item Value Reference Range Interpretation Comments Magnesium Lvl (test code = Magnesium 2.3 1.8-2.4 Lvl) [facility] AND [id number] 12:11:00 Test Item Value Reference Range Interpretation Comments UA Color (test code = Yellow *NA*(03/23/19 UA Color) 6:11 AM) [facility] AND [id number] 12:11:00 Test Item Value Reference Range Interpretation Comments UA Turbidity (test code = Clear (03/23/19 6:11 UA Turbidity) AM) [facility] AND [id number] 12:11:00 Test Item Value Reference Range Interpretation Comments UA Spec Grav (test code = UA Spec 1.010 1 Grav) [facility] AND [id number] 12:11:00 Test Item Value Reference Range Interpretation Comments UA pH (test code = UA pH) 6.5 1 5.0-8.0 [facility] AND [id number] 12:11:00 Test Item Value Reference Range Interpretation Comments UA Protein (test code = UA Negative mg/dL Protein) [facility] AND [id number] 12:11:00 Test Item Value Reference Range Interpretation Comments UA Glucose (test code = UA Negative mg/dL Glucose) [facility] AND [id number] 12:11:00 Test Item Value Reference Range Interpretation Comments UA Ketones (test code = UA Negative mg/dL Ketones) [facility] AND [id number] 12:11:00 Test Item Value Reference Range Interpretation Comments UA Bili (test code = Negative *NA*(03/23/19 UA Bili) 6:11 AM) [facility] [id number] 12:11:00 Test Item Value Reference Range Interpretation Comments UA Blood (test code = Negative (03/23/19 6:11 [facility]A Blood) AM) [facility] [id number] 12:11:00 Test Item Value Reference Range Interpretation Comments UA Urobilinogen (test code = UA 0.2 0.1-1.0 Urobilinogen) [facility] [id number] 12:11:00 Test Item Value Reference Range Interpretation Comments UA Nitrite (test code Negative (03/23/19 6:11 = UA Nitrite) AM) [facility] [id number] 12:11:00 Test Item Value Reference Range Interpretation Comments UA Leuk Est (test Negative (03/23/19 6:11 code = UA Leuk Est) AM) [facility] [id number] 12:11:00 Test Item Value Reference Range Interpretation Comments UA Sq Epi (test code = None Seen (03/23/19 UA Sq Epi) 6:11 AM) [facility] [id number] 12:11:00 Test Item Value Reference Range Interpretation Comments Phosphorus (test code = Phosphorus) 3.6 2.5-4.5 [facility] [id number] 12:11:00 Test Item Value Reference Range Interpretation Comments Magnesium Lvl (test code = Magnesium 2.3 1.8-2.4 Lvl) [facility] [id number] 12:11:00 Test Item Value Reference Range Interpretation Comments UA Color (test code = Yellow *NA*(03/23/19 UA Color) 6:11 AM) [facility] [id number] 12:11:00 Test Item Value Reference Range Interpretation Comments UA Turbidity (test code = Clear (03/23/19 6:11 UA Turbidity) AM) [facility] [id number] 12:11:00 Test Item Value Reference Range Interpretation Comments UA Spec Grav (test code = UA Spec 1.010 1 Grav) [facility] [id number] 12:11:00 Test Item Value Reference Range Interpretation Comments UA pH (test code = UA pH) 6.5 1 5.0-8.0 [facility] [id number] 12:11:00 Test Item Value Reference Range Interpretation Comments UA Protein (test code = UA Negative mg/dL Protein) [facility] AND [id number] 12:11:00 Test Item Value Reference Range Interpretation Comments UA Glucose (test code = UA Negative mg/dL Glucose) [facility] AND [id number] 12:11:00 Test Item Value Reference Range Interpretation Comments UA Ketones (test code = UA Negative mg/dL Ketones) [facility] AND [id number] 12:11:00 Test Item Value Reference Range Interpretation Comments UA Bili (test code = Negative *NA*(03/23/19 UA Bili) 6:11 AM) [facility] AND [id number] 12:11:00 Test Item Value Reference Range Interpretation Comments UA Blood (test code = Negative (03/23/19 6:11 UA Blood) AM) [facility] AND [id number] 12:11:00 Test Item Value Reference Range Interpretation Comments UA Urobilinogen (test code = UA 0.2 0.1-1.0 Urobilinogen) [facility] AND [id number] 12:11:00 Test Item Value Reference Range Interpretation Comments UA Nitrite (test code Negative (03/23/19 6:11 = UA Nitrite) AM) [facility] AND [id number] 12:11:00 Test Item Value Reference Range Interpretation Comments UA Leuk Est (test Negative (03/23/19 6:11 code = UA Leuk Est) AM) [facility] AND [id number] 12:11:00 Test Item Value Reference Range Interpretation Comments UA Sq Epi (test code = None Seen (03/23/19 UA Sq Epi) 6:11 AM) [facility] AND [id number] 00:04:00 Test Item Value Reference Range Interpretation Comments UA Color (test code = Yellow *NA*(03/22/19 UA Color) 6:04 PM) [facility] AND [id number] 00:04:00 Test Item Value Reference Range Interpretation Comments UA Turbidity (test code = Clear (03/22/19 6:04 UA Turbidity) PM) [facility] AND [id number] 00:04:00 Test Item Value Reference Range Interpretation Comments UA Spec Grav (test code = UA Spec 1.020 1 Grav) [facility] AND [id number] 00:04:00 Test Item Value Reference Range Interpretation Comments UA pH (test code = UA pH) 5.0 1 5.0-8.0 [facility] AND [id number] 00:04:00 Test Item Value Reference Range Interpretation Comments UA Protein (test code = UA Protein) 30 mg/dL [facility] AND [id number] 00:04:00 Test Item Value Reference Range Interpretation Comments UA Glucose (test code = UA Negative mg/dL Glucose) [facility] AND [id number] 00:04:00 Test Item Value Reference Range Interpretation Comments UA Ketones (test code = UA Negative mg/dL Ketones) [facility] AND [id number] 00:04:00 Test Item Value Reference Range Interpretation Comments UA Bili (test code = Negative *NA*(03/22/19 UA Bili) 6:04 PM) [facility] AND [id number] 00:04:00 Test Item Value Reference Range Interpretation Comments UA Blood (test code = Negative (03/22/19 6:04 UA Blood) PM) [facility] AND [id number] 00:04:00 Test Item Value Reference Range Interpretation Comments UA Urobilinogen (test code = UA no gt 0.1-1.0 Urobilinogen) [facility] AND [id number] 00:04:00 Test Item Value Reference Range Interpretation Comments UA Nitrite (test code Negative (03/22/19 6:04 = UA Nitrite) PM) [facility] AND [id number] 00:04:00 Test Item Value Reference Range Interpretation Comments UA Leuk Est (test Negative (03/22/19 6:04 code = UA Leuk Est) PM) [facility] AND [id number] 00:04:00 Test Item Value Reference Range Interpretation Comments UA Sq Epi (test code = UA Sq Occasional /LPF Epi) [facility] AND [id number] 00:04:00 Test Item Value Reference Range Interpretation Comments UA WBC (test code = 2 See_Comment [Automa jose message] The UA WBC) system which ge nerated this result transmit jose reference range : <=5. The reference range was not used to interpr et this result as carolina l/abnormal. [facility] AND [id number] 00:04:00 Test Item Value Reference Range Interpretation Comments UA RBC (test code = 2 See_Comment [Automa jose message] The UA RBC) system which ge nerated this result transmit jose reference range : <=2. The reference range was not used to interpr et this result as carolina l/abnormal. [facility] AND [id number] 00:04:00 Test Item Value Reference Range Interpretation Comments UA Bacteria (test code = UA Occasional /HPF Bacteria) [facility] AND [id number] 00:04:00 Test Item Value Reference Range Interpretation Comments UA Mucus (test code = UA Mucus) Few /LPF [facility] AND [id number] 00:04:00 Test Item Value Reference Range Interpretation Comments UA CaOx Ninfa (test code = UA CaOx Few /HPF Ninfa) [facility] AND [id number] 00:04:00 Test Item Value Reference Range Interpretation Comments UA Color (test code = Yellow *NA*(03/22/19 UA Color) 6:04 PM) [facility] AND [id number] 00:04:00 Test Item Value Reference Range Interpretation Comments UA Turbidity (test code = Clear (03/22/19 6:04 UA Turbidity) PM) [facility] AND [id number] 00:04:00 Test Item Value Reference Range Interpretation Comments UA Spec Grav (test code = UA Spec 1.020 1 Grav) [facility] AND [id number] 00:04:00 Test Item Value Reference Range Interpretation Comments UA pH (test code = UA pH) 5.0 1 5.0-8.0 [facility] AND [id number] 00:04:00 Test Item Value Reference Range Interpretation Comments UA Protein (test code = UA Protein) 30 mg/dL [facility] AND [id number] 00:04:00 Test Item Value Reference Range Interpretation Comments UA Glucose (test code = UA Negative mg/dL Glucose) [facility] AND [id number] 00:04:00 Test Item Value Reference Range Interpretation Comments UA Ketones (test code = UA Negative mg/dL Ketones) [facility] [id number] 00:04:00 Test Item Value Reference Range Interpretation Comments UA Bili (test code = Negative *NA*(03/22/19 UA Bili) 6:04 PM) [facility] [id number] 00:04:00 Test Item Value Reference Range Interpretation Comments UA Blood (test code = Negative (03/22/19 6:04 UA Blood) PM) [facility] [id number] 00:04:00 Test Item Value Reference Range Interpretation Comments UA Urobilinogen (test code = UA no gt 0.1-1.0 Urobilinogen) [facility] AND [id number] 00:04:00 Test Item Value Reference Range Interpretation Comments UA Nitrite (test code Negative (03/22/19 6:04 = UA Nitrite) PM) [facility] AND [id number] 00:04:00 Test Item Value Reference Range Interpretation Comments UA Leuk Est (test Negative (03/22/19 6:04 code = UA Leuk Est) PM) [facility] [id number] 00:04:00 Test Item Value Reference Range Interpretation Comments UA Sq Epi (test code = UA Sq Occasional /LPF Epi) [facility] AND [id number] 00:04:00 Test Item Value Reference Range Interpretation Comments UA WBC (test code = 2 See_Comment [Automa jose message] The UA WBC) system which ge nerated this result transmit jose reference range : <=5. The reference range was not used to interpr et this result as carolina l/abnormal. [facility] [id number] 00:04:00 Test Item Value Reference Range Interpretation Comments UA RBC (test code = 2 See_Comment [Automa jose message] The UA RBC) system which ge nerated this result transmit jose reference range : <=2. The reference range was not used to interpr et this result as carolina l/abnormal. [facility] [id number] 00:04:00 Test Item Value Reference Range Interpretation Comments UA Bacteria (test code = UA Occasional /HPF Bacteria) [facility] [id number] 00:04:00 Test Item Value Reference Range Interpretation Comments UA Mucus (test code = UA Mucus) Few /LPF [facility] AND [id number] 00:04:00 Test Item Value Reference Range Interpretation Comments UA CaOx Ninfa (test code = UA CaOx Few /HPF Ninfa) [facility] AND [id number] 00:04:00 Test Item Value Reference Range Interpretation Comments UA Color (test code = Yellow *NA*(03/22/19 UA Color) 6:04 PM) [facility] AND [id number] 00:04:00 Test Item Value Reference Range Interpretation Comments UA Turbidity (test code = Clear (03/22/19 6:04 UA Turbidity) PM) [facility] AND [id number] 00:04:00 Test Item Value Reference Range Interpretation Comments UA Spec Grav (test code = UA Spec 1.020 1 Grav) [facility] AND [id number] 00:04:00 Test Item Value Reference Range Interpretation Comments UA pH (test code = UA pH) 5.0 1 5.0-8.0 [facility] AND [id number] 00:04:00 Test Item Value Reference Range Interpretation Comments UA Protein (test code = UA Protein) 30 mg/dL [facility] AND [id number] 00:04:00 Test Item Value Reference Range Interpretation Comments UA Glucose (test code = UA Negative mg/dL Glucose) [facility] AND [id number] 00:04:00 Test Item Value Reference Range Interpretation Comments UA Ketones (test code = UA Negative mg/dL Ketones) [facility] AND [id number] 00:04:00 Test Item Value Reference Range Interpretation Comments UA Bili (test code = Negative *NA*(03/22/19 UA Bili) 6:04 PM) [facility] AND [id number] 00:04:00 Test Item Value Reference Range Interpretation Comments UA Blood (test code = Negative (03/22/19 6:04 UA Blood) PM) [facility] AND [id number] 00:04:00 Test Item Value Reference Range Interpretation Comments UA Urobilinogen (test code = UA no gt 0.1-1.0 Urobilinogen) [facility] AND [id number] 00:04:00 Test Item Value Reference Range Interpretation Comments UA Nitrite (test code Negative (03/22/19 6:04 = UA Nitrite) PM) [facility] [id number] 00:04:00 Test Item Value Reference Range Interpretation Comments UA Leuk Est (test Negative (03/22/19 6:04 code = UA Leuk Est) PM) [facility] [id number] 00:04:00 Test Item Value Reference Range Interpretation Comments UA Sq Epi (test code = UA Sq Occasional /LPF Epi) [facility] AND [id number] 00:04:00 Test Item Value Reference Range Interpretation Comments UA WBC (test code = 2 See_Comment [Automa jose message] The UA WBC) system which ge nerated this result transmit jose reference range : <=5. The reference range was not used to interpr et this result as carolina l/abnormal. [facility] AND [id number] 00:04:00 Test Item Value Reference Range Interpretation Comments UA RBC (test code = 2 See_Comment [Automa jose message] The UA RBC) system which ge nerated this result transmit jose reference range : <=2. The reference range was not used to interpr et this result as carolina l/abnormal. [facility] AND [id number] 00:04:00 Test Item Value Reference Range Interpretation Comments UA Bacteria (test code = UA Occasional /HPF Bacteria) [facility] AND [id number] 00:04:00 Test Item Value Reference Range Interpretation Comments UA Mucus (test code = UA Mucus) Few /LPF [facility] AND [id number] 00:04:00 Test Item Value Reference Range Interpretation Comments UA CaOx Ninfa (test code = UA CaOx Few /HPF Ninfa) [facility] [employer] [id number] 02:10:00 Test Item Value Reference Range Interpretation Comments ABO/Rh (test code = ABO/Rh) B [facility] [employer] [id number] 02:10:00 Test Item Value Reference Range Interpretation Comments Antibody Scrn (test Negative (03/21/19 code = Antibody Scrn) 8:10 PM) [facility] [employer] [id number] 02:10:00 Test Item Value Reference Range Interpretation Comments ABO/Rh (test code = ABO/Rh) B POS [facility] [employer] [id number] 02:10:00 Test Item Value Reference Range Interpretation Comments Antibody Scrn (test Negative (03/21/19 code = Antibody Scrn) 8:10 PM) [facility] [id number] 02:10:00 Test Item Value Reference Range Interpretation Comments ABO/Rh (test code = ABO/Rh) B POS [facility] [employer] [facility] [id number] 02:10:00 Test Item Value Reference Range Interpretation Comments Antibody Scrn (test Negative (03/21/19 code = Antibody Scrn) 8:10 PM) [facility] [employer] [id number] 01:55:00 Test Item Value Reference Range Interpretation Comments Glucose Lvl (test code = Glucose Lvl) 120 70-99 [facility] [id number] 01:55:00 Test Item Value Reference Range Interpretation Comments BUN (test code = BUN) 15 7-22 [facility] [employer] [id number] 01:55:00 Test Item Value Reference Range Interpretation Comments Creatinine Lvl (test code = Creatinine 0.98 0.50-1.40 Lvl) [facility] [employer] [id number] 01:55:00 Test Item Value Reference Range Interpretation Comments Sodium Lvl (test code = Sodium Lvl) 142 135-145 [facility] [employer] [id number] 01:55:00 Test Item Value Reference Range Interpretation Comments Potassium Lvl (test code = Potassium 3.3 3.5-5.1 Lvl) [facility] [employer] [id number] 01:55:00 Test Item Value Reference Range Interpretation Comments Chloride Lvl (test code = Chloride Lvl) 104 95-109 [facility] [employer] [id number] 01:55:00 Test Item Value Reference Range Interpretation Comments CO2 (test code = CO2) 30 24-32 [facility] [id number] 01:55:00 Test Item Value Reference Range Interpretation Comments Calcium Lvl (test code = Calcium Lvl) 9.3 8.5-10.5 [facility] [employer] [id number] 01:55:00 Test Item Value Reference Range Interpretation Comments eGFR (test code = eGFR) 75 [facility]2019-11-20 01:55:00 Test Item Value Reference Range Interpretation Comments AGAP (test code = AGAP) 11.3 10.0-20.0 [facility]2019-11-20 01:55:00 Test Item Value Reference Range Interpretation Comments Lactic Acid Lvl (test code = Lactic 1.1 0.5-2.2 Acid Lvl) [id number] 01:55:00 Test Item Value Reference Range Interpretation Comments WBC (test code = WBC) 7.5 3.7-10.4 [facility] [id number] 01:55:00 Test Item Value Reference Range Interpretation Comments RBC (test code = RBC) 4.50 4.70-6.10 [facility] [id number] 01:55:00 Test Item Value Reference Range Interpretation Comments Hgb (test code = Hgb) 14.0 14.0-18.0 [facility] [id number] 01:55:00 Test Item Value Reference Range Interpretation Comments Hct (test code = Hct) 40.0 42.0-54.0 [facility] [id number] 01:55:00 Test Item Value Reference Range Interpretation Comments MCV (test code = MCV) 88.9 80.0-94.0 [facility] [id number] 01:55:00 Test Item Value Reference Range Interpretation Comments MCH (test code = MCH) 31.1 pg 27.0-31.0 [facility] SystemDogbrmhSCQYFTDKCR2941-08-08 01:55:00 Test Item Value Reference Range Interpretation Comments MCHC (test code = MCHC) 35.0 32.0-36.0 [facility] [id number] 01:55:00 Test Item Value Reference Range Interpretation Comments RDW (test code = RDW) 14.5 11.5-14.5 [facility] S[id number] 01:55:00 Test Item Value Reference Range Interpretation Comments Platelet (test code = Platelet) 173 133-450 [facility] [id number] 01:55:00 Test Item Value Reference Range Interpretation Comments MPV (test code = MPV) 7.0 7.4-10.4 [facility] Syst[id number] 01:55:00 Test Item Value Reference Range Interpretation Comments INR (test code = INR) 1.06 1 0.85-1.17 [facility] [id number] 01:55:00 Test Item Value Reference Range Interpretation Comments PT (test code = PT) 13.6 s 12.0-14.7 [facility] Syst[id number] 01:55:00 Test Item Value Reference Range Interpretation Comments PTT (test code = PTT) 33.1 s 22.9-35.8 [facility] SystemFahaahmAJAGYEIWEE0623-77-09 01:55:00 Test Item Value Reference Range Interpretation Comments ACT (TEG) Rapid (test code = ACT (TEG) 113 s 86-118 Rapid) [address]11-20 01:55:00 Test Item Value Reference Range Interpretation Comments Split Point Rapid (test code = Split 0.6 min Point Rapid) [facility] SystemWnbencsCDYIDTWSYZ0176-98-21 01:55:00 Test Item Value Reference Range Interpretation Comments R-time Rapid (test code = R-time 0.7 min 0.4-0.7 Rapid) [address]11-20 01:55:00 Test Item Value Reference Range Interpretation Comments K-time Rapid (test code = K-time 1.2 min 0.6-2.3 Rapid) [address]11-20 01:55:00 Test Item Value Reference Range Interpretation Comments Angle Rapid (test code = Angle 75 degrees 64-80 Rapid) [facility] SystemBqsgfwvPTWXTIFTAQ4827-09-85 01:55:00 Test Item Value Reference Range Interpretation Comments Max Amplitude Rapid (test code = Max 66 mm 52-71 Amplitude Rapid) [place] [address]-11-20 01:55:00 Test Item Value Reference Range Interpretation Comments G-value Rapid (test code = G-value 9.9 5.0-11.6 Rapid) [facility] SystemIzugaacJPYQJASDKT4402-28-21 01:55:00 Test Item Value Reference Range Interpretation Comments Estimated % Lysis Rapid 2.8 See_Comment [Au tomated message] The (test code = Estimated syste m which generated % Lysis Rapid) this result t ransmitted reference range : <=7.5. The reference r christo was not used to int erpret this result as normal/abnormal . [facility] SystemAwshtvmOLFWTMUIFF5414-78-84 01:55:00 Test Item Value Reference Range Interpretation Comments Segs (test code = Segs) 73.6 45.0-75.0 [facility] SystemXdzoylcWFYAFBSTPG2715-02-36 01:55:00 Test Item Value Reference Range Interpretation Comments Lymphocytes (test code = Lymphocytes) 15.6 20.0-40.0 [facility] SystemTuwxjwzDEDBONPTMI4759-27-10 01:55:00 Test Item Value Reference Range Interpretation Comments Monocytes (test code = Monocytes) 7.5 2.0-12.0 [facility] SystemX[id number] 01:55:00 Test Item Value Reference Range Interpretation Comments Eosinophils (test code = 2.7 See_Comment [A utomated message] The Eosinophils) system which ge nerated this result tra nsmitted reference range : <=4.0. The reference r christo was not used to int erpret this result as normal/abnormal . [facility] S[id number] 01:55:00 Test Item Value Reference Range Interpretation Comments Basophils (test code = 0.6 See_Comment [Aut omated message] The Basophils) system which ge nerated this result tra nsmitted reference range : <=1.0. The reference r christo was not used to int erpret this result as normal/abnormal . [facility] SystemJersvraMCPQKCRLPI3110-40-04 01:55:00 Test Item Value Reference Range Interpretation Comments Neutrophils # (test code = Neutrophils 5.5 1.5-8.1 #) [facility] SystemPjrlpwmZAHTVGXLQD7698-38-56 01:55:00 Test Item Value Reference Range Interpretation Comments Lymphocytes # (test code = Lymphocytes 1.2 1.0-5.5 #) [facility] SystemGpvwlvxRSZDKCZMPI9707-23-72 01:55:00 Test Item Value Reference Range Interpretation Comments Monocytes # (test code 0.6 See_Comment [Aut omated message] The = Monocytes #) system which generated this result tra nsmitted reference range : <=0.8. The reference r christo was not used to int erpret this result as normal/abnormal . [facility] SystemTxpscsmFGTFGTCCPM3411-72-33 01:55:00 Test Item Value Reference Range Interpretation Comments Eosinophils # (test code 0.2 See_Comment [A utomated message] The = Eosinophils #) system whic h generated this result tra nsmitted reference range : <=0.5. The reference r christo was not used to int erpret this result as normal/abnormal . [facility]2019-11-20 01:55:00 Test Item Value Reference Range Interpretation Comments Glucose Lvl (test code = Glucose Lvl) 120 70-99 [facility]2019-11-20 01:55:00 Test Item Value Reference Range Interpretation Comments BUN (test code = BUN) 15 7-22 [facility]2019-11-20 01:55:00 Test Item Value Reference Range Interpretation Comments Creatinine Lvl (test code = Creatinine 0.98 0.50-1.40 Lvl) [facility]2019-11-20 01:55:00 Test Item Value Reference Range Interpretation Comments Sodium Lvl (test code = Sodium Lvl) 142 135-145 [facility]2019-11-20 01:55:00 Test Item Value Reference Range Interpretation Comments Potassium Lvl (test code = Potassium 3.3 3.5-5.1 Lvl) [facility]2019-11-20 01:55:00 Test Item Value Reference Range Interpretation Comments Chloride Lvl (test code = Chloride Lvl) 104 95-109 [facility]2019-11-20 01:55:00 Test Item Value Reference Range Interpretation Comments CO2 (test code = CO2) 30 24-32 [facility]2019-11-20 01:55:00 Test Item Value Reference Range Interpretation Comments Calcium Lvl (test code = Calcium Lvl) 9.3 8.5-10.5 [facility]2019-11-20 01:55:00 Test Item Value Reference Range Interpretation Comments eGFR (test code = eGFR) 75 [facility]2019-11-20 01:55:00 Test Item Value Reference Range Interpretation Comments AGAP (test code = AGAP) 11.3 10.0-20.0 [facility]2019-11-20 01:55:00 Test Item Value Reference Range Interpretation Comments Lactic Acid Lvl (test code = Lactic 1.1 0.5-2.2 Acid Lvl) [facility]guzSZQJCSXRQB6761-09-77 01:55:00 Test Item Value Reference Range Interpretation Comments WBC (test code = WBC) 7.5 3.7-10.4 [facility]xfgaqoNSVMDUMTJK0294-24-13 01:55:00 Test Item Value Reference Range Interpretation Comments RBC (test code = RBC) 4.50 4.70-6.10 [facility] SystemYcoljukRCRDWBPHOX4397-99-16 01:55:00 Test Item Value Reference Range Interpretation Comments Hgb (test code = Hgb) 14.0 14.0-18.0 [facility] SystemFgwoqqvQIJWGHRHDL2826-81-88 01:55:00 Test Item Value Reference Range Interpretation Comments Hct (test code = Hct) 40.0 42.0-54.0 [facility] SystemOmescmfUDFAZWZCTV2776-28-47 01:55:00 Test Item Value Reference Range Interpretation Comments MCV (test code = MCV) 88.9 80.0-94.0 [facility] SystemNadgfknBXTCMTBTJV4202-26-05 01:55:00 Test Item Value Reference Range Interpretation Comments MCH (test code = MCH) 31.1 pg 27.0-31.0 [facility] SystemXulkkohPVLQIEWOPM9121-31-26 01:55:00 Test Item Value Reference Range Interpretation Comments MCHC (test code = MCHC) 35.0 32.0-36.0 [facility] SystemElvhijrXTEEABARQU9656-26-09 01:55:00 Test Item Value Reference Range Interpretation Comments RDW (test code = RDW) 14.5 11.5-14.5 [facility] SystemDlquljtTUMJNWGTNF3491-58-09 01:55:00 Test Item Value Reference Range Interpretation Comments Platelet (test code = Platelet) 173 133-450 [facility] SystemSitfsiqYPDKSAMLYF2991-76-64 01:55:00 Test Item Value Reference Range Interpretation Comments MPV (test code = MPV) 7.0 7.4-10.4 [facility] SystemLywpueoPMKPUWQQTM0809-07-86 01:55:00 Test Item Value Reference Range Interpretation Comments INR (test code = INR) 1.06 1 0.85-1.17 [facility] SystemJpevvlfAOKKWQOCKH7649-25-08 01:55:00 Test Item Value Reference Range Interpretation Comments PT (test code = PT) 13.6 s 12.0-14.7 [facility] SystemOwhqxgzPNIHJULAXW9409-37-09 01:55:00 Test Item Value Reference Range Interpretation Comments PTT (test code = PTT) 33.1 s 22.9-35.8 [facility] SystemQntndxhIEBEKFLGGC8507-64-53 01:55:00 Test Item Value Reference Range Interpretation Comments ACT (TEG) Rapid (test code = ACT (TEG) 113 s 86-118 Rapid) [facility] SystemMswzsvmFVTGNVAHPY7457-39-00 01:55:00 Test Item Value Reference Range Interpretation Comments Split Point Rapid (test code = Split 0.6 min Point Rapid) [facility] SystemGrcengpWPOKHMEXYT3481-49-90 01:55:00 Test Item Value Reference Range Interpretation Comments R-time Rapid (test code = R-time 0.7 min 0.4-0.7 Rapid) [facility] SystemIntwwumCPXRMNRUEV8251-54-02 01:55:00 Test Item Value Reference Range Interpretation Comments K-time Rapid (test code = K-time 1.2 min 0.6-2.3 Rapid) [facility] SystemQewnqzhADEWUKSRRL9010-08-12 01:55:00 Test Item Value Reference Range Interpretation Comments Angle Rapid (test code = Angle 75 degrees 64-80 Rapid) [facility] SystemBgwquqgXNCEDNHATX2068-59-62 01:55:00 Test Item Value Reference Range Interpretation Comments Max Amplitude Rapid (test code = Max 66 mm 52-71 Amplitude Rapid) [facility] SystemEqvbicmLEWVRFTFTG3111-48-21 01:55:00 Test Item Value Reference Range Interpretation Comments G-value Rapid (test code = G-value 9.9 5.0-11.6 Rapid) [facility] SystemWoahtecVUCFJZXVYO3923-19-67 01:55:00 Test Item Value Reference Range Interpretation Comments Estimated % Lysis Rapid 2.8 See_Comment [Au tomated message] The (test code = Estimated syste m which generated % Lysis Rapid) this result t ransmitted reference range : <=7.5. The reference r christo was not used to int erpret this result as normal/abnormal . [facility] SystemDxopnvyJKITGSRZCZ8907-55-32 01:55:00 Test Item Value Reference Range Interpretation Comments Segs (test code = Segs) 73.6 45.0-75.0 [facility] SystemNmpcfbaTGGUNIHRYH8575-04-42 01:55:00 Test Item Value Reference Range Interpretation Comments Lymphocytes (test code = Lymphocytes) 15.6 20.0-40.0 [facility] SystemXzukapzSXROTSXGAO8967-59-63 01:55:00 Test Item Value Reference Range Interpretation Comments Monocytes (test code = Monocytes) 7.5 2.0-12.0 [facility] SystemGdutijiKWBIXBYLYV0379-88-76 01:55:00 Test Item Value Reference Range Interpretation Comments Eosinophils (test code = 2.7 See_Comment [A utomated message] The Eosinophils) system which ge nerated this result tra nsmitted reference range : <=4.0. The reference r christo was not used to int erpret this result as normal/abnormal . [facility] SystemFmpryblYPFPZLTXNY8851-36-64 01:55:00 Test Item Value Reference Range Interpretation Comments Basophils (test code = 0.6 See_Comment [Aut omated message] The Basophils) system which ge nerated this result tra nsmitted reference range : <=1.0. The reference r christo was not used to int erpret this result as normal/abnormal . [facility] SystemSbycwktOCPXTPVRZV7290-76-90 01:55:00 Test Item Value Reference Range Interpretation Comments Neutrophils # (test code = Neutrophils 5.5 1.5-8.1 #) [facility] SystemHggwldiXWRXJLXRCX5914-36-83 01:55:00 Test Item Value Reference Range Interpretation Comments Lymphocytes # (test code = Lymphocytes 1.2 1.0-5.5 #) [facility] SystemZlgpikzFMIMEAHITB2645-60-73 01:55:00 Test Item Value Reference Range Interpretation Comments Monocytes # (test code 0.6 See_Comment [Aut omated message] The = Monocytes #) system which generated this result tra nsmitted reference range : <=0.8. The reference r christo was not used to int erpret this result as normal/abnormal . [facility] SystemPphnqudNVUAQQIROY0997-85-63 01:55:00 Test Item Value Reference Range Interpretation Comments Eosinophils # (test code 0.2 See_Comment [A utomated message] The = Eosinophils #) system whic h generated this result tra nsmitted reference range : <=0.5. The reference r christo was not used to int erpret this result as normal/abnormal . [facility]2019-11-20 01:55:00 Test Item Value Reference Range Interpretation Comments Glucose Lvl (test code = Glucose Lvl) 120 70-99 [facility]2019-11-20 01:55:00 Test Item Value Reference Range Interpretation Comments BUN (test code = BUN) 15 7-22 [facility]2019-11-20 01:55:00 Test Item Value Reference Range Interpretation Comments Creatinine Lvl (test code = Creatinine 0.98 0.50-1.40 Lvl) [facility]2019-11-20 01:55:00 Test Item Value Reference Range Interpretation Comments Sodium Lvl (test code = Sodium Lvl) 142 135-145 [facility]2019-11-20 01:55:00 Test Item Value Reference Range Interpretation Comments Potassium Lvl (test code = Potassium 3.3 3.5-5.1 Lvl) [facility]2019-11-20 01:55:00 Test Item Value Reference Range Interpretation Comments Chloride Lvl (test code = Chloride Lvl) 104 95-109 [facility]2019-11-20 01:55:00 Test Item Value Reference Range Interpretation Comments CO2 (test code = CO2) 30 24-32 [place] 977109-11-20 01:55:00 Test Item Value Reference Range Interpretation Comments Calcium Lvl (test code = Calcium Lvl) 9.3 8.5-10.5 [facility]2019-11-20 01:55:00 Test Item Value Reference Range Interpretation Comments eGFR (test code = eGFR) 75 [facility]2019-11-20 01:55:00 Test Item Value Reference Range Interpretation Comments AGAP (test code = AGAP) 11.3 10.0-20.0 [facility]2019-11-20 01:55:00 Test Item Value Reference Range Interpretation Comments Lactic Acid Lvl (test code = Lactic 1.1 0.5-2.2 Acid Lvl) [facility] SystemMzkdlseZFAMUIHCMP7475-67-67 01:55:00 Test Item Value Reference Range Interpretation Comments WBC (test code = WBC) 7.5 3.7-10.4 [facility] SystemWpzqvoeITESIDHPNF5915-08-31 01:55:00 Test Item Value Reference Range Interpretation Comments RBC (test code = RBC) 4.50 4.70-6.10 [facility] SystemIhiubnnREFDHFQDNN2386-62-62 01:55:00 Test Item Value Reference Range Interpretation Comments Hgb (test code = Hgb) 14.0 14.0-18.0 [facility] SystemVidhkryQTHDUPMIXL4455-39-63 01:55:00 Test Item Value Reference Range Interpretation Comments Hct (test code = Hct) 40.0 42.0-54.0 [facility] SystemQqnxpenMFYLVYCLZI6696-56-43 01:55:00 Test Item Value Reference Range Interpretation Comments MCV (test code = MCV) 88.9 80.0-94.0 [facility] SystemBpbcrrfLFYYZSRAFS9274-53-53 01:55:00 Test Item Value Reference Range Interpretation Comments MCH (test code = MCH) 31.1 pg 27.0-31.0 [facility] SystemTpdqumxQCQZTOXDEC3728-67-12 01:55:00 Test Item Value Reference Range Interpretation Comments MCHC (test code = MCHC) 35.0 32.0-36.0 [facility] SystemEcznfjuXFDWTTTXJK2327-86-01 01:55:00 Test Item Value Reference Range Interpretation Comments RDW (test code = RDW) 14.5 11.5-14.5 [facility] SystemEqifbdwXNGJJPRZKD9104-62-13 01:55:00 Test Item Value Reference Range Interpretation Comments Platelet (test code = Platelet) 173 133-450 [facility] SystemCgyeacfUAURHCLCBR4154-27-01 01:55:00 Test Item Value Reference Range Interpretation Comments MPV (test code = MPV) 7.0 7.4-10.4 [facility] SystemImiuyqaEDWUYWPKOX2768-80-91 01:55:00 Test Item Value Reference Range Interpretation Comments INR (test code = INR) 1.06 1 0.85-1.17 [facility] SystemTpcfsplJLGVBMPHVZ8290-19-71 01:55:00 Test Item Value Reference Range Interpretation Comments PT (test code = PT) 13.6 s 12.0-14.7 [facility] SystemFawlaxaBBCMPOGJKO3584-02-92 01:55:00 Test Item Value Reference Range Interpretation Comments PTT (test code = PTT) 33.1 s 22.9-35.8 [facility] SystemKykunqyJPSMBBFJIR1140-05-26 01:55:00 Test Item Value Reference Range Interpretation Comments ACT (TEG) Rapid (test code = ACT (TEG) 113 s 86-118 Rapid) [facility] SystemUcrutnrLQLPIQAPOT4438-66-36 01:55:00 Test Item Value Reference Range Interpretation Comments Split Point Rapid (test code = Split 0.6 min Point Rapid) [facility] SystemRjnaqonRCCFLEGWHZ0629-71-27 01:55:00 Test Item Value Reference Range Interpretation Comments R-time Rapid (test code = R-time 0.7 min 0.4-0.7 Rapid) [facility] SystemMboyxfuDQGMRNEGXO4818-22-07 01:55:00 Test Item Value Reference Range Interpretation Comments K-time Rapid (test code = K-time 1.2 min 0.6-2.3 Rapid) [facility] SystemRhjckwdBVEAFOFHJD2438-57-96 01:55:00 Test Item Value Reference Range Interpretation Comments Angle Rapid (test code = Angle 75 degrees 64-80 Rapid) [facility] SystemQruxhemUUIPCFXSFP8778-65-80 01:55:00 Test Item Value Reference Range Interpretation Comments Max Amplitude Rapid (test code = Max 66 mm 52-71 Amplitude Rapid) [address]11-20 01:55:00 Test Item Value Reference Range Interpretation Comments G-value Rapid (test code = G-value 9.9 5.0-11.6 Rapid) [address]11-20 01:55:00 Test Item Value Reference Range Interpretation Comments Estimated % Lysis Rapid 2.8 See_Comment [Au tomated message] The (test code = Estimated syste m which generated % Lysis Rapid) this result t ransmitted reference range : <=7.5. The reference r christo was not used to int erpret this result as normal/abnormal . [facility] SystemUdmcwcqRNAKASZUSB7895-60-10 01:55:00 Test Item Value Reference Range Interpretation Comments Segs (test code = Segs) 73.6 45.0-75.0 [facility] SystemWgsqzjqUFKGUTEKMQ4231-83-83 01:55:00 Test Item Value Reference Range Interpretation Comments Lymphocytes (test code = Lymphocytes) 15.6 20.0-40.0 [facility] SystemJkyainnVZHQVMNNFX2764-32-96 01:55:00 Test Item Value Reference Range Interpretation Comments Monocytes (test code = Monocytes) 7.5 2.0-12.0 [place] [address]-11-20 01:55:00 Test Item Value Reference Range Interpretation Comments Eosinophils (test code = 2.7 See_Comment [A utomated message] The Eosinophils) system which ge nerated this result tra nsmitted reference range : <=4.0. The reference r christo was not used to int erpret this result as normal/abnormal . [place] 730969-11-20 01:55:00 Test Item Value Reference Range Interpretation Comments Basophils (test code = 0.6 See_Comment [Aut omated message] The Basophils) system which ge nerated this result tra nsmitted reference range : <=1.0. The reference r christo was not used to int erpret this result as normal/abnormal . [facility] SystemEgsnhwnWYTSKHVAZF4468-81-39 01:55:00 Test Item Value Reference Range Interpretation Comments Neutrophils # (test code = Neutrophils 5.5 1.5-8.1 #) [facility] SystemOabackeGBERNBFGFB3186-94-57 01:55:00 Test Item Value Reference Range Interpretation Comments Lymphocytes # (test code = Lymphocytes 1.2 1.0-5.5 #) [facility] SystemBipwylhXURPKMHSWF8701-48-67 01:55:00 Test Item Value Reference Range Interpretation Comments Monocytes # (test code 0.6 See_Comment [Aut omated message] The = Monocytes #) system which generated this result tra nsmitted reference range : <=0.8. The reference r christo was not used to int erpret this result as normal/abnormal . [facility] SystemZfnyvfgGYLCDNNGKE6343-38-23 01:55:00 Test Item Value Reference Range Interpretation Comments Eosinophils # (test code 0.2 See_Comment [A utomated message] The = Eosinophils #) system whic h generated this result tra nsmitted reference range : <=0.5. The reference r christo was not used to int erpret this result as normal/abnormal . [facility] MYOCRD SPECT R/S TKVZ9051-62-55 07:59:00 FAX: Deedee Abreu [phone] Camps: PM St: DEP FAX: Michael Troncoso [phone] - Name: DORA GRAVES Rose : 1945 Age/S: 73/M [address] [facility] [place] Unit #: [id number] Loc: [place] [address] Phys: Michael Valdez MD Acct: [id number] Dis Date: Status: DEP CLI PHONE #: [phone] Exam Date: 10/04/2018 1400 FAX #: Reason: SOB EXAMS: CPT: [id number] NM MYOCRD SPECT R/S MULT [id number] Location of dictation: B2 HISTORY:SOB, HYPERTENSION TECHNIQUE: 11 mCi Tc-99m sestamibi was injected IV at rest. Non-gated SPECT imaging is performed. The patient is stressed with Lexiscan 0.4 mg/ 5 ml. At peak stress, 30 mCi Tc-99m sestamibi was injected IV. Gated SPECT imaging and post-processing are accomplished. FINDINGS: Comparison is made to chest x-ray dated one day prior. The left ventricle is slightly dilated with end-diastolic volume of 124 mL. Homogeneous myocardial perfusion is observed. No significant stress defects suspicious for ischemia or infarct are identified. The computed calculated LVEF is 58 %. Concentric wall motion is identified. No segmental wall motion abnormality is seen. Quantitative analysis is within normal limits. IMPRESSION: 1. Negative for evidence of significant myocardial ischemia or infarct. 2. Slightly dilated left ventricle. 3. Normal left ventricular ejection fraction and wall motion. at 0759 Reported and signed by: Eleonora Infante M.D. CC: Felipa Hansen MD; Michael Valdez MD Technologist: AYLEEN De La Garza Transcribed Date/Time/By: 10/05/2018 (0759) :[email or web address] Orig Print D/T: S: 10/05/2018 (0802) PAGE 1 Signed Report- XR CHEST 2 [id number] 11:18:00 Name: LIDIA GRAVES : 1945 Age/S: 73 / M [address] [address] [place] Unit #: [id number] Loc: [place] [address] Phys: Michael Valdez MD Acct: [id number] Dis Date: Status: REG [place] #: [phone] Exam Date: 10/04/2018 1105 FAX #: Reason: SOB EXAMS: CPT: [id number] XR CHEST 2 V 88098 Fluoro Time: DAP (Gy m2): Air Kerma (mGy): EXAM: Chest x-ray, 2 views Dictation location: B2 COMPARISON: None INDICATION: SOB DISCUSSION: Frontal and lateral views of the chest are submitted.Kyphotic positioning is noted. The posterior costophrenic angles are not entirely in the ddrzw-yl-xtjy on the lateral view. No consolidation or pleural effusion is seen. Mild central vascular congestion is noted. IMPRESSION: Mild central vascular congestion. No evidence of pneumonia. at 1118 Reported and signed by: Jose Manuel Odell M.D. CC: Felipa Hansen MD; Michael Valdez MD PAGE 1 Signed Report Name: LIDIA GRAVES : 1945 Age/S: 73 / M [address] [address] [place] Unit #: [id number] Loc: [place] [address] Phys: Michael Valdez MD Acct: [id number] Dis Date: Status: REG CLI PHONE #: [phone] Exam Date: 10/04/2018 1105 FAX #: Reason: SOB EXAMS: CPT: [id number] XR CHEST 2 V 16933 Fluoro Time: DAP (Gy m2): Air Kerma (mGy): (Continued) Technologist: Kathy Ware RT(R)(CT) Trnscb Date/Time: 10/04/2018 (1118) [email or web address] Orig Print D/T: S: 10/04/2018 (2931) PAGE 2 Signed ReportFORMERLY [facility]OSPITALBTLGQ8003-51-19 10:19:00 Test Item Value Reference Range Interpretation Comments Phosphorus (test code = Phosphorus) 3.5 2.5-4.5 [facility] QQPLV9722-14-72 10:19:00 Test Item Value Reference Range Interpretation Comments Calcium Lvl (test code = Calcium Lvl) 9.2 8.5-10.5 [facility] OJCMO7774-56-62 10:19:00 Test Item Value Reference Range Interpretation Comments Chloride Lvl (test code = Chloride Lvl) 102 95-109 [facility] KJSJJ1213-89-73 10:19:00 Test Item Value Reference Range Interpretation Comments CO2 (test code = CO2) 27 24-32 [facility]2016-07-25 10:19:00 Test Item Value Reference Range Interpretation Comments Potassium Lvl (test code = Potassium 3.6 3.5-5.1 Lvl) [facility]2016-07-25 10:19:00 Test Item Value Reference Range Interpretation Comments Creatinine Lvl (test code = Creatinine 0.78 0.50-1.40 Lvl) [facility]2016-07-25 10:19:00 Test Item Value Reference Range Interpretation Comments Sodium Lvl (test code = Sodium Lvl) 140 135-145 [facility]2016-07-25 10:19:00 Test Item Value Reference Range Interpretation Comments BUN (test code = BUN) 16 7-22 [facility]2016-07-25 10:19:00 Test Item Value Reference Range Interpretation Comments Glucose Lvl (test code = Glucose Lvl) 97 70-99 [facility]2016-07-25 10:19:00 Test Item Value Reference Range Interpretation Comments eGFR (test code = eGFR) 91 [facility]2016-07-25 10:19:00 Test Item Value Reference Range Interpretation Comments AGAP (test code = AGAP) 14.6 10.0-20.0 [facility]2016-07-25 10:19:00 Test Item Value Reference Range Interpretation Comments Magnesium Lvl (test code = Magnesium 2.1 1.8-2.4 Lvl) [facility] SystemIkmaqgaDNQARWDACF5826-82-22 10:19:00 Test Item Value Reference Range Interpretation Comments MCHC (test code = MCHC) 33.9 32.0-36.0 [facility] SystemZygqxhdIJNGOUFCDG1910-99-33 10:19:00 Test Item Value Reference Range Interpretation Comments MCV (test code = MCV) 87.7 80.0-94.0 [facility] SystemMbhtbcrGTMGGAQYEW9160-31-16 10:19:00 Test Item Value Reference Range Interpretation Comments MCH (test code = MCH) 29.8 pg 27.0-31.0 [facility] SystemKeqpucbRBDLDYMVAQ3989-45-76 10:19:00 Test Item Value Reference Range Interpretation Comments RDW (test code = RDW) 13.7 11.5-14.5 [facility] SystemHdrrgkmWCFEYUJYPR7762-92-04 10:19:00 Test Item Value Reference Range Interpretation Comments Platelet (test code = Platelet) 214 133-450 [facility] SystemCwoivceWTSGAXZBDY3645-32-16 10:19:00 Test Item Value Reference Range Interpretation Comments MPV (test code = MPV) 7.5 7.4-10.4 [facility] SystemJylgytyHWSKHVITUZ0565-15-15 10:19:00 Test Item Value Reference Range Interpretation Comments Hct (test code = Hct) 37.4 42.0-54.0 [facility] SystemFjvfozcLBBGNLFGYZ7718-85-60 10:19:00 Test Item Value Reference Range Interpretation Comments Hgb (test code = Hgb) 12.7 14.0-18.0 [facility] SystemVefoegnPTBJQQBSGK6049-98-07 10:19:00 Test Item Value Reference Range Interpretation Comments RBC (test code = RBC) 4.27 4.70-6.10 [facility] SystemAmtmuurLRGMIXIHBV1316-83-90 10:19:00 Test Item Value Reference Range Interpretation Comments WBC (test code = WBC) 6.3 3.7-10.4 [facility] SystemLttzzqvXKVDARDDYF3999-48-53 10:19:00 Test Item Value Reference Range Interpretation Comments Monocytes (test code = Monocytes) 8.0 2.0-12.0 [facility] SystemIsmozlvSHDXCMIEPP8019-92-90 10:19:00 Test Item Value Reference Range Interpretation Comments Segs (test code = Segs) 65.1 45.0-75.0 [facility] SystemGnzmibhYFQJCLRAKG8296-85-63 10:19:00 Test Item Value Reference Range Interpretation Comments Lymphocytes (test code = Lymphocytes) 24.7 20.0-40.0 [facility] SystemDtljsuqPVYZNGMEMJ2490-85-22 10:19:00 Test Item Value Reference Range Interpretation Comments Basophils (test code = 0.2 See_Comment [Aut omated message] The Basophils) system which ge nerated this result tra nsmitted reference range : <=1.0. The reference r christo was not used to int erpret this result as normal/abnormal . [facility] SystemYunniqmWRGZODBVNO6056-55-82 10:19:00 Test Item Value Reference Range Interpretation Comments Eosinophils (test code = 2.0 See_Comment [A utomated message] The Eosinophils) system which ge nerated this result tra nsmitted reference range : <=4.0. The reference r christo was not used to int erpret this result as normal/abnormal . [facility] SystemUecwtnuWTGITUJCYT2479-05-26 10:19:00 Test Item Value Reference Range Interpretation Comments Lymphocytes # (test code = Lymphocytes 1.6 1.0-5.5 #) [facility] SystemCliowsuCQNTXFCJOR1522-10-90 10:19:00 Test Item Value Reference Range Interpretation Comments Monocytes # (test code 0.5 See_Comment [Aut omated message] The = Monocytes #) system which generated this result tra nsmitted reference range : <=0.8. The reference r christo was not used to int erpret this result as normal/abnormal . [facility] SystemHcqvypwTVEIVCYYBC1050-27-94 10:19:00 Test Item Value Reference Range Interpretation Comments Segs-Bands # (test code = Segs-Bands #) 4.1 1.5-8.1 [facility] SystemPsqtyglFZCZWDVATT1858-96-67 10:19:00 Test Item Value Reference Range Interpretation Comments Basophils # (test code 0.0 See_Comment [Aut omated message] The = Basophils #) system which generated this result tra nsmitted reference range : <=0.2. The reference r christo was not used to int erpret this result as normal/abnormal . [facility] SystemQlophfaBOCVGDUCHN7564-42-05 10:19:00 Test Item Value Reference Range Interpretation Comments Eosinophils # (test code 0.1 See_Comment [A utomated message] The = Eosinophils #) system whic h generated this result tra nsmitted reference range : <=0.5. The reference r christo was not used to int erpret this result as normal/abnormal . [facility]2016-07-25 10:19:00 Test Item Value Reference Range Interpretation Comments Phosphorus (test code = Phosphorus) 3.5 2.5-4.5 [facility]2016-07-25 10:19:00 Test Item Value Reference Range Interpretation Comments Calcium Lvl (test code = Calcium Lvl) 9.2 8.5-10.5 [facility]2016-07-25 10:19:00 Test Item Value Reference Range Interpretation Comments Chloride Lvl (test code = Chloride Lvl) 102 95-109 [facility]2016-07-25 10:19:00 Test Item Value Reference Range Interpretation Comments CO2 (test code = CO2) 27 24-32 [facility]2016-07-25 10:19:00 Test Item Value Reference Range Interpretation Comments Potassium Lvl (test code = Potassium 3.6 3.5-5.1 Lvl) [facility]2016-07-25 10:19:00 Test Item Value Reference Range Interpretation Comments Creatinine Lvl (test code = Creatinine 0.78 0.50-1.40 Lvl) [facility]2016-07-25 10:19:00 Test Item Value Reference Range Interpretation Comments Sodium Lvl (test code = Sodium Lvl) 140 135-145 [facility]2016-07-25 10:19:00 Test Item Value Reference Range Interpretation Comments BUN (test code = BUN) 16 7-22 [facility]2016-07-25 10:19:00 Test Item Value Reference Range Interpretation Comments Glucose Lvl (test code = Glucose Lvl) 97 70-99 [facility]2016-07-25 10:19:00 Test Item Value Reference Range Interpretation Comments eGFR (test code = eGFR) 91 [facility]2016-07-25 10:19:00 Test Item Value Reference Range Interpretation Comments AGAP (test code = AGAP) 14.6 10.0-20.0 [facility]2016-07-25 10:19:00 Test Item Value Reference Range Interpretation Comments Magnesium Lvl (test code = Magnesium 2.1 1.8-2.4 Lvl) [facility]fwTGFAJLINET5850-87-22 10:19:00 Test Item Value Reference Range Interpretation Comments MCHC (test code = MCHC) 33.9 32.0-36.0 [facility] SystemTnfvfvzEHMBGFAWPP2526-85-65 10:19:00 Test Item Value Reference Range Interpretation Comments MCV (test code = MCV) 87.7 80.0-94.0 [facility] SystemUhqxqheIWDSRJKYNN2324-57-18 10:19:00 Test Item Value Reference Range Interpretation Comments MCH (test code = MCH) 29.8 pg 27.0-31.0 [facility] SystemLebxnteJDNJCCDRNB5491-64-55 10:19:00 Test Item Value Reference Range Interpretation Comments RDW (test code = RDW) 13.7 11.5-14.5 [place] 730966-07-25 10:19:00 Test Item Value Reference Range Interpretation Comments Platelet (test code = Platelet) 214 133-450 [facility] SystemQggkpeqTWCVVXWPNB7948-94-72 10:19:00 Test Item Value Reference Range Interpretation Comments MPV (test code = MPV) 7.5 7.4-10.4 [facility] SystemFhjznkaYGWLGMCDPY8511-78-84 10:19:00 Test Item Value Reference Range Interpretation Comments Hct (test code = Hct) 37.4 42.0-54.0 [facility] SystemRcibpniSFICTIVSJE3107-47-93 10:19:00 Test Item Value Reference Range Interpretation Comments Hgb (test code = Hgb) 12.7 14.0-18.0 [facility] SystemJtprzcqZAYBVFDCBZ4377-77-70 10:19:00 Test Item Value Reference Range Interpretation Comments RBC (test code = RBC) 4.27 4.70-6.10 [facility] SystemClcbrykNIAPKXEOEN6227-68-13 10:19:00 Test Item Value Reference Range Interpretation Comments WBC (test code = WBC) 6.3 3.7-10.4 [facility] SystemWkaqgxtIQGRWAPAQJ2576-30-46 10:19:00 Test Item Value Reference Range Interpretation Comments Monocytes (test code = Monocytes) 8.0 2.0-12.0 [facility] SystemSeurokkLGCRKZXKVY1084-14-03 10:19:00 Test Item Value Reference Range Interpretation Comments Segs (test code = Segs) 65.1 45.0-75.0 [facility] SystemFpccywsFUWUQUXQPE5386-77-35 10:19:00 Test Item Value Reference Range Interpretation Comments Lymphocytes (test code = Lymphocytes) 24.7 20.0-40.0 [facility] SystemSrmxxhfDDJCDMHJCQ6910-63-90 10:19:00 Test Item Value Reference Range Interpretation Comments Basophils (test code = 0.2 See_Comment [Aut omated message] The Basophils) system which ge nerated this result tra nsmitted reference range : <=1.0. The reference r christo was not used to int erpret this result as normal/abnormal . [facility] SystemRetvnmdJERYDCAFBU7955-58-46 10:19:00 Test Item Value Reference Range Interpretation Comments Eosinophils (test code = 2.0 See_Comment [A utomated message] The Eosinophils) system which ge nerated this result tra nsmitted reference range : <=4.0. The reference r christo was not used to int erpret this result as normal/abnormal . [facility] SystemOoxdcaxGGQEOWHCNF9056-14-09 10:19:00 Test Item Value Reference Range Interpretation Comments Lymphocytes # (test code = Lymphocytes 1.6 1.0-5.5 #) [facility] SystemTuadxapYZKFZZGFXM4064-07-75 10:19:00 Test Item Value Reference Range Interpretation Comments Monocytes # (test code 0.5 See_Comment [Aut omated message] The = Monocytes #) system which generated this result tra nsmitted reference range : <=0.8. The reference r christo was not used to int erpret this result as normal/abnormal . [facility] SystemMauideyWBGMXLSNZX5311-37-62 10:19:00 Test Item Value Reference Range Interpretation Comments Segs-Bands # (test code = Segs-Bands #) 4.1 1.5-8.1 [facility] SystemDoczghnNVRUYGFHUG5023-77-81 10:19:00 Test Item Value Reference Range Interpretation Comments Basophils # (test code 0.0 See_Comment [Aut omated message] The = Basophils #) system which generated this result tra nsmitted reference range : <=0.2. The reference r christo was not used to int erpret this result as normal/abnormal . [facility] SystemGoenwjiEGVZHQYAVY3042-32-77 10:19:00 Test Item Value Reference Range Interpretation Comments Eosinophils # (test code 0.1 See_Comment [A utomated message] The = Eosinophils #) system whic h generated this result tra nsmitted reference range : <=0.5. The reference r christo was not used to int erpret this result as normal/abnormal . [facility] [id number] 10:19:00 Test Item Value Reference Range Interpretation Comments Phosphorus (test code = Phosphorus) 3.5 2.5-4.5 [facility]2016-07-25 10:19:00 Test Item Value Reference Range Interpretation Comments Calcium Lvl (test code = Calcium Lvl) 9.2 8.5-10.5 [facility]2016-07-25 10:19:00 Test Item Value Reference Range Interpretation Comments Chloride Lvl (test code = Chloride Lvl) 102 95-109 [facility] OGVKG2914-99-29 10:19:00 Test Item Value Reference Range Interpretation Comments CO2 (test code = CO2) 27 24-32 [facility]2016-07-25 10:19:00 Test Item Value Reference Range Interpretation Comments Potassium Lvl (test code = Potassium 3.6 3.5-5.1 Lvl) [facility]2016-07-25 10:19:00 Test Item Value Reference Range Interpretation Comments Creatinine Lvl (test code = Creatinine 0.78 0.50-1.40 Lvl) [facility]2016-07-25 10:19:00 Test Item Value Reference Range Interpretation Comments Sodium Lvl (test code = Sodium Lvl) 140 135-145 [facility]2016-07-25 10:19:00 Test Item Value Reference Range Interpretation Comments BUN (test code = BUN) 16 7-22 [facility]2016-07-25 10:19:00 Test Item Value Reference Range Interpretation Comments Glucose Lvl (test code = Glucose Lvl) 97 70-99 [facility]2016-07-25 10:19:00 Test Item Value Reference Range Interpretation Comments eGFR (test code = eGFR) 91 [facility]2016-07-25 10:19:00 Test Item Value Reference Range Interpretation Comments AGAP (test code = AGAP) 14.6 10.0-20.0 [facility]2016-07-25 10:19:00 Test Item Value Reference Range Interpretation Comments Magnesium Lvl (test code = Magnesium 2.1 1.8-2.4 Lvl) [facility] SystemKfcrzirXEYBZDPRHE9876-27-53 10:19:00 Test Item Value Reference Range Interpretation Comments MCHC (test code = MCHC) 33.9 32.0-36.0 [facility] SystemOkrtzwaWCQVWLCYJY5445-07-38 10:19:00 Test Item Value Reference Range Interpretation Comments MCV (test code = MCV) 87.7 80.0-94.0 [facility] SystemIwerfwhVAZUOTEMND2922-62-97 10:19:00 Test Item Value Reference Range Interpretation Comments MCH (test code = MCH) 29.8 pg 27.0-31.0 [facility] SystemIqwhgiaASFOVFFUYD6660-86-13 10:19:00 Test Item Value Reference Range Interpretation Comments RDW (test code = RDW) 13.7 11.5-14.5 [facility] SystemGbelyomDYLZOSVUMW6524-01-82 10:19:00 Test Item Value Reference Range Interpretation Comments Platelet (test code = Platelet) 214 133-450 [facility] SystemWdwiorbRJVUVKGQZA2882-75-83 10:19:00 Test Item Value Reference Range Interpretation Comments MPV (test code = MPV) 7.5 7.4-10.4 [facility] SystemRcltyvlMGBGSPVHHP4810-53-58 10:19:00 Test Item Value Reference Range Interpretation Comments Hct (test code = Hct) 37.4 42.0-54.0 [facility] SystemAwhdhnoWKTYJLLIKZ1430-35-00 10:19:00 Test Item Value Reference Range Interpretation Comments Hgb (test code = Hgb) 12.7 14.0-18.0 [facility] SystemDzmgblgHJBNUTLZKM0547-61-64 10:19:00 Test Item Value Reference Range Interpretation Comments RBC (test code = RBC) 4.27 4.70-6.10 [facility] SystemIfsouxhXGOJZJWZSM5308-39-83 10:19:00 Test Item Value Reference Range Interpretation Comments WBC (test code = WBC) 6.3 3.7-10.4 [facility] SystemVjwukmpIQGTTKJLWE4532-20-23 10:19:00 Test Item Value Reference Range Interpretation Comments Monocytes (test code = Monocytes) 8.0 2.0-12.0 [facility] SystemIwlmdzrPJWFKKMTXM0207-65-35 10:19:00 Test Item Value Reference Range Interpretation Comments Segs (test code = Segs) 65.1 45.0-75.0 [facility] SystemYyorsxsJBZWXFQBXF4435-49-65 10:19:00 Test Item Value Reference Range Interpretation Comments Lymphocytes (test code = Lymphocytes) 24.7 20.0-40.0 [facility] SystemNmobutaABYEFCDIJF0618-74-95 10:19:00 Test Item Value Reference Range Interpretation Comments Basophils (test code = 0.2 See_Comment [Aut omated message] The Basophils) system which ge nerated this result tra nsmitted reference range : <=1.0. The reference r christo was not used to int erpret this result as normal/abnormal . [facility] SystemTqassjmUEXYKPWLWB5500-97-27 10:19:00 Test Item Value Reference Range Interpretation Comments Eosinophils (test code = 2.0 See_Comment [A utomated message] The Eosinophils) system which ge nerated this result tra nsmitted reference range : <=4.0. The reference r christo was not used to int erpret this result as normal/abnormal . [facility] SystemTqnmtjlZLBAJFWWCS1153-75-54 10:19:00 Test Item Value Reference Range Interpretation Comments Lymphocytes # (test code = Lymphocytes 1.6 1.0-5.5 #) [facility] SystemRnucjcuKEHTDIKKKZ0031-28-15 10:19:00 Test Item Value Reference Range Interpretation Comments Monocytes # (test code 0.5 See_Comment [Aut omated message] The = Monocytes #) system which generated this result tra nsmitted reference range : <=0.8. The reference r christo was not used to int erpret this result as normal/abnormal . [facility] SystemWkhgfdyPNCZNWKAIH2642-89-59 10:19:00 Test Item Value Reference Range Interpretation Comments Segs-Bands # (test code = Segs-Bands #) 4.1 1.5-8.1 [facility] SystemPzsnkotXFFWXYQOUL0803-66-98 10:19:00 Test Item Value Reference Range Interpretation Comments Basophils # (test code 0.0 See_Comment [Aut omated message] The = Basophils #) system which generated this result tra nsmitted reference range : <=0.2. The reference r christo was not used to int erpret this result as normal/abnormal . [facility] SystemUehseplUSACFSKFFS4711-59-71 10:19:00 Test Item Value Reference Range Interpretation Comments Eosinophils # (test code 0.1 See_Comment [A utomated message] The = Eosinophils #) system whic h generated this result tra nsmitted reference range : <=0.5. The reference r christo was not used to int erpret this result as normal/abnormal . [facility]2016-07-22 10:25:00 Test Item Value Reference Range Interpretation Comments eGFR (test code = eGFR) 94 [facility]2016-07-22 10:25:00 Test Item Value Reference Range Interpretation Comments Potassium Lvl (test code = Potassium 3.3 3.5-5.1 Lvl) [facility]2016-07-22 10:25:00 Test Item Value Reference Range Interpretation Comments Sodium Lvl (test code = Sodium Lvl) 141 135-145 [facility]2016-07-22 10:25:00 Test Item Value Reference Range Interpretation Comments CO2 (test code = CO2) 28 24-32 [facility]2016-07-22 10:25:00 Test Item Value Reference Range Interpretation Comments Chloride Lvl (test code = Chloride Lvl) 103 95-109 [facility]2016-07-22 10:25:00 Test Item Value Reference Range Interpretation Comments Calcium Lvl (test code = Calcium Lvl) 8.3 8.5-10.5 [facility]2016-07-22 10:25:00 Test Item Value Reference Range Interpretation Comments BUN (test code = BUN) 10 7-22 [facility]2016-07-22 10:25:00 Test Item Value Reference Range Interpretation Comments Glucose Lvl (test code = Glucose Lvl) 107 70-99 [facility]2016-07-22 10:25:00 Test Item Value Reference Range Interpretation Comments Creatinine Lvl (test code = Creatinine 0.72 0.50-1.40 Lvl) [facility]2016-07-22 10:25:00 Test Item Value Reference Range Interpretation Comments AGAP (test code = AGAP) 13.3 10.0-20.0 [facility] SystemIxmxiwpRTWDZDRNEH3956-17-07 10:25:00 Test Item Value Reference Range Interpretation Comments Eosinophils # (test code 0.2 See_Comment [A utomated message] The = Eosinophils #) system [facility] generated this result tra nsmitted reference range : <=0.5. The reference r christo was not used to int erpret this result as normal/abnormal . [facility] SystemOzvjrjzPMBMPUSGMJ2722-51-83 10:25:00 Test Item Value Reference Range Interpretation Comments Lymphocytes # (test code = Lymphocytes 1.3 1.0-5.5 #) [facility] SystemDralgykAAIUWZKWHT9978-80-67 10:25:00 Test Item Value Reference Range Interpretation Comments Monocytes # (test code 0.6 See_Comment [Aut omated message] The = Monocytes #) system which generated this result tra nsmitted reference range : <=0.8. The reference r christo was not used to int erpret this result as normal/abnormal . [facility] SystemIcgrmowBJMUARTYDV9535-69-93 10:25:00 Test Item Value Reference Range Interpretation Comments Monocytes (test code = Monocytes) 10.4 2.0-12.0 [facility] SystemXeanlsaZLODFNERKU6135-76-09 10:25:00 Test Item Value Reference Range Interpretation Comments Lymphocytes (test code = Lymphocytes) 22.5 20.0-40.0 [facility] SystemNkhvkwxDVOAXPPAZB8012-93-27 10:25:00 Test Item Value Reference Range Interpretation Comments Segs-Bands # (test code = Segs-Bands #) 3.6 1.5-8.1 [facility] SystemYheismjICLLWLTHYU9187-97-47 10:25:00 Test Item Value Reference Range Interpretation Comments Basophils (test code = 0.8 See_Comment [Aut omated message] The Basophils) system which ge nerated this result tra nsmitted reference range : <=1.0. The reference r christo was not used to int erpret this result as normal/abnormal . [facility] SystemNmjinyiRETKJKZBTN1014-03-14 10:25:00 Test Item Value Reference Range Interpretation Comments Eosinophils (test code = 2.9 See_Comment [A utomated message] The Eosinophils) system which ge nerated this result tra nsmitted reference range : <=4.0. The reference r christo was not used to int erpret this result as normal/abnormal . [facility] SystemAiencbrFFQRGJLQKA2920-90-39 10:25:00 Test Item Value Reference Range Interpretation Comments Segs (test code = Segs) 63.4 45.0-75.0 [facility] SystemVizpxujPERUZKRURM1506-87-96 10:25:00 Test Item Value Reference Range Interpretation Comments MCH (test code = MCH) 30.3 pg 27.0-31.0 [facility] SystemKilzxagXKTDOOIEJZ9179-08-00 10:25:00 Test Item Value Reference Range Interpretation Comments MCHC (test code = MCHC) 34.7 32.0-36.0 [facility] SystemJryahenOCAHIWZQTF7838-29-28 10:25:00 Test Item Value Reference Range Interpretation Comments MCV (test code = MCV) 87.2 80.0-94.0 [facility] SystemSletpwrYPOBGBGBKI7291-65-34 10:25:00 Test Item Value Reference Range Interpretation Comments Hgb (test code = Hgb) 12.3 14.0-18.0 [facility] SystemWdcupylJKYKKJGDPQ8734-84-69 10:25:00 Test Item Value Reference Range Interpretation Comments Hct (test code = Hct) 35.4 42.0-54.0 [facility] SystemSrjawodGMPWWPQJFL0585-32-88 10:25:00 Test Item Value Reference Range Interpretation Comments WBC (test code = WBC) 5.6 3.7-10.4 [facility] SystemVxtdwimAVTVJRRNCD3997-12-26 10:25:00 Test Item Value Reference Range Interpretation Comments RBC (test code = RBC) 4.05 4.70-6.10 [facility] SystemWgfppcuSIAXHPDVBH4528-40-82 10:25:00 Test Item Value Reference Range Interpretation Comments RDW (test code = RDW) 14.4 11.5-14.5 [facility] SystemChkmuhzQYEUSRPGPW6298-44-91 10:25:00 Test Item Value Reference Range Interpretation Comments MPV (test code = MPV) 8.0 7.4-10.4 [facility] SystemZifkvhoXJYZWYGOII9143-37-10 10:25:00 Test Item Value Reference Range Interpretation Comments Platelet (test code = Platelet) 158 133-450 [facility]2016-07-22 10:25:00 Test Item Value Reference Range Interpretation Comments eGFR (test code = eGFR) 94 [facility]2016-07-22 10:25:00 Test Item Value Reference Range Interpretation Comments Potassium Lvl (test code = Potassium 3.3 3.5-5.1 Lvl) [facility]2016-07-22 10:25:00 Test Item Value Reference Range Interpretation Comments Sodium Lvl (test code = Sodium Lvl) 141 135-145 [facility]2016-07-22 10:25:00 Test Item Value Reference Range Interpretation Comments CO2 (test code = CO2) 28 24-32 [facility]2016-07-22 10:25:00 Test Item Value Reference Range Interpretation Comments Chloride Lvl (test code = Chloride Lvl) 103 95-109 [facility]2016-07-22 10:25:00 Test Item Value Reference Range Interpretation Comments Calcium Lvl (test code = Calcium Lvl) 8.3 8.5-10.5 [facility]2016-07-22 10:25:00 Test Item Value Reference Range Interpretation Comments BUN (test code = BUN) 10 - [facility]2016-07-22 10:25:00 Test Item Value Reference Range Interpretation Comments Glucose Lvl (test code = Glucose Lvl) 107 70-99 [facility]2016-07-22 10:25:00 Test Item Value Reference Range Interpretation Comments Creatinine Lvl (test code = Creatinine 0.72 0.50-1.40 Lvl) [facility]2016-07-22 10:25:00 Test Item Value Reference Range Interpretation Comments AGAP (test code = AGAP) 13.3 10.0-20.0 [facility] SystemJzbdkhjLJRYWFICNU3549-52-44 10:25:00 Test Item Value Reference Range Interpretation Comments Eosinophils # (test code 0.2 See_Comment [A utomated message] The = Eosinophils #) system whic h generated this result tra nsmitted reference range : <=0.5. The reference r christo was not used to int erpret this result as normal/abnormal . [facility] SystemTjklrnnSGDNMNOPYH2283-74-81 10:25:00 Test Item Value Reference Range Interpretation Comments Lymphocytes # (test code = Lymphocytes 1.3 1.0-5.5 #) [facility] SystemDrmopemRNOOMIBVSA7929-44-68 10:25:00 Test Item Value Reference Range Interpretation Comments Monocytes # (test code 0.6 See_Comment [Aut omated message] The = Monocytes #) system which generated this result tra nsmitted reference range : <=0.8. The reference r christo was not used to int erpret this result as normal/abnormal . [facility] SystemDaqjsyzPFKGHHEJVI7524-46-18 10:25:00 Test Item Value Reference Range Interpretation Comments Monocytes (test code = Monocytes) 10.4 2.0-12.0 [facility] SystemTjsrbjnRJPLTAMZLC2385-13-40 10:25:00 Test Item Value Reference Range Interpretation Comments Lymphocytes (test code = Lymphocytes) 22.5 20.0-40.0 [facility] SystemYyvudplYOLESGORKD1107-20-90 10:25:00 Test Item Value Reference Range Interpretation Comments Segs-Bands # (test code = Segs-Bands #) 3.6 1.5-8.1 [facility] SystemNlctqdwPSVVWSEEKF0591-19-25 10:25:00 Test Item Value Reference Range Interpretation Comments Basophils (test code = 0.8 See_Comment [Aut omated message] The Basophils) system which ge nerated this result tra nsmitted reference range : <=1.0. The reference r christo was not used to int erpret this result as normal/abnormal . [facility] SystemEhjuselAJFTDMLKUT0290-54-90 10:25:00 Test Item Value Reference Range Interpretation Comments Eosinophils (test code = 2.9 See_Comment [A utomated message] The Eosinophils) system which ge nerated this result tra nsmitted reference range : <=4.0. The reference r christo was not used to int erpret this result as normal/abnormal . [facility] SystemUhdjjktLKYMMVKPID9873-99-99 10:25:00 Test Item Value Reference Range Interpretation Comments Segs (test code = Segs) 63.4 45.0-75.0 [facility] SystemYcfqvwgFMEEDZKRJP7753-06-49 10:25:00 Test Item Value Reference Range Interpretation Comments MCH (test code = MCH) 30.3 pg 27.0-31.0 [facility] SystemYzhhfluNRRILIRYJG8318-58-98 10:25:00 Test Item Value Reference Range Interpretation Comments MCHC (test code = MCHC) 34.7 32.0-36.0 [facility] SystemCpjawghCTZBGRDDFJ2488-31-69 10:25:00 Test Item Value Reference Range Interpretation Comments MCV (test code = MCV) 87.2 80.0-94.0 [facility] SystemAcugpvaFTOKXLFGWN8652-69-96 10:25:00 Test Item Value Reference Range Interpretation Comments Hgb (test code = Hgb) 12.3 14.0-18.0 [facility] SystemXcwcudrOHFUMNKHVF9358-24-31 10:25:00 Test Item Value Reference Range Interpretation Comments Hct (test code = Hct) 35.4 42.0-54.0 [facility] SystemUnhwpveHIHBRSFCZS6862-78-20 10:25:00 Test Item Value Reference Range Interpretation Comments WBC (test code = WBC) 5.6 3.7-10.4 [facility] SystemImgawobQELDYRGKBS5549-51-19 10:25:00 Test Item Value Reference Range Interpretation Comments RBC (test code = RBC) 4.05 4.70-6.10 [facility] SystemAlhtorbZNNWGKYMNI3094-91-55 10:25:00 Test Item Value Reference Range Interpretation Comments RDW (test code = RDW) 14.4 11.5-14.5 [facility] SystemFsxxuviTWIHJVEMNT2197-35-99 10:25:00 Test Item Value Reference Range Interpretation Comments MPV (test code = MPV) 8.0 7.4-10.4 [facility] SystemGhedqopGICXRCWEHP0103-33-55 10:25:00 Test Item Value Reference Range Interpretation Comments Platelet (test code = Platelet) 158 133-450 [facility]2016-07-22 10:25:00 Test Item Value Reference Range Interpretation Comments eGFR (test code = eGFR) 94 [facility]2016-07-22 10:25:00 Test Item Value Reference Range Interpretation Comments Potassium Lvl (test code = Potassium 3.3 3.5-5.1 Lvl) [facility]2016-07-22 10:25:00 Test Item Value Reference Range Interpretation Comments Sodium Lvl (test code = Sodium Lvl) 141 135-145 [facility]2016-07-22 10:25:00 Test Item Value Reference Range Interpretation Comments CO2 (test code = CO2) 28 24-32 [facility] [facility] 10:25:00 Test Item Value Reference Range Interpretation Comments Chloride Lvl (test code = Chloride Lvl) 103 95-109 [facility]2016-07-22 10:25:00 Test Item Value Reference Range Interpretation Comments Calcium Lvl (test code = Calcium Lvl) 8.3 8.5-10.5 [facility]2016-07-22 10:25:00 Test Item Value Reference Range Interpretation Comments BUN (test code = BUN) 10 7-22 [facility]2016-07-22 10:25:00 Test Item Value Reference Range Interpretation Comments Glucose Lvl (test code = Glucose Lvl) 107 70-99 [facility]2016-07-22 10:25:00 Test Item Value Reference Range Interpretation Comments Creatinine Lvl (test code = Creatinine 0.72 0.50-1.40 Lvl) [facility]2016-07-22 10:25:00 Test Item Value Reference Range Interpretation Comments AGAP (test code = AGAP) 13.3 10.0-20.0 [facility]DvcwnqhRCZBHZDORY7934-92-95 10:25:00 Test Item Value Reference Range Interpretation Comments Eosinophils # (test code 0.2 See_Comment [A utomated message] The = Eosinophils #) system whic h generated this result tra nsmitted reference range : <=0.5. The reference r christo was not used to int erpret this result as normal/abnormal . [facility] SystemXrsfcaaHXRJOKMDDV0734-85-50 10:25:00 Test Item Value Reference Range Interpretation Comments Lymphocytes # (test code = Lymphocytes 1.3 1.0-5.5 #) [facility] SystemOnejemxOXIVITNFIT4237-65-43 10:25:00 Test Item Value Reference Range Interpretation Comments Monocytes # (test code 0.6 See_Comment [Aut omated message] The = Monocytes #) system which generated this result tra nsmitted reference range : <=0.8. The reference r christo was not used to int erpret this result as normal/abnormal . [facility] SystemRoavylhBAGBWYYLTW6952-54-40 10:25:00 Test Item Value Reference Range Interpretation Comments Monocytes (test code = Monocytes) 10.4 2.0-12.0 [facility] SystemZrphjzdHEEFKYRIPW4900-37-62 10:25:00 Test Item Value Reference Range Interpretation Comments Lymphocytes (test code = Lymphocytes) 22.5 20.0-40.0 [facility] SystemEexjtkdCOVHCMONJT6575-31-37 10:25:00 Test Item Value Reference Range Interpretation Comments Segs-Bands # (test code = Segs-Bands #) 3.6 1.5-8.1 [facility] SystemBwyzukaCUUUQACUPD9938-34-25 10:25:00 Test Item Value Reference Range Interpretation Comments Basophils (test code = 0.8 See_Comment [Aut omated message] The Basophils) system which ge nerated this result tra nsmitted reference range : <=1.0. The reference r christo was not used to int erpret this result as normal/abnormal . [facility] SystemCgfdukoUNBLGOUVIO0568-90-58 10:25:00 Test Item Value Reference Range Interpretation Comments Eosinophils (test code = 2.9 See_Comment [A utomated message] The Eosinophils) system which ge nerated this result tra nsmitted reference range : <=4.0. The reference r christo was not used to int erpret this result as normal/abnormal . [facility] SystemXndnqeaZQOIIEEEUI3920-16-77 10:25:00 Test Item Value Reference Range Interpretation Comments Segs (test code = Segs) 63.4 45.0-75.0 [facility] SystemGyimrdaFGFTPKGORY0366-08-42 10:25:00 Test Item Value Reference Range Interpretation Comments MCH (test code = MCH) 30.3 pg 27.0-31.0 [facility] SystemUrmzbzgGRIIPFPNTY8213-79-02 10:25:00 Test Item Value Reference Range Interpretation Comments MCHC (test code = MCHC) 34.7 32.0-36.0 [facility] SystemKofiiodZGZQCZBBMM7731-89-99 10:25:00 Test Item Value Reference Range Interpretation Comments MCV (test code = MCV) 87.2 80.0-94.0 [facility] SystemRavjqlsFSKGVLTODQ6230-97-75 10:25:00 Test Item Value Reference Range Interpretation Comments Hgb (test code = Hgb) 12.3 14.0-18.0 [facility] SystemTiwnythSZWHYHLCGP5793-95-59 10:25:00 Test Item Value Reference Range Interpretation Comments Hct (test code = Hct) 35.4 42.0-54.0 [facility] SystemXenolqpRICJGEYBXU2715-75-71 10:25:00 Test Item Value Reference Range Interpretation Comments WBC (test code = WBC) 5.6 3.7-10.4 [facility] SystemKnudnxfNDVKFALIJI6236-81-43 10:25:00 Test Item Value Reference Range Interpretation Comments RBC (test code = RBC) 4.05 4.70-6.10 [facility] SystemMpugozwKHJOAPAMAS6334-15-37 10:25:00 Test Item Value Reference Range Interpretation Comments RDW (test code = RDW) 14.4 11.5-14.5 [facility] SystemTbyxbvlGHGZVJTNXR8840-10-27 10:25:00 Test Item Value Reference Range Interpretation Comments MPV (test code = MPV) 8.0 7.4-10.4 [facility] SystemYlzxeocNDECWOIYJX6571-17-38 10:25:00 Test Item Value Reference Range Interpretation Comments Platelet (test code = Platelet) 158 133-450 [place] 20087016-07-21 16:34:00 Test Item Value Reference Range Interpretation Comments Vanco Tr TND (test code = Vanco Tr TND) [address] [place] 20087016-07-21 16:34:00 Test Item Value Reference Range Interpretation Comments Vanco Tr (test code = Vanco Tr) 6.9 [facility]emtijqXVHZIUXPQL5608-85-78 16:34:00 Test Item Value Reference Range Interpretation Comments Vanco Tr TND (test code = Vanco Tr TND) [address] [place] [id number] 16:34:00 Test Item Value Reference Range Interpretation Comments Vanco Tr (test code = Vanco Tr) 6.9 [place] [id number] 16:34:00 Test Item Value Reference Range Interpretation Comments Vanco Tr TND (test code = Vanco Tr TND) [address] [place] [id number] 16:34:00 Test Item Value Reference Range Interpretation Comments Vanco Tr (test code = Vanco Tr) 6.9 [facility]2016-07-20 10:04:00 Test Item Value Reference Range Interpretation Comments Magnesium Lvl (test code = Magnesium 1.8 1.8-2.4 Lvl) [facility]2016-07-20 10:04:00 Test Item Value Reference Range Interpretation Comments Calcium Lvl (test code = Calcium Lvl) 8.3 8.5-10.5 [facility]2016-07-20 10:04:00 Test Item Value Reference Range Interpretation Comments eGFR (test code = eGFR) 75 [facility]2016-07-20 10:04:00 Test Item Value Reference Range Interpretation Comments CO2 (test code = CO2) 28 24-32 [facility]2016-07-20 10:04:00 Test Item Value Reference Range Interpretation Comments AGAP (test code = AGAP) 12.0 10.0-20.0 [facility]2016-07-20 10:04:00 Test Item Value Reference Range Interpretation Comments Chloride Lvl (test code = Chloride Lvl) 99 95-109 [facility]2016-07-20 10:04:00 Test Item Value Reference Range Interpretation Comments Sodium Lvl (test code = Sodium Lvl) 136 135-145 [facility]2016-07-20 10:04:00 Test Item Value Reference Range Interpretation Comments BUN (test code = BUN) 17 7-22 [facility]2016-07-20 10:04:00 Test Item Value Reference Range Interpretation Comments Potassium Lvl (test code = Potassium 3.0 3.5-5.1 Lvl) [facility]2016-07-20 10:04:00 Test Item Value Reference Range Interpretation Comments Creatinine Lvl (test code = Creatinine 1.00 0.50-1.40 Lvl) [facility]2016-07-20 10:04:00 Test Item Value Reference Range Interpretation Comments Glucose Lvl (test code = Glucose Lvl) 119 70-99 [facility] SystemVvkhpcaJTGJVAWCRT1268-99-55 10:04:00 Test Item Value Reference Range Interpretation Comments Monocytes # (test code 0.8 See_Comment [Aut omated message] The = Monocytes #) system which generated this result tra nsmitted reference range : <=0.8. The reference r christo was not used to int erpret this result as normal/abnormal . [facility] SystemGvvbgqnYPIIFCSMUG3684-50-93 10:04:00 Test Item Value Reference Range Interpretation Comments Basophils # (test code 0.2 See_Comment [Aut omated message] The = Basophils #) system which generated this result tra nsmitted reference range : <=0.2. The reference r christo was not used to int erpret this result as normal/abnormal . [facility] SystemKeapdszRMZZNILUGS6283-76-77 10:04:00 Test Item Value Reference Range Interpretation Comments Monocytes (test code = Monocytes) 4.0 2.0-12.0 [facility] SystemYfkghxdWDTOXMOHGP7507-06-61 10:04:00 Test Item Value Reference Range Interpretation Comments Segs (test code = Segs) 85.0 45.0-75.0 [facility] SystemNqtnsziJSDNLJXKLE4634-48-09 10:04:00 Test Item Value Reference Range Interpretation Comments Basophils (test code = 1.0 See_Comment [Aut omated message] The Basophils) system which ge nerated this result tra nsmitted reference range : <=1.0. The reference r christo was not used to int erpret this result as normal/abnormal . [facility] SystemAffbpcpNDLKJPNHDG7502-40-12 10:04:00 Test Item Value Reference Range Interpretation Comments Plt Morph (test code = Normal (11/20/15 5:04 Plt Morph) AM) [facility] SystemKyfbyvmYGEFKBFAVU7740-37-11 10:04:00 Test Item Value Reference Range Interpretation Comments Atypical Lymphs (test code = Atypical 0.0 Lymphs) [facility] SystemWehflsaOKHDIRGPNR6271-62-86 10:04:00 Test Item Value Reference Range Interpretation Comments Bands (test code = 1.0 See_Comment [Automat ed message] The Bands) system which ge nerated this result transmit jose reference range : <=11.0. The reference r christo was not used to interpr et this result as [place] l/abnormal. [facility] SystemIxackuzUJVEHDWKSZ9789-64-96 10:04:00 Test Item Value Reference Range Interpretation Comments Lymphocytes (test code = Lymphocytes) 9.0 20.0-40.0 [facility] SystemEoqfrivHYJYZOAHAC1713-75-57 10:04:00 Test Item Value Reference Range Interpretation Comments Segs-Bands # (test code = Segs-Bands #) 16.6 1.5-8.1 [facility] SystemAolpwosAYULUQGTOS3456-75-42 10:04:00 Test Item Value Reference Range Interpretation Comments Lymphocytes # (test code = Lymphocytes 1.7 1.0-5.5 #) [facility] SystemPwmfnfeWAGSDTRBOK6033-40-32 10:04:00 Test Item Value Reference Range Interpretation Comments Platelet (test code = Platelet) 174 133-450 [facility] SystemIguwzvtQONOUROEJD8520-86-52 10:04:00 Test Item Value Reference Range Interpretation Comments MPV (test code = MPV) 8.1 7.4-10.4 [facility] SystemXcalavbUWBOHQOIVK1744-58-78 10:04:00 Test Item Value Reference Range Interpretation Comments RDW (test code = RDW) 13.5 11.5-14.5 [facility] SystemPdjfsmqRLZVHENKMY8532-71-71 10:04:00 Test Item Value Reference Range Interpretation Comments MCH (test code = MCH) 29.9 pg 27.0-31.0 [facility] SystemRitkwinLLETNUEDSP3420-74-68 10:04:00 Test Item Value Reference Range Interpretation Comments Hgb (test code = Hgb) 12.6 14.0-18.0 [facility] SystemWgabavxDMCLIWYNIE9878-98-42 10:04:00 Test Item Value Reference Range Interpretation Comments MCHC (test code = MCHC) 34.0 32.0-36.0 [facility] SystemIkmfiivITOBNWCBTV3521-18-57 10:04:00 Test Item Value Reference Range Interpretation Comments Hct (test code = Hct) 37.1 42.0-54.0 [facility] SystemAbrfgqzFKFKISZNCL8267-00-90 10:04:00 Test Item Value Reference Range Interpretation Comments MCV (test code = MCV) 87.8 80.0-94.0 [facility] SystemVvuderjQIXJJQYPLQ1061-18-22 10:04:00 Test Item Value Reference Range Interpretation Comments WBC (test code = WBC) 19.3 3.7-10.4 [facility] SystemKhqbqtjYRZUKECLDH9619-60-41 10:04:00 Test Item Value Reference Range Interpretation Comments RBC (test code = RBC) 4.23 4.70-6.10 [facility]2016-07-20 10:04:00 Test Item Value Reference Range Interpretation Comments Magnesium Lvl (test code = Magnesium 1.8 1.8-2.4 Lvl) [facility]2016-07-20 10:04:00 Test Item Value Reference Range Interpretation Comments Calcium Lvl (test code = Calcium Lvl) 8.3 8.5-10.5 [facility]2016-07-20 10:04:00 Test Item Value Reference Range Interpretation Comments eGFR (test code = eGFR) 75 [facility]2016-07-20 10:04:00 Test Item Value Reference Range Interpretation Comments CO2 (test code = CO2) 28 24-32 [facility]2016-07-20 10:04:00 Test Item Value Reference Range Interpretation Comments AGAP (test code = AGAP) 12.0 10.0-20.0 [facility]2016-07-20 10:04:00 Test Item Value Reference Range Interpretation Comments Chloride Lvl (test code = Chloride Lvl) 99 95-109 [facility]2016-07-20 10:04:00 Test Item Value Reference Range Interpretation Comments Sodium Lvl (test code = Sodium Lvl) 136 135-145 [facility]2016-07-20 10:04:00 Test Item Value Reference Range Interpretation Comments BUN (test code = BUN) 17 7-22 [facility]2016-07-20 10:04:00 Test Item Value Reference Range Interpretation Comments Potassium Lvl (test code = Potassium 3.0 3.5-5.1 Lvl) [facility]2016-07-20 10:04:00 Test Item Value Reference Range Interpretation Comments Creatinine Lvl (test code = Creatinine 1.00 0.50-1.40 Lvl) [facility]2016-07-20 10:04:00 Test Item Value Reference Range Interpretation Comments Glucose Lvl (test code = Glucose Lvl) 119 70-99 [facility] SystemFffqrbiJGEVALSRXT6785-11-75 10:04:00 Test Item Value Reference Range Interpretation Comments Monocytes # (test code 0.8 See_Comment [Aut omated message] The = Monocytes #) system which generated this result tra nsmitted reference range : <=0.8. The reference r christo was not used to int erpret this result as normal/abnormal . [facility] SystemRkdskktYDSFIZCVLP5534-05-28 10:04:00 Test Item Value Reference Range Interpretation Comments Basophils # (test code 0.2 See_Comment [Aut omated message] The = Basophils #) system which generated this result tra nsmitted reference range : <=0.2. The reference r christo was not used to int erpret this result as normal/abnormal . [facility] SystemGjxgjemCWJHVYXWJY9165-24-91 10:04:00 Test Item Value Reference Range Interpretation Comments Monocytes (test code = Monocytes) 4.0 2.0-12.0 [facility] SystemEakczqgNKNZWOZODO2475-68-25 10:04:00 Test Item Value Reference Range Interpretation Comments Segs (test code = Segs) 85.0 45.0-75.0 [facility] SystemHwwkrkhUONWZRHLFN2862-88-74 10:04:00 Test Item Value Reference Range Interpretation Comments Basophils (test code = 1.0 See_Comment [Aut omated message] The Basophils) system which ge nerated this result tra nsmitted reference range : <=1.0. The reference r christo was not used to int erpret this result as normal/abnormal . [facility] SystemKftclcrABGOMVSNSV0584-49-38 10:04:00 Test Item Value Reference Range Interpretation Comments Plt Morph (test code = Normal (11/20/15 5:04 Plt Morph) AM) [facility] SystemSeenssfAVMAPBDCHB1434-72-38 10:04:00 Test Item Value Reference Range Interpretation Comments Atypical Lymphs (test code = Atypical 0.0 Lymphs) [facility] SystemPvdgdrqOCMSPUHHEM4240-31-42 10:04:00 Test Item Value Reference Range Interpretation Comments Bands (test code = 1.0 See_Comment [Automat ed message] The Bands) system which ge nerated this result transmit jose reference range : <=11.0. The reference r christo was not used to interpr et this result as [place] l/abnormal. [facility] SystemEjuzvdqISGQMWCTYQ1776-11-36 10:04:00 Test Item Value Reference Range Interpretation Comments Lymphocytes (test code = Lymphocytes) 9.0 20.0-40.0 [facility] SystemUbsxsgpIOEOZLCKJT5963-06-86 10:04:00 Test Item Value Reference Range Interpretation Comments Segs-Bands # (test code = Segs-Bands #) 16.6 1.5-8.1 [facility] SystemMjmhellIRDDGXLMAJ9972-58-87 10:04:00 Test Item Value Reference Range Interpretation Comments Lymphocytes # (test code = Lymphocytes 1.7 1.0-5.5 #) [facility] SystemAdjhhmcNIJHSMDQND7855-08-67 10:04:00 Test Item Value Reference Range Interpretation Comments Platelet (test code = Platelet) 174 133-450 [facility] SystemXzhvnveYBVTDBRBNQ3427-91-18 10:04:00 Test Item Value Reference Range Interpretation Comments MPV (test code = MPV) 8.1 7.4-10.4 [facility] SystemScsxvonRAMPLOBWEA2195-52-09 10:04:00 Test Item Value Reference Range Interpretation Comments RDW (test code = RDW) 13.5 11.5-14.5 [facility] SystemEyigifbMMIWDACZCJ1302-41-43 10:04:00 Test Item Value Reference Range Interpretation Comments MCH (test code = MCH) 29.9 pg 27.0-31.0 [facility] SystemSpxhtczGDYNHHGXRQ4338-52-88 10:04:00 Test Item Value Reference Range Interpretation Comments Hgb (test code = Hgb) 12.6 14.0-18.0 [facility] SystemGotgrzfSFGUNAAGXF2297-43-83 10:04:00 Test Item Value Reference Range Interpretation Comments MCHC (test code = MCHC) 34.0 32.0-36.0 [facility] SystemFqtcazoSZOANAPLYX1076-48-69 10:04:00 Test Item Value Reference Range Interpretation Comments Hct (test code = Hct) 37.1 42.0-54.0 [facility] SystemUbjokauKDGVOZOXKC8385-18-02 10:04:00 Test Item Value Reference Range Interpretation Comments MCV (test code = MCV) 87.8 80.0-94.0 [facility] SystemDrvkckuXOSTASGSZZ5737-74-05 10:04:00 Test Item Value Reference Range Interpretation Comments WBC (test code = WBC) 19.3 3.7-10.4 [facility] SystemYokpnkeRRFESNJYDU5553-20-45 10:04:00 Test Item Value Reference Range Interpretation Comments RBC (test code = RBC) 4.23 4.70-6.10 [facility]2016-07-20 10:04:00 Test Item Value Reference Range Interpretation Comments Magnesium Lvl (test code = Magnesium 1.8 1.8-2.4 Lvl) [facility]2016-07-20 10:04:00 Test Item Value Reference Range Interpretation Comments Calcium Lvl (test code = Calcium Lvl) 8.3 8.5-10.5 [facility]2016-07-20 10:04:00 Test Item Value Reference Range Interpretation Comments eGFR (test code = eGFR) 75 [facility]2016-07-20 10:04:00 Test Item Value Reference Range Interpretation Comments CO2 (test code = CO2) 28 24-32 [facility]2016-07-20 10:04:00 Test Item Value Reference Range Interpretation Comments AGAP (test code = AGAP) 12.0 10.0-20.0 [facility]2016-07-20 10:04:00 Test Item Value Reference Range Interpretation Comments Chloride Lvl (test code = Chloride Lvl) 99 95-109 [facility]2016-07-20 10:04:00 Test Item Value Reference Range Interpretation Comments Sodium Lvl (test code = Sodium Lvl) 136 135-145 [facility]2016-07-20 10:04:00 Test Item Value Reference Range Interpretation Comments BUN (test code = BUN) 17 7-22 [facility]2016-07-20 10:04:00 Test Item Value Reference Range Interpretation Comments Potassium Lvl (test code = Potassium 3.0 3.5-5.1 Lvl) [facility]2016-07-20 10:04:00 Test Item Value Reference Range Interpretation Comments Creatinine Lvl (test code = Creatinine 1.00 0.50-1.40 Lvl) [facility]2016-07-20 10:04:00 Test Item Value Reference Range Interpretation Comments Glucose Lvl (test code = Glucose Lvl) 119 70-99 [facility]YexahuvVBOGQSCKFK4390-29-96 10:04:00 Test Item Value Reference Range Interpretation Comments Monocytes # (test code 0.8 See_Comment [Aut omated message] The = Monocytes #) system which generated this result tra nsmitted reference range : <=0.8. The reference r christo was not used to int erpret this result as normal/abnormal . [facility] SystemLprfeysTVIWUNGDTD4588-20-31 10:04:00 Test Item Value Reference Range Interpretation Comments Basophils # (test code 0.2 See_Comment [Aut omated message] The = Basophils #) system which generated this result tra nsmitted reference range : <=0.2. The reference r christo was not used to int erpret this result as normal/abnormal . [facility] SystemOajzgmmCFLBQQHIXO4081-84-64 10:04:00 Test Item Value Reference Range Interpretation Comments Monocytes (test code = Monocytes) 4.0 2.0-12.0 [facility] SystemBzkwazpLNOFJVGMQU1234-11-04 10:04:00 Test Item Value Reference Range Interpretation Comments Segs (test code = Segs) 85.0 45.0-75.0 [facility] SystemTsfbdwlYXSHWGMVJS2314-56-11 10:04:00 Test Item Value Reference Range Interpretation Comments Basophils (test code = 1.0 See_Comment [Aut omated message] The Basophils) system which ge nerated this result tra nsmitted reference range : <=1.0. The reference r christo was not used to int erpret this result as normal/abnormal . [facility] SystemHarnizlWAXLURCLAE7998-61-68 10:04:00 Test Item Value Reference Range Interpretation Comments Plt Morph (test code = Normal (11/20/15 5:04 Plt Morph) AM) [facility] SystemJpxjvxkALGNEJUIQX1284-47-07 10:04:00 Test Item Value Reference Range Interpretation Comments Atypical Lymphs (test code = Atypical 0.0 Lymphs) [facility] SystemUcqmdhkYEOBFYWLOZ9132-63-47 10:04:00 Test Item Value Reference Range Interpretation Comments Bands (test code = 1.0 See_Comment [Automat ed message] The Bands) system which ge nerated this result transmit jose reference range : <=11.0. The reference r christo was not used to interpr et this result as [place] l/abnormal. [facility] SystemIakubtmMILWDMKEES2244-31-01 10:04:00 Test Item Value Reference Range Interpretation Comments Lymphocytes (test code = Lymphocytes) 9.0 20.0-40.0 [facility] SystemGgnncmiITVQAYYCOS0058-84-63 10:04:00 Test Item Value Reference Range Interpretation Comments Segs-Bands # (test code = Segs-Bands #) 16.6 1.5-8.1 [facility] SystemXdispjvKVEGSKMZLI7248-76-32 10:04:00 Test Item Value Reference Range Interpretation Comments Lymphocytes # (test code = Lymphocytes 1.7 1.0-5.5 #) [facility] SystemXwkowztASQSDDEKUU5895-47-36 10:04:00 Test Item Value Reference Range Interpretation Comments Platelet (test code = Platelet) 174 133-450 [facility] SystemPstaswqADMJSEERGS3848-81-22 10:04:00 Test Item Value Reference Range Interpretation Comments MPV (test code = MPV) 8.1 7.4-10.4 [facility] SystemXchccjiHGUYMXDJYV6993-64-78 10:04:00 Test Item Value Reference Range Interpretation Comments RDW (test code = RDW) 13.5 11.5-14.5 [facility] SystemCgyaflkPODZCDROXN7169-95-34 10:04:00 Test Item Value Reference Range Interpretation Comments MCH (test code = MCH) 29.9 pg 27.0-31.0 [facility] SystemTjnejmnTZIOVRUHLA8343-55-47 10:04:00 Test Item Value Reference Range Interpretation Comments Hgb (test code = Hgb) 12.6 14.0-18.0 [facility] SystemTyucyzeTCDBOTIQNN8233-79-45 10:04:00 Test Item Value Reference Range Interpretation Comments MCHC (test code = MCHC) 34.0 32.0-36.0 [facility] SystemBqwshlgNONQXWNTKK0557-02-55 10:04:00 Test Item Value Reference Range Interpretation Comments Hct (test code = Hct) 37.1 42.0-54.0 [facility] SystemFrvjkwyZMPLTJXYFX7869-09-61 10:04:00 Test Item Value Reference Range Interpretation Comments MCV (test code = MCV) 87.8 80.0-94.0 [facility] SystemRqfkffiVTJYTTXLRO2603-17-94 10:04:00 Test Item Value Reference Range Interpretation Comments WBC (test code = WBC) 19.3 3.7-10.4 [facility] SystemBfaxhdpTLHPCPGROL7110-60-75 10:04:00 Test Item Value Reference Range Interpretation Comments RBC (test code = RBC) 4.23 4.70-6.10 [facility]2016-07-20 01:58:00 Test Item Value Reference Range Interpretation Comments Lactic Acid Lvl (test code = Lactic 1.7 0.5-2.2 Acid Lvl) [id number] 01:58:00 Test Item Value Reference Range Interpretation Comments Plt Morph (test code = Normal (11/19/15 8:58 Plt Morph) PM) [facility] Syst[id number] 01:58:00 Test Item Value Reference Range Interpretation Comments RBC Morph (test code = Normal (11/19/15 8:58 RBC Morph) PM) [facility] Syst[id number] 01:58:00 Test Item Value Reference Range Interpretation Comments Atypical Lymphs (test code = Atypical 0.0 Lymphs) [facility] SystemAvckcruSXYLKQTAND9975-09-92 01:58:00 Test Item Value Reference Range Interpretation Comments Bands (test code = 2.0 See_Comment [Automat ed message] The Bands) system which ge nerated this result transmit jose reference range : <=11.0. The reference r christo was not used to interpr et this result as carolina l/abnormal. [facility]2016-07-20 01:58:00 Test Item Value Reference Range Interpretation Comments Lactic Acid Lvl (test code = Lactic 1.7 0.5-2.2 Acid Lvl) [facility] Syst[id number] 01:58:00 Test Item Value Reference Range Interpretation Comments Plt Morph (test code = Normal (11/19/15 8:58 Plt Morph) PM) [facility] SystemKdljgopXAWVMLYXGU1015-60-80 01:58:00 Test Item Value Reference Range Interpretation Comments RBC Morph (test code = Normal (11/19/15 8:58 RBC Morph) PM) [facility] SystemObnbacqSCNROKDJSF8113-81-95 01:58:00 Test Item Value Reference Range Interpretation Comments Atypical Lymphs (test code = Atypical 0.0 Lymphs) [facility] Syst[id number] 01:58:00 Test Item Value Reference Range Interpretation Comments Bands (test code = 2.0 See_Comment [Automat ed message] The Bands) system which ge nerated this result transmit jose reference range : <=11.0. The reference r christo was not used to interpr et this result as carolina l/abnormal. [facility]2016-07-20 01:58:00 Test Item Value Reference Range Interpretation Comments Lactic Acid Lvl (test code = Lactic 1.7 0.5-2.2 Acid Lvl) [facility] Syst[id number] 01:58:00 Test Item Value Reference Range Interpretation Comments Plt Morph (test code = Normal (11/19/15 8:58 Plt Morph) PM) [facility] SystemHagxxdwXYVGJGVFRH0958-76-35 01:58:00 Test Item Value Reference Range Interpretation Comments RBC Morph (test code = Normal (11/19/15 8:58 RBC Morph) PM) [facility] SystemEkjycchOSQDUNMAEX2401-91-46 01:58:00 Test Item Value Reference Range Interpretation Comments Atypical Lymphs (test code = Atypical 0.0 Lymphs) [facility] SystemDqvgowcKTTVNELFFU3540-91-78 01:58:00 Test Item Value Reference Range Interpretation Comments Bands (test code = 2.0 See_Comment [Automat ed message] The Bands) system which ge nerated this result transmit jose reference range : <=11.0. The reference r christo was not used to interpr et this result as carolina l/abnormal. [facility]2016-07-19 16:43:00 Test Item Value Reference Range Interpretation Comments A/G Ratio (test code = A/G Ratio) 1.0 0.7-1.6 [facility]2016-07-19 16:43:00 Test Item Value Reference Range Interpretation Comments Globulin (test code = Globulin) 3.8 2.0-4.0 [facility]2016-07-19 16:43:00 Test Item Value Reference Range Interpretation Comments B/C Ratio (test code = B/C Ratio) 13 6-25 [facility]2016-07-19 16:43:00 Test Item Value Reference Range Interpretation Comments Albumin Lvl (test code = Albumin Lvl) 3.9 3.5-5.0 [facility]2016-07-19 16:43:00 Test Item Value Reference Range Interpretation Comments Total Protein (test code = Total 7.7 6.4-8.4 Protein) [facility]2016-07-19 16:43:00 Test Item Value Reference Range Interpretation Comments AST (test code = AST) 30 See_Comment [Auto mated message] The system which ge nerated this result transmit jose reference range : <=37. The reference range was not used to interpr et this result as carolina l/abnormal. [facility]2016-07-19 16:43:00 Test Item Value Reference Range Interpretation Comments Bili Total (test code = Bili Total) 0.7 0.2-1.3 [facility]2016-07-19 16:43:00 Test Item Value Reference Range Interpretation Comments Alk Phos (test code = Alk Phos) 68 39-136 [facility]2016-07-19 16:43:00 Test Item Value Reference Range Interpretation Comments ALT (test code = ALT) 52 See_Comment [Auto mated message] The system which ge nerated this result transmit jose reference range : <=65. The reference range was not used to interpr et this result as carolina l/abnormal. [facility] SystemStajdqrRECMSXOPIM7000-08-22 16:43:00 Test Item Value Reference Range Interpretation Comments Plt Morph (test code = Normal (11/19/15 11:43 Plt Morph) AM) [facility] Syst[id number] 16:43:00 Test Item Value Reference Range Interpretation Comments Atypical Lymphs (test code = Atypical 0.0 Lymphs) [facility] Syst[id number] 16:43:00 Test Item Value Reference Range Interpretation Comments Metamyelocytes (test code 2.0 See_Comment [ Automated message] = Metamyelocytes) The system which generated this result transmitted ref erence range: <=1.0. T he reference range was not used to int erpret this result as normal/abnormal . [facility] SystemXwufsvbLNOKAKTBHL6910-24-01 16:43:00 Test Item Value Reference Range Interpretation Comments Bands (test code = 6.0 See_Comment [Automat ed message] The Bands) system which ge nerated this result transmit jose reference range : <=11.0. The reference r christo was not used to interpr et this result as carolina l/abnormal. [facility]2016-07-19 16:43:00 Test Item Value Reference Range Interpretation Comments A/G Ratio (test code = A/G Ratio) 1.0 0.7-1.6 [facility]2016-07-19 16:43:00 Test Item Value Reference Range Interpretation Comments Globulin (test code = Globulin) 3.8 2.0-4.0 [facility]2016-07-19 16:43:00 Test Item Value Reference Range Interpretation Comments B/C Ratio (test code = B/C Ratio) 13 6-25 [facility]2016-07-19 16:43:00 Test Item Value Reference Range Interpretation Comments Albumin Lvl (test code = Albumin Lvl) 3.9 3.5-5.0 [place] [id number] 16:43:00 Test Item Value Reference Range Interpretation Comments Total Protein (test code = Total 7.7 6.4-8.4 Protein) [facility]2016-07-19 16:43:00 Test Item Value Reference Range Interpretation Comments AST (test code = AST) 30 See_Comment [Auto mated message] The system which ge nerated this result transmit jose reference range : <=37. The reference range was not used to interpr et this result as carolina l/abnormal. [facility]2016-07-19 16:43:00 Test Item Value Reference Range Interpretation Comments Bili Total (test code = Bili Total) 0.7 0.2-1.3 [facility]2016-07-19 16:43:00 Test Item Value Reference Range Interpretation Comments Alk Phos (test code = Alk Phos) 68 39-136 [facility]2016-07-19 16:43:00 Test Item Value Reference Range Interpretation Comments ALT (test code = ALT) 52 See_Comment [Auto mated message] The system which ge nerated this result transmit jose reference range : <=65. The reference range was not used to interpr et this result as carolina l/abnormal. [facility] Syst[id number] 16:43:00 Test Item Value Reference Range Interpretation Comments Plt Morph (test code = Normal (11/19/15 11:43 Plt Morph) AM) [facility] Syst[id number] 16:43:00 Test Item Value Reference Range Interpretation Comments Atypical Lymphs (test code = Atypical 0.0 Lymphs) [facility] Syst[id number] 16:43:00 Test Item Value Reference Range Interpretation Comments Metamyelocytes (test code 2.0 See_Comment [ Automated message] = Metamyelocytes) The system which generated this result transmitted ref erence range: <=1.0. T he reference range was not used to int erpret this result as normal/abnormal . [place] [id number] 16:43:00 Test Item Value Reference Range Interpretation Comments Bands (test code = 6.0 See_Comment [Automat ed message] The Bands) system which ge nerated this result transmit jose reference range : <=11.0. The reference r christo was not used to interpr et this result as carolina l/abnormal. [facility]2016-07-19 16:43:00 Test Item Value Reference Range Interpretation Comments A/G Ratio (test code = A/G Ratio) 1.0 0.7-1.6 [facility]2016-07-19 16:43:00 Test Item Value Reference Range Interpretation Comments Globulin (test code = Globulin) 3.8 2.0-4.0 [facility]2016-07-19 16:43:00 Test Item Value Reference Range Interpretation Comments B/C Ratio (test code = B/C Ratio) 13 6-25 [facility]2016-07-19 16:43:00 Test Item Value Reference Range Interpretation Comments Albumin Lvl (test code = Albumin Lvl) 3.9 3.5-5.0 [facility]2016-07-19 16:43:00 Test Item Value Reference Range Interpretation Comments Total Protein (test code = Total 7.7 6.4-8.4 Protein) [facility]2016-07-19 16:43:00 Test Item Value Reference Range Interpretation Comments AST (test code = AST) 30 See_Comment [Auto mated message] The system which ge nerated this result transmit jose reference range : <=37. The reference range was not used to interpr et this result as carolina l/abnormal. [facility]2016-07-19 16:43:00 Test Item Value Reference Range Interpretation Comments Bili Total (test code = Bili Total) 0.7 0.2-1.3 [facility]2016-07-19 16:43:00 Test Item Value Reference Range Interpretation Comments Alk Phos (test code = Alk Phos) 68 39-136 [facility]2016-07-19 16:43:00 Test Item Value Reference Range Interpretation Comments ALT (test code = ALT) 52 See_Comment [Auto mated message] The system which ge nerated this result transmit jose reference range : <=65. The reference range was not used to interpr et this result as carolina l/abnormal. [facility] S[id number] 16:43:00 Test Item Value Reference Range Interpretation Comments Plt Morph (test code = Normal (11/19/15 11:43 Plt Morph) AM) [facility] Syst[id number] 16:43:00 Test Item Value Reference Range Interpretation Comments Atypical Lymphs (test code = Atypical 0.0 Lymphs) [facility] [id number] 16:43:00 Test Item Value Reference Range Interpretation Comments Metamyelocytes (test code 2.0 See_Comment [ Automated message] = Metamyelocytes) The system which generated this result transmitted ref erence range: <=1.0. T he reference range was not used to int erpret this result as normal/abnormal . [facility] Syst[id number] 16:43:00 Test Item Value Reference Range Interpretation Comments Bands (test code = 6.0 See_Comment [Automat ed message] The Bands) system which ge nerated this result transmit jose reference range : <=11.0. The reference r christo was not used to interpr et this result as carolina l/abnormal. [facility] AND [id number] 14:31:00 Test Item Value Reference Range Interpretation Comments UA Bacteria (test code = UA Few /HPF Bacteria) [facility] AND [id number] 14:31:00 Test Item Value Reference Range Interpretation Comments UA RBC (test code = 6-10 /HPF See_Comment [Automa jose message] The UA RBC) system which ge nerated this result tra nsmitted reference range : <=2. The reference range was not used to interpr et this result as normal/abnormal . [facility] AND [id number] 14:31:00 Test Item Value Reference Range Interpretation Comments UA WBC (test code = UA WBC) 21-50 /HPF [facility] AND [id number] 14:31:00 Test Item Value Reference Range Interpretation Comments UA Sq Epi (test code = None Seen (11/19/15 9:31 UA Sq Epi) AM) [facility] AND [id number] 14:31:00 Test Item Value Reference Range Interpretation Comments UA Leuk Est (test code Small *ABN*(11/19/15 = UA Leuk Est) 9:31 AM) [facility] AND [id number] 14:31:00 Test Item Value Reference Range Interpretation Comments UA Nitrite (test code Negative (11/19/15 9:31 = UA Nitrite) AM) [facility] AND [id number] 14:31:00 Test Item Value Reference Range Interpretation Comments UA Ketones (test code Negative *NA*(11/19/15 = UA Ketones) 9:31 AM) [facility] AND [id number] 14:31:00 Test Item Value Reference Range Interpretation Comments UA Blood (test code = Moderate *ABN*(11/19/15 UA Blood) 9:31 AM) [facility] AND [id number] 14:31:00 Test Item Value Reference Range Interpretation Comments UA Bili (test code = Negative *NA*(11/19/15 UA Bili) 9:31 AM) [facility] AND [id number] 14:31:00 Test Item Value Reference Range Interpretation Comments UA Urobilinogen (test code = UA 0.2 0.1-1.0 Urobilinogen) [facility] AND [id number] 14:31:00 Test Item Value Reference Range Interpretation Comments UA Color (test code = Yellow *NA*(11/19/15 UA Color) 9:31 AM) [facility] AND [id number] 14:31:00 Test Item Value Reference Range Interpretation Comments UA Protein (test code = UA Protein) 100 mg/dL [facility] AND [id number] 14:31:00 Test Item Value Reference Range Interpretation Comments UA Glucose (test code Negative (11/19/15 9:31 = UA Glucose) AM) [facility] AND [id number] 14:31:00 Test Item Value Reference Range Interpretation Comments UA Spec Grav (test code = UA Spec 1.015 1 Grav) [facility] AND [id number] 14:31:00 Test Item Value Reference Range Interpretation Comments UA Turbidity (test code Slight Cloudy = UA Turbidity) (11/19/15 9:31 AM) [facility] AND [id number] 14:31:00 Test Item Value Reference Range Interpretation Comments UA pH (test code = UA pH) 8.5 1 5.0-8.0 [facility] AND [id number] 14:31:00 Test Item Value Reference Range Interpretation Comments UA Bacteria (test code = UA Few /HPF Bacteria) [facility] AND [id number] 14:31:00 Test Item Value Reference Range Interpretation Comments UA RBC (test code = 6-10 /HPF See_Comment [Automa jose message] The UA RBC) system which ge nerated this result tra nsmitted reference range : <=2. The reference range was not used to interpr et this result as normal/abnormal . [facility] AND [id number] 14:31:00 Test Item Value Reference Range Interpretation Comments UA WBC (test code = UA WBC) 21-50 /HPF [facility] AND [id number] 14:31:00 Test Item Value Reference Range Interpretation Comments UA Sq Epi (test code = None Seen (11/19/15 9:31 UA Sq Epi) AM) [facility] AND [id number] 14:31:00 Test Item Value Reference Range Interpretation Comments UA Leuk Est (test code Small *ABN*(11/19/15 = UA Leuk Est) 9:31 AM) [facility] AND [id number] 14:31:00 Test Item Value Reference Range Interpretation Comments UA Nitrite (test code Negative (11/19/15 9:31 = UA Nitrite) AM) [facility] AND [id number] 14:31:00 Test Item Value Reference Range Interpretation Comments UA Ketones (test code Negative *NA*(11/19/15 = UA Ketones) 9:31 AM) [facility] AND [id number] 14:31:00 Test Item Value Reference Range Interpretation Comments UA Blood (test code = Moderate *ABN*(11/19/15 UA Blood) 9:31 AM) [facility] AND [id number] 14:31:00 Test Item Value Reference Range Interpretation Comments UA Bili (test code = Negative *NA*(11/19/15 UA Bili) 9:31 AM) [facility] AND [id number] 14:31:00 Test Item Value Reference Range Interpretation Comments UA Urobilinogen (test code = UA 0.2 0.1-1.0 Urobilinogen) [facility] AND [id number] 14:31:00 Test Item Value Reference Range Interpretation Comments UA Color (test code = Yellow *NA*(11/19/15 UA Color) 9:31 AM) [facility] AND [id number] 14:31:00 Test Item Value Reference Range Interpretation Comments UA Protein (test code = UA Protein) 100 mg/dL [facility] AND [id number] 14:31:00 Test Item Value Reference Range Interpretation Comments UA Glucose (test code Negative (11/19/15 9:31 = UA Glucose) AM) [facility] AND [id number] 14:31:00 Test Item Value Reference Range Interpretation Comments UA Spec Grav (test code = UA Spec 1.015 1 Grav) [facility] AND [id number] 14:31:00 Test Item Value Reference Range Interpretation Comments UA Turbidity (test code Slight Cloudy = UA Turbidity) (11/19/15 9:31 AM) [facility] AND [id number] 14:31:00 Test Item Value Reference Range Interpretation Comments UA pH (test code = UA pH) 8.5 1 5.0-8.0 [facility] AND [id number] 14:31:00 Test Item Value Reference Range Interpretation Comments UA Bacteria (test code = UA Few /HPF Bacteria) [facility] AND [id number] 14:31:00 Test Item Value Reference Range Interpretation Comments UA RBC (test code = 6-10 /HPF See_Comment [Automa jose message] The UA RBC) system which ge nerated this result tra nsmitted reference range : <=2. The reference range was not used to interpr et this result as normal/abnormal . [facility] AND [id number] 14:31:00 Test Item Value Reference Range Interpretation Comments UA WBC (test code = UA WBC) 21-50 /HPF [facility] AND [id number] 14:31:00 Test Item Value Reference Range Interpretation Comments UA Sq Epi (test code = None Seen (11/19/15 9:31 UA Sq Epi) AM) [facility] AND [id number] 14:31:00 Test Item Value Reference Range Interpretation Comments UA Leuk Est (test code Small *ABN*(11/19/15 = UA Leuk Est) 9:31 AM) [facility] AND [id number] 14:31:00 Test Item Value Reference Range Interpretation Comments UA Nitrite (test code Negative (11/19/15 9:31 = UA Nitrite) AM) [facility] AND [id number] 14:31:00 Test Item Value Reference Range Interpretation Comments UA Ketones (test code Negative *NA*(11/19/15 = UA Ketones) 9:31 AM) [facility] AND [id number] 14:31:00 Test Item Value Reference Range Interpretation Comments UA Blood (test code = Moderate *ABN*(11/19/15 UA Blood) 9:31 AM) [facility] AND [id number] 14:31:00 Test Item Value Reference Range Interpretation Comments UA Bili (test code = Negative *NA*(11/19/15 UA Bili) 9:31 AM) [facility] AND [id number] 14:31:00 Test Item Value Reference Range Interpretation Comments UA Urobilinogen (test code = UA 0.2 0.1-1.0 Urobilinogen) [facility] AND [id number] 14:31:00 Test Item Value Reference Range Interpretation Comments UA Color (test code = Yellow *NA*(11/19/15 UA Color) 9:31 AM) [facility] AND [id number] 14:31:00 Test Item Value Reference Range Interpretation Comments UA Protein (test code = UA Protein) 100 mg/dL [facility] AND [id number] 14:31:00 Test Item Value Reference Range Interpretation Comments UA Glucose (test code Negative (11/19/15 9:31 = UA Glucose) AM) [facility] AND [id number] 14:31:00 Test Item Value Reference Range Interpretation Comments UA Spec Grav (test code = UA Spec 1.015 1 Grav) [facility] AND [id number] 14:31:00 Test Item Value Reference Range Interpretation Comments UA Turbidity (test code Slight Cloudy = UA Turbidity) (11/19/15 9:31 AM) [facility] AND [id number] 14:31:00 Test Item Value Reference Range Interpretation Comments UA pH (test code = UA pH) 8.5 1 5.0-8.0 [facility]2016-07-18 10:36:00 Test Item Value Reference Range Interpretation Comments Magnesium Lvl (test code = Magnesium 2.1 1.8-2.4 Lvl) [facility]2016-07-18 10:36:00 Test Item Value Reference Range Interpretation Comments Phosphorus (test code = Phosphorus) 3.3 2.5-4.5 [facility] [id number] 10:36:00 Test Item Value Reference Range Interpretation Comments Basophils # (test code 0.0 See_Comment [Aut omated message] The = Basophils #) system which generated this result tra nsmitted reference range : <=0.2. The reference r christo was not used to int erpret this result as normal/abnormal . [facility] [id number] 10:36:00 Test Item Value Reference Range Interpretation Comments Eosinophils # (test code 0.1 See_Comment [A utomated message] The = Eosinophils #) system whic h generated this result tra nsmitted reference range : <=0.5. The reference r christo was not used to int erpret this result as normal/abnormal . [facility] [id number] 10:36:00 Test Item Value Reference Range Interpretation Comments Eosinophils (test code = 1.6 See_Comment [A utomated message] The Eosinophils) system which ge nerated this result tra nsmitted reference range : <=4.0. The reference r christo was not used to int erpret this result as normal/abnormal . [id number] 10:36:00 Test Item Value Reference Range Interpretation Comments LDL (Calculated) (test code = LDL 60 (Calculated)) [facility]KvnptctERXNFO2030-17-19 10:36:00 Test Item Value Reference Range Interpretation Comments VLDL (test code = VLDL) 14 [facility] [id number] 10:36:00 Test Item Value Reference Range Interpretation Comments Chol (test code = Chol) 113 [facility] CenterWxrccekDXLCJU9571-10-56 10:36:00 Test Item Value Reference Range Interpretation Comments Trig (test code = Trig) 68 [facility] [id number] 10:36:00 Test Item Value Reference Range Interpretation Comments HDL (test code = HDL) 39 [facility] [id number] 10:36:00 Test Item Value Reference Range Interpretation Comments CHD Risk (test code = CHD Risk) 2.90 4.00-7.30 [facility]2016-07-18 10:36:00 Test Item Value Reference Range Interpretation Comments Magnesium Lvl (test code = Magnesium 2.1 1.8-2.4 Lvl) [facility]2016-07-18 10:36:00 Test Item Value Reference Range Interpretation Comments Phosphorus (test code = Phosphorus) 3.3 2.5-4.5 [facility] [id number] 10:36:00 Test Item Value Reference Range Interpretation Comments Basophils # (test code 0.0 See_Comment [Aut omated message] The = Basophils #) system which generated this result tra nsmitted reference range : <=0.2. The reference r christo was not used to int erpret this result as normal/abnormal . [facility] [id number] 10:36:00 Test Item Value Reference Range Interpretation Comments Eosinophils # (test code 0.1 See_Comment [A utomated message] The = Eosinophils #) system whic h generated this result tra nsmitted reference range : <=0.5. The reference r christo was not used to int erpret this result as normal/abnormal . [facility]capXZQJBDQRBZ1023-32-20 10:36:00 Test Item Value Reference Range Interpretation Comments Eosinophils (test code = 1.6 See_Comment [A utomated message] The Eosinophils) system which ge nerated this result tra nsmitted reference range : <=4.0. The reference r christo was not used to int erpret this result as normal/abnormal . [id number] 10:36:00 Test Item Value Reference Range Interpretation Comments LDL (Calculated) (test code = LDL 60 (Calculated)) [facility]CvpfvvcIZRXKB7157-19-62 10:36:00 Test Item Value Reference Range Interpretation Comments VLDL (test code = VLDL) 14 [facility] CenterEoyplepPWQYHJ1820-06-45 10:36:00 Test Item Value Reference Range Interpretation Comments Chol (test code = Chol) [address] [place] [id number] 10:36:00 Test Item Value Reference Range Interpretation Comments Trig (test code = Trig) 68 [facility] [id number] 10:36:00 Test Item Value Reference Range Interpretation Comments HDL (test code = HDL) 39 [facility] CenterUbvjenhYRSDLI3342-03-85 10:36:00 Test Item Value Reference Range Interpretation Comments CHD Risk (test code = CHD Risk) 2.90 4.00-7.30 [facility]2016-07-18 10:36:00 Test Item Value Reference Range Interpretation Comments Magnesium Lvl (test code = Magnesium 2.1 1.8-2.4 Lvl) [facility]2016-07-18 10:36:00 Test Item Value Reference Range Interpretation Comments Phosphorus (test code = Phosphorus) 3.3 2.5-4.5 [facility] Syst[id number] 10:36:00 Test Item Value Reference Range Interpretation Comments Basophils # (test code 0.0 See_Comment [Aut omated message] The = Basophils #) system which generated this result tra nsmitted reference range : <=0.2. The reference r christo was not used to int erpret this result as normal/abnormal . [facility] SystemYkkeggqKBPTQKTVGT7069-14-74 10:36:00 Test Item Value Reference Range Interpretation Comments Eosinophils # (test code 0.1 See_Comment [A utomated message] The = Eosinophils #) system whic h generated this result tra nsmitted reference range : <=0.5. The reference r christo was not used to int erpret this result as normal/abnormal . [facility] SystemWcilqqaWUNJBFGSID3977-66-63 10:36:00 Test Item Value Reference Range Interpretation Comments Eosinophils (test code = 1.6 See_Comment [A utomated message] The Eosinophils) system which ge nerated this result tra nsmitted reference range : <=4.0. The reference r christo was not used to int erpret this result as normal/abnormal . [facility] CenterFnoiagiHRXNMC3656-73-21 10:36:00 Test Item Value Reference Range Interpretation Comments LDL (Calculated) (test code = LDL 60 (Calculated)) [facility] CenterFybdwvhBPUHKR0526-93-84 10:36:00 Test Item Value Reference Range Interpretation Comments VLDL (test code = VLDL) 14 [facility] CenterIitvhkwMXHDOD0964-35-76 10:36:00 Test Item Value Reference Range Interpretation Comments Chol (test code = Chol) 113 [facility] CenterXgaqrflOXTKHM5969-42-45 10:36:00 Test Item Value Reference Range Interpretation Comments Trig (test code = Trig) 68 [facility] CenterOqqnuufYLHXEL5515-71-96 10:36:00 Test Item Value Reference Range Interpretation Comments HDL (test code = HDL) 39 [facility] CenterWgaqdryGSFVDH7393-80-03 10:36:00 Test Item Value Reference Range Interpretation Comments CHD Risk (test code = CHD Risk) 2.90 4.00-7.30 [facility] [id number] 11:17:00 Test Item Value Reference Range Interpretation Comments Alk Phos (test code = Alk Phos) 64 39-136 [facility] [id number] 11:17:00 Test Item Value Reference Range Interpretation Comments Bili Total (test code = Bili Total) 0.4 0.2-1.3 [facility] [id number] 11:17:00 Test Item Value Reference Range Interpretation Comments Albumin Lvl (test code = Albumin Lvl) 3.4 3.5-5.0 [facility] [id number] 11:17:00 Test Item Value Reference Range Interpretation Comments AST (test code = AST) 19 See_Comment [Auto mated message] The system which ge nerated this result transmit jose reference range : <=37. The reference range was not used to interpr et this result as carolina l/abnormal. [facility] [employer] [id number] 11:17:00 Test Item Value Reference Range Interpretation Comments ALT (test code = ALT) 28 See_Comment [Auto mated message] The system which ge nerated this result transmit jose reference range : <=65. The reference range was not used to interpr et this result as carolina l/abnormal. [facility] [id number] 11:17:00 Test Item Value Reference Range Interpretation Comments Total Protein (test code = Total 6.7 6.4-8.4 Protein) [facility] [id number] 11:17:00 Test Item Value Reference Range Interpretation Comments A/G Ratio (test code = A/G Ratio) 1.0 0.7-1.6 [facility]2016-07-08 11:17:00 Test Item Value Reference Range Interpretation Comments Globulin (test code = Globulin) 3.3 2.0-4.0 [facility]2016-07-08 11:17:00 Test Item Value Reference Range Interpretation Comments B/C Ratio (test code = B/C Ratio) 23 6-25 [facility]2016-07-08 11:17:00 Test Item Value Reference Range Interpretation Comments Alk Phos (test code = Alk Phos) 64 39-136 [facility]2016-07-08 11:17:00 Test Item Value Reference Range Interpretation Comments Bili Total (test code = Bili Total) 0.4 0.2-1.3 [facility]2016-07-08 11:17:00 Test Item Value Reference Range Interpretation Comments Albumin Lvl (test code = Albumin Lvl) 3.4 3.5-5.0 [facility]2016-07-08 11:17:00 Test Item Value Reference Range Interpretation Comments AST (test code = AST) 19 See_Comment [Auto mated message] The system which ge nerated this result transmit jose reference range : <=37. The reference range was not used to interpr et this result as carolina l/abnormal. [facility]2016-07-08 11:17:00 Test Item Value Reference Range Interpretation Comments ALT (test code = ALT) 28 See_Comment [Auto mated message] The system which ge nerated this result transmit jose reference range : <=65. The reference range was not used to interpr et this result as carolina l/abnormal. [facility]2016-07-08 11:17:00 Test Item Value Reference Range Interpretation Comments Total Protein (test code = Total 6.7 6.4-8.4 Protein) [facility]2016-07-08 11:17:00 Test Item Value Reference Range Interpretation Comments A/G Ratio (test code = A/G Ratio) 1.0 0.7-1.6 [facility]2016-07-08 11:17:00 Test Item Value Reference Range Interpretation Comments Globulin (test code = Globulin) 3.3 2.0-4.0 [facility]2016-07-08 11:17:00 Test Item Value Reference Range Interpretation Comments B/C Ratio (test code = B/C Ratio) 23 6-25 [facility]2016-07-08 11:17:00 Test Item Value Reference Range Interpretation Comments Alk Phos (test code = Alk Phos) 64 39-136 [facility]2016-07-08 11:17:00 Test Item Value Reference Range Interpretation Comments Bili Total (test code = Bili Total) 0.4 0.2-1.3 [facility]2016-07-08 11:17:00 Test Item Value Reference Range Interpretation Comments Albumin Lvl (test code = Albumin Lvl) 3.4 3.5-5.0 [facility]2016-07-08 11:17:00 Test Item Value Reference Range Interpretation Comments AST (test code = AST) 19 See_Comment [Auto mated message] The system which ge nerated this result transmit jose reference range : <=37. The reference range was not used to interpr et this result as carolina l/abnormal. [facility]2016-07-08 11:17:00 Test Item Value Reference Range Interpretation Comments ALT (test code = ALT) 28 See_Comment [Auto mated message] The system which ge nerated this result transmit jose reference range : <=65. The reference range was not used to interpr et this result as carolina l/abnormal. [facility]2016-07-08 11:17:00 Test Item Value Reference Range Interpretation Comments Total Protein (test code = Total 6.7 6.4-8.4 Protein) [facility]2016-07-08 11:17:00 Test Item Value Reference Range Interpretation Comments A/G Ratio (test code = A/G Ratio) 1.0 0.7-1.6 [facility]2016-07-08 11:17:00 Test Item Value Reference Range Interpretation Comments Globulin (test code = Globulin) 3.3 2.0-4.0 [facility]2016-07-08 11:17:00 Test Item Value Reference Range Interpretation Comments B/C Ratio (test code = B/C Ratio) 23 6-25 [facility] [id number] 23:44:00 Test Item Value Reference Range Interpretation Comments PTT (test code = PTT) 31.9 s 22.9-35.8 [facility] Syst[id number] 23:44:00 Test Item Value Reference Range Interpretation Comments PTT (test code = PTT) 31.9 s 22.9-35.8 [facility] SystemRkkuevaCSAUECWVEY1155-66-47 23:44:00 Test Item Value Reference Range Interpretation Comments PTT (test code = PTT) 31.9 s 22.9-35.8 [facility] AND [id number] 21:39:00 Test Item Value Reference Range Interpretation Comments UA Urobilinogen (test code = UA <=1.0 mg/dL 0.1-1.0 Urobilinogen) [facility] AND [id number] 21:39:00 Test Item Value Reference Range Interpretation Comments UA Sq Epi (test code = UA Sq Epi) None Seen [facility] AND [id number] 21:39:00 Test Item Value Reference Range Interpretation Comments UA WBC (test code = 2 See_Comment [Automa jose message] The UA WBC) system which ge nerated this result transmit jose reference range : <=5. The reference range was not used to interpr et this result as carolina l/abnormal. [facility] AND [id number] 21:39:00 Test Item Value Reference Range Interpretation Comments UA RBC (test code = no gt See_Comment [Automa jose message] The UA RBC) system which ge nerated this result transmit jose reference range : <=2. The reference range was not used to interpr et this result as carolina l/abnormal. [facility] AND [id number] 21:39:00 Test Item Value Reference Range Interpretation Comments UA Mucus (test code = UA Mucus) Few /LPF [facility] AND [id number] 21:39:00 Test Item Value Reference Range Interpretation Comments UA Nitrite (test code Negative (11/07/15 4:39 = UA Nitrite) PM) [facility] AND [id number] 21:39:00 Test Item Value Reference Range Interpretation Comments UA Leuk Est (test Negative (11/07/15 4:39 code = UA Leuk Est) PM) [facility] AND [id number] 21:39:00 Test Item Value Reference Range Interpretation Comments UA Blood (test code = Negative (11/07/15 4:39 UA Blood) PM) [facility] AND [id number] 21:39:00 Test Item Value Reference Range Interpretation Comments UA Ketones (test code = UA Negative mg/dL Ketones) [facility] AND [id number] 21:39:00 Test Item Value Reference Range Interpretation Comments UA Bili (test code = Negative *NA*(11/07/15 UA Bili) 4:39 PM) [facility] AND [id number] 21:39:00 Test Item Value Reference Range Interpretation Comments UA Glucose (test code = UA Negative mg/dL Glucose) [facility] AND [id number] 21:39:00 Test Item Value Reference Range Interpretation Comments UA pH (test code = UA pH) 6.5 5.0-8.0 [facility] AND [id number] 21:39:00 Test Item Value Reference Range Interpretation Comments UA Protein (test code = UA Protein) 10 mg/dL [facility] AND [id number] 21:39:00 Test Item Value Reference Range Interpretation Comments UA Spec Grav (test code = UA Spec Grav) 1.013 [facility] AND [id number] 21:39:00 Test Item Value Reference Range Interpretation Comments UA Turbidity (test code = Clear (11/07/15 4:39 UA Turbidity) PM) [facility] AND [id number] 21:39:00 Test Item Value Reference Range Interpretation Comments UA Color (test code = Yellow *NA*(11/07/15 4:39 UA Color) PM) [facility] AND [id number] 21:39:00 Test Item Value Reference Range Interpretation Comments UA Urobilinogen (test code = UA <=1.0 mg/dL 0.1-1.0 Urobilinogen) [facility] AND [id number] 21:39:00 Test Item Value Reference Range Interpretation Comments UA Sq Epi (test code = UA Sq Epi) None Seen [facility] AND [id number] 21:39:00 Test Item Value Reference Range Interpretation Comments UA WBC (test code = 2 See_Comment [Automa jose message] The UA WBC) system which ge nerated this result transmit jose reference range : <=5. The reference range was not used to interpr et this result as carolina l/abnormal. [facility] AND [id number] 21:39:00 Test Item Value Reference Range Interpretation Comments UA RBC (test code = no gt See_Comment [Automa jose message] The UA RBC) system which ge nerated this result transmit jose reference range : <=2. The reference range was not used to interpr et this result as carolina l/abnormal. [facility] AND [id number] 21:39:00 Test Item Value Reference Range Interpretation Comments UA Mucus (test code = UA Mucus) Few /LPF [facility] AND [id number] 21:39:00 Test Item Value Reference Range Interpretation Comments UA Nitrite (test code Negative (11/07/15 4:39 = UA Nitrite) PM) [facility] AND [id number] 21:39:00 Test Item Value Reference Range Interpretation Comments UA Leuk Est (test Negative (11/07/15 4:39 code = UA Leuk Est) PM) [facility] AND [id number] 21:39:00 Test Item Value Reference Range Interpretation Comments UA Blood (test code = Negative (11/07/15 4:39 UA Blood) PM) [facility] AND [id number] 21:39:00 Test Item Value Reference Range Interpretation Comments UA Ketones (test code = UA Negative mg/dL Ketones) [facility] AND [id number] 21:39:00 Test Item Value Reference Range Interpretation Comments UA Bili (test code = Negative *NA*(11/07/15 UA Bili) 4:39 PM) [facility] AND [id number] 21:39:00 Test Item Value Reference Range Interpretation Comments UA Glucose (test code = UA Negative mg/dL Glucose) [facility] AND [id number] 21:39:00 Test Item Value Reference Range Interpretation Comments UA pH (test code = UA pH) 6.5 5.0-8.0 [facility] AND [id number] 21:39:00 Test Item Value Reference Range Interpretation Comments UA Protein (test code = UA Protein) 10 mg/dL [facility] AND [id number] 21:39:00 Test Item Value Reference Range Interpretation Comments UA Spec Grav (test code = UA Spec Grav) 1.013 [facility] AND [id number] 21:39:00 Test Item Value Reference Range Interpretation Comments UA Turbidity (test code = Clear (11/07/15 4:39 UA Turbidity) PM) [facility] AND [id number] 21:39:00 Test Item Value Reference Range Interpretation Comments UA Color (test code = Yellow *NA*(11/07/15 4:39 UA Color) PM) [facility] AND [id number] 21:39:00 Test Item Value Reference Range Interpretation Comments UA Urobilinogen (test code = UA <=1.0 mg/dL 0.1-1.0 Urobilinogen) [facility] AND [id number] 21:39:00 Test Item Value Reference Range Interpretation Comments UA Sq Epi (test code = UA Sq Epi) None Seen [facility] AND [id number] 21:39:00 Test Item Value Reference Range Interpretation Comments UA WBC (test code = 2 See_Comment [Automa jose message] The UA WBC) system which ge nerated this result transmit jose reference range : <=5. The reference range was not used to interpr et this result as carolina l/abnormal. [facility] AND [id number] 21:39:00 Test Item Value Reference Range Interpretation Comments UA RBC (test code = no gt See_Comment [Automa jose message] The UA RBC) system which ge nerated this result transmit jose reference range : <=2. The reference range was not used to interpr et this result as carolina l/abnormal. [facility] AND [id number] 21:39:00 Test Item Value Reference Range Interpretation Comments UA Mucus (test code = UA Mucus) Few /LPF [facility] AND [id number] 21:39:00 Test Item Value Reference Range Interpretation Comments UA Nitrite (test code Negative (11/07/15 4:39 = UA Nitrite) PM) [facility] AND [id number] 21:39:00 Test Item Value Reference Range Interpretation Comments UA Leuk Est (test Negative (11/07/15 4:39 code = UA Leuk Est) PM) [facility] AND [id number] 21:39:00 Test Item Value Reference Range Interpretation Comments UA Blood (test code = Negative (11/07/15 4:39 UA Blood) PM) [facility] AND [id number] 21:39:00 Test Item Value Reference Range Interpretation Comments UA Ketones (test code = UA Negative mg/dL Ketones) [facility] AND [id number] 21:39:00 Test Item Value Reference Range Interpretation Comments UA Bili (test code = Negative *NA*(11/07/15 UA Bili) 4:39 PM) [facility] AND [id number] 21:39:00 Test Item Value Reference Range Interpretation Comments UA Glucose (test code = UA Negative mg/dL Glucose) [facility] AND [id number] 21:39:00 Test Item Value Reference Range Interpretation Comments UA pH (test code = UA pH) 6.5 5.0-8.0 [facility] AND [id number] 21:39:00 Test Item Value Reference Range Interpretation Comments UA Protein (test code = UA Protein) 10 mg/dL [facility] AND [id number] 21:39:00 Test Item Value Reference Range Interpretation Comments UA Spec Grav (test code = UA Spec Grav) 1.013 [facility] AND [id number] 21:39:00 Test Item Value Reference Range Interpretation Comments UA Turbidity (test code = Clear (11/07/15 4:39 UA Turbidity) PM) [facility] AND [id number] 21:39:00 Test Item Value Reference Range Interpretation Comments UA Color (test code = Yellow *NA*(11/07/15 4:39 UA Color) PM) [id number] 10:28:00 Test Item Value Reference Range Interpretation Comments AGAP (test code = AGAP) 9.7 10.0-20.0 [facility] Hos[id number] 10:28:00 Test Item Value Reference Range Interpretation Comments A/G Ratio (test code = A/G Ratio) 1.1 0.7-1.6 [facility] Hospital[id number] 10:28:00 Test Item Value Reference Range Interpretation Comments B/C Ratio (test code = B/C Ratio) 20 6-25 [facility] Ho[id number] 10:28:00 Test Item Value Reference Range Interpretation Comments Globulin (test code = Globulin) 3.2 2.0-4.0 [facility] Hos[id number] 10:28:00 Test Item Value Reference Range Interpretation Comments eGFR (test code = eGFR) 90 [facility] Hospital[id number] 10:28:00 Test Item Value Reference Range Interpretation Comments Bili Total (test code = Bili Total) 0.3 0.2-1.3 [facility] Hos[id number] 10:28:00 Test Item Value Reference Range Interpretation Comments AST (test code = AST) 18 See_Comment [Auto mated message] The system which ge nerated this result transmit jose reference range : <=37. The reference range was not used to interpr et this result as carolina l/abnormal. [facility] Hos[id number] 10:28:00 Test Item Value Reference Range Interpretation Comments Alk Phos (test code = Alk Phos) 66 39-136 [facility] Hospital[id number] 10:28:00 Test Item Value Reference Range Interpretation Comments ALT (test code = ALT) 31 See_Comment [Auto mated message] The system which ge nerated this result transmit jose reference range : <=65. The reference range was not used to interpr et this result as carolina l/abnormal. [facility] Hospital[id number] 10:28:00 Test Item Value Reference Range Interpretation Comments Albumin Lvl (test code = Albumin Lvl) 3.5 3.5-5.0 [facility] Hospi[id number] 10:28:00 Test Item Value Reference Range Interpretation Comments Total Protein (test code = Total 6.7 6.4-8.4 Protein) [facility] Hos[id number] 10:28:00 Test Item Value Reference Range Interpretation Comments Chloride Lvl (test code = Chloride Lvl) 107 95-109 [facility] HospitalRhtrhrrGMVVQKVQIWHJ2605-01-61 10:28:00 Test Item Value Reference Range Interpretation Comments Calcium Lvl (test code = Calcium Lvl) 9.0 8.5-10.5 [facility] Hospital[id number] 10:28:00 Test Item Value Reference Range Interpretation Comments CO2 (test code = CO2) 27 24-32 [facility] HospitalIxilqeoOUEMFNXGRUAN1007-87-46 10:28:00 Test Item Value Reference Range Interpretation Comments Potassium Lvl (test code = Potassium 3.7 3.5-5.1 Lvl) [facility] Hosp[id number] 10:28:00 Test Item Value Reference Range Interpretation Comments Creatinine Lvl (test code = Creatinine 0.8 0.5-1.4 Lvl) [facility] Hos[id number] 10:28:00 Test Item Value Reference Range Interpretation Comments Sodium Lvl (test code = Sodium Lvl) 140 135-145 [facility] HospitalFdmqcndXFZYLBQMAIJI7367-84-70 10:28:00 Test Item Value Reference Range Interpretation Comments BUN (test code = BUN) 16 7-22 [facility] HospitalUobdnclCXZFRJCYKGWL9371-53-03 10:28:00 Test Item Value Reference Range Interpretation Comments Glucose Lvl (test code = Glucose Lvl) 86 70-99 [facility] SystemIueqydtWTBJXKALNL2345-54-89 10:28:00 Test Item Value Reference Range Interpretation Comments Monocytes # (test code 0.4 See_Comment [Aut omated message] The = Monocytes #) system which generated this result tra nsmitted reference range : <=0.8. The reference r christo was not used to int erpret this result as normal/abnormal . [facility] Syst[id number] 10:28:00 Test Item Value Reference Range Interpretation Comments Segs-Bands # (test code = Segs-Bands #) 3.7 1.5-8.1 [facility] [id number] 10:28:00 Test Item Value Reference Range Interpretation Comments Lymphocytes # (test code = Lymphocytes 1.5 1.0-5.5 #) [facility] SystemFiomdcvRMKZLVAKFS9840-38-59 10:28:00 Test Item Value Reference Range Interpretation Comments Basophils # (test code 0.0 See_Comment [Aut omated message] The = Basophils #) system which generated this result tra nsmitted reference range : <=0.2. The reference r christo was not used to int erpret this result as normal/abnormal . [facility] SystemYigxmsiHCDBOOBEZJ5492-96-97 10:28:00 Test Item Value Reference Range Interpretation Comments Eosinophils # (test code 0.1 See_Comment [A utomated message] The = Eosinophils #) system whic h generated this result tra nsmitted reference range : <=0.5. The reference r christo was not used to int erpret this result as normal/abnormal . [facility] SystemZhqusmwOVQLGGCXOA3987-36-38 10:28:00 Test Item Value Reference Range Interpretation Comments Segs (test code = Segs) 65.9 45.0-75.0 [facility] SystemCybhmfuQWQKXPAQTF3130-27-59 10:28:00 Test Item Value Reference Range Interpretation Comments Lymphocytes (test code = Lymphocytes) 25.6 20.0-40.0 [facility] SystemNvjpwdtJXCMOBIUPD8030-01-73 10:28:00 Test Item Value Reference Range Interpretation Comments Eosinophils (test code = 0.9 See_Comment [A utomated message] The Eosinophils) system which ge nerated this result tra nsmitted reference range : <=4.0. The reference r christo was not used to int erpret this result as normal/abnormal . [facility] SystemGnhcftgZQZIVMEYVV7247-30-14 10:28:00 Test Item Value Reference Range Interpretation Comments Basophils (test code = 0.1 See_Comment [Aut omated message] The Basophils) system which ge nerated this result tra nsmitted reference range : <=1.0. The reference r christo was not used to int erpret this result as normal/abnormal . [facility] SystemXlleiuyZVWLGYERVO4309-35-53 10:28:00 Test Item Value Reference Range Interpretation Comments Monocytes (test code = Monocytes) 7.5 2.0-12.0 [facility] SystemPcjtpvsPMJVHJVCNF8647-22-57 10:28:00 Test Item Value Reference Range Interpretation Comments MCH (test code = MCH) 30.3 pg 27.0-31.0 [facility] SystemAcgfaqiLLBNUMAXWX1628-14-31 10:28:00 Test Item Value Reference Range Interpretation Comments MCHC (test code = MCHC) 33.6 32.0-36.0 [facility] SystemYonqsfiTXXZMKHGFU3667-32-35 10:28:00 Test Item Value Reference Range Interpretation Comments MCV (test code = MCV) 90.1 80.0-94.0 [facility] SystemGeeiyapLJEETBBAXE6704-22-41 10:28:00 Test Item Value Reference Range Interpretation Comments Platelet (test code = Platelet) 190 133-450 [facility] SystemNjsesbuIZJPHPXXBZ3616-65-03 10:28:00 Test Item Value Reference Range Interpretation Comments RDW (test code = RDW) 13.4 11.5-14.5 [facility] SystemVsuruztHKSXKIDNVW3546-67-66 10:28:00 Test Item Value Reference Range Interpretation Comments MPV (test code = MPV) 8.2 7.4-10.4 [facility] SystemHvikquxOEGHVPPGFV8697-13-27 10:28:00 Test Item Value Reference Range Interpretation Comments WBC (test code = WBC) 5.7 3.7-10.4 [facility] SystemXygkadoYQVXXMBXCE6397-80-80 10:28:00 Test Item Value Reference Range Interpretation Comments Hct (test code = Hct) 38.8 42.0-54.0 [facility] SystemOlhspvxCTZOIHQLCU1592-36-32 10:28:00 Test Item Value Reference Range Interpretation Comments RBC (test code = RBC) 4.31 4.70-6.10 [facility] SystemLhvgiupJHBHTWLWWX3503-45-37 10:28:00 Test Item Value Reference Range Interpretation Comments Hgb (test code = Hgb) 13.1 14.0-18.0 [facility]YzzppbrTLLMXTLDRVTR3688-32-15 10:28:00 Test Item Value Reference Range Interpretation Comments AGAP (test code = AGAP) 9.7 10.0-20.0 [facility] HospitalXadphygJBBGXOZTMANI5945-46-22 10:28:00 Test Item Value Reference Range Interpretation Comments A/G Ratio (test code = A/G Ratio) 1.1 0.7-1.6 [facility] HospitalAaiiohwQSYTDXZVVSHD7968-35-17 10:28:00 Test Item Value Reference Range Interpretation Comments B/C Ratio (test code = B/C Ratio) 20 6-25 [facility] HospitalFfnrhzkKWPZNRQFPCGJ1058-93-54 10:28:00 Test Item Value Reference Range Interpretation Comments Globulin (test code = Globulin) 3.2 2.0-4.0 [facility] HospitalMydzqbtUUHKKHGJGXSE2506-00-08 10:28:00 Test Item Value Reference Range Interpretation Comments eGFR (test code = eGFR) 90 [facility] HospitalHprxrraRHYUEUOLLFFG1991-49-33 10:28:00 Test Item Value Reference Range Interpretation Comments Bili Total (test code = Bili Total) 0.3 0.2-1.3 [facility] HospitalFeothsyYOBNFHHOKENV6274-92-94 10:28:00 Test Item Value Reference Range Interpretation Comments AST (test code = AST) 18 See_Comment [Auto mated message] The system which ge nerated this result transmit jose reference range : <=37. The reference range was not used to interpr et this result as carolina l/abnormal. [facility] HospitalKzgqbbpZJBTLOTFYYIF1438-32-58 10:28:00 Test Item Value Reference Range Interpretation Comments Alk Phos (test code = Alk Phos) 66 39-136 [facility] HospitalVwtvyzrKCJSDUCCYWIP9774-27-77 10:28:00 Test Item Value Reference Range Interpretation Comments ALT (test code = ALT) 31 See_Comment [Auto mated message] The system which ge nerated this result transmit jose reference range : <=65. The reference range was not used to interpr et this result as carolina l/abnormal. [facility] HospitalWklsxsiQIHMNRCNKWTM2084-40-02 10:28:00 Test Item Value Reference Range Interpretation Comments Albumin Lvl (test code = Albumin Lvl) 3.5 3.5-5.0 [facility] HospitalHglfemfGNHUBCIRUOZQ2827-41-33 10:28:00 Test Item Value Reference Range Interpretation Comments Total Protein (test code = Total 6.7 6.4-8.4 Protein) [facility] HospitalAfqzlavIHRKBTNFYEDL5419-08-98 10:28:00 Test Item Value Reference Range Interpretation Comments Chloride Lvl (test code = Chloride Lvl) 107 95-109 [facility] HospitalJsiugvmRWOECUHKWPVU0562-24-68 10:28:00 Test Item Value Reference Range Interpretation Comments Calcium Lvl (test code = Calcium Lvl) 9.0 8.5-10.5 [facility] HospitalOkvypjwJEJHJPJMVMQB0827-59-96 10:28:00 Test Item Value Reference Range Interpretation Comments CO2 (test code = CO2) 27 24-32 [facility] HospitalQysphqsCMPAWAPDRPRA6951-84-37 10:28:00 Test Item Value Reference Range Interpretation Comments Potassium Lvl (test code = Potassium 3.7 3.5-5.1 Lvl) [facility] HospitalKcfsbhvURVOPFUVIHUD1105-88-29 10:28:00 Test Item Value Reference Range Interpretation Comments Creatinine Lvl (test code = Creatinine 0.8 0.5-1.4 Lvl) [facility] HospitalEnaoazaSPVYFLBWCSJG6572-93-39 10:28:00 Test Item Value Reference Range Interpretation Comments Sodium Lvl (test code = Sodium Lvl) 140 135-145 [facility] HospitalSyegpbdLNVLZYJLXQEZ1010-39-73 10:28:00 Test Item Value Reference Range Interpretation Comments BUN (test code = BUN) 16 7-22 [facility] HospitalYvnjrxgTRDTWFLJWLWP2868-54-99 10:28:00 Test Item Value Reference Range Interpretation Comments Glucose Lvl (test code = Glucose Lvl) 86 70-99 [facility] SystemPeobdooENVORGOXLE1366-54-88 10:28:00 Test Item Value Reference Range Interpretation Comments Monocytes # (test code 0.4 See_Comment [Aut omated message] The = Monocytes #) system which generated this result tra nsmitted reference range : <=0.8. The reference r christo was not used to int erpret this result as normal/abnormal . [facility] SystemRawrkrbBAZCUROVAZ5502-39-06 10:28:00 Test Item Value Reference Range Interpretation Comments Segs-Bands # (test code = Segs-Bands #) 3.7 1.5-8.1 [facility] SystemGeehtbcPJYXGNWUPZ3335-82-30 10:28:00 Test Item Value Reference Range Interpretation Comments Lymphocytes # (test code = Lymphocytes 1.5 1.0-5.5 #) [facility] SystemBkddwisZOPBUCOEWN1878-16-41 10:28:00 Test Item Value Reference Range Interpretation Comments Basophils # (test code 0.0 See_Comment [Aut omated message] The = Basophils #) system which generated this result tra nsmitted reference range : <=0.2. The reference r christo was not used to int erpret this result as normal/abnormal . [facility] SystemJxixxvsMKBWMJAHVR5262-75-08 10:28:00 Test Item Value Reference Range Interpretation Comments Eosinophils # (test code 0.1 See_Comment [A utomated message] The = Eosinophils #) system whic h generated this result tra nsmitted reference range : <=0.5. The reference r christo was not used to int erpret this result as normal/abnormal . [facility] SystemEosmwhkZAOYPJTMQF0786-70-90 10:28:00 Test Item Value Reference Range Interpretation Comments Segs (test code = Segs) 65.9 45.0-75.0 [facility] SystemJgzcvlzOVUHOPRLUQ8918-11-15 10:28:00 Test Item Value Reference Range Interpretation Comments Lymphocytes (test code = Lymphocytes) 25.6 20.0-40.0 [facility] SystemThhplqsUQMNJGZNSM2338-49-85 10:28:00 Test Item Value Reference Range Interpretation Comments Eosinophils (test code = 0.9 See_Comment [A utomated message] The Eosinophils) system which ge nerated this result tra nsmitted reference range : <=4.0. The reference r christo was not used to int erpret this result as normal/abnormal . [facility] SystemDmccgfnDNIFNPUHHQ1622-84-56 10:28:00 Test Item Value Reference Range Interpretation Comments Basophils (test code = 0.1 See_Comment [Aut omated message] The Basophils) system which ge nerated this result tra nsmitted reference range : <=1.0. The reference r christo was not used to int erpret this result as normal/abnormal . [facility] SystemLdiieiaSHEDQIRXUL1157-43-78 10:28:00 Test Item Value Reference Range Interpretation Comments Monocytes (test code = Monocytes) 7.5 2.0-12.0 [facility] SystemScfybbtECIRCXLSGZ5239-29-08 10:28:00 Test Item Value Reference Range Interpretation Comments MCH (test code = MCH) 30.3 pg 27.0-31.0 [facility] SystemWksrqtbYEBIUHPEMS4506-34-41 10:28:00 Test Item Value Reference Range Interpretation Comments MCHC (test code = MCHC) 33.6 32.0-36.0 [facility] SystemVefzghrIOVECABZQZ8307-24-72 10:28:00 Test Item Value Reference Range Interpretation Comments MCV (test code = MCV) 90.1 80.0-94.0 [facility] SystemTwmcndhNVRAFYGZSS6137-35-33 10:28:00 Test Item Value Reference Range Interpretation Comments Platelet (test code = Platelet) 190 133-450 [facility] SystemTmathwiQKTJZNQFSA5583-97-83 10:28:00 Test Item Value Reference Range Interpretation Comments RDW (test code = RDW) 13.4 11.5-14.5 [facility] SystemAvrfyknQYLCEVOUZE4636-75-92 10:28:00 Test Item Value Reference Range Interpretation Comments MPV (test code = MPV) 8.2 7.4-10.4 [facility] SystemZovftgeJJSPQKCOYR2370-93-89 10:28:00 Test Item Value Reference Range Interpretation Comments WBC (test code = WBC) 5.7 3.7-10.4 [facility] SystemJzuzsonGPSWECVBBI6525-48-43 10:28:00 Test Item Value Reference Range Interpretation Comments Hct (test code = Hct) 38.8 42.0-54.0 [facility] SystemQsgoynyCHLDUCIQLL5943-17-61 10:28:00 Test Item Value Reference Range Interpretation Comments RBC (test code = RBC) 4.31 4.70-6.10 [facility] SystemKtpjbutLUXHEGYUSL3251-57-10 10:28:00 Test Item Value Reference Range Interpretation Comments Hgb (test code = Hgb) 13.1 14.0-18.0 [facility] HospitalInasjqqMWXKUOLJVWFZ1580-24-56 10:28:00 Test Item Value Reference Range Interpretation Comments AGAP (test code = AGAP) 9.7 10.0-20.0 [facility] HospitalPobwsnzRDVYSLQUUUXD3782-96-16 10:28:00 Test Item Value Reference Range Interpretation Comments A/G Ratio (test code = A/G Ratio) 1.1 0.7-1.6 [facility] HospitalFldtzjnIQELRHSLROXQ3747-06-22 10:28:00 Test Item Value Reference Range Interpretation Comments B/C Ratio (test code = B/C Ratio) 20 6-25 [facility] HospitalHvuilyoKREDEEMBGTOZ3088-02-09 10:28:00 Test Item Value Reference Range Interpretation Comments Globulin (test code = Globulin) 3.2 2.0-4.0 [facility] HospitalQlmkdopDWXOYBBVZGJC9189-45-66 10:28:00 Test Item Value Reference Range Interpretation Comments eGFR (test code = eGFR) 90 [facility] HospitalPaevflsZQXIMFOUXCXF1928-32-07 10:28:00 Test Item Value Reference Range Interpretation Comments Bili Total (test code = Bili Total) 0.3 0.2-1.3 [facility] HospitalQbnmxgwJPOLJWXORNFC4964-20-57 10:28:00 Test Item Value Reference Range Interpretation Comments AST (test code = AST) 18 See_Comment [Auto mated message] The system which ge nerated this result transmit jose reference range : <=37. The reference range was not used to interpr et this result as carolina l/abnormal. [facility] HospitalClevujkWDIKASPIFTQO4297-05-98 10:28:00 Test Item Value Reference Range Interpretation Comments Alk Phos (test code = Alk Phos) 66 39-136 [facility] HospitalZppwnvrTSTHCIBNJCQT3743-82-47 10:28:00 Test Item Value Reference Range Interpretation Comments ALT (test code = ALT) 31 See_Comment [Auto mated message] The system which ge nerated this result transmit jose reference range : <=65. The reference range was not used to interpr et this result as carolina l/abnormal. [facility] HospitalJrjktfdUVTARQVFGIAQ1851-31-95 10:28:00 Test Item Value Reference Range Interpretation Comments Albumin Lvl (test code = Albumin Lvl) 3.5 3.5-5.0 [facility] HospitalQfglhmkIXIAPKJZNDWV7770-96-35 10:28:00 Test Item Value Reference Range Interpretation Comments Total Protein (test code = Total 6.7 6.4-8.4 Protein) [facility] HospitalQlmgkzrEBQEVUBZCVWD2523-79-78 10:28:00 Test Item Value Reference Range Interpretation Comments Chloride Lvl (test code = Chloride Lvl) 107 95-109 [facility] HospitalSatcxucJORMUPNRNQZP8419-76-78 10:28:00 Test Item Value Reference Range Interpretation Comments Calcium Lvl (test code = Calcium Lvl) 9.0 8.5-10.5 [facility] HospitalCmnwjfjXNJETHOOMLWJ0605-17-57 10:28:00 Test Item Value Reference Range Interpretation Comments CO2 (test code = CO2) 27 24-32 [facility] HospitalHaluhrsQUCEDPXUIFYO5435-16-24 10:28:00 Test Item Value Reference Range Interpretation Comments Potassium Lvl (test code = Potassium 3.7 3.5-5.1 Lvl) [facility] HospitalRmybxvvMMDFHAKWHTTL0392-97-59 10:28:00 Test Item Value Reference Range Interpretation Comments Creatinine Lvl (test code = Creatinine 0.8 0.5-1.4 Lvl) [facility] HospitalOmtqsuqRCXXBSDGENAO9537-59-64 10:28:00 Test Item Value Reference Range Interpretation Comments Sodium Lvl (test code = Sodium Lvl) 140 135-145 [facility] HospitalRsryljvGSLXRLYQBRGZ6703-51-37 10:28:00 Test Item Value Reference Range Interpretation Comments BUN (test code = BUN) 16 7-22 [facility] HospitalDnnlqcpWNTOVQUTBNKR0466-98-11 10:28:00 Test Item Value Reference Range Interpretation Comments Glucose Lvl (test code = Glucose Lvl) 86 70-99 [facility]wayWeafijaORRDNTGCUZ4581-49-29 10:28:00 Test Item Value Reference Range Interpretation Comments Monocytes # (test code 0.4 See_Comment [Aut omated message] The = Monocytes #) system which generated this result tra nsmitted reference range : <=0.8. The reference r christo was not used to int erpret this result as normal/abnormal . [facility] SystemZtplthtPWTUYETDQK9263-56-98 10:28:00 Test Item Value Reference Range Interpretation Comments Segs-Bands # (test code = Segs-Bands #) 3.7 1.5-8.1 [facility] SystemGzbjnvuTWPRFFSNDC2757-33-10 10:28:00 Test Item Value Reference Range Interpretation Comments Lymphocytes # (test code = Lymphocytes 1.5 1.0-5.5 #) [facility] SystemAytfoykCISEPDBKBF7887-76-08 10:28:00 Test Item Value Reference Range Interpretation Comments Basophils # (test code 0.0 See_Comment [Aut omated message] The = Basophils #) system which generated this result tra nsmitted reference range : <=0.2. The reference r christo was not used to int erpret this result as normal/abnormal . [facility] SystemBkzqghoAULOPGQLET4965-77-90 10:28:00 Test Item Value Reference Range Interpretation Comments Eosinophils # (test code 0.1 See_Comment [A utomated message] The = Eosinophils #) system whic h generated this result tra nsmitted reference range : <=0.5. The reference r christo was not used to int erpret this result as normal/abnormal . [facility] SystemKhfoceiFINAVDGUTO3096-73-59 10:28:00 Test Item Value Reference Range Interpretation Comments Segs (test code = Segs) 65.9 45.0-75.0 [facility] SystemHdfwkrnVCNDZBLNKH2898-91-35 10:28:00 Test Item Value Reference Range Interpretation Comments Lymphocytes (test code = Lymphocytes) 25.6 20.0-40.0 [facility] SystemWysxmhnEUETNPTBCJ4166-89-14 10:28:00 Test Item Value Reference Range Interpretation Comments Eosinophils (test code = 0.9 See_Comment [A utomated message] The Eosinophils) system which ge nerated this result tra nsmitted reference range : <=4.0. The reference r christo was not used to int erpret this result as normal/abnormal . [facility] SystemXcqmoptONEXAQTCSD8746-50-62 10:28:00 Test Item Value Reference Range Interpretation Comments Basophils (test code = 0.1 See_Comment [Aut omated message] The Basophils) system which ge nerated this result tra nsmitted reference range : <=1.0. The reference r christo was not used to int erpret this result as normal/abnormal . [facility] SystemFcimwceBUXTDGVVXE0093-93-98 10:28:00 Test Item Value Reference Range Interpretation Comments Monocytes (test code = Monocytes) 7.5 2.0-12.0 [facility] SystemHpnqszfTDVGDQTWCK9496-44-88 10:28:00 Test Item Value Reference Range Interpretation Comments MCH (test code = MCH) 30.3 pg 27.0-31.0 [facility] SystemNivbauyEPPJJJECMA0245-46-68 10:28:00 Test Item Value Reference Range Interpretation Comments MCHC (test code = MCHC) 33.6 32.0-36.0 [facility] SystemFkxohjnANONMGDXNJ3458-51-02 10:28:00 Test Item Value Reference Range Interpretation Comments MCV (test code = MCV) 90.1 80.0-94.0 [facility] SystemWlmtzrzRLVOMXDSTI1214-73-13 10:28:00 Test Item Value Reference Range Interpretation Comments Platelet (test code = Platelet) 190 133-450 [facility] SystemVdkvwbhRELFDEXIZB3570-95-42 10:28:00 Test Item Value Reference Range Interpretation Comments RDW (test code = RDW) 13.4 11.5-14.5 [facility] SystemVqmdsiqVULQJVNNAA4938-46-88 10:28:00 Test Item Value Reference Range Interpretation Comments MPV (test code = MPV) 8.2 7.4-10.4 [facility] SystemXyeotxrIQIXGSBDRH9676-81-38 10:28:00 Test Item Value Reference Range Interpretation Comments WBC (test code = WBC) 5.7 3.7-10.4 [facility] SystemXmkxccuMXCCUPOXJN7203-14-32 10:28:00 Test Item Value Reference Range Interpretation Comments Hct (test code = Hct) 38.8 42.0-54.0 [facility] SystemCxscasiFNGKAPBGPF6310-31-25 10:28:00 Test Item Value Reference Range Interpretation Comments RBC (test code = RBC) 4.31 4.70-6.10 [facility] SystemVfojupsUVCWZIUSPV4314-12-54 10:28:00 Test Item Value Reference Range Interpretation Comments Hgb (test code = Hgb) 13.1 14.0-18.0 [facility] HospitalIadrxphCPJVYYQROTFM4159-37-19 11:30:00 Test Item Value Reference Range Interpretation Comments AGAP (test code = AGAP) 11.7 10.0-20.0 [facility] HospitalYvdqjltVIYKEUNUAFMY1092-00-41 11:30:00 Test Item Value Reference Range Interpretation Comments Globulin (test code = Globulin) 3.5 2.0-4.0 [facility] HospitalDfsjrneQMIJZETWYXZX6088-54-28 11:30:00 Test Item Value Reference Range Interpretation Comments A/G Ratio (test code = A/G Ratio) 0.9 0.7-1.6 [facility] HospitalUqxxspeUSHGXRGNYXEX2635-00-67 11:30:00 Test Item Value Reference Range Interpretation Comments B/C Ratio (test code = B/C Ratio) 19 6-25 [facility] HospitalBnrvygsACFNQDNEKMIL8593-68-51 11:30:00 Test Item Value Reference Range Interpretation Comments eGFR (test code = eGFR) 86 [facility] HospitalOjgyrkeIUEGVVYBKDAN8214-29-70 11:30:00 Test Item Value Reference Range Interpretation Comments Albumin Lvl (test code = Albumin Lvl) 3.3 3.5-5.0 [facility] HospitalRvdjsysLHTPTIOFGXMY9000-14-38 11:30:00 Test Item Value Reference Range Interpretation Comments Bili Total (test code = Bili Total) 0.3 0.2-1.3 [facility] HospitalZlfxxpaIXXSVIRAEVTX1272-44-11 11:30:00 Test Item Value Reference Range Interpretation Comments Alk Phos (test code = Alk Phos) 67 39-136 [facility] HospitalJmzgdyuZFAUXZHDYAWJ7714-09-94 11:30:00 Test Item Value Reference Range Interpretation Comments AST (test code = AST) 23 See_Comment [Auto mated message] The system which ge nerated this result transmit jose reference range : <=37. The reference range was not used to interpr et this result as carolina l/abnormal. [facility] HospitalHurtcbeYFWXTGJNMBBV8696-67-72 11:30:00 Test Item Value Reference Range Interpretation Comments ALT (test code = ALT) 43 See_Comment [Auto mated message] The system which ge nerated this result transmit jose reference range : <=65. The reference range was not used to interpr et this result as carolina l/abnormal. [facility] HospitalXwypypwMJBREQOQYFTA4559-02-91 11:30:00 Test Item Value Reference Range Interpretation Comments Total Protein (test code = Total 6.8 6.4-8.4 Protein) [facility] HospitalFekzvgaSBYAMIHKTIEY0764-63-31 11:30:00 Test Item Value Reference Range Interpretation Comments Calcium Lvl (test code = Calcium Lvl) 9.3 8.5-10.5 [facility] HospitalVcjkjhoQYIMVLOPHZCE1611-52-15 11:30:00 Test Item Value Reference Range Interpretation Comments Chloride Lvl (test code = Chloride Lvl) 106 95-109 [facility] HospitalEtdklcoGMKSXLLFYLSZ5559-22-53 11:30:00 Test Item Value Reference Range Interpretation Comments Sodium Lvl (test code = Sodium Lvl) 141 135-145 [facility] HospitalSvjzymbWTFNEKQUJHEI3394-38-32 11:30:00 Test Item Value Reference Range Interpretation Comments CO2 (test code = CO2) 27 24-32 [facility] HospitalBpvzlcrWVUQJVWBGCVY5088-26-03 11:30:00 Test Item Value Reference Range Interpretation Comments Potassium Lvl (test code = Potassium 3.7 3.5-5.1 Lvl) [facility] HospitalBcaqydyZWFUQPTFVMPM9976-98-17 11:30:00 Test Item Value Reference Range Interpretation Comments Creatinine Lvl (test code = Creatinine 0.9 0.5-1.4 Lvl) [facility] HospitalYuppkxuEXRSZCGJQDGN4750-01-18 11:30:00 Test Item Value Reference Range Interpretation Comments BUN (test code = BUN) 17 7-22 [facility] HospitalFjkppcgKBCGQLAINAFR4576-30-85 11:30:00 Test Item Value Reference Range Interpretation Comments Glucose Lvl (test code = Glucose Lvl) 96 70-99 [facility] SystemKqdpdcdIYXPCHSTQW1608-28-67 11:30:00 Test Item Value Reference Range Interpretation Comments Basophils # (test code 0.0 See_Comment [Aut omated message] The = Basophils #) system which generated this result tra nsmitted reference range : <=0.2. The reference r christo was not used to int erpret this result as normal/abnormal . [facility] SystemSpzgpfpIIOKLXEERF1600-37-57 11:30:00 Test Item Value Reference Range Interpretation Comments Eosinophils # (test code 0.1 See_Comment [A utomated message] The = Eosinophils #) system whic h generated this result tra nsmitted reference range : <=0.5. The reference r christo was not used to int erpret this result as normal/abnormal . [facility] SystemDytdsnfYXDCBWXXSR8484-32-53 11:30:00 Test Item Value Reference Range Interpretation Comments Segs-Bands # (test code = Segs-Bands #) 3.3 1.5-8.1 [facility] SystemDclyhwiKDXNKROQDR9870-31-87 11:30:00 Test Item Value Reference Range Interpretation Comments Lymphocytes # (test code = Lymphocytes 1.4 1.0-5.5 #) [facility] SystemWdjqrwjOIFRFDRGJW1126-14-79 11:30:00 Test Item Value Reference Range Interpretation Comments Monocytes # (test code 0.3 See_Comment [Aut omated message] The = Monocytes #) system which generated this result tra nsmitted reference range : <=0.8. The reference r christo was not used to int erpret this result as normal/abnormal . [facility] SystemIxpsuxfLAAVJVBOQQ6978-51-64 11:30:00 Test Item Value Reference Range Interpretation Comments Basophils (test code = 0.8 See_Comment [Aut omated message] The Basophils) system which ge nerated this result tra nsmitted reference range : <=1.0. The reference r christo was not used to int erpret this result as normal/abnormal . [facility] SystemSdryliuIPHVCUTVZV8246-89-04 11:30:00 Test Item Value Reference Range Interpretation Comments Monocytes (test code = Monocytes) 6.7 2.0-12.0 [facility] SystemUekwnevPOTFCJIOPX5965-80-13 11:30:00 Test Item Value Reference Range Interpretation Comments Eosinophils (test code = 1.5 See_Comment [A utomated message] The Eosinophils) system which ge nerated this result tra nsmitted reference range : <=4.0. The reference r christo was not used to int erpret this result as normal/abnormal . [facility] SystemVsapvgwRXESOVSBMO0594-94-16 11:30:00 Test Item Value Reference Range Interpretation Comments Lymphocytes (test code = Lymphocytes) 27.0 20.0-40.0 [facility] SystemRnnqvcwIJVQTNFANL5174-97-61 11:30:00 Test Item Value Reference Range Interpretation Comments Segs (test code = Segs) 64.0 45.0-75.0 [facility] SystemCeibqhcUEVXWVXAHV8297-45-22 11:30:00 Test Item Value Reference Range Interpretation Comments Platelet (test code = Platelet) 333 133-450 [facility] SystemYnydksnPKFWZQNSIS7468-56-80 11:30:00 Test Item Value Reference Range Interpretation Comments MPV (test code = MPV) 7.1 7.4-10.4 [facility] SystemPgvfyimXKHKPJTMQJ8932-79-81 11:30:00 Test Item Value Reference Range Interpretation Comments MCHC (test code = MCHC) 31.9 32.0-36.0 [facility] SystemHajjdtqNOZVFLXYDN3801-35-77 11:30:00 Test Item Value Reference Range Interpretation Comments RDW (test code = RDW) 13.0 11.5-14.5 [facility] SystemQbymkhkCDQDVFZVTB8649-94-13 11:30:00 Test Item Value Reference Range Interpretation Comments MCH (test code = MCH) 29.0 pg 27.0-31.0 [facility] SystemNcmueejNQPHALKXYR2874-16-09 11:30:00 Test Item Value Reference Range Interpretation Comments MCV (test code = MCV) 90.8 80.0-94.0 [facility] SystemJsaqveqULQKIMCTLT0832-25-49 11:30:00 Test Item Value Reference Range Interpretation Comments Hct (test code = Hct) 41.1 42.0-54.0 [facility] SystemYjabcksKVYUIKMVCR1153-66-67 11:30:00 Test Item Value Reference Range Interpretation Comments RBC (test code = RBC) 4.53 4.70-6.10 [facility] SystemSashwkrVGAWGJBLJF8811-20-40 11:30:00 Test Item Value Reference Range Interpretation Comments Hgb (test code = Hgb) 13.1 14.0-18.0 [facility] SystemTaxvemvFOPORMEFXE9783-44-61 11:30:00 Test Item Value Reference Range Interpretation Comments WBC (test code = WBC) 5.1 3.7-10.4 [facility] HospitalWgjxbceGGGLLVYTJZUM6197-25-68 11:30:00 Test Item Value Reference Range Interpretation Comments AGAP (test code = AGAP) 11.7 10.0-20.0 [facility] HospitalMenpxexBVEVDBRFZSRM9965-18-30 11:30:00 Test Item Value Reference Range Interpretation Comments Globulin (test code = Globulin) 3.5 2.0-4.0 [facility] HospitalNvodouwNBNLUEZQEUNI3365-55-47 11:30:00 Test Item Value Reference Range Interpretation Comments A/G Ratio (test code = A/G Ratio) 0.9 0.7-1.6 [facility] HospitalObkeaajSEBFUSOVRUDZ6561-43-91 11:30:00 Test Item Value Reference Range Interpretation Comments B/C Ratio (test code = B/C Ratio) 19 6-25 [facility] HospitalHajufjyFBKZFSJTFRIH3967-92-53 11:30:00 Test Item Value Reference Range Interpretation Comments eGFR (test code = eGFR) 86 [facility] HospitalUvcbmyvPAAJBZJEHIDP4119-18-95 11:30:00 Test Item Value Reference Range Interpretation Comments Albumin Lvl (test code = Albumin Lvl) 3.3 3.5-5.0 [facility] HospitalCkroyqaFVLSLBZVZZVM1474-48-91 11:30:00 Test Item Value Reference Range Interpretation Comments Bili Total (test code = Bili Total) 0.3 0.2-1.3 [facility] HospitalNgfgzihVXHKQIFBUDIO3523-40-76 11:30:00 Test Item Value Reference Range Interpretation Comments Alk Phos (test code = Alk Phos) 67 39-136 [facility] HospitalFgmceirKACOHEPHADXM6305-06-14 11:30:00 Test Item Value Reference Range Interpretation Comments AST (test code = AST) 23 See_Comment [Auto mated message] The system which ge nerated this result transmit jose reference range : <=37. The reference range was not used to interpr et this result as carolina l/abnormal. [facility] HospitalDeyoabpLIVZZDRANKHU5578-49-44 11:30:00 Test Item Value Reference Range Interpretation Comments ALT (test code = ALT) 43 See_Comment [Auto mated message] The system which ge nerated this result transmit jose reference range : <=65. The reference range was not used to interpr et this result as carolina l/abnormal. [facility] HospitalMijxoqbUHQCDBWRHUHE7248-78-24 11:30:00 Test Item Value Reference Range Interpretation Comments Total Protein (test code = Total 6.8 6.4-8.4 Protein) [facility] HospitalUveqtsqISVFDUMELXMJ9493-58-79 11:30:00 Test Item Value Reference Range Interpretation Comments Calcium Lvl (test code = Calcium Lvl) 9.3 8.5-10.5 [facility] HospitalYbzkcvtQBCOSRVSLWFZ1843-23-96 11:30:00 Test Item Value Reference Range Interpretation Comments Chloride Lvl (test code = Chloride Lvl) 106 95-109 [facility] HospitalEgavdfsSBJCYTABYTDD9427-87-19 11:30:00 Test Item Value Reference Range Interpretation Comments Sodium Lvl (test code = Sodium Lvl) 141 135-145 [facility] HospitalQfdjjiiKLQNLZQPGLIY4645-94-10 11:30:00 Test Item Value Reference Range Interpretation Comments CO2 (test code = CO2) 27 24-32 [facility] HospitalQetlrbdTLGXKKBTTIPF9911-41-42 11:30:00 Test Item Value Reference Range Interpretation Comments Potassium Lvl (test code = Potassium 3.7 3.5-5.1 Lvl) [facility] HospitalDglthhqAPXCGNIGYNLY0996-87-88 11:30:00 Test Item Value Reference Range Interpretation Comments Creatinine Lvl (test code = Creatinine 0.9 0.5-1.4 Lvl) [facility] HospitalMfsymbqJCLLZIHFJXMB0683-31-32 11:30:00 Test Item Value Reference Range Interpretation Comments BUN (test code = BUN) 17 7-22 [facility] HospitalHitbfptZONFMRWYEQOP2510-67-79 11:30:00 Test Item Value Reference Range Interpretation Comments Glucose Lvl (test code = Glucose Lvl) 96 70-99 [facility] SystemGpjdrpxMSHJZNEACL0096-45-25 11:30:00 Test Item Value Reference Range Interpretation Comments Basophils # (test code 0.0 See_Comment [Aut omated message] The = Basophils #) system which generated this result tra nsmitted reference range : <=0.2. The reference r christo was not used to int erpret this result as normal/abnormal . [facility] SystemEifrueyHAEXGRWGSV2707-28-43 11:30:00 Test Item Value Reference Range Interpretation Comments Eosinophils # (test code 0.1 See_Comment [A utomated message] The = Eosinophils #) system whic h generated this result tra nsmitted reference range : <=0.5. The reference r christo was not used to int erpret this result as normal/abnormal . [facility] SystemLjguudhOMGQZPXAJO1279-23-32 11:30:00 Test Item Value Reference Range Interpretation Comments Segs-Bands # (test code = Segs-Bands #) 3.3 1.5-8.1 [facility] SystemFbdgvgeQSSWJFLLDL4103-52-06 11:30:00 Test Item Value Reference Range Interpretation Comments Lymphocytes # (test code = Lymphocytes 1.4 1.0-5.5 #) [facility] SystemMrwbyopAMSRNBBNNM0986-95-70 11:30:00 Test Item Value Reference Range Interpretation Comments Monocytes # (test code 0.3 See_Comment [Aut omated message] The = Monocytes #) system which generated this result tra nsmitted reference range : <=0.8. The reference r christo was not used to int erpret this result as normal/abnormal . [facility] SystemGqemldgKHVNGZHRYS4988-35-07 11:30:00 Test Item Value Reference Range Interpretation Comments Basophils (test code = 0.8 See_Comment [Aut omated message] The Basophils) system which ge nerated this result tra nsmitted reference range : <=1.0. The reference r christo was not used to int erpret this result as normal/abnormal . [facility] SystemEluwbqsQFEXQORTDF4628-55-85 11:30:00 Test Item Value Reference Range Interpretation Comments Monocytes (test code = Monocytes) 6.7 2.0-12.0 [facility] SystemMqihpcxMZBXIPJGUO7137-60-42 11:30:00 Test Item Value Reference Range Interpretation Comments Eosinophils (test code = 1.5 See_Comment [A utomated message] The Eosinophils) system which ge nerated this result tra nsmitted reference range : <=4.0. The reference r christo was not used to int erpret this result as normal/abnormal . [facility] SystemEesshvhFXDCWIUWLE3508-29-34 11:30:00 Test Item Value Reference Range Interpretation Comments Lymphocytes (test code = Lymphocytes) 27.0 20.0-40.0 [facility] SystemFonmxxeXDEMMCXVSB9189-20-63 11:30:00 Test Item Value Reference Range Interpretation Comments Segs (test code = Segs) 64.0 45.0-75.0 [facility] SystemEumrzbdTVWJHRJWCF5557-23-85 11:30:00 Test Item Value Reference Range Interpretation Comments Platelet (test code = Platelet) 333 133-450 [facility] SystemEhgleowJXTNXHVOTB1558-72-10 11:30:00 Test Item Value Reference Range Interpretation Comments MPV (test code = MPV) 7.1 7.4-10.4 [facility] SystemWqxudwmAHDLZIIHRY7455-04-68 11:30:00 Test Item Value Reference Range Interpretation Comments MCHC (test code = MCHC) 31.9 32.0-36.0 [facility] SystemDtkzwqjHIDBGBYYTG1169-48-56 11:30:00 Test Item Value Reference Range Interpretation Comments RDW (test code = RDW) 13.0 11.5-14.5 [facility] SystemAqgevcjHGPHQCGOBL9461-54-95 11:30:00 Test Item Value Reference Range Interpretation Comments MCH (test code = MCH) 29.0 pg 27.0-31.0 [facility] SystemPubbuujBCOUQSGSMN2381-82-68 11:30:00 Test Item Value Reference Range Interpretation Comments MCV (test code = MCV) 90.8 80.0-94.0 [facility] SystemYzidslbFYKMLTGSIH0859-33-46 11:30:00 Test Item Value Reference Range Interpretation Comments Hct (test code = Hct) 41.1 42.0-54.0 [facility] SystemIxzmtsiWCERNSANIR3797-44-87 11:30:00 Test Item Value Reference Range Interpretation Comments RBC (test code = RBC) 4.53 4.70-6.10 [facility] SystemZxqcdftDSDFZUROWN1596-23-60 11:30:00 Test Item Value Reference Range Interpretation Comments Hgb (test code = Hgb) 13.1 14.0-18.0 [facility] SystemFxbogazSLTFGKFKLX7190-47-41 11:30:00 Test Item Value Reference Range Interpretation Comments WBC (test code = WBC) 5.1 3.7-10.4 [facility] HospitalArhalyyGVIRUUXROJWA5755-64-71 11:30:00 Test Item Value Reference Range Interpretation Comments AGAP (test code = AGAP) 11.7 10.0-20.0 [facility] HospitalLytxoimBQUDMHPZVOUX7623-22-39 11:30:00 Test Item Value Reference Range Interpretation Comments Globulin (test code = Globulin) 3.5 2.0-4.0 [facility] HospitalNnvjpdnOUSJSPKMDFUU4328-73-88 11:30:00 Test Item Value Reference Range Interpretation Comments A/G Ratio (test code = A/G Ratio) 0.9 0.7-1.6 [facility] HospitalQuirlxpKVLYCPMTCKUL5086-25-02 11:30:00 Test Item Value Reference Range Interpretation Comments B/C Ratio (test code = B/C Ratio) 19 6-25 [facility] HospitalOlrnwylMTIVXPRHVLIR6983-77-27 11:30:00 Test Item Value Reference Range Interpretation Comments eGFR (test code = eGFR) 86 [facility] HospitalIzhmsdyEODAHAWDNDIU4445-04-08 11:30:00 Test Item Value Reference Range Interpretation Comments Albumin Lvl (test code = Albumin Lvl) 3.3 3.5-5.0 [facility] HospitalKawsghdLGEUIJSQURJS9559-10-76 11:30:00 Test Item Value Reference Range Interpretation Comments Bili Total (test code = Bili Total) 0.3 0.2-1.3 [facility] HospitalYsqwbkeYDHBETSJHYNT4926-30-40 11:30:00 Test Item Value Reference Range Interpretation Comments Alk Phos (test code = Alk Phos) 67 39-136 [facility] HospitalAasinizILIKHQHCMPFY5998-02-49 11:30:00 Test Item Value Reference Range Interpretation Comments AST (test code = AST) 23 See_Comment [Auto mated message] The system which ge nerated this result transmit jose reference range : <=37. The reference range was not used to interpr et this result as carolina l/abnormal. [facility] HospitalHkhkdjcTKQTUEAPBNSP0944-19-89 11:30:00 Test Item Value Reference Range Interpretation Comments ALT (test code = ALT) 43 See_Comment [Auto mated message] The system which ge nerated this result transmit jose reference range : <=65. The reference range was not used to interpr et this result as carolina l/abnormal. [facility] HospitalSsvpardLVRGNIWUWOER2726-64-70 11:30:00 Test Item Value Reference Range Interpretation Comments Total Protein (test code = Total 6.8 6.4-8.4 Protein) [facility] HospitalLrwlizmNCHFWWIDHBSW7281-25-87 11:30:00 Test Item Value Reference Range Interpretation Comments Calcium Lvl (test code = Calcium Lvl) 9.3 8.5-10.5 [facility] HospitalHdfdtobLRWIXJHYKIPG5846-89-00 11:30:00 Test Item Value Reference Range Interpretation Comments Chloride Lvl (test code = Chloride Lvl) 106 95-109 [facility] HospitalWlfusatNAKRIEMDIEBK0039-50-50 11:30:00 Test Item Value Reference Range Interpretation Comments Sodium Lvl (test code = Sodium Lvl) 141 135-145 [facility] HospitalDtbwfxqKZNONRHGGQWC2924-61-37 11:30:00 Test Item Value Reference Range Interpretation Comments CO2 (test code = CO2) 27 24-32 [facility] HospitalKlnsuxcXVTFXARGKBNQ6785-48-24 11:30:00 Test Item Value Reference Range Interpretation Comments Potassium Lvl (test code = Potassium 3.7 3.5-5.1 Lvl) [facility] HospitalXssyzevNDJVEQOEWNII8844-85-83 11:30:00 Test Item Value Reference Range Interpretation Comments Creatinine Lvl (test code = Creatinine 0.9 0.5-1.4 Lvl) [facility] HospitalLzwrqgdDOVCHKJMNJJQ5889-07-60 11:30:00 Test Item Value Reference Range Interpretation Comments BUN (test code = BUN) 17 7-22 [facility] HospitalKskytyxAXDMDOHJPWDO2686-28-72 11:30:00 Test Item Value Reference Range Interpretation Comments Glucose Lvl (test code = Glucose Lvl) 96 70-99 [facility] SystemEzjurgdBNQDGQXDKB4029-16-17 11:30:00 Test Item Value Reference Range Interpretation Comments Basophils # (test code 0.0 See_Comment [Aut omated message] The = Basophils #) system which generated this result tra nsmitted reference range : <=0.2. The reference r christo was not used to int erpret this result as normal/abnormal . [facility] SystemPvolgsuCZCDKDKFIH9221-41-91 11:30:00 Test Item Value Reference Range Interpretation Comments Eosinophils # (test code 0.1 See_Comment [A utomated message] The = Eosinophils #) system whic h generated this result tra nsmitted reference range : <=0.5. The reference r christo was not used to int erpret this result as normal/abnormal . [facility] SystemZwhwevzOAFEFWCAIZ4206-77-03 11:30:00 Test Item Value Reference Range Interpretation Comments Segs-Bands # (test code = Segs-Bands #) 3.3 1.5-8.1 [place] 730965-10-05 11:30:00 Test Item Value Reference Range Interpretation Comments Lymphocytes # (test code = Lymphocytes 1.4 1.0-5.5 #) [facility] SystemLpsqmvqTTOCJJKQMX5002-08-20 11:30:00 Test Item Value Reference Range Interpretation Comments Monocytes # (test code 0.3 See_Comment [Aut omated message] The = Monocytes #) system which generated this result tra nsmitted reference range : <=0.8. The reference r christo was not used to int erpret this result as normal/abnormal . [facility] SystemRhclrrxOASGHSCXAX1536-68-16 11:30:00 Test Item Value Reference Range Interpretation Comments Basophils (test code = 0.8 See_Comment [Aut omated message] The Basophils) system which ge nerated this result tra nsmitted reference range : <=1.0. The reference r christo was not used to int erpret this result as normal/abnormal . [facility] SystemYfhntszJRUOIAPUFQ5975-45-92 11:30:00 Test Item Value Reference Range Interpretation Comments Monocytes (test code = Monocytes) 6.7 2.0-12.0 [facility] SystemQphjcqeSBUUHFJOYT9101-84-73 11:30:00 Test Item Value Reference Range Interpretation Comments Eosinophils (test code = 1.5 See_Comment [A utomated message] The Eosinophils) system which ge nerated this result tra nsmitted reference range : <=4.0. The reference r christo was not used to int erpret this result as normal/abnormal . [facility] SystemMdjijkePVBGHNINYG2382-96-43 11:30:00 Test Item Value Reference Range Interpretation Comments Lymphocytes (test code = Lymphocytes) 27.0 20.0-40.0 [facility] SystemPiaszwoOWCXTTTBDM7174-17-52 11:30:00 Test Item Value Reference Range Interpretation Comments Segs (test code = Segs) 64.0 45.0-75.0 [facility] SystemGxiovkyJZIHDSIDIJ5889-85-09 11:30:00 Test Item Value Reference Range Interpretation Comments Platelet (test code = Platelet) 333 133-450 [facility] SystemYdgxsjyTXHKGVJFSX9074-34-32 11:30:00 Test Item Value Reference Range Interpretation Comments MPV (test code = MPV) 7.1 7.4-10.4 [facility] SystemKmtoxxfRGADYWWNEF4433-90-92 11:30:00 Test Item Value Reference Range Interpretation Comments MCHC (test code = MCHC) 31.9 32.0-36.0 [facility] SystemPgwypdgTCOJATBPHW7687-72-24 11:30:00 Test Item Value Reference Range Interpretation Comments RDW (test code = RDW) 13.0 11.5-14.5 [facility] SystemRyihajoLDWNFOKNKH3296-63-90 11:30:00 Test Item Value Reference Range Interpretation Comments MCH (test code = MCH) 29.0 pg 27.0-31.0 [facility] SystemFwzumymWDAQUMUHGU2339-71-02 11:30:00 Test Item Value Reference Range Interpretation Comments MCV (test code = MCV) 90.8 80.0-94.0 [facility] SystemUywizrmOAVFJZWJJN8252-88-84 11:30:00 Test Item Value Reference Range Interpretation Comments Hct (test code = Hct) 41.1 42.0-54.0 [facility] SystemGelqiexXOCNFUQQIL1824-74-38 11:30:00 Test Item Value Reference Range Interpretation Comments RBC (test code = RBC) 4.53 4.70-6.10 [facility] SystemMofurthDTIXJMDNGV5321-81-07 11:30:00 Test Item Value Reference Range Interpretation Comments Hgb (test code = Hgb) 13.1 14.0-18.0 [facility] SystemParedxxJRJUMZMVUD8614-56-03 11:30:00 Test Item Value Reference Range Interpretation Comments WBC (test code = WBC) 5.1 3.7-10.4 [facility] AND [id number] 09:49:00 Test Item Value Reference Range Interpretation Comments UA pH (test code = UA pH) 5.5 1 5.0-8.0 [facility] AND [id number] 09:49:00 Test Item Value Reference Range Interpretation Comments UA Spec Grav (test code = UA Spec 1.025 1 Grav) [facility] AND [id number] 09:49:00 Test Item Value Reference Range Interpretation Comments UA Glucose (test code = UA Negative mg/dL Glucose) [facility] AND [id number] 09:49:00 Test Item Value Reference Range Interpretation Comments UA Ketones (test code = UA Negative mg/dL Ketones) [facility] AND [id number] 09:49:00 Test Item Value Reference Range Interpretation Comments UA Bili (test code = Negative *NA*(02/01/15 UA Bili) 4:49 AM) [facility] AND [id number] 09:49:00 Test Item Value Reference Range Interpretation Comments UA Protein (test code = UA Negative mg/dL Protein) [facility] AND [id number] 09:49:00 Test Item Value Reference Range Interpretation Comments UA Nitrite (test code Negative (02/01/15 4:49 = UA Nitrite) AM) [facility] AND [id number] 09:49:00 Test Item Value Reference Range Interpretation Comments UA Leuk Est (test Negative (02/01/15 4:49 code = UA Leuk Est) AM) [facility] AND [id number] 09:49:00 Test Item Value Reference Range Interpretation Comments UA Blood (test code = Negative (02/01/15 4:49 UA Blood) AM) [facility] AND [id number] 09:49:00 Test Item Value Reference Range Interpretation Comments UA Urobilinogen (test code = UA 0.2 0.1-1.0 Urobilinogen) [facility] AND [id number] 09:49:00 Test Item Value Reference Range Interpretation Comments UA Color (test code = Yellow *NA*(02/01/15 UA Color) 4:49 AM) [facility] AND [id number] 09:49:00 Test Item Value Reference Range Interpretation Comments UA Turbidity (test code = Clear (02/01/15 4:49 UA Turbidity) AM) [facility] AND [id number] 09:49:00 Test Item Value Reference Range Interpretation Comments UA CaOx Ninfa (test code = UA Occasional /HPF CaOx Ninfa) [facility] AND [id number] 09:49:00 Test Item Value Reference Range Interpretation Comments UA Sq Epi (test code = UA Sq Epi) Rare /LPF [facility] AND [id number] 09:49:00 Test Item Value Reference Range Interpretation Comments UA Bacteria (test code = UA Few /HPF Bacteria) [facility] AND [id number] 09:49:00 Test Item Value Reference Range Interpretation Comments UA pH (test code = UA pH) 5.5 1 5.0-8.0 [facility] AND [id number] 09:49:00 Test Item Value Reference Range Interpretation Comments UA Spec Grav (test code = UA Spec 1.025 1 Grav) [facility] AND [id number] 09:49:00 Test Item Value Reference Range Interpretation Comments UA Glucose (test code = UA Negative mg/dL Glucose) [facility] AND [id number] 09:49:00 Test Item Value Reference Range Interpretation Comments UA Ketones (test code = UA Negative mg/dL Ketones) [facility] AND [id number] 09:49:00 Test Item Value Reference Range Interpretation Comments UA Bili (test code = Negative *NA*(02/01/15 UA Bili) 4:49 AM) [facility] AND [id number] 09:49:00 Test Item Value Reference Range Interpretation Comments UA Protein (test code = UA Negative mg/dL Protein) [facility] AND [id number] 09:49:00 Test Item Value Reference Range Interpretation Comments UA Nitrite (test code Negative (02/01/15 4:49 = UA Nitrite) AM) [facility] AND [id number] 09:49:00 Test Item Value Reference Range Interpretation Comments UA Leuk Est (test Negative (02/01/15 4:49 code = UA Leuk Est) AM) [facility] AND [id number] 09:49:00 Test Item Value Reference Range Interpretation Comments UA Blood (test code = Negative (02/01/15 4:49 UA Blood) AM) [facility] AND [id number] 09:49:00 Test Item Value Reference Range Interpretation Comments UA Urobilinogen (test code = UA 0.2 0.1-1.0 Urobilinogen) [facility] AND [id number] 09:49:00 Test Item Value Reference Range Interpretation Comments UA Color (test code = Yellow *NA*(02/01/15 UA Color) 4:49 AM) [facility] AND [id number] 09:49:00 Test Item Value Reference Range Interpretation Comments UA Turbidity (test code = Clear (02/01/15 4:49 UA Turbidity) AM) [facility] [facility] [id number] 09:49:00 Test Item Value Reference Range Interpretation Comments UA CaOx Ninfa (test code = UA Occasional /HPF CaOx Ninfa) [facility] AND [id number] 09:49:00 Test Item Value Reference Range Interpretation Comments UA Sq Epi (test code = UA Sq Epi) Rare /LPF [facility] AND [id number] 09:49:00 Test Item Value Reference Range Interpretation Comments UA Bacteria (test code = UA Few /HPF Bacteria) [facility] AND [id number] 09:49:00 Test Item Value Reference Range Interpretation Comments UA pH (test code = UA pH) 5.5 1 5.0-8.0 [facility] AND [id number] 09:49:00 Test Item Value Reference Range Interpretation Comments UA Spec Grav (test code = UA Spec 1.025 1 Grav) [facility] AND [id number] 09:49:00 Test Item Value Reference Range Interpretation Comments UA Glucose (test code = UA Negative mg/dL Glucose) [facility] AND [id number] 09:49:00 Test Item Value Reference Range Interpretation Comments UA Ketones (test code = UA Negative mg/dL Ketones) [facility] AND [id number] 09:49:00 Test Item Value Reference Range Interpretation Comments UA Bili (test code = Negative *NA*(02/01/15 UA Bili) 4:49 AM) [facility] AND [id number] 09:49:00 Test Item Value Reference Range Interpretation Comments UA Protein (test code = UA Negative mg/dL Protein) [facility] AND [id number] 09:49:00 Test Item Value Reference Range Interpretation Comments UA Nitrite (test code Negative (02/01/15 4:49 = UA Nitrite) AM) [facility] AND [id number] 09:49:00 Test Item Value Reference Range Interpretation Comments UA Leuk Est (test Negative (02/01/15 4:49 code = UA Leuk Est) AM) [facility] AND [id number] 09:49:00 Test Item Value Reference Range Interpretation Comments UA Blood (test code = Negative (02/01/15 4:49 UA Blood) AM) [facility] AND [id number] 09:49:00 Test Item Value Reference Range Interpretation Comments UA Urobilinogen (test code = UA 0.2 0.1-1.0 Urobilinogen) [facility] AND [id number] 09:49:00 Test Item Value Reference Range Interpretation Comments UA Color (test code = Yellow *NA*(02/01/15 UA Color) 4:49 AM) [facility] AND [id number] 09:49:00 Test Item Value Reference Range Interpretation Comments UA Turbidity (test code = Clear (02/01/15 4:49 UA Turbidity) AM) [facility] AND [id number] 09:49:00 Test Item Value Reference Range Interpretation Comments UA CaOx Ninfa (test code = UA Occasional /HPF CaOx Ninfa) [facility] AND [id number] 09:49:00 Test Item Value Reference Range Interpretation Comments UA Sq Epi (test code = UA Sq Epi) Rare /LPF [facility] AND [id number] 09:49:00 Test Item Value Reference Range Interpretation Comments UA Bacteria (test code = UA Few /HPF Bacteria) [facility] [id number] 09:45:00 Test Item Value Reference Range Interpretation Comments Ferritin Lvl (test code = Ferritin Lvl) 392 22-275 [facility]2015-10-02 09:45:00 Test Item Value Reference Range Interpretation Comments TIBC (test code = TIBC) 225 228-428 [facility]2015-10-02 09:45:00 Test Item Value Reference Range Interpretation Comments Iron (test code = Iron) 63 45-160 [facility]2015-10-02 09:45:00 Test Item Value Reference Range Interpretation Comments UIBC (test code = UIBC) 162 110-370 [facility]2015-10-02 09:45:00 Test Item Value Reference Range Interpretation Comments % Satur Fe (test code = % Satur Fe) 28 12-57 [facility]2015-10-02 09:45:00 Test Item Value Reference Range Interpretation Comments Magnesium Lvl (test code = Magnesium 2.1 1.8-2.4 Lvl) [facility]2015-10-02 09:45:00 Test Item Value Reference Range Interpretation Comments Phosphorus (test code = Phosphorus) 3.7 2.5-4.5 [facility]2015-10-02 09:45:00 Test Item Value Reference Range Interpretation Comments B/C Ratio (test code = B/C Ratio) 19 6-25 [facility]2015-10-02 09:45:00 Test Item Value Reference Range Interpretation Comments A/G Ratio (test code = A/G Ratio) 0.8 0.7-1.6 [facility]2015-10-02 09:45:00 Test Item Value Reference Range Interpretation Comments Globulin (test code = Globulin) 3.8 2.0-4.0 [facility]2015-10-02 09:45:00 Test Item Value Reference Range Interpretation Comments AGAP (test code = AGAP) 9.9 10.0-20.0 [facility]2015-10-02 09:45:00 Test Item Value Reference Range Interpretation Comments eGFR (test code = eGFR) 86 [facility]2015-10-02 09:45:00 Test Item Value Reference Range Interpretation Comments Chloride Lvl (test code = Chloride Lvl) 106 95-109 [facility]2015-10-02 09:45:00 Test Item Value Reference Range Interpretation Comments CO2 (test code = CO2) 27 24-32 [facility]2015-10-02 09:45:00 Test Item Value Reference Range Interpretation Comments Potassium Lvl (test code = Potassium 3.9 3.5-5.1 Lvl) [facility]2015-10-02 09:45:00 Test Item Value Reference Range Interpretation Comments BUN (test code = BUN) 17 7-22 [facility]2015-10-02 09:45:00 Test Item Value Reference Range Interpretation Comments Creatinine Lvl (test code = Creatinine 0.9 0.5-1.4 Lvl) [facility]2015-10-02 09:45:00 Test Item Value Reference Range Interpretation Comments Sodium Lvl (test code = Sodium Lvl) 139 135-145 [facility]2015-10-02 09:45:00 Test Item Value Reference Range Interpretation Comments Glucose Lvl (test code = Glucose Lvl) 87 70-99 [facility]2015-10-02 09:45:00 Test Item Value Reference Range Interpretation Comments Calcium Lvl (test code = Calcium Lvl) 8.9 8.5-10.5 [facility]2015-10-02 09:45:00 Test Item Value Reference Range Interpretation Comments Albumin Lvl (test code = Albumin Lvl) 2.9 3.5-5.0 [facility]2015-10-02 09:45:00 Test Item Value Reference Range Interpretation Comments Total Protein (test code = Total 6.7 6.4-8.4 Protein) [facility]2015-10-02 09:45:00 Test Item Value Reference Range Interpretation Comments Bili Total (test code = Bili Total) 0.3 0.2-1.3 [facility]2015-10-02 09:45:00 Test Item Value Reference Range Interpretation Comments ALT (test code = ALT) 48 See_Comment [Auto mated message] The system which ge nerated this result transmit jose reference range : <=65. The reference range was not used to interpr et this result as carolina l/abnormal. [facility] [id number] 09:45:00 Test Item Value Reference Range Interpretation Comments Alk Phos (test code = Alk Phos) 54 39-136 [facility] [id number] 09:45:00 Test Item Value Reference Range Interpretation Comments AST (test code = AST) 28 See_Comment [Auto mated message] The system which ge nerated this result transmit jose reference range : <=37. The reference range was not used to interpr et this result as carolina l/abnormal. [facility]IbkadizTEMVWUXTJT5038-71-84 09:45:00 Test Item Value Reference Range Interpretation Comments Hct (test code = Hct) 37.2 42.0-54.0 [facility] SystemVrmuhvlDCNVLEBRUC4390-10-44 09:45:00 Test Item Value Reference Range Interpretation Comments MCV (test code = MCV) 90.2 80.0-94.0 [facility] SystemZayrotgPGTJNNODBN4539-83-91 09:45:00 Test Item Value Reference Range Interpretation Comments MCH (test code = MCH) 29.6 pg 27.0-31.0 [facility] SystemWznagecLPUGVDMSLO3358-37-13 09:45:00 Test Item Value Reference Range Interpretation Comments MCHC (test code = MCHC) 32.8 32.0-36.0 [facility] Syst[id number] 09:45:00 Test Item Value Reference Range Interpretation Comments RDW (test code = RDW) 12.9 11.5-14.5 [facility] SystemHjmhpnuIIGZVNGMYJ9656-58-61 09:45:00 Test Item Value Reference Range Interpretation Comments Hgb (test code = Hgb) 12.2 14.0-18.0 [facility] SystemComglugMJAPVYVJOE0590-59-14 09:45:00 Test Item Value Reference Range Interpretation Comments RBC (test code = RBC) 4.12 4.70-6.10 [facility] SystemRxvdsayIZVCSUWWUC1168-10-13 09:45:00 Test Item Value Reference Range Interpretation Comments MPV (test code = MPV) 7.3 7.4-10.4 [facility] SystemXpqarygUIPEYTCNWH5520-87-56 09:45:00 Test Item Value Reference Range Interpretation Comments Platelet (test code = Platelet) 319 133450 [facility] [id number] 09:45:00 Test Item Value Reference Range Interpretation Comments WBC (test code = WBC) 5.7 3.7-10.4 [facility] SystemKkwzdrwUEOHLMIJJG5269-63-31 09:45:00 Test Item Value Reference Range Interpretation Comments Lymphocytes (test code = Lymphocytes) 24.4 20.0-40.0 [facility] SystemYcfdwydJENBWBCKXD6291-32-11 09:45:00 Test Item Value Reference Range Interpretation Comments Monocytes (test code = Monocytes) 6.3 2.0-12.0 [facility] SystemXaqfjclETWSOGRAAV8502-79-99 09:45:00 Test Item Value Reference Range Interpretation Comments Segs (test code = Segs) 67.0 45.0-75.0 [facility] SystemIqyxtpqNTKLXTNJPI6355-69-54 09:45:00 Test Item Value Reference Range Interpretation Comments Lymphocytes # (test code = Lymphocytes 1.4 1.0-5.5 #) [facility] SystemNbiclpoSQYSGVNASR2932-35-63 09:45:00 Test Item Value Reference Range Interpretation Comments Segs-Bands # (test code = Segs-Bands #) 3.8 1.5-8.1 [facility] SystemBngutjaVUOJPRBSKS3405-16-13 09:45:00 Test Item Value Reference Range Interpretation Comments Basophils # (test code 0.0 See_Comment [Aut omated message] The = Basophils #) system which generated this result tra nsmitted reference range : <=0.2. The reference r christo was not used to int erpret this result as normal/abnormal . [facility] SystemWcdxnnzPLEBVYNEYF8311-44-60 09:45:00 Test Item Value Reference Range Interpretation Comments Eosinophils # (test code 0.1 See_Comment [A utomated message] The = Eosinophils #) system whic h generated this result tra nsmitted reference range : <=0.5. The reference r christo was not used to int erpret this result as normal/abnormal . [facility] SystemHfazxayPSPMBHVCXS5772-56-02 09:45:00 Test Item Value Reference Range Interpretation Comments Basophils (test code = 0.1 See_Comment [Aut omated message] The Basophils) system which ge nerated this result tra nsmitted reference range : <=1.0. The reference r christo was not used to int erpret this result as normal/abnormal . [facility]wayXbhpynyXSCBBODTVY2081-15-14 09:45:00 Test Item Value Reference Range Interpretation Comments Monocytes # (test code 0.4 See_Comment [Aut omated message] The = Monocytes #) system which generated this result tra nsmitted reference range : <=0.8. The reference r christo was not used to int erpret this result as normal/abnormal . [facility]wayOccjbvbWITQDPBKXO5430-89-81 09:45:00 Test Item Value Reference Range Interpretation Comments Eosinophils (test code = 2.2 See_Comment [A utomated message] The Eosinophils) system which ge nerated this result tra nsmitted reference range : <=4.0. The reference r christo was not used to int erpret this result as normal/abnormal . [facility] ParkwayFseinppOWVUSXZQUP1121-25-28 09:45:00 Test Item Value Reference Range Interpretation Comments Prealbumin (test code = Prealbumin) 19.0 18.0-45.0 [facility] ParkwayZgmmbowGOQDPP3282-51-75 09:45:00 Test Item Value Reference Range Interpretation Comments VLDL (test code = VLDL) 20 [facility]wayBgxqjqoPJOPDP6985-32-00 09:45:00 Test Item Value Reference Range Interpretation Comments LDL (Calculated) (test code = LDL 72 (Calculated)) [facility] ParkwayMafggzhTARBIB6931-02-71 09:45:00 Test Item Value Reference Range Interpretation Comments Trig (test code = Trig) 98 [facility] ParkwayGuoahlvDPXPYE4035-01-56 09:45:00 Test Item Value Reference Range Interpretation Comments HDL (test code = HDL) 26 [facility]VS[facility]127[facility]73-36 09:45:00 Test Item Value Reference Range Interpretation Comments Chol (test code = Chol) 118 [facility] ParkwayVhebkzlLTQVMH4495-27-94 09:45:00 Test Item Value Reference Range Interpretation Comments CHD Risk (test code = CHD Risk) 4.54 4.00-7.30 [facility] TKEYBQVNB2629-11-09 09:45:00 Test Item Value Reference Range Interpretation Comments Hgb A1C (test code = Hgb A1C) 5.4 [facility]wayTHYROID [id number] 09:45:00 Test Item Value Reference Range Interpretation Comments TSH (test code = TSH) 1.430 0.360-3.740 [facility]wayTHY[facility]ID [id number] 09:45:00 Test Item Value Reference Range Interpretation Comments T4 Free (test code = T4 Free) 1.03 0.76-1.46 [facility]2015-10-02 09:45:00 Test Item Value Reference Range Interpretation Comments Ferritin Lvl (test code = Ferritin Lvl) 392 22-275 [facility]2015-10-02 09:45:00 Test Item Value Reference Range Interpretation Comments TIBC (test code = TIBC) 225 228-428 [facility]2015-10-02 09:45:00 Test Item Value Reference Range Interpretation Comments Iron (test code = Iron) 63 45-160 [facility]2015-10-02 09:45:00 Test Item Value Reference Range Interpretation Comments UIBC (test code = UIBC) 162 110-370 [facility]2015-10-02 09:45:00 Test Item Value Reference Range Interpretation Comments % Satur Fe (test code = % Satur Fe) 28 12-57 [facility]2015-10-02 09:45:00 Test Item Value Reference Range Interpretation Comments Magnesium Lvl (test code = Magnesium 2.1 1.8-2.4 Lvl) [facility]2015-10-02 09:45:00 Test Item Value Reference Range Interpretation Comments Phosphorus (test code = Phosphorus) 3.7 2.5-4.5 [facility]2015-10-02 09:45:00 Test Item Value Reference Range Interpretation Comments B/C Ratio (test code = B/C Ratio) 19 6-25 [facility]2015-10-02 09:45:00 Test Item Value Reference Range Interpretation Comments A/G Ratio (test code = A/G Ratio) 0.8 0.7-1.6 [facility]2015-10-02 09:45:00 Test Item Value Reference Range Interpretation Comments Globulin (test code = Globulin) 3.8 2.0-4.0 [facility]2015-10-02 09:45:00 Test Item Value Reference Range Interpretation Comments AGAP (test code = AGAP) 9.9 10.0-20.0 [facility]2015-10-02 09:45:00 Test Item Value Reference Range Interpretation Comments eGFR (test code = eGFR) 86 [facility]2015-10-02 09:45:00 Test Item Value Reference Range Interpretation Comments Chloride Lvl (test code = Chloride Lvl) 106 95-109 [facility]2015-10-02 09:45:00 Test Item Value Reference Range Interpretation Comments CO2 (test code = CO2) 27 24-32 [facility]2015-10-02 09:45:00 Test Item Value Reference Range Interpretation Comments Potassium Lvl (test code = Potassium 3.9 3.5-5.1 Lvl) [facility]2015-10-02 09:45:00 Test Item Value Reference Range Interpretation Comments BUN (test code = BUN) 17 7-22 [facility]2015-10-02 09:45:00 Test Item Value Reference Range Interpretation Comments Creatinine Lvl (test code = Creatinine 0.9 0.5-1.4 Lvl) [facility]2015-10-02 09:45:00 Test Item Value Reference Range Interpretation Comments Sodium Lvl (test code = Sodium Lvl) 139 135-145 [facility]2015-10-02 09:45:00 Test Item Value Reference Range Interpretation Comments Glucose Lvl (test code = Glucose Lvl) 87 70-99 [facility]2015-10-02 09:45:00 Test Item Value Reference Range Interpretation Comments Calcium Lvl (test code = Calcium Lvl) 8.9 8.5-10.5 [facility]2015-10-02 09:45:00 Test Item Value Reference Range Interpretation Comments Albumin Lvl (test code = Albumin Lvl) 2.9 3.5-5.0 [facility]2015-10-02 09:45:00 Test Item Value Reference Range Interpretation Comments Total Protein (test code = Total 6.7 6.4-8.4 Protein) [facility]2015-10-02 09:45:00 Test Item Value Reference Range Interpretation Comments Bili Total (test code = Bili Total) 0.3 0.2-1.3 [facility]2015-10-02 09:45:00 Test Item Value Reference Range Interpretation Comments ALT (test code = ALT) 48 See_Comment [Auto mated message] The system which ge nerated this result transmit jose reference range : <=65. The reference range was not used to interpr et this result as carolina l/abnormal. [facility] [id number] 09:45:00 Test Item Value Reference Range Interpretation Comments Alk Phos (test code = Alk Phos) 54 39-136 [facility]2015-10-02 09:45:00 Test Item Value Reference Range Interpretation Comments AST (test code = AST) 28 See_Comment [Auto mated message] The system which ge nerated this result transmit jose reference range : <=37. The reference range was not used to interpr et this result as carolina l/abnormal. [facility] SystemEiqxyjtBUHWFXZAPM3307-81-37 09:45:00 Test Item Value Reference Range Interpretation Comments Hct (test code = Hct) 37.2 42.0-54.0 [facility] SystemCyrbtcfFYXEAKLGVX5711-18-93 09:45:00 Test Item Value Reference Range Interpretation Comments MCV (test code = MCV) 90.2 80.0-94.0 [facility] SystemImupagwKXZQDXKVTO1662-49-03 09:45:00 Test Item Value Reference Range Interpretation Comments MCH (test code = MCH) 29.6 pg 27.0-31.0 [facility] SystemUihgfhxODALUODTDO6924-67-03 09:45:00 Test Item Value Reference Range Interpretation Comments MCHC (test code = MCHC) 32.8 32.0-36.0 [facility] SystemUjyauydREJEVVNXYP4088-48-07 09:45:00 Test Item Value Reference Range Interpretation Comments RDW (test code = RDW) 12.9 11.5-14.5 [facility] SystemMcnsapoSZSSZDFNUM0956-02-60 09:45:00 Test Item Value Reference Range Interpretation Comments Hgb (test code = Hgb) 12.2 14.0-18.0 [facility] SystemMxambjhGUXPLBEVAS7709-85-63 09:45:00 Test Item Value Reference Range Interpretation Comments RBC (test code = RBC) 4.12 4.70-6.10 [facility] SystemSdccwhlAQGXEOSQTH7835-76-22 09:45:00 Test Item Value Reference Range Interpretation Comments MPV (test code = MPV) 7.3 7.4-10.4 [facility] SystemHczrsroAIMAHODNMU7289-83-38 09:45:00 Test Item Value Reference Range Interpretation Comments Platelet (test code = Platelet) 319 133-450 [facility] SystemZopscdsMYVHNRWVWH0113-69-21 09:45:00 Test Item Value Reference Range Interpretation Comments WBC (test code = WBC) 5.7 3.7-10.4 [facility] SystemDtywywpGTURVXAZRW9426-14-74 09:45:00 Test Item Value Reference Range Interpretation Comments Lymphocytes (test code = Lymphocytes) 24.4 20.0-40.0 [facility] SystemPtpjthjJDPYMOPAWA9565-29-81 09:45:00 Test Item Value Reference Range Interpretation Comments Monocytes (test code = Monocytes) 6.3 2.0-12.0 [facility] SystemBxqwjpnPPWLXXZFZK8940-62-35 09:45:00 Test Item Value Reference Range Interpretation Comments Segs (test code = Segs) 67.0 45.0-75.0 [facility] SystemIhzgaquWRWHMCVPOJ2954-38-41 09:45:00 Test Item Value Reference Range Interpretation Comments Lymphocytes # (test code = Lymphocytes 1.4 1.0-5.5 #) [facility] SystemLtupfpdYPEOVGXGFQ9995-11-04 09:45:00 Test Item Value Reference Range Interpretation Comments Segs-Bands # (test code = Segs-Bands #) 3.8 1.5-8.1 [facility] SystemEqqqvvnAAUAVVMIRJ8234-38-27 09:45:00 Test Item Value Reference Range Interpretation Comments Basophils # (test code 0.0 See_Comment [Aut omated message] The = Basophils #) system which generated this result tra nsmitted reference range : <=0.2. The reference r christo was not used to int erpret this result as normal/abnormal . [facility] SystemPxxusarSBMSSRPCMD7990-80-55 09:45:00 Test Item Value Reference Range Interpretation Comments Eosinophils # (test code 0.1 See_Comment [A utomated message] The = Eosinophils #) system whic h generated this result tra nsmitted reference range : <=0.5. The reference r christo was not used to int erpret this result as normal/abnormal . [facility] SystemRyrtwckWVCSFRFHWJ6459-93-95 09:45:00 Test Item Value Reference Range Interpretation Comments Basophils (test code = 0.1 See_Comment [Aut omated message] The Basophils) system which ge nerated this result tra nsmitted reference range : <=1.0. The reference r christo was not used to int erpret this result as normal/abnormal . [facility]wayVqtvbyaPCIBUPJKKA1825-23-60 09:45:00 Test Item Value Reference Range Interpretation Comments Monocytes # (test code 0.4 See_Comment [Aut omated message] The = Monocytes #) system which generated this result tra nsmitted reference range : <=0.8. The reference r christo was not used to int erpret this result as normal/abnormal . [facility]IrpagivKOBBZVMDHS6896-10-71 09:45:00 Test Item Value Reference Range Interpretation Comments Eosinophils (test code = 2.2 See_Comment [A utomated message] The Eosinophils) system which ge nerated this result tra nsmitted reference range : <=4.0. The reference r christo was not used to int erpret this result as normal/abnormal . [facility]wayAgpebrbAIGWDUGILE8311-09-30 09:45:00 Test Item Value Reference Range Interpretation Comments Prealbumin (test code = Prealbumin) 19.0 18.0-45.0 [facility]wayFnpxwkzWOWTTR1313-57-70 09:45:00 Test Item Value Reference Range Interpretation Comments VLDL (test code = VLDL) 20 [facility] ParkwayQkychqpSPZYTT0051-91-29 09:45:00 Test Item Value Reference Range Interpretation Comments LDL (Calculated) (test code = LDL 72 (Calculated)) [facility] ParkwayCeyeobeZWXQTN3587-78-93 09:45:00 Test Item Value Reference Range Interpretation Comments Trig (test code = Trig) 98 [facility] ParkwayObxccvsKFIRNI5128-41-71 09:45:00 Test Item Value Reference Range Interpretation Comments HDL (test code = HDL) 26 [facility] ParkwayFwlnjfqYEPHVU9085-88-14 09:45:00 Test Item Value Reference Range Interpretation Comments Chol (test code = Chol) 118 [facility] ParkwayDtoqpzaLZHHKE4844-15-77 09:45:00 Test Item Value Reference Range Interpretation Comments CHD Risk (test code = CHD Risk) 4.54 4.00-7.30 [facility] QCIGSQJPR6834-58-21 09:45:00 Test Item Value Reference Range Interpretation Comments Hgb A1C (test code = Hgb A1C) 5.4 [facility]wayTHYROID [id number] 09:45:00 Test Item Value Reference Range Interpretation Comments TSH (test code = TSH) 1.430 0.360-3.740 [facility] [id number] 09:45:00 Test Item Value Reference Range Interpretation Comments T4 Free (test code = T4 Free) 1.03 0.76-1.46 [facility]2015-10-02 09:45:00 Test Item Value Reference Range Interpretation Comments Ferritin Lvl (test code = Ferritin Lvl) 392 22-275 [facility]2015-10-02 09:45:00 Test Item Value Reference Range Interpretation Comments TIBC (test code = TIBC) 225 228-428 [facility]2015-10-02 09:45:00 Test Item Value Reference Range Interpretation Comments Iron (test code = Iron) 63 45-160 [facility]2015-10-02 09:45:00 Test Item Value Reference Range Interpretation Comments UIBC (test code = UIBC) 162 110-370 [facility]2015-10-02 09:45:00 Test Item Value Reference Range Interpretation Comments % Satur Fe (test code = % Satur Fe) 28 12-57 [facility]2015-10-02 09:45:00 Test Item Value Reference Range Interpretation Comments Magnesium Lvl (test code = Magnesium 2.1 1.8-2.4 Lvl) [facility]2015-10-02 09:45:00 Test Item Value Reference Range Interpretation Comments Phosphorus (test code = Phosphorus) 3.7 2.5-4.5 [facility]2015-10-02 09:45:00 Test Item Value Reference Range Interpretation Comments B/C Ratio (test code = B/C Ratio) 19 6-25 [facility]2015-10-02 09:45:00 Test Item Value Reference Range Interpretation Comments A/G Ratio (test code = A/G Ratio) 0.8 0.7-1.6 [place] 977105-10-02 09:45:00 Test Item Value Reference Range Interpretation Comments Globulin (test code = Globulin) 3.8 2.0-4.0 [facility]2015-10-02 09:45:00 Test Item Value Reference Range Interpretation Comments AGAP (test code = AGAP) 9.9 10.0-20.0 [facility]2015-10-02 09:45:00 Test Item Value Reference Range Interpretation Comments eGFR (test code = eGFR) 86 [facility]2015-10-02 09:45:00 Test Item Value Reference Range Interpretation Comments Chloride Lvl (test code = Chloride Lvl) 106 95-109 [facility]2015-10-02 09:45:00 Test Item Value Reference Range Interpretation Comments CO2 (test code = CO2) 27 24-32 [facility]2015-10-02 09:45:00 Test Item Value Reference Range Interpretation Comments Potassium Lvl (test code = Potassium 3.9 3.5-5.1 Lvl) [facility]2015-10-02 09:45:00 Test Item Value Reference Range Interpretation Comments BUN (test code = BUN) 17 7-22 [facility]2015-10-02 09:45:00 Test Item Value Reference Range Interpretation Comments Creatinine Lvl (test code = Creatinine 0.9 0.5-1.4 Lvl) [facility]2015-10-02 09:45:00 Test Item Value Reference Range Interpretation Comments Sodium Lvl (test code = Sodium Lvl) 139 135-145 [facility]2015-10-02 09:45:00 Test Item Value Reference Range Interpretation Comments Glucose Lvl (test code = Glucose Lvl) 87 70-99 [facility]2015-10-02 09:45:00 Test Item Value Reference Range Interpretation Comments Calcium Lvl (test code = Calcium Lvl) 8.9 8.5-10.5 [facility]2015-10-02 09:45:00 Test Item Value Reference Range Interpretation Comments Albumin Lvl (test code = Albumin Lvl) 2.9 3.5-5.0 [facility]2015-10-02 09:45:00 Test Item Value Reference Range Interpretation Comments Total Protein (test code = Total 6.7 6.4-8.4 Protein) [facility]2015-10-02 09:45:00 Test Item Value Reference Range Interpretation Comments Bili Total (test code = Bili Total) 0.3 0.2-1.3 [facility]2015-10-02 09:45:00 Test Item Value Reference Range Interpretation Comments ALT (test code = ALT) 48 See_Comment [Auto mated message] The system which ge nerated this result transmit jose reference range : <=65. The reference range was not used to interpr et this result as carolina l/abnormal. [facility] [id number] 09:45:00 Test Item Value Reference Range Interpretation Comments Alk Phos (test code = Alk Phos) 54 39-136 [facility] [id number] 09:45:00 Test Item Value Reference Range Interpretation Comments AST (test code = AST) 28 See_Comment [Auto mated message] The system which ge nerated this result transmit jose reference range : <=37. The reference range was not used to interpr et this result as carolina l/abnormal. [id number] 09:45:00 Test Item Value Reference Range Interpretation Comments Hct (test code = Hct) 37.2 42.0-54.0 [facility] SystemYywqzacRPFAXFURTT0228-29-63 09:45:00 Test Item Value Reference Range Interpretation Comments MCV (test code = MCV) 90.2 80.0-94.0 [facility] SystemY[id number] 09:45:00 Test Item Value Reference Range Interpretation Comments MCH (test code = MCH) 29.6 pg 27.0-31.0 [facility] SystemVobmjgfLGVALIZKYI8136-97-42 09:45:00 Test Item Value Reference Range Interpretation Comments MCHC (test code = MCHC) 32.8 32.0-36.0 [facility] SystemAkbtrnoVXOUIYHCQL7655-29-54 09:45:00 Test Item Value Reference Range Interpretation Comments RDW (test code = RDW) 12.9 11.5-14.5 [facility] SystemXosuakoUDUYIFYNHD7012-43-60 09:45:00 Test Item Value Reference Range Interpretation Comments Hgb (test code = Hgb) 12.2 14.0-18.0 [facility] SystemVbhgsrdYKSRTJFEAA7512-56-82 09:45:00 Test Item Value Reference Range Interpretation Comments RBC (test code = RBC) 4.12 4.70-6.10 [facility] SystemRvvqnapTJUGVXFPIL9995-78-47 09:45:00 Test Item Value Reference Range Interpretation Comments MPV (test code = MPV) 7.3 7.4-10.4 [facility] SystemEipfcqkBDFQZXKPEU2094-59-37 09:45:00 Test Item Value Reference Range Interpretation Comments Platelet (test code = Platelet) 319 133-450 [facility] SystemHkwdoxtREALRIRBMV1448-26-53 09:45:00 Test Item Value Reference Range Interpretation Comments WBC (test code = WBC) 5.7 3.7-10.4 [facility] SystemXkcirstMWULFJSDVU7220-42-54 09:45:00 Test Item Value Reference Range Interpretation Comments Lymphocytes (test code = Lymphocytes) 24.4 20.0-40.0 [facility] SystemFapdjqpTOEXCUSXGF7506-82-81 09:45:00 Test Item Value Reference Range Interpretation Comments Monocytes (test code = Monocytes) 6.3 2.0-12.0 [facility] SystemCtrvnqaQLGMYXEHLS2553-43-34 09:45:00 Test Item Value Reference Range Interpretation Comments Segs (test code = Segs) 67.0 45.0-75.0 [facility] SystemEtbjsikRPIKRCEMCT8605-17-66 09:45:00 Test Item Value Reference Range Interpretation Comments Lymphocytes # (test code = Lymphocytes 1.4 1.0-5.5 #) [facility] SystemGcnxuygGGYJZCBYIJ5975-16-52 09:45:00 Test Item Value Reference Range Interpretation Comments Segs-Bands # (test code = Segs-Bands #) 3.8 1.5-8.1 [facility] SystemOronhntCJTDKWFAPY5134-91-58 09:45:00 Test Item Value Reference Range Interpretation Comments Basophils # (test code 0.0 See_Comment [Aut omated message] The = Basophils #) system which generated this result tra nsmitted reference range : <=0.2. The reference r christo was not used to int erpret this result as normal/abnormal . [facility] SystemEvhjdiyDSPKZBODAZ3500-14-10 09:45:00 Test Item Value Reference Range Interpretation Comments Eosinophils # (test code 0.1 See_Comment [A utomated message] The = Eosinophils #) system whic h generated this result tra nsmitted reference range : <=0.5. The reference r christo was not used to int erpret this result as normal/abnormal . [facility] SystemDywdbreYLPXIVIOAS2847-41-56 09:45:00 Test Item Value Reference Range Interpretation Comments Basophils (test code = 0.1 See_Comment [Aut omated message] The Basophils) system which ge nerated this result tra nsmitted reference range : <=1.0. The reference r christo was not used to int erpret this result as normal/abnormal . [facility] [id number] 09:45:00 Test Item Value Reference Range Interpretation Comments Monocytes # (test code 0.4 See_Comment [Aut omated message] The = Monocytes #) system which generated this result tra nsmitted reference range : <=0.8. The reference r christo was not used to int erpret this result as normal/abnormal . [facility] Hospit[id number] 09:45:00 Test Item Value Reference Range Interpretation Comments Eosinophils (test code = 2.2 See_Comment [A utomated message] The Eosinophils) system which ge nerated this result tra nsmitted reference range : <=4.0. The reference r christo was not used to int erpret this result as normal/abnormal . [id number] 09:45:00 Test Item Value Reference Range Interpretation Comments Prealbumin (test code = Prealbumin) 19.0 18.0-45.0 [facility]wayFynfousCTWPCY0760-10-16 09:45:00 Test Item Value Reference Range Interpretation Comments VLDL (test code = VLDL) 20 [id number] 09:45:00 Test Item Value Reference Range Interpretation Comments LDL (Calculated) (test code = LDL 72 (Calculated)) [facility]wayAdqljxsLRDKLX6888-14-97 09:45:00 Test Item Value Reference Range Interpretation Comments Trig (test code = Trig) 98 [facility]wayQwyosdbENRBTX8901-92-41 09:45:00 Test Item Value Reference Range Interpretation Comments HDL (test code = HDL) 26 [facility]KN[facility]81 09:45:00 Test Item Value Reference Range Interpretation Comments Chol (test code = Chol) 118 [id number] 09:45:00 Test Item Value Reference Range Interpretation Comments CHD Risk (test code = CHD Risk) 4.54 4.00-7.30 [facility] [id number] 09:45:00 Test Item Value Reference Range Interpretation Comments Hgb A1C (test code = Hgb A1C) 5.4 [facility] [id number] 09:45:00 Test Item Value Reference Range Interpretation Comments TSH (test code = TSH) 1.430 0.360-3.740 [facility] [id number] 09:45:00 Test Item Value Reference Range Interpretation Comments T4 Free (test code = T4 Free) 1.03 0.76-1.46 [facility] Notes Date/Time Note Provider Source 2019-04-03 PROCEDURE INFORMATION: TIR 15:45:00-00:00 Exam: XR Left Knee Exam date and time: 04/03/2019 11:20 AM Age: 74 years old Clinical history: /f/u fracture () TECHNIQUE: Imaging protocol: XR Left knee. Views: 3 views. AP Obilque Lateral COMPARISON: KNEE 3 VIEWS DX, LEFT 03/21/2019 2:35 PM FINDINGS: Bones/joints: Known fracture of the medial femur most conspicuous at non-weight bearing portion of the distal femur on the front al view. Intra-articular component is difficult to de monstrate. Known fracture of the proximal fibula is difficult to demonstrate. No interval displaceme nt. Degenerative changes are present at the knee, most pronounced at the medi al and patellofemoral compartments. Persistent joint effusion. Soft tissues: Regional soft tissues are normal. Vasculature: There are vascular calcifications. Atherosclerosis. Notes: If there is further concern, gala mmend follow-up radiographs or MRI for complete assessment. IMPRESSION: Fractures of the distal femur and proxim al fibula better demonstrated on prior CT exam. No interval displacement. Persistent bertha int effusion. Cait Rabago MD On 04/03/2019 12:06:34; GRECIA [id number] 2019-04-03 PROCEDURE INFORMATION: TIR 15:45:00-00:00 Exam: XR Left Knee Exam date and time: 04/03/2019 11:20 AM Age: 74 years old Clinical history: /f/u fracture () TECHNIQUE: Imaging protocol: XR Left knee. Views: 3 views. AP Obilque Lateral COMPARISON: KNEE 3 VIEWS DX, LEFT 03/21/2019 2:35 PM FINDINGS: Bones/joints: Known fracture of the medial femur most conspicuous at non-weight bearing portion of the distal femur on the front al view. Intra-articular component is difficult to de monstrate. Known fracture of the proximal fibula is difficult to demonstrate. No interval displaceme nt. Degenerative changes are present at the knee, most pronounced at the medi al and patellofemoral compartments. Persistent joint effusion. Soft tissues: Regional soft tissues are normal. Vasculature: There are vascular calcifications. Atherosclerosis. Notes: If there is further concern, gala mmend follow-up radiographs or MRI for complete assessment. IMPRESSION: Fractures of the distal femur and proxim al fibula better demonstrated on prior CT exam. No interval displacement. Persistent bertha int effusion. Cait Rabago MD On 04/03/2019 12:06:34; VR-C [id number] 2019-04-03 PROCEDURE INFORMATION: TIRR 15:45:00-00:00 Exam: XR Left Knee Exam date and time: 04/03/2019 11:20 AM Age: 74 years old Clinical history: /f/u fracture () TECHNIQUE: Imaging protocol: XR Left knee. Views: 3 views. AP Obilque Lateral COMPARISON: KNEE 3 VIEWS DX, LEFT 03/21/2019 2:35 PM FINDINGS: Bones/joints: Known fracture of the medial femur most conspicuous at non-weight bearing portion of the distal femur on the front al view. Intra-articular component is difficult to de monstrate. Known fracture of the proximal fibula is difficult to demonstrate. No interval displaceme nt. Degenerative changes are present at the knee, most pronounced at the medi al and patellofemoral compartments. Persistent joint effusion. Soft tissues: Regional soft tissues are normal. Vasculature: There are vascular calcifications. Atherosclerosis. Notes: If there is further concern, gala mmend follow-up radiographs or MRI for complete assessment. IMPRESSION: Fractures of the distal femur and proxim al fibula better demonstrated on prior CT exam. No interval displacement. Persistent bertha int effusion. Cait Rabago MD On 04/03/2019 12:06:34; VR-C [id number] 2019-04-03 PROCEDURE INFORMATION: TIRR 15:30:00-00:00 Exam: XR Left Ankle Exam date and time: 04/03/2019 11:20 AM Age: 74 years old Clinical history: /f/u fracture TECHNIQUE: Imaging protocol: XR Left ankle. Views: 3 or more views. AP Oblique Lateral COMPARISON: CR ANKLE 3 VIEWS DX, LEFT 03/21/2019 9:02 PM FINDINGS: Bones/joints: Previously identified medial malle olus fracture not well assessed. No new fractures identified. Ankle mor tise is congruent. Talar dome is intact. Soft tissues: Marked soft tissue swelling. Notes: If there is further concern, gala mmend follow-up radiographs or MRI for complete assessment. IMPRESSION: Marked soft tissue swelling. Previously suggested medial malleolus fracture not well assessed. Bi Chacon MD On 04/03/2019 11:56:25; VR [id number] 2019-04-03 PROCEDURE INFORMATION: TIRR 15:30:00-00:00 Exam: XR Left Ankle Exam date and time: 04/03/2019 11:20 AM Age: 74 years old Clinical history: /f/u fracture TECHNIQUE: Imaging protocol: XR Left ankle. Views: 3 or more views. AP Oblique Lateral COMPARISON: CR ANKLE 3 VIEWS DX, LEFT 03/21/2019 9:02 PM FINDINGS: Bones/joints: Previously identified medial malle olus fracture not well assessed. No new fractures identified. Ankle mor tise is congruent. Talar dome is intact. Soft tissues: Marked soft tissue swelling. Notes: If there is further concern, gala mmend follow-up radiographs or MRI for complete assessment. IMPRESSION: Marked soft tissue swelling. Previously suggested medial malleolus fracture not well assessed. Bi Chacon MD On 04/03/2019 11:56:25; -[id number] 2019-04-03 PROCEDURE INFORMATION: TIRR 15:30:00-00:00 Exam: XR Left Ankle Exam date and time: 04/03/2019 11:20 AM Age: 74 years old Clinical history: /f/u fracture TECHNIQUE: Imaging protocol: XR Left ankle. Views: 3 or more views. AP Oblique Lateral COMPARISON: CR ANKLE 3 VIEWS DX, LEFT 03/21/2019 9:02 PM FINDINGS: Bones/joints: Previously identified medial malle olus fracture not well assessed. No new fractures identified. Ankle mor tise is congruent. Talar dome is intact. Soft tissues: Marked soft tissue swelling. Notes: If there is further concern, gala mmend follow-up radiographs or MRI for complete assessment. IMPRESSION: Marked soft tissue swelling. Previously suggested medial malleolus fracture not well assessed. Bi Chacon MD On 04/03/2019 11:56:25; VR [id number] 2019-03-22 PROCEDURE INFORMATION: TIRR 19:15:00-00:00 Exam: XR Abdomen, 1 View Exam date and time: 03/22/2019 7:04 PM Age: 74 years old Clinical history: /assess for impaction and tube placement TECHNIQUE: Imaging protocol: XR of the abdomen. Views: Frontal supine view of the abdomen. 1 Vie w. COMPARISON: CR ABDOMEN AP DX 11/07/2015 5:52 PM FINDINGS: Normal abdominal bowel gas pattern without obst ruction. The lung bases are clear. There is minimal stool in the colon. Note is made of a right femoral neck compression screw. No radiopaque catheter o r tubing identified. IMPRESSION: Non-specific abdomen Mindy Espitia MD On 03/22/2019 21:18:58; [id number] 2019-03-22 PROCEDURE INFORMATION: TIRR 19:15:00-00:00 Exam: XR Abdomen, 1 View Exam date and time: 03/22/2019 7:04 PM Age: 74 years old Clinical history: /assess for impaction and tube placement TECHNIQUE: Imaging protocol: XR of the abdomen. Views: Frontal supine view of the abdomen. 1 Vie w. COMPARISON: CR ABDOMEN AP DX 11/07/2015 5:52 PM FINDINGS: Normal abdominal bowel gas pattern without obst ruction. The lung bases are clear. There is minimal stool in the colon. Note is made of a right femoral neck compression screw. No radiopaque catheter o r tubing identified. IMPRESSION: Non-specific abdomen Mindy Espitia MD On 03/22/2019 21:18:58; [id number] 2019-03-22 PROCEDURE INFORMATION: TIR 19:15:00-00:00 Exam: XR Abdomen, 1 View Exam date and time: 03/22/2019 7:04 PM Age: 74 years old Clinical history: /assess for impaction and tube placement TECHNIQUE: Imaging protocol: XR of the abdomen. Views: Frontal supine view of the abdomen. 1 Vie w. COMPARISON: CR ABDOMEN AP DX 11/07/2015 5:52 PM FINDINGS: Normal abdominal bowel gas pattern without obst ruction. The lung bases are clear. There is minimal stool in the colon. Note is made of a right femoral neck compression screw. No radiopaque catheter o r tubing identified. IMPRESSION: Non-specific abdomen Mindy Espitia MD On 03/22/2019 21:18:58; [id number] 2019-03-22 PROCEDURE INFORMATION: TIRSosa 19:00:00-00:00 Exam: XR Chest, 1 View Exam date and time: 03/22/2019 7:04 PM Age: 74 years old Clinical history: /assess for atelectasis TECHNIQUE: Imaging protocol: XR of the chest Views: 1 view. Portable AP view COMPARISON: CR CHEST 1VIEW DX 03/21/2019 3:32 PM FINDINGS: Lungs: Mild decreased lung volumes. No consolida tion. Pleural space: Unremarkable. No pleural effusion . No pneumothorax. Heart/Mediastinum: Heart size is within normal l imits. Vasculature is unremarkable. Bones/joints: Unremarkable. IMPRESSION: No acute cardiopulmonary findings. Mindy Espitia MD On 03/22/2019 21:17:40; [id number] 2019-03-22 PROCEDURE INFORMATION: TIRR 19:00:00-00:00 Exam: XR Chest, 1 View Exam date and time: 03/22/2019 7:04 PM Age: 74 years old Clinical history: /assess for atelectasis TECHNIQUE: Imaging protocol: XR of the chest Views: 1 view. Portable AP view COMPARISON: CR CHEST 1VIEW DX 03/21/2019 3:32 PM FINDINGS: Lungs: Mild decreased lung volumes. No consolida tion. Pleural space: Unremarkable. No pleural effusion . No pneumothorax. Heart/Mediastinum: Heart size is within normal l imits. Vasculature is unremarkable. Bones/joints: Unremarkable. IMPRESSION: No acute cardiopulmonary findings. Mindy Espitia MD On 03/22/2019 21:17:40; [id number] 2019-03-22 PROCEDURE INFORMATION: TIR 19:00:00-00:00 Exam: XR Chest, 1 View Exam date and time: 03/22/2019 7:04 PM Age: 74 years old Clinical history: /assess for atelectasis TECHNIQUE: Imaging protocol: XR of the chest Views: 1 view. Portable AP view COMPARISON: CR CHEST 1VIEW DX 03/21/2019 3:32 PM FINDINGS: Lungs: Mild decreased lung volumes. No consolida tion. Pleural space: Unremarkable. No pleural effusion . No pneumothorax. Heart/Mediastinum: Heart size is within normal l imits. Vasculature is unremarkable. Bones/joints: Unremarkable. IMPRESSION: No acute cardiopulmonary findings. Mindy Espitia MD On 03/22/2019 21:17:40; [id number] 2019-03-21 EXAM: CT LEFT KNEE WITHOUT CONTRAST [facility] 22:29:00-00:00 DATE: 03/21/2019 22:29 [facility]: - rule out intra-articular fracture COMPARISON: Left knee radiograph 03/21/2019 TECHNIQUE: Volumetric CT of the knee is acquired without contrast. Axial, coronal and sagittal images are provided. IV contrast: None. DLP: 236 mGy-cm FINDINGS: Distal femur: There is a mil dly displaced intra-articular fracture along the medial condyle and epicondyle of the femur, anteromedially, extending about 4 cm in vertical dimension on coronal image 34. M arginal osteophytes are seen along the medial la teral condyles. Patella: Osteophytes are seen along the superior and inferior aspects. Proximal tibia: Marginal osteophytes are seen al jarvis the tibial plateau. Proximal fibula: A minimally displaced intra-articular fracture is seen in the fibular head, involving the proximal tibiofibular articulation. The fracture is probably obliquely oriented, and may be avulsive in nature from the conjoined tendon. Soft tissues: A moderate lip ohemarthrosis is present, with a small fat-fluid level seen on axial image 59. No radiopaque foreign body or subcutaneous emphysema. No pneumarthrosis. Severe atherosclerosis of the popliteal artery and its branches. Prepatellar soft tissue swelling is present. IMPRESSION: 1. Minimally displaced intra -articular fracture of the medial femoral condyle and epicondyle. 2. Lipohemarthrosis. 3. Minimally displaced intra-articular fracture of the fibular head. [place] SECTION: ER 2019-03-21 EXAM: CT LEFT KNEE WITHOUT CONTRAST [facility] 22:29:00-00:00 DATE: 03/21/2019 22:29 [facility] INDICATION: - rule out intra-articular fracture COMPARISON: Left knee radiograph 03/21/2019 TECHNIQUE: Volumetric CT of the knee is acquired without contrast. Axial, coronal and sagittal images are provided. IV contrast: None. DLP: 236 mGy-cm FINDINGS: Distal femur: There is a mil dly displaced intra-articular fracture along the medial condyle and epicondyle of the femur, anteromedially, extending about 4 cm in vertical dimension on coronal image 34. M arginal osteophytes are seen along the medial la teral condyles. Patella: Osteophytes are seen along the superior and inferior aspects. Proximal tibia: Marginal osteophytes are seen al jarvis the tibial plateau. Proximal fibula: A minimally displaced intra-articular fracture is seen in the fibular head, involving the proximal tibiofibular articulation. The fracture is probably obliquely oriented, and may be avulsive in nature from the conjoined tendon. Soft tissues: A moderate lip ohemarthrosis is present, with a small fat-fluid level seen on axial image 59. No radiopaque foreign body or subcutaneous emphysema. No pneumarthrosis. Severe atherosclerosis of the popliteal artery and its branches. Prepatellar soft tissue swelling is present. IMPRESSION: 1. Minimally displaced intra -articular fracture of the medial femoral condyle and epicondyle. 2. Lipohemarthrosis. 3. Minimally displaced intra-articular fracture of the fibular head. [place] SECTION: ER 2019-03-21 EXAM: CT LEFT KNEE WITHOUT CONTRAST [facility] 22:29:00-00:00 DATE: 03/21/2019 22:29 [facility] INDICATION: - rule out intra-articular fracture COMPARISON: Left knee radiograph 03/21/2019 TECHNIQUE: Volumetric CT of the knee is acquired without contrast. Axial, coronal and sagittal images are provided. IV contrast: None. DLP: 236 mGy-cm FINDINGS: Distal femur: There is a mil dly displaced intra-articular fracture along the medial condyle and epicondyle of the femur, anteromedially, extending about 4 cm in vertical dimension on coronal image 34. M arginal osteophytes are seen along the medial la teral condyles. Patella: Osteophytes are seen along the superior and inferior aspects. Proximal tibia: Marginal osteophytes are seen al jarvis the tibial plateau. Proximal fibula: A minimally displaced intra-articular fracture is seen in the fibular head, involving the proximal tibiofibular articulation. The fracture is probably obliquely oriented, and may be avulsive in nature from the conjoined tendon. Soft tissues: A moderate lip ohemarthrosis is present, with a small fat-fluid level seen on axial image 59. No radiopaque foreign body or subcutaneous emphysema. No pneumarthrosis. Severe atherosclerosis of the popliteal artery and its branches. Prepatellar soft tissue swelling is present. IMPRESSION: 1. Minimally displaced intra -articular fracture of the medial femoral condyle and epicondyle. 2. Lipohemarthrosis. 3. Minimally displaced intra-articular fracture of the fibular head. UT SECTION: ER 2019-03-21 EXAM: CT CERVICAL SPINE WITHOUT CONTRAST 2ND OPI NION INTERPRETATION [facility] 21:56:00-00:00 DATE: 03/21/2019 21:56 [facility] INDICATION: - outside study: Fall, second interp retation requested COMPARISON: None. TECHNIQUE: Noncontrast CT images of the cervical spine, obtained at [facility] 03/21/2019 1437 hours. Axial, sagittal and coronal images provided. FINDINGS: The spine is imaged from the skull base to the l evel of T2-T3. Reversal of cervical lordosis due to positioning and/or muscle spasm. No spondylolisthesis present. Vertebral body heights are normal. No cervical spine fracture is identified. There is fusion of the C2-C3 and C6-C7 vertebral bodies. No prevertebral soft tissue edema or hematoma is observed. Severe degenerative changes at the anterior atla ntoaxial joint noted. Severe degenerative disc disease present at C3-C 4, C5-C6. Moderate degenerative disc disease present at C4 -C5, C7-T1. Large posterior disc-osteoph yte complex present at C3-C4 causing severe central canal stenosis and chronic impingement upon the spinal cord. Posterior longitudinal ligament ossification abo ut C3 vertebral body noted. Multilevel disc-osteophyte c omplex bulge and uncovertebral joint hypertrophy present throughout the cervical spine most notable at C3-C4, C5-C6. Bilateral facet joint ankylosis present at C2-C3 . Moderate bilateral facet art hropathy present throughout the cervical spine most notable on the left at C4-C5. Mild central canal stenosis present at C5-C6, C6 -C7. Large posterior disc-osteoph yte complex at C3-C4 causing severe central canal stenosis and chronic impingement upon the spinal cord. Bilateral neural foraminal stenosis present at C 3-C6. IMPRESSION: No acute cervical spine fractures identified. Multilevel degenerative disc disease, uncovertebral joint hypertrophy, disc- osteophyte complex bulge, and facet joint arthropathy with central canal and neural foraminal stenosis. Severe central canal stenosi s at C3-C4 with chronic impingement upon the spinal cord. 2019-03-21 EXAM: CT CERVICAL SPINE WITHOUT CONTRAST 2ND OPI NION INTERPRETATION [facility] 21:56:00-00:00 DATE: 03/21/2019 21:56 [facility] INDICATION: - outside study: Fall, second interp retation requested COMPARISON: None. TECHNIQUE: Noncontrast CT images of the cervical spine, obtained at [facility] 03/21/2019 1437 hours. Axial, sagittal and coronal images provided. FINDINGS: The spine is imaged from the skull base to the l evel of T2-T3. Reversal of cervical lordosis due to positioning and/or muscle spasm. No spondylolisthesis present. Vertebral body heights are normal. No cervical spine fracture is identified. There is fusion of the C2-C3 and C6-C7 vertebral bodies. No prevertebral soft tissue edema or hematoma is observed. Severe degenerative changes at the anterior atla ntoaxial joint noted. Severe degenerative disc disease present at C3-C 4, C5-C6. Moderate degenerative disc disease present at C4 -C5, C7-T1. Large posterior disc-osteoph yte complex present at C3-C4 causing severe central canal stenosis and chronic impingement upon the spinal cord. Posterior longitudinal ligament ossification abo ut C3 vertebral body noted. Multilevel disc-osteophyte c omplex bulge and uncovertebral joint hypertrophy present throughout the cervical spine most notable at C3-C4, C5-C6. Bilateral facet joint ankylosis present at C2-C3 . Moderate bilateral facet art hropathy present throughout the cervical spine most notable on the left at C4-C5. Mild central canal stenosis present at C5-C6, C6 -C7. Large posterior disc-osteoph yte complex at C3-C4 causing severe central canal stenosis and chronic impingement upon the spinal cord. Bilateral neural foraminal stenosis present at C 3-C6. IMPRESSION: No acute cervical spine fractures identified. Multilevel degenerative disc disease, uncovertebral joint hypertrophy, disc- osteophyte complex bulge, and facet joint arthropathy with central canal and neural foraminal stenosis. Severe central canal stenosi s at C3-C4 with chronic impingement upon the spinal cord. 2019-03-21 EXAM: CT CERVICAL SPINE WITHOUT CONTRAST 2ND OPI NION INTERPRETATION [facility] 21:56:00-00:00 DATE: 03/21/2019 21:56 [facility] [place] [facility] INDICATION: - outside study: Fall, second interp retation requested COMPARISON: None. TECHNIQUE: Noncontrast CT images of the cervical spine, obtained at [facility] 03/21/2019 1437 hours. Axial, sagittal and coronal images provided. FINDINGS: The spine is imaged from the skull base to the l evel of T2-T3. Reversal of cervical lordosis due to positioning and/or muscle spasm. No spondylolisthesis present. Vertebral body heights are normal. No cervical spine fracture is identified. There is fusion of the C2-C3 and C6-C7 vertebral bodies. No prevertebral soft tissue edema or hematoma is observed. Severe degenerative changes at the anterior atla ntoaxial joint noted. Severe degenerative disc disease present at C3-C 4, C5-C6. Moderate degenerative disc disease present at C4 -C5, C7-T1. Large posterior disc-osteoph yte complex present at C3-C4 causing severe central canal stenosis and chronic impingement upon the spinal cord. Posterior longitudinal ligament ossification abo ut C3 vertebral body noted. Multilevel disc-osteophyte c omplex bulge and uncovertebral joint hypertrophy present throughout the cervical spine most notable at C3-C4, C5-C6. Bilateral facet joint ankylosis present at C2-C3 . Moderate bilateral facet art hropathy present throughout the cervical spine most notable on the left at C4-C5. Mild central canal stenosis present at C5-C6, C6 -C7. Large posterior disc-osteoph yte complex at C3-C4 causing severe central canal stenosis and chronic impingement upon the spinal cord. Bilateral neural foraminal stenosis present at C 3-C6. IMPRESSION: No acute cervical spine fractures identified. Multilevel degenerative disc disease, uncovertebral joint hypertrophy, disc- osteophyte complex bulge, and facet joint arthropathy with central canal and neural foraminal stenosis. Severe central canal stenosi s at C3-C4 with chronic impingement upon the spinal cord. 2019-03-21 EXAM: CT BRAIN WITHOUT CONTRAST [facility] 21:54:00-00:00 DATE: 03/21/2019 21:54 [facility] INDICATION: - outside study: Fall COMPARISON: Brain MR 07/31/2005 TECHNIQUE: Formal interpreta tion of a CT examination of the brain performed at an outside institution is requested after patient transfer for a higher level of care. The study was performed at a [facility] fa cility 03/21/2019 2:35 PM.The exam consists of 3 10 images. FINDINGS: The technique code provided for the examination is incorrect as this is a CT examination of the brain not of the spine. Non-contrast images of the h ead demonstrate no edema, hemorrhage, mass lesion or other acute intracranial abnormality. There is no radiographic evidence of increased intracranial pressure. Expected evolution of previo usly acute right thalamic and left cerebellar infarcts has occurred with extensive cystic encephalomalacia within the latter. Small remote ischemic changes in the right cereb ellar hemisphere of the same age are also present again demonstrating expected evolution. There is scalp soft tissue s welling in the right posterior parietal region at the vertex and the left posterior lateral parietal scalp, without underlying fracture. There is no fracture of the remainder of the skull, skull base, or visible facial bones. IMPRESSION: 1. No acute intracranial abnormality. 2. Right and left parietal s calp soft tissue swelling without associated fracture. 3. 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 4. Diffuse cerebral volume loss. 5. Intracranial atherosclerosis. 2019-03-21 EXAM: CT BRAIN WITHOUT CONTRAST [facility] 21:54:00-00:00 DATE: 03/21/2019 21:54 [facility] INDICATION: - outside study: Fall COMPARISON: Brain MR 07/31/2005 TECHNIQUE: Formal interpreta tion of a CT examination of the brain performed at an outside institution is requested after patient transfer for a higher level of care. [facility] 03[facility]21/2019 2:35 PM.The exam consists of 3 10 images. FINDINGS: The technique code provided for the examination is incorrect as this is a CT examination of the brain not of the spine. Non-contrast images of the h ead demonstrate no edema, hemorrhage, mass lesion or other acute intracranial abnormality. There is no radiographic evidence of increased intracranial pressure. Expected evolution of previo usly acute right thalamic and left cerebellar infarcts has occurred with extensive cystic encephalomalacia within the latter. Small remote ischemic changes in the right cereb ellar hemisphere of the same age are also present again demonstrating expected evolution. There is scalp soft tissue s welling in the right posterior parietal region at the vertex and the left posterior lateral parietal scalp, without underlying fracture. There is no fracture of the remainder of the skull, skull base, or visible facial bones. IMPRESSION: 1. No acute intracranial abnormality. 2. Right and left parietal s calp soft tissue swelling without associated fracture. 3. 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 4. Diffuse cerebral volume loss. 5. Intracranial atherosclerosis. 2019-03-21 EXAM: CT BRAIN WITHOUT CONTRAST [facility] 21:54:00-00:00 DATE: 03/21/2019 21:54 [facility] INDICATION: - outside study: Fall COMPARISON: Brain MR 07/31/2005 TECHNIQUE: Formal interpreta tion of a CT examination of the brain performed at an outside institution is requested after patient transfer for a higher level of care. The study was performed at a [facility] fa cility 03/21/2019 2:35 PM.The exam consists of 3 10 images. FINDINGS: The technique code provided for the examination is incorrect as this is a CT examination of the brain not of the spine. Non-contrast images of the h ead demonstrate no edema, hemorrhage, mass lesion or other acute intracranial abnormality. There is no radiographic evidence of increased intracranial pressure. Expected evolution of previo usly acute right thalamic and left cerebellar infarcts has occurred with extensive cystic encephalomalacia within the latter. Small remote ischemic changes in the right cereb ellar hemisphere of the same age are also present again demonstrating expected evolution. There is scalp soft tissue s welling in the right posterior parietal region at the vertex and the left posterior lateral parietal scalp, without underlying fracture. There is no fracture of the remainder of the skull, skull base, or visible facial bones. IMPRESSION: 1. No acute intracranial abnormality. 2. Right and left parietal s calp soft tissue swelling without associated fracture. 3. 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 4. Diffuse cerebral volume loss. 5. Intracranial atherosclerosis. 2019-03-21 EXAM: XR LEFT ANKLE 3 VIEWS [facility] 20:37:00-00:00 DATE: 03/21/2019 20:37 [facility] INDICATION: - need perfect lateral and mortise t hanks COMPARISON: None. TECHNIQUE: 4 views of the left ankle FINDINGS: Diffuse osteopenia limits exam. Overlying radiodensities limits exam. Again seen is a minimally displaced medial malle olar fracture. The ankle mortise is congruent. Soft tissue swelling surrounds the left ankle. IMPRESSION: Minimally displaced medial malleolar fracture. 2019-03-21 EXAM: XR LEFT ANKLE 3 VIEWS [facility] 20:37:00-00:00 DATE: 03/21/2019 20:37 [facility] INDICATION: - need perfect lateral and mortise t hanks COMPARISON: None. TECHNIQUE: 4 views of the left ankle FINDINGS: Diffuse osteopenia limits exam. Overlying radiodensities limits exam. Again seen is a minimally displaced medial malle olar fracture. The ankle mortise is congruent. Soft tissue swelling surrounds the left ankle. IMPRESSION: Minimally displaced medial malleolar fracture. 2019-03-21 EXAM: XR LEFT ANKLE 3 VIEWS [facility] 20:37:00-00:00 DATE: 03/21/2019 20:37 [facility] INDICATION: - need perfect lateral and mortise t hanks COMPARISON: None. TECHNIQUE: 4 views of the left ankle FINDINGS: Diffuse osteopenia limits exam. Overlying radiodensities limits exam. Again seen is a minimally displaced medial malle olar fracture. The ankle mortise is congruent. Soft tissue swelling surrounds the left ankle. IMPRESSION: Minimally displaced medial malleolar fracture. 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 TECHNIQUE: 2 view hip includ ing pelvis, 2 views of the femur, 3 views of the foot. FINDINGS: Diffuse osteopenia, which limits fine bony evalu ation. Pelvis/Hip: No acute fracture or malalignment is identified. Postsurgical changes of right femoral internal f ixation. 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 Lumbar degenerative disc disease and facet arthr opathy noted. Femur: No acute fracture or malalignment of the femur is identified. Foot: Overlying dressing adrian its fine bony evaluation. Minimally displaced medial malleolus fracture. Soft tissues: Small knee greg nt effusion. Scattered atherosclerotic disease. Mild soft tissue swelling about the ankle. IMPRESSION: Limited exam due to osteopenia. No femoral fracture identified. Minimal displaced medial malleolus fractures. Small knee joint effusion. 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 TECHNIQUE: 2 view hip includ ing pelvis, 2 views of the femur, 3 views of the foot. FINDINGS: Diffuse osteopenia, which limits fine bony evalu ation. Pelvis/Hip: No acute fracture or malalignment is identified. Postsurgical changes of right femoral internal f ixation. 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 Lumbar degenerative disc disease and facet arthr opathy noted. Femur: No acute fracture or malalignment of the femur is identified. Foot: Overlying dressing adrian its fine bony evaluation. Minimally displaced medial malleolus fracture. Soft tissues: Small knee greg nt effusion. Scattered atherosclerotic disease. Mild soft tissue swelling about the ankle. IMPRESSION: Limited exam due to osteopenia. No femoral fracture identified. Minimal displaced medial malleolus fractures. Small knee joint effusion. 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 TECHNIQUE: 2 view hip includ ing pelvis, 2 views of the femur, 3 views of the foot. FINDINGS: Diffuse osteopenia, which limits fine bony evalu ation. Pelvis/Hip: No acute fracture or malalignment is identified. Postsurgical changes of right femoral internal f ixation. 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 Lumbar degenerative disc disease and facet arthr opathy noted. Femur: No acute fracture or malalignment of the femur is identified. Foot: Overlying dressing darian its fine bony evaluation. Minimally displaced medial malleolus fracture. Soft tissues: Small knee greg nt effusion. Scattered atherosclerotic disease. Mild soft tissue swelling about the ankle. IMPRESSION: Limited exam due to osteopenia. No femoral fracture identified. Minimal displaced medial malleolus fractures. Small knee joint effusion. 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 TECHNIQUE: 2 view hip includ ing pelvis, 2 views of the femur, 3 views of the foot. FINDINGS: Diffuse osteopenia, which limits fine bony evalu ation. Pelvis/Hip: No acute fracture or malalignment is identified. Postsurgical changes of right femoral internal f ixation. 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 Lumbar degenerative disc disease and facet arthr opathy noted. Femur: No acute fracture or malalignment of the femur is identified. Foot: Overlying dressing adrian its fine bony evaluation. Minimally displaced medial malleolus fracture. Soft tissues: Small knee greg nt effusion. Scattered atherosclerotic disease. Mild soft tissue swelling about the ankle. IMPRESSION: Limited exam due to osteopenia. No femoral fracture identified. Minimal displaced medial malleolus fractures. Small knee joint effusion. 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 TECHNIQUE: 2 view hip includ ing pelvis, 2 views of the femur, 3 views of the foot. FINDINGS: Diffuse osteopenia, which limits fine bony evalu ation. Pelvis/Hip: No acute fracture or malalignment is identified. Postsurgical changes of right femoral internal f ixation. 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 Lumbar degenerative disc disease and facet arthr opathy noted. Femur: No acute fracture or malalignment of the femur is identified. Foot: Overlying dressing adrian its fine bony evaluation. Minimally displaced medial malleolus fracture. Soft tissues: Small knee greg nt effusion. Scattered atherosclerotic disease. Mild soft tissue swelling about the ankle. IMPRESSION: Limited exam due to osteopenia. No femoral fracture identified. Minimal displaced medial malleolus fractures. Small knee joint effusion. 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 TECHNIQUE: 2 view hip includ ing pelvis, 2 views of the femur, 3 views of the foot. FINDINGS: Diffuse osteopenia, which limits fine bony evalu ation. Pelvis/Hip: No acute fracture or malalignment is identified. Postsurgical changes of right femoral internal f ixation. 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 Lumbar degenerative disc disease and facet arthr opathy noted. Femur: No acute fracture or malalignment of the femur is identified. Foot: Overlying dressing adrian its fine bony evaluation. Minimally displaced medial malleolus fracture. Soft tissues: Small knee greg nt effusion. Scattered atherosclerotic disease. Mild soft tissue swelling about the ankle. IMPRESSION: Limited exam due to osteopenia. No femoral fracture identified. Minimal displaced medial malleolus fractures. Small knee joint effusion. 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 TECHNIQUE: 2 view hip includ ing pelvis, 2 views of the femur, 3 views of the foot. FINDINGS: Diffuse osteopenia, which limits fine bony evalu ation. Pelvis/Hip: No acute fracture or malalignment is identified. Postsurgical changes of right femoral internal f ixation. 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 Lumbar degenerative disc disease and facet arthr opathy noted. Femur: No acute fracture or malalignment of the femur is identified. Foot: Overlying dressing adrian its fine bony evaluation. Minimally displaced medial malleolus fracture. Soft tissues: Small knee greg nt effusion. Scattered atherosclerotic disease. Mild soft tissue swelling about the ankle. IMPRESSION: Limited exam due to osteopenia. No femoral fracture identified. Minimal displaced medial malleolus fractures. Small knee joint effusion. 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 TECHNIQUE: 2 view hip includ ing pelvis, 2 views of the femur, 3 views of the foot. FINDINGS: Diffuse osteopenia, which limits fine bony evalu ation. Pelvis/Hip: No acute fracture or malalignment is identified. Postsurgical changes of right femoral internal f ixation. 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 Lumbar degenerative disc disease and facet arthr opathy noted. Femur: No acute fracture or malalignment of the femur is identified. Foot: Overlying dressing adrian its fine bony evaluation. Minimally displaced medial malleolus fracture. Soft tissues: Small knee greg nt effusion. Scattered atherosclerotic disease. Mild soft tissue swelling about the ankle. IMPRESSION: Limited exam due to osteopenia. No femoral fracture identified. Minimal displaced medial malleolus fractures. Small knee joint effusion. 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 TECHNIQUE: 2 view hip includ ing pelvis, 2 views of the femur, 3 views of the foot. FINDINGS: Diffuse osteopenia, which limits fine bony evalu ation. Pelvis/Hip: No acute fracture or malalignment is identified. Postsurgical changes of right femoral internal f ixation. 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 Lumbar degenerative disc disease and facet arthr opathy noted. Femur: No acute fracture or malalignment of the femur is identified. Foot: Overlying dressing adrian its fine bony evaluation. Minimally displaced medial malleolus fracture. Soft tissues: Small knee greg nt effusion. Scattered atherosclerotic disease. Mild soft tissue swelling about the ankle. IMPRESSION: Limited exam due to osteopenia. No femoral fracture identified. Minimal displaced medial malleolus fractures. Small knee joint effusion. 2018-10-04 [id number] [facility] 11:49:00-00:00 [facility] [id number] [place] [address] PATIENT NAME: LIDIA GRAVES ADMIT DATE: ACCOUNT NO: [id number] ROOM NO: AGE: 73 REPORT TYPE: eSTRESS ELECTROCARDIOGRAM SEX: M ADMITTING PHYSICIAN: ATTENDING PHYSICIAN: Michael Valdez MD Acquisition Time: 2018-10-04 11:49:36 Test Date/ Time Stamp:WedOct 04 2018 11:49:36 Total Exercise Time: 00:02:00 Test Indications: SOB Medications: Protocol: LEXISCAN Max HR: 076 BPM 52% of Pred: 146 BPM Max BP: 146/054 mmHG Max Work Load: 1.0 METS Absence of Lexiscan-induced chest pain or ischem ic EKG changes compared ot baseline. Recommend correlation with cardiolite images whe n done. Confirmed by MICHAEL VALDEZ MD ([id number]) on 10/08/2018 11:3 8:47 AM Referred By: Michael Valdez Confirmed by:MICHAEL VALDEZ MD at [id number] PATIENT NAME: LIDIA GRAVES [id number] 2015-11-19 EXAM: XR CHEST 1 VIEW [facility] 20:35:00-00:00 DATE: 11/19/2015 8:18 PM CDT INDICATION: Abnormal chest sounds COMPARISON: 11/07/2015 TECHNIQUE: AP chest, supine, 2 images. FINDINGS: Study is limited by portable technique. Lungs and pleura: No new pulmonary or pl eural based abnormality is identified. Heart and mediastinum: Unchanged. Bones and soft tissues: Unchanged. IMPRESSION: Limited exam. Ot herwise, no significant interval change in the radiographic appearance of the chest. 2015-11-19 EXAM: XR CHEST 1 VIEW [facility] 20:35:00-00:00 DATE: 11/19/2015 8:18 PM CDT INDICATION: Abnormal chest sounds COMPARISON: 11/07/2015 TECHNIQUE: AP chest, supine, 2 images. FINDINGS: Study is limited by portable technique. Lungs and pleura: No new pulmonary or pl eural based abnormality is identified. Heart and mediastinum: Unchanged. Bones and soft tissues: Unchanged. IMPRESSION: Limited exam. Ot herwise, no significant interval change in the radiographic appearance of the chest. 2015-11-19 EXAM: XR CHEST 1 VIEW [facility] 20:35:00-00:00 DATE: 11/19/2015 8:18 PM CDT INDICATION: Abnormal chest sounds COMPARISON: 11/07/2015 TECHNIQUE: AP chest, supine, 2 images. FINDINGS: Study is limited by portable technique. Lungs and pleura: No new pulmonary or pl eural based abnormality is identified. Heart and mediastinum: Unchanged. Bones and soft tissues: Unchanged. IMPRESSION: Limited exam. Ot herwise, no significant interval change in the radiographic appearance of the chest. 2015-11-11 EXAM: Esophagus BA swallow w function Rehab DX [facility] 13:30:00-00:00 DATE: 11/08/2015 2:00 PM CDT INDICATION: Dysphagia ADDITIONAL INFORMATION: None. COMPARISON: None. TECHNIQUE: Oral barium contr ast of various consistencies was given to the patient to assess swallowing function. The study was performed in conjunction with speech pathology. FLUOROSCOPY TIME: 1 minute(s), 28 second(s). DOSE: 1.41 Gycm\\S\\2 DISCUSSION: Lateral cotton grader views of the n alvin demonstrate a normal appearance of the epiglottis and prevertebral soft tissues. The patient was given thin c onsistency contrast by teaspoon of small bolus volume demonstrating moderate oral phase dysphagia with significant premature spillage and gross aspiration with cough reflex. This was repeated with small sips and the patient did not experience aspiration or penetration. The patient was given thin c onsistency contrast by straw of small bolus volume demonstrating a normal oral swallowing phase with normal motor function and an adequate bolus size. There was prompt trigge ring of the swallowing refle x with effective bolus propulsion. There was normal motion of the larynx and epiglottis during the pharyngeal phase with normal epiglottic inversion. The patient was given thin c onsistency contrast by cup of small bolus volume demonstrating a normal oral swallowing phase with normal motor function and an adequate bolus size. There was prompt triggeri ng of the swallowing reflex with effective bolus propulsion. There was normal motion of the larynx and epiglottis during the pharyngeal phase with normal epiglottic inversion. The patient was given soft s olid consistency contrast, a barium coated cookie, demonstrating satisfactory mastication. There was prompt triggering of the swallowing reflex with effective bolus propulsio n. There was normal motion o f the larynx and epiglottis during the pharyngeal phase with normal epiglottic inversion. Mild vallecular residue was observed. IMPRESSION: 1. Moderate oral phase dysph agia with significant premature spillage with all consistencies to the level of the piriform sinuses. 2. At least 2 episodes of fr ank aspiration with consecutive sips of thin liquids with appropriate cough reflex. 3. Mild vallecular pooling w ith thin liquids and solids cleared on subsequent swallows. Please refer to the speech t herapist's report for more detail and specific dietary recommendations. 2015-11-11 EXAM: Esophagus BA swallow w function Rehab DX [facility] 13:30:00-00:00 DATE: 11/08/2015 2:00 PM CDT INDICATION: Dysphagia ADDITIONAL INFORMATION: None. COMPARISON: None. TECHNIQUE: Oral barium contr ast of various consistencies was given to the patient to assess swallowing function. The study was performed in conjunction with speech pathology. FLUOROSCOPY TIME: 1 minute(s), 28 second(s). DOSE: 1.41 Gycm\\S\\2 DISCUSSION: Lateral cotton grader views of the n alvin demonstrate a normal appearance of the epiglottis and prevertebral soft tissues. The patient was given thin c onsistency contrast by teaspoon of small bolus volume demonstrating moderate oral phase dysphagia with significant premature spillage and gross aspiration with cough reflex. This was repeated with small sips and the patient did not experience aspiration or penetration. The patient was given thin c onsistency contrast by straw of small bolus volume demonstrating a normal oral swallowing phase with normal motor function and an adequate bolus size. There was prompt trigge ring of the swallowing refle x with effective bolus propulsion. There was normal motion of the larynx and epiglottis during the pharyngeal phase with normal epiglottic inversion. The patient was given thin c onsistency contrast by cup of small bolus volume demonstrating a normal oral swallowing phase with normal motor function and an adequate bolus size. There was prompt triggeri ng of the swallowing reflex with effective bolus propulsion. There was normal motion of the larynx and epiglottis during the pharyngeal phase with normal epiglottic inversion. The patient was given soft s olid consistency contrast, a barium coated cookie, demonstrating satisfactory mastication. There was prompt triggering of the swallowing reflex with effective bolus propulsio n. There was normal motion o f the larynx and epiglottis during the pharyngeal phase with normal epiglottic inversion. Mild vallecular residue was observed. IMPRESSION: 1. Moderate oral phase dysph agia with significant premature spillage with all consistencies to the level of the piriform sinuses. 2. At least 2 episodes of fr ank aspiration with consecutive sips of thin liquids with appropriate cough reflex. 3. Mild vallecular pooling w ith thin liquids and solids cleared on subsequent swallows. Please refer to the speech t herapist's report for more detail and specific dietary recommendations. 2015-11-11 EXAM: Esophagus BA swallow w function Rehab DX [facility] 13:30:00-00:00 DATE: 11/08/2015 2:00 PM CDT INDICATION: Dysphagia ADDITIONAL INFORMATION: None. COMPARISON: None. TECHNIQUE: Oral barium contr ast of various consistencies was given to the patient to assess swallowing function. The study was performed in conjunction with speech pathology. FLUOROSCOPY TIME: 1 minute(s), 28 second(s). DOSE: 1.41 Gycm\\S\\2 DISCUSSION: Lateral cotton grader views of the n alvin demonstrate a normal appearance of the epiglottis and prevertebral soft tissues. The patient was given thin c onsistency contrast by teaspoon of small bolus volume demonstrating moderate oral phase dysphagia with significant premature spillage and gross aspiration with cough reflex. This was repeated with small sips and the patient did not experience aspiration or penetration. The patient was given thin c onsistency contrast by straw of small bolus volume demonstrating a normal oral swallowing phase with normal motor function and an adequate bolus size. There was prompt trigge ring of the swallowing refle x with effective bolus propulsion. There was normal motion of the larynx and epiglottis during the pharyngeal phase with normal epiglottic inversion. The patient was given thin c onsistency contrast by cup of small bolus volume demonstrating a normal oral swallowing phase with normal motor function and an adequate bolus size. There was prompt triggeri ng of the swallowing reflex with effective bolus propulsion. There was normal motion of the larynx and epiglottis during the pharyngeal phase with normal epiglottic inversion. The patient was given soft s olid consistency contrast, a barium coated cookie, demonstrating satisfactory mastication. There was prompt triggering of the swallowing reflex with effective bolus propulsio n. There was normal motion o f the larynx and epiglottis during the pharyngeal phase with normal epiglottic inversion. Mild vallecular residue was observed. IMPRESSION: 1. Moderate oral phase dysph agia with significant premature spillage with all consistencies to the level of the piriform sinuses. 2. At least 2 episodes of fr ank aspiration with consecutive sips of thin liquids with appropriate cough reflex. 3. Mild vallecular pooling w ith thin liquids and solids cleared on subsequent swallows. Please refer to the speech t herapist's report for more detail and specific dietary recommendations. 2015-11-07 EXAM: XR CHEST 1 VIEW [facility] 17:43:28-00:00 DATE: 11/07/2015 12:57 PM CDT INDICATION: Coughing COMPARISON: 01/31/2015 TECHNIQUE: AP chest FINDINGS: Cardiomediastinal silhouette unremarkable. Lungs are clear bilaterally. Costophrenic sulci are sharp. No pleural effusions. No focal consolidation and no pneumothorax. No osseous abnormalities. IMPRESSION: No acute findings on chest radiograp h. 2015-11-07 EXAM: XR ABDOMEN 2 VIEWS [facility] 17:43:28-00:00 DATE: 11/07/2015 12:57 PM CDT INDICATION: Constipation ADDITIONAL INFORMATION: None. COMPARISON: Abdominal radiograph 02/01/2015 TECHNIQUE: AP view of the abdomen. FINDINGS: Lines, tubes and hardware: Right hip arthroplast y, unchanged. Lower thorax: Unremarkable where visualized. Bowel: Bowel gas pattern is nonobstructive. There is mild to moderate amount of stool within the colon. Other abdominal organs: No abnormal mass or orga nomegaly seen. Calcifications: No abnormal calcifications found . Bones: Moderate to severe de generative changes of the thoracic and lumbar spine. Extraabdominal soft tissues: Normal. IMPRESSION: 1. Mild to moderate amount o f stool within the colon without abnormal bowel dilation. 2015-11-07 EXAM: XR CHEST 1 VIEW [facility] 17:43:28-00:00 DATE: 11/07/2015 12:57 PM CDT INDICATION: Coughing COMPARISON: 01/31/2015 TECHNIQUE: AP chest FINDINGS: Cardiomediastinal silhouette unremarkable. Lungs are clear bilaterally. Costophrenic sulci are sharp. No pleural effusions. No focal consolidation and no pneumothorax. No osseous abnormalities. IMPRESSION: No acute findings on chest radiograp h. 2015-11-07 EXAM: XR ABDOMEN 2 VIEWS [facility] 17:43:28-00:00 DATE: 11/07/2015 12:57 PM CDT INDICATION: Constipation ADDITIONAL INFORMATION: None. COMPARISON: Abdominal radiograph 02/01/2015 TECHNIQUE: AP view of the abdomen. FINDINGS: Lines, tubes and hardware: Right hip arthroplast y, unchanged. Lower thorax: Unremarkable where visualized. Bowel: Bowel gas pattern is nonobstructive. There is mild to moderate amount of stool within the colon. Other abdominal organs: No abnormal mass or orga nomegaly seen. Calcifications: No abnormal calcifications found . Bones: Moderate to severe de generative changes of the thoracic and lumbar spine. Extraabdominal soft tissues: Normal. IMPRESSION: 1. Mild to moderate amount o f stool within the colon without abnormal bowel dilation. 2015-11-07 EXAM: XR CHEST 1 VIEW [facility] 17:43:28-00:00 DATE: 11/07/2015 12:57 PM CDT INDICATION: Coughing COMPARISON: 01/31/2015 TECHNIQUE: AP chest FINDINGS: Cardiomediastinal silhouette unremarkable. Lungs are clear bilaterally. Costophrenic sulci are sharp. No pleural effusions. No focal consolidation and no pneumothorax. No osseous abnormalities. IMPRESSION: No acute findings on chest radiograp h. 2015-11-07 EXAM: XR ABDOMEN 2 VIEWS [facility] 17:43:28-00:00 DATE: 11/07/2015 12:57 PM CDT INDICATION: Constipation ADDITIONAL INFORMATION: None. COMPARISON: Abdominal radiograph 02/01/2015 TECHNIQUE: AP view of the abdomen. FINDINGS: Lines, tubes and hardware: Right hip arthroplast y, unchanged. Lower thorax: Unremarkable where visualized. Bowel: Bowel gas pattern is nonobstructive. There is mild to moderate amount of stool within the colon. Other abdominal organs: No abnormal mass or orga nomegaly seen. Calcifications: No abnormal calcifications found . Bones: Moderate to severe de generative changes of the thoracic and lumbar spine. Extraabdominal soft tissues: Normal. IMPRESSION: 1. Mild to moderate amount o f stool within the colon without abnormal bowel dilation. 2015-02-01 EXAM: XR ABDOMEN 1 VIEW [facility] 12:00:00-00:00 DATE: Jan 31, 2015 06:59:00 PM INDICATION: Constipation COMPARISON: . TECHNIQUE: Supine radiographs provided for inter pretation. DISCUSSION: Normal volume colonic stool in the ascending colon and hepatic flexure. Multiple scattered colonic diverticula, more marked in the left hemicolon. The bowel gas pattern is nonobstructive. No abnormal mass or organomegaly seen. No pathologic calcifications found. No suspicious bony abnormalities. IMPRESSION: Normal volume colonic stool in the ascending colon and in the hepatic flexure. The remaining colon is unremarkable. Retained barium within multi ple diverticula, predominantly in the left hemicolon. Interpreted by Sourav You MD. 2015-02-01 EXAM: XR ABDOMEN 1 VIEW [facility] 12:00:00-00:00 DATE: Jan 31, 2015 06:59:00 PM INDICATION: Constipation COMPARISON: . TECHNIQUE: Supine radiographs provided for inter pretation. DISCUSSION: Normal volume colonic stool in the ascending colon and hepatic flexure. Multiple scattered colonic diverticula, more marked in the left hemicolon. The bowel gas pattern is nonobstructive. No abnormal mass or organomegaly seen. No pathologic calcifications found. No suspicious bony abnormalities. IMPRESSION: Normal volume colonic stool in the ascending colon and in the hepatic flexure. The remaining colon is unremarkable. Retained barium within multi ple diverticula, predominantly in the left hemicolon. Interpreted by Sourav You MD. 2015-02-01 EXAM: XR ABDOMEN 1 VIEW [facility] 12:00:00-00:00 DATE: Jan 31, 2015 06:59:00 PM INDICATION: Constipation COMPARISON: . TECHNIQUE: Supine radiographs provided for inter pretation. DISCUSSION: Normal volume colonic stool in the ascending colon and hepatic flexure. Multiple scattered colonic diverticula, more marked in the left hemicolon. The bowel gas pattern is nonobstructive. No abnormal mass or organomegaly seen. No pathologic calcifications found. No suspicious bony abnormalities. IMPRESSION: Normal volume colonic stool in the ascending colon and in the hepatic flexure. The remaining colon is unremarkable. Retained barium within multi ple diverticula, predominantly in the left hemicolon. Interpreted by Sourav You MD. 2015-01-31 Chest one view, January 31, 2015 at 1956 [facility] 19:53:24-00:00 HISTORY: 70-year-old man with chest tightness. FINDINGS: Comparison is made to a prior radiogra ph from August 2005. The cardiomediastinal silhou ette is stable. There is a patchy left infrahilar opacity. The costophrenic sulci are sharp, without effusions. IMPRESSION: Patchy left lowe r lobe/infrahilar opacity could be due to atelectasis, aspiration, or pneumonia. This should be followed to ensure clearing. 2015-01-31 Chest one view, January 31, 2015 at 1956 [facility] 19:53:24-00:00 HISTORY: 70-year-old man with chest tightness. FINDINGS: Comparison is made to a prior radiogra ph from August 2005. The cardiomediastinal silhou ette is stable. There is a patchy left infrahilar opacity. The costophrenic sulci are sharp, without effusions. IMPRESSION: Patchy left lowe r lobe/infrahilar opacity could be due to atelectasis, aspiration, or pneumonia. This should be followed to ensure clearing. 2015-01-31 Chest one view, January 31, 2015 at 1956 [facility] 19:53:24-00:00 HISTORY: 70-year-old man with chest tightness. FINDINGS: Comparison is made to a prior radiogra ph from August 2005. The cardiomediastinal silhou ette is stable. There is a patchy left infrahilar opacity. The costophrenic sulci are sharp, without effusions.
[2022-10-26 19:44] LABS: Absolute Lymphocytes (CBC) 1.5 K/uL (0.7-4.9); Hematocrit 44.8 % (39.6-49.0); Lymphocytes % 21.3 % (15.3-44.8); MCV 89.1 fL (80-100); RBC Red Blood Cell Count 5.03 M/uL (4.33-5.43)
--- NOTE | 2022-10-26 19:45 | RAD REPORT ---
EXAM DESCRIPTION: Servando Single View10/26/2022 7:34 pm CLINICAL HISTORY: Palpitations COMPARISON: none FINDINGS: The lungs appear clear of acute infiltrate. The heart is borderline enlarged IMPRESSION: No acute abnormalities displayed
[2022-10-26 19:48] LABS: Protime INR 1.07
[2022-10-26] MEDS ORDERED: NA CHLORIDE 0.9% 500 ML ONE (19:56)
[2022-10-26] MEDS ORDERED: METOPROLOL TAR 25 MG TAB ONE (19:56)
[2022-10-26] MEDS ORDERED: MAGNESIUM SULFATE 1 gm IVPB 1 GM/100 ML BAG IV ONE (19:56)
[2022-10-26 20:24] LABS: Potassium 3.3 mEq/L (3.5-5.1); Troponin High Sensitivity 29.9 pg/mL (<58.9)
--- NOTE | 2022-10-26 20:47 | EDPHYS ---
Physician Documentation [facility] Name: Jona Rodriges Age: 77 yrs Sex: Male : 1945 Arrival Date: 10/26/2022 Time: 18:36 Bed 2 Private MD: Ke Arias R ED Physician Negro Dowling HPI: 10/26 20:43 This 77 yrs old Male presents to ER via Wheelchair with complaints of palpitations. rn 20:43 The patient presents with a history of irregular heart beat. Context: The symptoms rn occur at rest. Onset: The symptoms/episode began/occurred 1 week(s) ago. Modifying factors: The symptoms are aggravated by nothing. The symptoms are alleviated by nothing. Severity of symptoms: At their worst the symptoms were moderate in the emergency department the symptoms have improved. The patient has not experienced similar symptoms in the past. The patient has been recently seen by a physician:. Sent by pcp for "abnormal ekg" and palpitations for 1 week. No chest pain. No hx of afib/flutter. NO sob. Recently cut his coreg in half due to bradycardia. . Historical: - Allergies: 19:13 No Known Allergies; nj1 - PMHx: 19:13 Cerebrovascular accident; Congestive heart failure; History of urinary tract infection; nj1 Hypertensive disorder; Hypercholesterolemia; Osteoporosis; Irregular heart beat; - Immunization history:: Client reports receiving the 2nd dose of the Covid vaccine. - Social history:: Smoking status: Patient denies any tobacco usage or history of. - Family history:: not pertinent. - Hospitalizations: : No recent hospitalization is reported. ROS: 20:43 Constitutional: Negative for fever, chills, and weight loss, Cardiovascular: + rn palpitations Respiratory: Negative for shortness of breath, cough, wheezing, and pleuritic chest pain, Abdomen/GI: Negative for abdominal pain, nausea, vomiting, diarrhea, and constipation, MS/Extremity: Negative for injury and deformity, Skin: Negative for injury, rash, and discoloration, Neuro: Negative for headache, weakness, numbness, tingling, and seizure. Exam: 20:43 Constitutional: This is a well developed, well nourished patient who is awake, alert, rn and in no acute distress. Head/Face: Normocephalic, atraumatic. Cardiovascular: Tachycardic, irregular Respiratory: No increased work of breathing, no retractions or nasal flaring. Abdomen/GI: Soft, non-tender Skin: Warm, dry MS/ Extremity: Pulses equal, no cyanosis. Neuro: Awake and alert, GCS 15 Vital Signs: 18:51 BP 127 / 95; Pulse 105; Resp 18; Temp 97.4(O); Pulse Ox 99% ; Weight 127.01 kg; Height nj1 6 ft. 0 in. ; 21:46 BP 129 / 79; Pulse 92; Resp 19; Pulse Ox 96% ; jb4 18:51 Body Mass Index 37.97 (127.01 kg, 182.88 cm) nj1 MDM: 18:51 Patient medically screened. rn 20:43 Differential diagnosis: arrythmia, dehydration, stress disorder. Data reviewed: vital rn signs, nurses notes, lab test result(s), EKG, radiologic studies, plain films, and as a result, I will admit patient. Consideration of Admission/Observation Patient was admitted/placed on observation. Escalation of care including admission/observation considered. Counseling: I had a detailed discussion with the patient and/or guardian regarding: the historical points, exam findings, and any diagnostic results supporting the discharge/admit diagnosis, lab results, radiology results, the need for further work-up and treatment in the hospital. Response to treatment: the patient's symptoms have markedly improved after treatment, and as a result, I will admit patient. 20:43 ED course: HR down to 90s, BP 131/68. rn 10/26 19:22 Order name: Basic Metabolic Panel; Complete Time: 20: rn 10/26 19:22 Order name: CBC with Diff; Complete Time: 20: rn 10/26 19:22 Order name: NT PRO-BNP; Complete Time: 20: rn 10/26 19:22 Order name: PT-INR; Complete Time: 20: rn 10/26 19:22 Order name: Troponin HS; Complete Time: 20: rn 10/26 21:33 Order name: UAM sb4 10/26 19:22 Order name: XRAY Chest (1 view); Complete Time: 20: rn 10/26 19:22 Order name: EKG; Complete Time: 19: rn 10/26 19:22 Order name: Cardiac monitoring; Complete Time: 19:44 rn 10/26 19:22 Order name: EKG - Nurse/Tech; Complete Time: 19:44 rn 10/26 19:22 Order name: IV Saline Lock; Complete Time: 19:44 rn 10/26 19:22 Order name: Labs collected and sent; Complete Time: 19:44 rn 10/26 19:22 Order name: O2 Per Protocol; Complete Time: 19:44 rn 10/26 19:22 Order name: O2 Sat Monitoring; Complete Time: 19:44 rn Administered Medications: 20:02 Drug: Magnesium Sulfate IVPB 1 grams Route: IVPB; Infused Over: 1 hrs; Site: right jb4 antecubital; 20:04 Drug: Metoprolol PO 25 mg Route: PO; jb4 20:04 Drug: NS 0.9% IV 500 ml Route: IV; Rate: bolus; Site: right antecubital; jb4 Disposition Summary: 10/26/22 20:47 Hospitalization Ordered Hospitalization Status: Inpatient Admission rn Provider: Suman Rebollar [facility]n [facility] Condition: Stable rn Problem: new rn Symptoms: have improved rn Bed/Room Type: Standard rn Room Assignment: 229(10/26/22 21:42) cg Diagnosis - Persistent atrial fibrillation - with RVR(10/26/22 20:47) rn Forms: - Medication Reconciliation Form rn - SBAR form rn diabetes educator time excluding procedures: 20:47 Critical care time: Bedside Care: 35 minutes, Consultation: 5 minutes. Total time: 40 rn minutes Signatures: Dispatcher [employer] EDNegro Jordan MD MD rn Garcia, Cindy RN RN Paul Rodriguez RN RN jb4 Jennifer Vasquez RN RN nj1 Corrections: (The following items were deleted from the chart) 20:47 20:47 Persistent atrial fibrillation rn rn 21:42 20:47 rn
--- NOTE | 2022-10-26 20:47 | ER ---
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 Coronavirus screen: Vaccine status: Patient reports receiving the 2nd dose of the covid vaccine. 18:51 Method Of Arrival: Wheelchair [facility] 18:51 Ebola Screen: Patient denies travel to an Ebola-affected area in the 21 days before [facility] illness onset. Initial Sepsis Screen: Does the patient meet any 2 criteria? HR > 90 bpm. No. Patient's initial sepsis screen is negative. Does the patient have a suspected source of infection? No. Patient's initial sepsis screen is negative. Risk Assessment: Do you want to hurt yourself or someone else? Patient reports no desire to harm self or others. Onset of symptoms was October 19, 2022. 18:51 Acuity: CARLOS 3 nj Historical: - Allergies: 19:13 No Known Allergies; nj1 - PMHx: 19:13 Cerebrovascular accident; Congestive heart failure; History of urinary tract infection; nj1 Hypertensive disorder; Hypercholesterolemia; Osteoporosis; Irregular heart beat; - Immunization history:: Client reports receiving the 2nd dose of the Covid vaccine. - Social history:: Smoking status: Patient denies any tobacco usage or history of. - Family history:: not pertinent. - Hospitalizations: : No recent hospitalization is reported. Screenin:05 [facility] ED Fall Risk Assessment (Adult) History of falling in the last 3 months, jb4 including since admission No falls in past 3 months (0 pts) Confusion or Disorientation No (0 pts). Abuse screen: Denies threats or abuse. Nutritional screening: No deficits noted. Tuberculosis screening: No symptoms or risk factors identified. Assessment: 20:05 General: Appears in no apparent distress. comfortable, Behavior is calm, cooperative, jb4 appropriate for age. Pain: Denies pain. Neuro: Level of Consciousness is awake, alert, obeys commands, Oriented to person, place, time, situation. Cardiovascular: Patient's skin is warm and dry. Respiratory: Airway is patent Respiratory effort is even, unlabored, Respiratory pattern is regular, symmetrical. GI: No signs and/or symptoms were reported involving the gastrointestinal system. : No signs and/or symptoms were reported regarding the genitourinary system. EENT: No signs and/or symptoms were reported regarding the EENT system. Derm: Skin is intact, Skin is pink, warm \T\ dry. Musculoskeletal: Circulation, motion, and sensation intact. Range of motion: intact in all extremities. 21:46 Reassessment: Patient appears in no apparent distress at this time. Patient and/or jb4 family updated on plan of care and expected duration. Pain level reassessed. Patient is alert, oriented x 3, equal unlabored respirations, skin warm/dry/pink. Vital Signs: 18:51 BP 127 / 95; Pulse 105; Resp 18; Temp 97.4(O); Pulse Ox 99% ; Weight 127.01 kg; Height nj1 6 ft. 0 in. ; 21:46 BP 129 / 79; Pulse 92; Resp 19; Pulse Ox 96% ; jb4 18:51 Body Mass Index 37.97 (127.01 kg, 182.88 cm) nj1 ED Course: 18:39 Patient arrived in ED. mr 18:39 Ke Arias MD is Private Physician. mr 18:51 Negro Dowling MD is Attending Physician. rn 19:12 Triage completed. nj1 19:14 Arm band placed on. nj1 19:30 Initial lab(s) drawn, by in, sent to lab. Inserted saline lock: 20 gauge in right jb4 antecubital area, using aseptic technique. Blood collected. 19:36 XRAY Chest (1 view) In Process Unspecified. EDMS 19:44 Paul Gilmore, RN is Primary Nurse. jb4 20:46 Suman Rebollar is Hospitalizing Provider. rn 22:13 No provider procedures requiring assistance completed. Patient admitted, IV remains in jb4 place. Administered Medications: 20:02 Drug: Magnesium Sulfate IVPB 1 grams Route: IVPB; Infused Over: 1 hrs; Site: right jb4 antecubital; 20:04 Drug: Metoprolol PO 25 mg Route: PO; jb4 20:04 Drug: NS 0.9% IV 500 ml Route: IV; Rate: bolus; Site: right antecubital; jb4 Outcome: 20:47 Decision to Hospitalize by Provider. rn 22:13 Admitted to Med/surg accompanied by tech, via wheelchair, room 229, with chart, Report jb4 called to [facility] 22:13 Condition: stable 22:13 Discharge instructions given to patient, family, Instructed on the need for admit, Demonstrated understanding of instructions. 22:14 Patient left the ED. jb4 Signatures: Dispatcher [employer] EDMolly Guzman Roman, MD MD rn Bryson, James, RN RN jb4 Jennifer Vasquez RN RN nj1 Corrections: (The following items were deleted from the chart) 19:13 18:51 Onset of symptoms was October 26, 2022 nj1 nj1
--- NOTE | 2022-10-26 21:39 | P.HP ---
Certification for Inpatient Patient admitted to: Inpatient With expected LOS: <2 Midnights Patient will require the following post-hospital care: None Practitioner: I am a practitioner with admitting privileges, knowledge of patient current condition, hospital course, and medical plan of care. Services: Services provided to patient in accordance with Admission requirements found in Title 42 Section 412.3 of the Code of Federal Regulations Patient History Date of Service: 10/26/22 Primary Care Provider: Hugo Reason for admission: Afib RVR, New Onset History of Present Illness: Mr. Nguyen is a 77-year-old male with past medical history of CVA mostly wheelchair bound, cervical stenosis, hypertension, hyperlipidemia, and congestive heart failure who presented to the emergency department with tachycardia. states that patient's child life therapist recently temporarily decreased his carvedilol dose as he had been having some episodes of bradycardia, however he was back to his normal dose the past few days. She states that his Apple Watch kept alerting him that he was tachycardic. He was seen by his PCP today who obtained an EKG and sent him to the ED to be evaluated. His EKG showed A-fib with a rate of 105. He denies any history of atrial fibrillation, sees his child life therapist in [place] every 3 months. No significant lab abnormalities, urine is negative, chest x-ray is negative. He was given IV magnesium and p.o. metoprolol in the emergency department with mild improvement in his heart rate. He is asymptomatic. Will admit for further management of new onset A-fib. Allergies No Known Allergies Allergy (Unverified 10/26/22 21:59) Home medications list reviewed: Yes - Past Medical/Surgical History Diabetic: No -: CVA -: Hypertension -: Hyperlipidemia -: CHF -: Osteoporosis -: Hip surgery Psychosocial/ Personal History: Patient is . - Social History Smoking Status: Never smoker Alcohol use: No CD- Drugs: No Caffeine use: No Place of Residence: Home Review of Systems 10-point ROS is otherwise unremarkable Cardiovascular: Other (tachycardia) Physical Examination - Vital Signs Temperature: 97.4 F Blood Pressure: 127/95 Pulse: 105 Respirations: 18 Pulse Ox (%): 99 - Physical Exam General: Alert, In no apparent distress HEENT: Atraumatic, EOMI, Sclerae nonicteric Neck: Supple, 2+ carotid pulse no bruit Respiratory: Clear to auscultation bilaterally, Normal air movement Cardiovascular: Regular rate/rhythm, Normal S1 S2 Gastrointestinal: Normal bowel sounds, No tenderness Musculoskeletal: No tenderness Integumentary: No rashes Neurological: Normal speech, Normal affect - Studies Laboratory Data (last 24 hrs) 10/26/22 19:50: Sodium 137, Potassium 3.3 L, BUN 20 H, Creatinine 0.93, Glucose 97 10/26/22 19:30: PT 11.8, INR 1.07 10/26/22 19:30: WBC 7.10, Hgb 14.9, Hct 44.8, Plt Count 203 Assessment and Plan - Problems (Diagnosis) (1) Atrial fibrillation Current Visit: Yes Status: Acute Qualifiers: Atrial fibrillation type: paroxysmal Qualified Code(s): I48.0 - Paroxysmal atrial fibrillation (2) Hypertension Current Visit: Yes Status: Chronic Qualifiers: Hypertension type: primary hypertension Qualified Code(s): I10 - Essential (primary) hypertension (3) Hyperlipidemia Current Visit: Yes Status: Chronic Qualifiers: Hyperlipidemia type: mixed hyperlipidemia Qualified Code(s): E78.2 - Mixed hyperlipidemia (4) CVA (cerebral vascular accident) Current Visit: Yes Status: Chronic Qualifiers: CVA mechanism: unspecified Qualified Code(s): I63.9 - Cerebral infarction, unspecified (5) CHF (congestive heart failure) Current Visit: Yes Status: Chronic Qualifiers: Heart failure type: unspecified Heart failure chronicity: chronic Q ualified Code(s): I50.9 - Heart failure, unspecified - Plan Patient is admitted for further management of new onset atrial fibrillation. Monitor on telemetry, rate has improved to the 90s after p.o. metoprolol. Consult cardiology. Obtain echocardiogram. Check thyroid and lipid panel. Optimize electrolytes. Received 1g magnesium in the ED. Reconcile and continue home medications. Lovenox for VTE prophylaxis. Full code. Discharge Plan: Home Plan to discharge in: 48 Hours - Advance Directives Does patient have a Living Will: Yes Does patient have a Durable POA for Healthcare: Yes - Code Status/Comfort Care Code Status Assessed: Yes Code Status: Full Code Physician Review: Patient Assessed, Agree with Above Assessment and Plan Critical Care: No Time Spent Managing Pts Care (In Minutes): 50
[2022-10-26 21:58] LABS: Specific Gravity 1.022 (1.005-1.030); Urine Bacteria None Seen /HPF (<20); Urine Bilirubin NEGATIVE (Negative); Urine Blood Negative (Negative); Urine Clarity Clear (Clear); Urine Color Light-Yellow (Yellow); Urine Glucose NEGATIVE (Negative); Urine Mucus Slight /HPF (None Seen); Urine Protein 1+ (Negative); Urine RBC <5 /HPF (None Seen); Urine Urobilinogen Normal (Normal); Urine pH 5.5 (5.0-7.0)
[2022-10-26] MEDS ORDERED: ACETAMINOPHEN 500 MG TAB PO PRN (22:44)
[2022-10-26] MEDS ORDERED: ONDANSETRON 4 MG/2 ML VIAL IV PRN (22:44)
[2022-10-26 22:55] VITALS: BMI 40.0
[2022-10-27 03:45] LABS: Absolute Lymphocytes (CBC) 1.3 K/uL (0.7-4.9); Hematocrit 40.9 % (39.6-49.0); MCV 88.6 fL (80-100); MPV 7.3 fL (7.6-11.3); RBC Red Blood Cell Count 4.61 M/uL (4.33-5.43)
[2022-10-27 04:09] LABS: Albumin 3.3 g/dL (3.4-5.0); Bilirubin Total 0.4 mg/dL (0.2-1.0); Magnesium 2.1 mg/dL (1.6-2.4); Phosphorus 2.7 mg/dL (2.5-4.9); Protein, Total 6.6 g/dL (6.4-8.2); Thyroid Stimulating Hormone 1.57 uIU/mL (0.358-3.740)
[2022-10-27] MEDS ORDERED: PNEUMOCOCCAL VACCINE 0.5 ML IMVAC ONE (08:00)
[2022-10-27] MEDS: ENOXAPARIN 40 MG/0.4 ML SQ SCH (08:40)
[2022-10-27] MEDS ORDERED: POTASSIUM CL SA 10 MEQ TAB PO ONE ×2 (09:00→12:04)
[2022-10-27] MEDS ORDERED: METOPROLOL TARTRATE 5 MG/5 ML INJ IV PRN (10:28)
[2022-10-27] MEDS ORDERED: TORSEMIDE 20 MG TAB PO PRN (10:33)
[2022-10-27] MEDS ORDERED: HOME MED 1 EA UNK (Potassium Chloride [Potassium Chloride] 20 MEQ Tablet.Er) PO PRN (10:33)
[2022-10-27] MEDS ORDERED: POTASSIUM CL SA 10 MEQ TAB PO PRN (10:45)
[2022-10-27] MEDS: SOTALOL HCL 80 MG TAB PO SCH ×2 (11:11→17:31)
[2022-10-27 11:48] LABS: Potassium 3.1 mEq/L (3.5-5.1)
--- NOTE | 2022-10-27 11:57 | P.PN ---
Subjective Date of Service: 10/27/22 Primary Care Provider: Hugo Chief Complaint: Afib RVR, New Onset Subjective: Doing well Review of Systems General: Weakness Eyes: Unremarkable ENT: Unremarkable Respiratory: Unremarkable Cardiovascular: Unremarkable Gastrointestinal: Unremarkable Genitourinary: Unremarkable Neurological: Weakness Lymphatics: Unremarkable Physical Examination - Vital Signs Temperature: 97.7 F Blood Pressure: 124/96 Pulse: 61 Respirations: 16 Pulse Ox (%): 97 - Physical Exam General: Alert, In no apparent distress, Oriented x3, Cooperative HEENT: Atraumatic, PERRLA, EOMI Neck: Supple, JVD not distended Respiratory: Clear to auscultation bilaterally, Normal air movement Cardiovascular: Normal S1 S2, Edema, Irregular heart rate/rhythm Capillary refill: <2 Seconds Gastrointestinal: Normal bowel sounds, Non-distended, No tenderness Musculoskeletal: No tenderness, Swelling Integumentary: No rashes Neurological: Normal tone, Normal affect, Abnormal speech Lymphatics: No axilla or inguinal lymphadenopathy Urinary: Heck catheter - Studies Laboratory Data (last 24 hrs) 10/26/22 19:50: Sodium 137, Potassium 3.3 L, BUN 20 H, Creatinine 0.93, Glucose 97 10/26/22 19:30: PT 11.8, INR 1.07 10/26/22 19:30: WBC 7.10, Hgb 14.9, Hct 44.8, Plt Count 203 Assessment And Plan - Plan --Atrial fibrillation with RVR. Chamber Worker on board. Recommended starting patient on sotalol with EKG after third dose and Lopressor IV as needed for rate control. Family informed of cardiologists recommendation. Telemetry to monitor for any malignant arrhythmia. Echocardiogram pending to assess cardiac structures and function. We will await further recommendation from assembler tractor. --History of CVA. Patient with left-sided weakness. Family reported that patient has been on physical therapy before admission to the hospital. PT eval and treat. --Hypertension. Poorly controlled. Continue home medications and Lopressor as needed. --HLD. Continue statin. --Hypokalemia. Replete as needed. --DVT prophylaxis with Lovenox subQ. Discharge Plan: Home Plan to discharge in: Greater than 2 days - Code Status/Comfort Care Code Status Assessed: Yes Physician Review: Patient Assessed, Agree with Above Assessment and Plan Critical Care: No
[2022-10-27] MEDS: HYDRALAZINE HCL 25 MG TABLET PO SCH (19:47)
[2022-10-27] MEDS: DOXAZOSIN 4 MG TAB PO SCH (19:48)
[2022-10-27] MEDS: CITALOPRAM 10 MG TABLET PO SCH (19:48)
[2022-10-27] MEDS: BACLOFEN 10 MG TAB PO SCH (19:48)
[2022-10-27] MEDS: ATORVASTATIN 10 MG TAB PO SCH (19:49)
[2022-10-27] MEDS: MAGNESIUM OXIDE 400 MG TAB PO SCH (19:49)
--- NOTE | 2022-10-27 20:38 | EKG ---
Test Date: 2022-10-26 Test Time: 19:38:15 Director Dietetics Department: EL MEASUREMENT RESULTS: Intervals: Rate: 104 [place]: QRSD: 110 QT: 362 QTc: 476 [place]: P: NV: QRS: -44 T: 124 INTERPRETIVE STATEMENTS: Atrial flutter with variable AV block with premature ventricular or aberrantly conducted complexes Left axis deviation Left ventricular hypertrophy with repolarization abnormality Anteroseptal infarct, age undetermined Abnormal ECG No previous ECG available for comparison Electronically Signed On 10-27-22 20:33:05 CDT by Aaron Joshi
--- NOTE | 2022-10-27 20:38 | EKG ---
Test Date: 2022-10-26 Test Time: 19:39:09 Industrial Hygiene Engineer: EL MEASUREMENT RESULTS: Intervals: Rate: 105 [place]: QRSD: 104 QT: 368 QTc: 486 [place]: P: AL: QRS: -44 T: 128 INTERPRETIVE STATEMENTS: Atrial fibrillation Left axis deviation Anteroseptal infarct, age undetermined ST & T wave abnormality, consider lateral ischemia or digitalis effect Abnormal ECG Compared to ECG 10/26/2022 19:38:15 ST (T wave) deviation now present Possible ischemia now present Atrial flutter no longer present Ventricular premature complex(es) no longer present Left ventricular hypertrophy no longer present Early repolarization no longer present Myocardial infarct finding still present Electronically Signed On 10-27-22 20:33:04 CDT by Aaron Joshi
[2022-10-27] MEDS ORDERED: carvediloL 6.25 MG TAB PO SCH (21:00)
[2022-10-27] MEDS ORDERED: HOME MED 1 EA UNK (Simvastatin [Zocor] 10 MG Tablet) PO SCH (21:00)
[2022-10-28 03:47] LABS: Magnesium 2.1 mg/dL (1.6-2.4); Potassium 3.4 mEq/L (3.5-5.1)
[2022-10-28] MEDS: SOTALOL HCL 80 MG TAB PO SCH ×2 (05:32→17:06)
--- NOTE | 2022-10-28 06:59 | ECHO ---
HEIGHT: 6 ft 0 in WEIGHT: 295 lb 3.183 oz DATE OF STUDY: 10/27/[address]: Marylou Nelson 2-DIMENSIONAL: YES M.MODE: YES DOPPLER: YES COLOR FLOW: YES TDS: PORTABLE: YES DEFINITY: BUBBLE STUDY: DIAGNOSIS: ATRIAL FIBRILLATION WITH RAPID VENTRICULAR RESPONSE, NEW ONSET CARDIAC HISTORY: CATHERIZATION: NO SURGERY: NO PROSTHETIC VALVE: NO PACEMAKER: NO MEASUREMENTS (cm) DIASTOLIC (NORMALS) SYSTOLIC (NORMALS) IVSd 1.2 (0.6-1.2) LA Diam 2.5 (1.9-4.0) LVEF 56% LVIDd 3.4 (3.5-5.7) LVIDs 2.4 (2.0-3.5) %FS 28% LVPWd 1.2 (0.6-1.2) Ao Diam 2.7 (2.0-3.7) 2 DIMENSIONAL ASSESSMENT: RIGHT ATRIUM: NORMAL LEFT ATRIUM: NORMAL RIGHT VENTRICLE: NORMAL LEFT VENTRICLE: NORMAL TRICUSPID VALVE: NORMAL MITRAL VALVE: MITRAL ANNULAR CALCIFICATION PULMONIC VALVE: NORMAL AORTIC VALVE: STENOTIC PERICARDIAL EFFUSION: NONE AORTIC ROOT: NORMAL LEFT VENTRICULAR WALL MOTION: NORMAL DOPPLER/COLOR FLOW: MILD TRICUSPID REGURGITATION. MODERATE AORTIC STENOSIS 1.3 CENTIMETERS SQUARED COMMENTS: 1. ATRIAL FIBRILLATION 2. NORMAL EJECTION FRACTION 3. AORTIC STENOSIS, MODERATE 1.3 CENTIMETERS SQUARED 4. MITRAL ANNULAR CALCIFICATION 5. MILD TRICUSPID REGURGITATION. NORMAL RIGHT VENTRICULAR SYSTOLIC PRESSURE TECHNOLOGIST: DANIELA PRINCE
--- NOTE | 2022-10-28 07:09 | P.PN ---
Date of Service: 10/28/22 Subjective: remains in afib, HR in the 110s; asymptomatic swelling in legs slowly improving per family working with PT, needing max assist x2 people no acute events overnight ROS: 10 point ROS as noted above, otherwise negative Physical Exam: GEN: Alert, NAD, CPAP at night HEENT: Normal conjunctiva, sclera anicteric CV: Irregularly Irregular rate and rhythm, 1+ b/l lower extremity edema, IV/ systolic murmur Pulm: non-labored on CPAP, clear bilaterally ABD: Soft, nontender, nondistended vitals reviewed Problem List: new onset A-fib with RVR moderate aortic stenosis hx of CVA CHF Hypertension Hyperlipidemia Monitor on telemetry CXR (10/26): no acute abnormalities Cardiology consulted continue sotalol (10/27) third dose this morning EKG noted QTc ~500 remains in afib, HR mostly 100-110s, states patient is / has been asymptomatic, wouldn't have known if not for apple watch alarm triggering at home Echo (10/27): LVEF:56% a-fib, aortic stenosis (moderate 1.3cm squared), mitral annular calcification, mild TR, normal right ventricular systolic pressure continue home medications including - aspirin, statin, plavix, lisinopril, amlodipine PT consult f/u EKG VTE: Lovenox Code: Full Dispo: Home ~24 hrs; pending better control of heart rate/rhythm Patient states they have an appointment tomorrow 10/29 with regular artillery or naval gunfire observer
[2022-10-28] MEDS ORDERED: POTASSIUM CL SA 10 MEQ TAB PO ONE (08:05)
[2022-10-28] MEDS ORDERED: ASPIRIN EC 81 MG TAB PO SCH (09:00)
[2022-10-28] MEDS: MAGNESIUM OXIDE 400 MG TAB PO SCH ×2 (09:00→20:55)
[2022-10-28] MEDS: GLYCERIN PR SCH (09:00)
[2022-10-28] MEDS ORDERED: CLOPIDOGREL 75 MG TABLET PO SCH (09:00)
[2022-10-28] MEDS ORDERED: HOME MED 1 EA UNK (Lisinopril/Hydrochlorothiazide [Zestoretic 20-12.5 Mg Tablet] Tablet) PO SCH (09:00)
[2022-10-28] MEDS: ENOXAPARIN 40 MG/0.4 ML SQ SCH (09:23)
[2022-10-28] MEDS: ZINC SULFATE 220 MG CAP PO SCH (09:23)
[2022-10-28] MEDS: lisinopriL 20 MG TAB PO SCH (09:24)
[2022-10-28] MEDS: HYDRALAZINE HCL 25 MG TABLET PO SCH ×2 (09:24→20:55)
[2022-10-28] MEDS: hydroCHLOROthiazide 12.5 MG CAP PO SCH (09:24)
[2022-10-28] MEDS: AMLODIPINE 10 MG TAB PO SCH (09:25)
[2022-10-28] MEDS: VITAMIN D 5,000 UNIT CAP PO SCH (09:25)
[2022-10-28] MEDS: CRANBERRY FRUIT EXTRACT 200 MG CAP PO SCH (09:25)
[2022-10-28] MEDS: DOCOSAHEXANOIC AC/EPA 1000 MG PO SCH (09:25)
[2022-10-28] MEDS: BACLOFEN 10 MG TAB PO SCH ×2 (09:25→20:55)
--- NOTE | 2022-10-28 18:55 | CON ---
Date of Consultation: 10/28/2022 Reason For Consultation: Atrial fibrillation with rapid ventricular response. History Of Present Illness: A 77-year-old male with past medical history of severe hypertension, dys lipidemia, CHF. He was sent to the emergency room because he had an EKG elsewhere at the primary car e physician office and found to be in atrial fibrillation with rapid ventricular response, heart rate was in the 105 and 110 range. He was sent to the ER. Over here, his heart rate is running on the l ow 100. Started him on sotalol yesterday and he is tolerating it very well. No new complaints. No chest pain or significant shortness of breath. Past Medical History: As outlined above in the HPI. Medications: Refer to reconciliation sheet for detailed list. Allergies: NO KNOWN DRUG ALLERGIES. Family History: No premature coronary artery disease or cancer. Social History: He does not smoke or drink. Does not use any drugs. Review of Systems: All systems reviewed and they were negative except what mentioned in HPI. Physical Examination: Vital Signs: Reviewed. Head and Neck: Pupils are equal, reactive to light. Intact eye movements. No JVD. No cervical lym phadenopathy. Neck is supple. Thyroid is not enlarged. Lungs: Decreased breathing sounds bilaterally. No accessory muscle use or muscle retraction. Heart: Irregularly irregular. No extra sounds. Abdomen: Soft, nontender. Bowel sounds positive. No organomegaly. No masses or hernia. No rigidi ty or rebound. Extremities: No clubbing or cyanosis. There is edema 1 to 2+ bilaterally. Neurologic: Alert, awake, oriented x3. No acute focal deficits appreciated. Investigations: BUN 16, creatinine 0.81. NT-proBNP is 761. Troponin is negative. TSH is 1.57, hem oglobin 13.8. Assessment And Recommendations: 1.Atrial fibrillation with rapid ventricular response. Start him on sotalol. Still running on the fast side. I will increase it to 120 mg twice a day and by tomorrow if he continues to be in atrial fibrillation, we will plan for MICHAEL-guided cardioversion on him. I recommend to start him on Eliquis 5 mg twice a day and obtain echocardiogram. 2.Hypertension. Blood pressure is controlled. Continue current home medications. 3.Dyslipidemia. Continue statin. SR/MODL Voice ID: [id number] Report ID: [id number]
[2022-10-28] MEDS ORDERED: DOXAZOSIN 2 MG TAB ONE (20:32)
[2022-10-28] MEDS: CITALOPRAM 10 MG TABLET PO SCH (20:54)
[2022-10-28] MEDS: ATORVASTATIN 10 MG TAB PO SCH (20:54)
[2022-10-28] MEDS: DOXAZOSIN 4 MG TAB PO SCH (20:56)
[2022-10-29 04:18] LABS: Magnesium 2.3 mg/dL (1.6-2.4); Potassium 3.5 mEq/L (3.5-5.1)
[2022-10-29] MEDS: SOTALOL HCL 80 MG TAB PO SCH ×2 (06:02→17:15)
[2022-10-29] MEDS ORDERED: SOTALOL HCL 80 MG TAB PO ONE (06:41)
--- NOTE | 2022-10-29 07:00 | P.PN ---
Date of Service: 10/29/22 Subjective: doing okay, feels like usual self; asymptomatic remains in afib, HR minimally improved needing significant assistance, +stiffness and difficulty moving all extremities per PT no acute events overnight ROS: 10 point ROS as noted above, otherwise negative Physical Exam: GEN: Alert, NAD HEENT: Normal conjunctiva, sclera anicteric CV: Irregularly Irregular rate and rhythm (HR:L60-70s), 1+ b/l lower extremity edema, IV/ systolic murmur Pulm: non-labored on room air, clear bilaterally ABD: Soft, nontender, nondistended vitals reviewed Problem List: A-fib with RVR , new diagnosis moderate aortic stenosis 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, secondary to dissection) chronic diastolic CHF Hypertension Hyperlipidemia Monitor on telemetry CXR (10/26): no acute abnormalities Cardiology consulted continue sotalol; increased from 80mg to 120mg per Cardiology (10/29) tentative plan for MICHAEL-guided cardioversion if no improvement / patient remains in afib repeat EKG EKG after 3rd dose of sotalol with QTC ~500, HR: 110s started eliquis (10/29) remains in afib, HR mostly 100-110s, states patient is / has been asymptomatic, wouldn't have known if not for apple watch alarm triggering at home Echo (10/27): LVEF:56% a-fib, aortic stenosis (moderate 1.3cm squared), mitral annular calcification, mild TR, normal right ventricular systolic pressure continue home medications including - aspirin, statin, lisinopril, amlodipine started eliquis for afib, plavix DCd (10/28) reviewed with Dr. Lea (cardiology), and Dr. 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
[2022-10-29] MEDS ORDERED: POTASSIUM CL SA 10 MEQ TAB PO ONE (09:00)
[2022-10-29] MEDS: GLYCERIN PR SCH (09:00)
[2022-10-29] MEDS: AMLODIPINE 10 MG TAB PO SCH (09:42)
[2022-10-29] MEDS: APIXABAN 5 MG TABLET PO SCH ×2 (09:42→20:29)
[2022-10-29] MEDS: HYDRALAZINE HCL 25 MG TABLET PO SCH ×2 (09:42→20:28)
[2022-10-29] MEDS: CRANBERRY FRUIT EXTRACT 200 MG CAP PO SCH (09:42)
[2022-10-29] MEDS: hydroCHLOROthiazide 12.5 MG CAP PO SCH (09:43)
[2022-10-29] MEDS: lisinopriL 20 MG TAB PO SCH (09:44)
[2022-10-29] MEDS: VITAMIN D 5,000 UNIT CAP PO SCH (09:44)
[2022-10-29] MEDS: ZINC SULFATE 220 MG CAP PO SCH (09:44)
[2022-10-29] MEDS: BACLOFEN 10 MG TAB PO SCH ×2 (09:45→20:28)
[2022-10-29] MEDS: MAGNESIUM OXIDE 400 MG TAB PO SCH ×2 (09:45→20:28)
[2022-10-29] MEDS: DOCOSAHEXANOIC AC/EPA 1000 MG PO SCH (09:59)
[2022-10-29] MEDS: ASPIRIN EC 81 MG TAB PO SCH (09:59)
[2022-10-29] MEDS ORDERED: DOXAZOSIN 2 MG TAB ONE (19:39)
--- NOTE | 2022-10-29 19:42 | PN ---
Date of Progress Note: 10/29/2022 Subjective: Seen at bedside. Doing well, but his heart rate is still running on the fast side, 110- 120. He is on sotalol. Review of Systems: No chest pain, shortness of breath, orthopnea, cough. No nausea, vomiting, diarrhea. No abdominal p ain. All other systems reviewed and they were negative. Physical Examination: Vital Signs: Reviewed. Head and Neck: Pupils are equal, reactive to light. Intact eye movements. No JVD. No cervical lym phadenopathy. Neck is supple. Thyroid is not enlarged. Lungs: Clear to auscultation bilaterally. No rhonchi, wheezing, or crackles. No accessory muscle u se. Heart: Irregularly irregular. No extra sounds. Abdomen: Soft, nontender. Bowel sounds positive. No organomegaly. No masses or hernia. No rigidi ty or rebound. Extremities: Edema bilaterally. No clubbing or cyanosis. Intact pulses. Skin: No rash. Neurologic: Alert, awake. No acute focal deficits appreciated. Investigations: Labs were reviewed. Assessment And Recommendations: 1.As the patient has atrial fibrillation with rapid ventricular response, so sotalol was increased. I recommended MICHAEL-guided cardioversion; however, family are skeptical doing this in a [place] [facility]. Explained to him that is a standard procedure and he would like to discuss this with his prim ava vamp wetter, and I myself found his primary vamp wetter yesterday and we made the plan together . We will wait on sotalol 1 more day. If he does not get his heart rate controlled or converted in sinus rhythm, then we will represent the MICHAEL-cardioversion tomorrow. 2.Aortic valve stenosis. It is moderate in severity by echo and he is being monitored by his cardio logist. SR/MODL Voice ID: [id number] Report ID: [id number]
[2022-10-29] MEDS: ATORVASTATIN 10 MG TAB PO SCH (20:29)
[2022-10-29] MEDS: CITALOPRAM 10 MG TABLET PO SCH (20:29)
[2022-10-29] MEDS: DOXAZOSIN 4 MG TAB PO SCH (20:30)
[2022-10-30 01:54] VITALS: O2SAT 95
[2022-10-30 03:17] LABS: Potassium 3.7 mEq/L (3.5-5.1)
[2022-10-30] MEDS: SOTALOL HCL 80 MG TAB PO SCH ×2 (05:52→17:15)
[2022-10-30] MEDS: CRANBERRY FRUIT EXTRACT 200 MG CAP PO SCH (08:36)
[2022-10-30] MEDS: ASPIRIN EC 81 MG TAB PO SCH (08:37)
[2022-10-30] MEDS: MAGNESIUM OXIDE 400 MG TAB PO SCH (08:37)
[2022-10-30] MEDS: AMLODIPINE 10 MG TAB PO SCH (08:37)
[2022-10-30] MEDS: HYDRALAZINE HCL 25 MG TABLET PO SCH (08:37)
[2022-10-30] MEDS: VITAMIN D 5,000 UNIT CAP PO SCH (08:38)
[2022-10-30] MEDS: APIXABAN 5 MG TABLET PO SCH (08:38)
[2022-10-30] MEDS: ZINC SULFATE 220 MG CAP PO SCH (08:38)
[2022-10-30] MEDS: DOCOSAHEXANOIC AC/EPA 1000 MG PO SCH (08:38)
[2022-10-30] MEDS: lisinopriL 20 MG TAB PO SCH (08:38)
[2022-10-30] MEDS: BACLOFEN 10 MG TAB PO SCH (08:39)
[2022-10-30] MEDS: hydroCHLOROthiazide 12.5 MG CAP PO SCH (08:39)
[2022-10-30] MEDS: GLYCERIN PR SCH (08:41)
[2022-10-30 08:42] VITALS: TEMP 97
[2022-10-30] MEDS ORDERED: POTASSIUM 25 MEQ EFFERV TAB PO ONE (09:00)
[2022-10-30] MEDS ORDERED: POTASSIUM CL SA 10 MEQ TAB PO ONE (11:04)
[2022-10-30 16:14] VITALS: BP 131/78
--- NOTE | 2022-10-30 16:46 | P.DS ---
Discharge Date: 10/30/22 Primary Care Provider: Hugo Disposition: ROUTINE DISCHARGE Discharge Condition: GOOD Reason for Admission: Afib RVR, New Onset Consultations: Cardiology Brief History of Present Illness: Mr. Nguyen is a 77-year-old male with past medical history of CVA mostly wheelchair bound, cervical stenosis, hypertension, hyperlipidemia, and congestive heart failure who presented to the emergency department with tachycardia. states that patient's underlay stitcher recently temporarily decreased his carvedilol dose as he had been having some episodes of bradycardia, however he was back to his normal dose the past few days. She states that his Apple Watch kept alerting him that he was tachycardic. He was seen by his PCP today who obtained an EKG and sent him to the ED to be evaluated. His EKG showed A-fib with a rate of 105. He denies any history of atrial fibrillation, sees his underlay stitcher in [place] every 3 months. No significant lab abnormalities, urine is negative, chest x-ray is negative. He was given IV magnesium and p.o. metoprolol in the emergency department with mild improvement in his heart rate. He is asymptomatic. Will admit for further management of new onset A-fib. Hospital Course: Patient has done well during hospitalization. Patient's heart rate is controlled. Patient is clinically doing well and patient is stable for discharge with outpatient follow-up. Patient wants to follow-up as an outpatient with their own underlay stitcher. We were planning on doing a MICHAEL with cardioversion but they do not want to stay over the weekend. Will continue with sotalol and hopefully patient converts. Plan to discharge with outpatient follow-up. Vital Signs/Physical Exam: Temp Pulse Resp BP Pulse Ox 97.0 F 80 16 131/78 95 10/30/22 16:00 10/30/22 16:00 10/30/22 16:00 10/30/22 16:00 10/30/22 16:00 General: Alert, In no apparent distress, Oriented x3 Laboratory Data at Discharge: WBC 6.30 thou/uL (4.3-10.9) 10/27/22 02:59 Hgb 13.8 g/dL (13.6-17.9) 10/27/22 02:59 Hct 40.9 % (39.6-49.0) 10/27/22 02:59 Plt Count 186 thou/uL (152-406) 10/27/22 02:59 PT 11.8 SECONDS (9.5-12.5) 10/26/22 19:30 INR 1.07 10/26/22 19:30 Sodium 139 mEq/L (136-145) 10/30/22 02:31 Potassium 3.7 mEq/L (3.5-5.1) 10/30/22 02:31 BUN 17 mg/dL (7-18) 10/30/22 02:31 Creatinine 0.87 mg/dL (0.70-1.30) 10/30/22 02:31 Glucose 122 mg/dL (74-106) H 10/30/22 02:31 Phosphorus 2.7 mg/dL (2.5-4.9) 10/27/22 02:59 Magnesium 2.3 mg/dL (1.6-2.4) 10/29/22 02:42 Total Bilirubin 0.4 mg/dL (0.2-1.0) 10/27/22 02:59 AST 29 U/L (15-37) 10/27/22 02:59 ALT 40 U/L (16-61) 10/27/22 02:59 Alkaline Phosphatase 53 U/L (45-117) 10/27/22 02:59 Triglycerides 117 mg/dL (<150) 10/27/22 02:59 Cholesterol 114 mg/dL (<200) 10/27/22 02:59 HDL Cholesterol 34 mg/dL (40-60) L 10/27/22 02:59 Cholesterol/HDL Ratio 3.35 10/27/22 02:59 Home Medications: Alendronate [Fosamax*] 70 mg PO Q7D 10/27/22 Amlodipine [Norvasc*] 10 mg PO DAILY 10/27/22 Aspirin [Aspirin EC 81 MG] 81 mg PO DAILY 10/27/22 Baclofen [Lioresal] 20 mg PO BID 10/27/22 Carvedilol [Coreg] 6.25 mg PO BID 10/27/22 Cholecalciferol (Vitamin D3) [Vitamin D 5,000 IU Cap*] 5,000 unit PO DAILY 10/27/22 Citalopram [Celexa*] 10 mg PO BEDTIME 10/27/22 Clopidogrel Bisulfate [Plavix] 75 mg PO DAILY 10/27/22 Cranberry Conc/C/Bacill Coag [Cranberry Tablet] 15,000 units PO DAILY 10/27/22 Doxazosin [Cardura*] 4 mg PO BEDTIME 10/27/22 Glycerin 1 dose [place] DAILY 10/27/22 Hydralazine [Apresoline*] 50 mg PO BID 10/27/22 Lisinopril/Hydrochlorothiazide [Zestoretic 20-12.5 mg Tablet] 12.5 - 20 mg PO DAILY 10/27/22 Magnesium Citrate and Oxide [Magnesium] 250 mg PO BID 10/27/22 [place]-3 Fatty Acids [[place]-3] 1,200 mg PO DAILY 10/27/22 Potassium Chloride 20 meq PO BEDTIME PRN 10/27/22 Simvastatin [Zocor] 10 mg PO BEDTIME 10/27/22 Torsemide [Demadex*] 20 mg PO BEDTIME PRN 10/27/22 Zinc Gluconate [Zinc] 50 mg PO DAILY 10/27/22 Sotalol HCl [Betapace*] 120 mg PO BID 6AM 6PM #90 tab 10/30/22 New Medications: Sotalol HCl [Betapace*] 120 mg PO BID 6AM 6PM #90 tab Physician Discharge Instructions: OK TO DC IV AND DC HOME FOLLOW-UP WITH PRIMARY CARE PROVIDER IN 1-2 WEEKS FOLLOW-UP WITH CARDIOLOGY IN 1 WEEK RETURN TO THE ER IF symptoms worsen CALL DR. WOODS AT [phone] IF ANY QUESTIONS REGARDING HOSPITAL STAY. PLEASE CALL THE FLOOR AT [phone] IF ANY MEDICATION OR NURSING QUESTIONS. Diet: AHA Activity: Fall precautions Time spent managing pt's care (in minutes): 35
[2022-10-30] MEDS ORDERED: DOXAZOSIN 2 MG TAB ONE (17:46)
--- NOTE | 2022-10-30 19:16 | PN ---
Date of Progress Note: 10/30/2022 Subjective: Seen by bedside. Doing well. Heart rate is below 100. Review of Systems: No chest pain, shortness of breath, orthopnea, or cough. No nausea, vomiting, or diarrhea. All othe r systems reviewed, they are negative. Objective: Vital Signs: Reviewed. Head and Neck: Pupils are equal, reactive to light. Intact eye movements. No JVD. No cervical lym phadenopathy. Neck is supple. Thyroid is not enlarged. Lungs: Clear to auscultation bilaterally. No rhonchi, wheezing, or crackles. No accessory muscle u se. Heart: Irregularly irregular. No extra sounds. Abdomen: Soft, nontender. Bowel sounds positive. No organomegaly. No masses or hernia. No rigidi ty or rebound. Extremities: No clubbing or cyanosis. Intact pulses. Skin: No rash. Neurologic: Alert, awake, oriented x3. No acute focal deficits appreciated. Investigations: BUN 17, creatinine 0.87, hemoglobin is 13.8. Assessment And Recommendations: 1.Atrial fibrillation, rapid ventricular response. Heart rate is controlled now. He refused MICHAEL-gu ided cardioversion and he would like to be released and follow up with his primary script supervisor. At this point, we will do an EKG. If the QTc interval is normal, then he can be released on sotalol and Eliquis. Follow up his primary script supervisor and if he continues to be in atrial fibrillation, I ellie l still recommend MICHAEL-guided cardioversion. 2.Elevated NT-proBNP, likely diastolic heart failure. Patient will benefit from low-dose torsemide. I will continue that and have him follow up with his primary script supervisor as an outpatient. From coronary standpoint, patient can be released if the QTc interval is normal on the EKG. SR/MODL Voice ID: [id number] Report ID: [id number]
--- NOTE | 2022-11-02 19:34 | EKG ---
Test Date: 2022-10-30 Test Time: 15:52:00 Risk Consulting Treasury Director: Cecilia MORSE MEASUREMENT RESULTS: Intervals: Rate: 75 ME: QRSD: 112 QT: 446 QTc: 498 [place]: P: [place]: QRS: -25 T: -26 INTERPRETIVE STATEMENTS: Atrial fibrillation Moderate voltage criteria for LVH, may be normal variant Cannot rule out Septal infarct, age undetermined Abnormal ECG Compared to ECG 10/28/2022 06:24:23 Left ventricular hypertrophy now present Left-axis deviation no longer present Myocardial infarct finding still present Electronically Signed On 11-02-22 19:30:38 CDT by Aaron Joshi
--- NOTE | 2022-11-02 19:34 | EKG ---
Test Date: 2022-10-30 Test Time: 15:52:45 Photography Coordinator: Cecilia MORSE MEASUREMENT RESULTS: Intervals: Rate: 71 [place]: QRSD: 102 QT: 502 QTc: 545 [place]: P: [place]: QRS: -23 T: -51 INTERPRETIVE STATEMENTS: afib with occasional premature ventricular complexes Minimal voltage criteria for LVH, may be normal variant Cannot rule out Anterior infarct, age undetermined Prolonged QT Abnormal ECG Electronically Signed On 11-02-22 19:30:35 CDT by Aaron Joshi
== END 2022-10-30 18:50 | disposition home or self-care (01) | DRG 309 ==
LOC: ER 18:36 → 2ND 21:34
PROVIDERS: ADMIT Hospitalist; ATTEND Hospitalist
DX: I48.0 Paroxysmal atrial fibrillation (principal); I50.32 Chronic diastolic (congestive) heart failure; I69.354 Hemiplegia and hemiparesis following cerebral infarction affecting left non-dominant side; I11.0 Hypertensive heart disease with heart failure; E87.6 Hypokalemia; E78.2 Mixed hyperlipidemia; I35.0 Nonrheumatic aortic (valve) stenosis; M81.0 Age-related osteoporosis without current pathological fracture; Z99.3 Dependence on wheelchair; Z79.02 Long term (current) use of antithrombotics/antiplatelets; Z79.82 Long term (current) use of aspirin; Z79.899 Other long term (current) drug therapy
CPT/HCPCS: 36415; 71045; 80048; 80053; 80061; 81001; 83735; 83880; 84100; 84132; 84443; 84484; 85025; 85610; 93005; 93306; 96374; 97110; 97116; 97140; 97161; 97165; 97530; 99285; J1650; J3475; J7040